=== PATIENT | female | born 1955 | race Caucasian/White ===

== ENCOUNTER 2022-05-02 16:34 | Inpatient (IN) | payer MEDICARE, MEDICAID, SELFPAY ==
--- NOTE | ~2022-05-02 | CT_ITS ---
EXAMINATION: CT ABDOMEN AND PELVIS WITH CONTRAST CLINICAL INFORMATION: Abdominal pain and diarrhea COMPARISON: CT abdomen pelvis 10/10/2018 TECHNIQUE: Multidetector volumetric images were obtained from the superior aspect of the liver through the pubic symphysis following administration 85 mL of Omnipaque 350 intravenous contrast. Sagittal and coronal reformatted images were obtained on the technologist's workstation. Oral contrast: No This CT examination was performed using dose optimization techniques as appropriate, variously including the following: *Automated exposure control *Adjustment of mA and/or kV according to patient size (this includes techniques or standardized protocols for targeted exams where dose is matched to indication/reason for exam; i.e. extremities or head) *Use of iterative reconstruction technique DLP: 634 mGy-cm FINDINGS: LUNG BASES: The visualized lung bases are unremarkable. LIVER, GALLBLADDER, AND BILIARY TREE: The liver is normal in size, shape, and attenuation with the exception of a geographic area of hypoattenuation adjacent to the falciform ligament similar to 2019 suggesting focal fatty infiltration.. No worrisome focal hepatic lesion or biliary ductal dilatation is present. The gallbladder has been removed. PANCREAS: Unremarkable. SPLEEN: Unremarkable. ADRENAL GLANDS: Unremarkable. KIDNEYS AND URETERS: The kidneys are normal in size, shape, and attenuation. Few small right Bosniak class I renal cysts are present which need no further imaging or follow-up. No hydronephrosis, hydroureter, or calculi seen. No perinephric stranding. BLADDER: Unremarkable. GASTROINTESTINAL TRACT: The entire colon appears abnormally thickened with some mild inflammatory changes seen in the pericolonic fat. Diverticula are present predominantly in the sigmoid. Findings are suggestive of colitis. No evidence of diverticulitis. The small bowel is unremarkable. The appendix is unremarkable. ABDOMINAL WALL: No significant hernia is appreciated. LYMPH NODES: No retroperitoneal lymphadenopathy. VASCULAR: Calcific aorta iliofemoral plaque is present without aneurysm. PELVIC VISCERA: An anteverted uterus is present. An abnormal adnexal mass or free intraperitoneal fluid is not seen. OSSEOUS STRUCTURES: Severe degenerative changes present throughout the spine. No bony destructive lesions CT/CT abdomen pelvis w con IMPRESSION: 1. Diffuse colitis. Cause would include infectious, inflammatory and drug-related etiologies. 2. Sigmoid diverticulosis 3. Other incidental findings described above. Fleischner guidelines were followed.
--- NOTE | 2022-05-02 16:45 | ECG_ITS ---
Test Reason : VOMITING Blood Pressure : / mmHG Vent. Rate : 113 BPM Atrial Rate : 117 BPM P-R Int : 148 ms QRS Dur : 080 ms QT Int : 334 ms P-R-T Axes : 064 068 050 degrees QTc Int : 458 ms Normal sinus rhythm Premature ventricular complexes Nonspecific ST abnormality Abnormal ECG When compared with ECG of 14-OCT-2019 13:58, Premature ventricular complexes noted Referred By: Generic ED Physician Electronically Signed By:CHRIS NUÑEZ
[2022-05-02 16:46] VITALS: BP 115/66; PULSE 99; RESP 18; TEMP 36.8; O2SAT 100; BMI 30.9
[2022-05-02 17:01] LABS: Basophils Percent Auto 0.2 % (0-2); Eosinophils Percent Auto 0.3 % (0-4); Hematocrit 38.5 % (37.0-47.0); Hemoglobin 12.2 g/dl (12.0-16.0); Imm Gran Abs Auto 0.07 X10*3/uL (0.00-0.03); Imm Gran Pct Auto 0.5 % (0.0-0.4); Lymphocytes Absolute Auto 1.6 X10*3/uL (1.2-4.9); Lymphocytes Percent Auto 12.1 % (20-40); MANUAL DIFF FLAG NO; Mean Corpuscular HGB Conc 31.7 g/dl (31.0-35.0); Mean Corpuscular Hemoglobin 26.2 pg (27.0-33.0); Mean Corpuscular Volume 82.8 fL (80.0-98.0); Mean Platelet Volume 8.8 fL (9.4-12.3); Monocytes Percent Auto 7.7 % (2-11); Neutrophils Absolute Auto 10.7 x10*3/uL (2.0-8.3); Neutrophils Percent Auto 79.2 % (45-73); Platelet Count 619 X10*3/uL (160-400); Red Blood Count 4.65 X10*6/uL (4.20-5.50); Red Cell Distribution Width 17.2 % (11.0-16.0); White Blood Count 13.4 X10*3/uL (4.8-10.8)
[2022-05-02 17:23] LABS: Alanine Aminotransferase 12 U/L (0-31); Albumin Level 2.9 g/dL (3.5-5.0); Alkaline Phosphatase 122 U/L (39-117); Aspartate Amino Transferase 10 U/L (5-31); B Type Natriuretic Peptide 126 pg/mL (<100); Bilirubin Total 0.3 mg/dL (0.0-1.0); Blood Urea Nitrogen 11 mg/dL (9-16); Calcium 8.2 mg/dL (8.4-10.2); Creatinine Clr Calc Pharmacy 66.6; Estimated Glomerular Filt Rate > 60; Glucose Random 172 mg/dL (60-115); Total Protein 6.1 g/dL (6.5-8.0); Troponin-I High Sensitivity 7.9 ng/L (<3.5-17.0)
[2022-05-02 17:25] LABS: COVID-19 Test Negative (Negative); IDNOW Serial# 16C4AD1C
[2022-05-02 17:33] LABS: Anion Gap 17 (12-20); Carbon Dioxide 28 mmol/L (22-29); Chloride 94 mmol/L (96-108); Potassium 2.6 mmol/L (3.3-5.1); Sodium 136 mmol/L (135-145)
--- NOTE | 2022-05-02 19:58 | ED.GENADULT ---
HPI - General Adult General Chief complaint: Weakness Stated complaint: Diarrhea Vomiting Weakness Time Seen by Provider: 05/02/22 19:54 Source: patient and family (Daughter) Mode of arrival: ambulatory History of Present Illness HPI narrative: This is a 67-year-old female who presents everyday smoking, ?borderline diabetes? and states that for 3 months she has been having 7-8 diarrheal episodes without blood and then increasing weakness/back pain for 24 hours an isolated episode of nausea and vomiting since yesterday. Otherwise, she denies any fever, chills, shortness of breath, chest pain/palpitations, urinary symptoms. Patient does endorse that she has the CDH1 gene for stomach cancer. Related Data Allergies Allergy/AdvReac Type Severity Reaction Status Date / Time No Known Allergies Allergy Unverified 06/12/20 15:16 [No Known Allergies*] Review of Systems Review of Systems: Pertinent positives and negatives as stated in HPI 10 point review of systems is otherwise negative. [facility] Past Medical History Source: nursing notes reviewed Social History Social History Alcohol intake: former Patient Tobacco Use Status: Current everyday Tobacco user Use of substances other than those prescribed or required for medical reasons: No Advance Directives: No Advance Directives Information Provided: No Physical Exam ED Vital Signs: Vital Signs - 24 hr 05/02/22 16:46 05/02/22 20:27 Temperature 98.3 F 97.6 F Pulse Rate 99 89 Respiratory Rate 18 16 Blood Pressure 115/66 157/75 H Pulse Oximetry 100 98 Oxygen Delivery Method Room Air Room Air BMI result Body Mass Index 30.9 VITAL SIGNS: Reviewed. GENERAL: Chronically ill, in moderate distress. HEAD: Normocephalic/atraumatic EYES: PERRLA, EOMI EARS: Ext canals without abnormality NOSE: Nares patent bilateral OROPHARYNX: no oral lesions noted, posterior pharynx clear, dry mucosa NECK: Supple, no adenopathy LUNGS: Normal breath sounds. No adventitious sounds or accessory muscle use. SpO2<100> CARDIOVASCULAR: Regular rate and rhythm without noted murmurs ABDOMEN: Soft, diffusely tender, non-distended with bowel sounds. MUSCULOSKELETAL: No tenderness, deformities, or effusions noted on gross inspection. EXTREMITIES: No cyanosis, clubbing or edema. SKIN: Inspection of the skin reveals no rashes NEUROLOGIC: Alert and oriented x 4. Strength and sensation to light touch were grossly intact x 4. Course Course Course Narrative: 1952: 67-year-old female with history and clinical presentation suggestive of possible COVID, gastroenteritis and will rule out colitis. 2054: I suspect infection and lactic acid/blood cultures as well as antibiotics were provided. In addition, patient has received IV fluids as well as potassium repletion but is still having significant discomfort and on review of CT scan findings are consistent with colitis and currently testing the diarrhea as well as urinalysis are pending. I discussed the case with the inpatient hospitalist who accepts admission. Medical Decision Making Lab Data Result diagrams: 05/02/22 16:55 05/02/22 16:54 Labs: Lab Results 05/02/22 05/02/22 05/02/22 Range/Units 16:51 16:54 16:54 WBC (4.8-10.8) X10*3/uL RBC (4.20-5.50) X10*6/uL Hgb (12.0-16.0) g/dl Hct (37.0-47.0) % MCV (80.0-98.0) fL MCH (27.0-33.0) pg MCHC (31.0-35.0) g/dl RDW (11.0-16.0) % Plt Count (160-400) X10*3/uL MPV (9.4-12.3) fL Immature Gran % (Auto) (0.0-0.4) % Neut % (Auto) (45-73) % Lymph % (Auto) (20-40) % [place] % (Auto) (2-11) % Eos % (Auto) (0-4) % Baso % (Auto) (0-2) % Lymph # (Auto) (1.2-4.9) X10*3/uL [place] # (Auto) (0.1-1.2) X10*3/uL Eos # (Auto) (0.0-0.4) X10*3/uL Baso # (Auto) (0.0-0.2) X10*3/uL Abs Immat Gran (auto) (0.00-0.03) X10*3/uL Absolute Neuts (auto) (2.0-8.3) x10*3/uL Absolute Nucleated RBC (0.0-0.012) X10*3/uL Nucleated RBC % (auto) (0.0-0.2) /100WBC Sodium 136 (135-145) mmol/L Potassium 2.6 L (3.3-5.1) mmol/L Chloride 94 L (96-108) mmol/L Carbon Dioxide 28 (22-29) mmol/L Anion Gap 17 (12-20) BUN 11 (9-16) mg/dL Creatinine 0.87 (0.5-1.4) mg/dL Estim Creat Clear Calc 66.6 Estimated GFR > 60 Random Glucose 172 H (60-115) mg/dL Lactic Acid (0.5-2.0) mmol/L Calcium 8.2 L (8.4-10.2) mg/dL Magnesium 2.0 (1.6-2.6) mg/dL Total Bilirubin 0.3 (0.0-1.0) mg/dL AST 10 (5-31) U/L ALT 12 (0-31) U/L Alkaline Phosphatase 122 H (39-117) U/L Troponin I High Sens 7.9 (<3.5-17.0) ng/L B-Natriuretic Peptide 126 H (<100) pg/mL Total Protein 6.1 L (6.5-8.0) g/dL Albumin 2.9 L (3.5-5.0) g/dL Lipase 10 (8-78) U/L COVID-19 (AC) Negative (Negative) COVID-19 Clin Com See Note 05/02/22 05/02/22 Range/Units 16:55 20:25 WBC 13.4 H (4.8-10.8) X10*3/uL RBC 4.65 (4.20-5.50) X10*6/uL Hgb 12.2 (12.0-16.0) g/dl Hct 38.5 (37.0-47.0) % MCV 82.8 (80.0-98.0) fL MCH 26.2 L (27.0-33.0) pg MCHC 31.7 (31.0-35.0) g/dl RDW 17.2 H (11.0-16.0) % Plt Count 619 H (160-400) X10*3/uL MPV 8.8 L (9.4-12.3) fL Immature Gran % (Auto) 0.5 H (0.0-0.4) % Neut % (Auto) 79.2 H (45-73) % Lymph % (Auto) 12.1 L (20-40) % [place] % (Auto) 7.7 (2-11) % Eos % (Auto) 0.3 (0-4) % Baso % (Auto) 0.2 (0-2) % Lymph # (Auto) 1.6 (1.2-4.9) X10*3/uL [place] # (Auto) 1.0 (0.1-1.2) X10*3/uL Eos # (Auto) 0.0 (0.0-0.4) X10*3/uL Baso # (Auto) 0.0 (0.0-0.2) X10*3/uL Abs Immat Gran (auto) 0.07 H (0.00-0.03) X10*3/uL Absolute Neuts (auto) 10.7 H (2.0-8.3) x10*3/uL Absolute Nucleated RBC 0.000 (0.0-0.012) X10*3/uL Nucleated RBC % (auto) 0.0 (0.0-0.2) /100WBC Sodium (135-145) mmol/L Potassium (3.3-5.1) mmol/L Chloride (96-108) mmol/L Carbon Dioxide (22-29) mmol/L Anion Gap (12-20) BUN (9-16) mg/dL Creatinine (0.5-1.4) mg/dL Estim Creat Clear Calc Estimated GFR Random Glucose (60-115) mg/dL Lactic Acid 1.9 (0.5-2.0) mmol/L Calcium (8.4-10.2) mg/dL Magnesium (1.6-2.6) mg/dL Total Bilirubin (0.0-1.0) mg/dL AST (5-31) U/L ALT (0-31) U/L Alkaline Phosphatase (39-117) U/L Troponin I High Sens (<3.5-17.0) ng/L B-Natriuretic Peptide (<100) pg/mL Total Protein (6.5-8.0) g/dL Albumin (3.5-5.0) g/dL Lipase (8-78) U/L COVID-19 (AC) (Negative) COVID-19 Clin Com Critical Care Time Critical Care Time Critical Care Time: Yes Total Critical Care Time: 30 Attestation: I personally attest to this time spent taking care of the patient. Discharge Plan Discharge Clinical Impression: Dehydration, Sepsis, Colitis, Hypokalemia Patient Disposition: Admitted As Inpatient
[2022-05-02 20:27] VITALS: BP 157/75; PULSE 89; RESP 16; TEMP 36.4; O2SAT 98
[2022-05-02 20:36] LABS: Lipase 10 U/L (8-78)
[2022-05-02] MEDS: 0.9 % Sodium Chloride 1,000 ML 999 ML IV (20:37)
[2022-05-02] MEDS: Ketorolac Tromethamine 30 MG/ML VIAL 15 MG IVPUSH (20:37)
[2022-05-02] MEDS: Lidocaine 4 % Patch ADH..PATCH 1 PATCH TRANSDERMA (20:37)
[2022-05-02] MEDS: Potassium Chloride/H20 10 MEQ/100 ML PIGGYBACK 100 MEQ IV (20:38)
[2022-05-02 20:51] LABS: Lactic Acid 1.9 mmol/L (0.5-2.0)
[2022-05-02] MEDS: HYDROmorphone HCl 0.5 MG/0.5 ML SYRINGE 0.25 MG IVPUSH (22:50)
[2022-05-02] MEDS: Piperacillin Sodium/Tazobactam 3.375 GM in 0.9 % Sodium Chloride 50 ML IV (22:50)
[2022-05-02] MEDS: iohexoL 350 MG/ML 100 ML INFUS..BTL IV (23:41)
[2022-05-02] MEDS: ondansetron HCL 4 MG/2 ML VIAL IVPUSH (23:52)
[2022-05-03] MEDS: Potassium Chloride/H20 10 MEQ/100 ML PIGGYBACK 100 MEQ IV (01:08)
--- NOTE | 2022-05-03 01:16 | P.HPHOSP_ITS ---
History of Present Illness Date of Service: 05/03/22 Chief Complaint: Diarrhea 67-year-old female with a past medical history of hypertension, hyperlipidemia, hypothyroidism, anxiety, depression, GERD, opiate dependence presented to the hospital today with a chief complaint of nausea, diarrhea and abdominal pain. Patient reports that over the past 6 days she has been having abdominal pain; diffuse in nature; had multiple episodes of diarrhea. Mentions that she has been having diarrhea for the past 2 months but worsened for the past 6 days. Also has nausea. Denies any vomiting. Denies any chest pain or palpitations. Denies any blood in the stool. Denies any fever chills cough or sputum production. Denies any urinary symptoms. Review of all other systems is negative except mentioned above ER course: Per ER team patient noted to have mild abdominal tenderness; CT scan showed findings concerning for colitis. Also noted to have hypokalemia. Admitted to the hospital for further management. PMFSH Pertinent family history: Father: Diabetes Social History Alcohol intake: former Patient Tobacco Use Status: Current everyday Tobacco user Use of substances other than those prescribed or required for medical reasons: No Advance Directives: No Advance Directives Information Provided: No Meds Allergies Allergy/AdvReac Type Severity Reaction Status Date / Time No Known Allergies Allergy Unverified 06/12/20 15:16 [No Known Allergies*] Active Medications: Current Medications Potassium Chloride (Potassium Chloride Packet 20 Meq Packet) 40 meq PO ONCE ONE Stop: 05/03/22 01:13 Potassium Chloride (Potassium Chloride Packet 20 Meq Packet) 40 meq PO ONCE ONE Stop: 05/03/22 03:14 Home Medications Medication Instructions Recorded Confirmed Last Taken Type atorvastatin 80 mg tablet 1 tab PO DAILY 05/03/22 05/03/22 Unknown History buprenorphine 8 mg-naloxone 2 mg 1 strip sublingual DAILY 05/03/22 05/03/22 Unknown History sublingual film (Suboxone) cyclobenzaprine 10 mg tablet 1 tab PO TID PRN muscle spasm 05/03/22 05/03/22 Un known History famotidine 20 mg tablet 0.5 tab PO BID 05/03/22 05/03/22 Unknown History levothyroxine 200 mcg tablet 1 tab PO DAILY 05/03/22 05/03/22 Unknown History metoprolol succinate 25 mg 1 tab PO DAILY 05/03/22 05/03/22 Unknown History tablet,extended release 24 hr quetiapine 25 mg tablet 1 tab PO QPM 05/03/22 05/03/22 Unknown History sertraline 50 mg tablet 1 tab PO DAILY 05/03/22 05/03/22 Unknown History Physical Exam Vital Signs and Narrative: Vital Signs: Last Vital Signs Temp 97.6 F 05/02/22 20:27 Pulse 89 05/02/22 20:27 Resp 16 05/02/22 20:27 BP 157/75 H 05/02/22 20:27 Pulse Ox 98 05/02/22 20:27 O2 Del Method 05/02/22 20:27 BMI result Body Mass Index 30.9 Gen: Appears be in no acute distress HEENT: NCAT, Moist mucosa. Pulmonary: Vesicular breath sounds, fair air entry CVS: Normal S1-S2 Abdomen: BS+, Soft, mildly tender diffusely Extremities: Warm well perfused Neuro: Alert and awake. Results Labs CBC and Chem 7: 05/02/22 16:55 05/02/22 16:54 Labs: Laboratory Results - last 24 hr 05/02/22 05/02/22 05/02/22 16:51 16:54 16:54 MCV MCH MCHC RDW Plt Count MPV Immature Gran % (Auto) Neut % (Auto) Lymph % (Auto) [place] % (Auto) Eos % (Auto) Baso % (Auto) Lymph # (Auto) [place] # (Auto) Eos # (Auto) Baso # (Auto) Abs Immat Gran (auto) Absolute Neuts (auto) Absolute Nucleated RBC Nucleated RBC % (auto) Anion Gap 17 Estim Creat Clear Calc 66.6 Estimated GFR > 60 Random Glucose 172 H Lactic Acid Calcium 8.2 L Magnesium 2.0 Total Bilirubin 0.3 AST 10 ALT 12 Alkaline Phosphatase 122 H B-Natriuretic Peptide 126 H Total Protein 6.1 L Albumin 2.9 L Lipase 10 COVID-19 (AC) Negative COVID-19 Clin Com See Note 05/02/22 05/02/22 16:55 20:25 MCV 82.8 MCH 26.2 L MCHC 31.7 RDW 17.2 H Plt Count 619 H MPV 8.8 L Immature Gran % (Auto) 0.5 H Neut % (Auto) 79.2 H Lymph % (Auto) 12.1 L [place] % (Auto) 7.7 Eos % (Auto) 0.3 Baso % (Auto) 0.2 Lymph # (Auto) 1.6 [place] # (Auto) 1.0 Eos # (Auto) 0.0 Baso # (Auto) 0.0 Abs Immat Gran (auto) 0.07 H Absolute Neuts (auto) 10.7 H Absolute Nucleated RBC 0.000 Nucleated RBC % (auto) 0.0 Anion Gap Estim Creat Clear Calc Estimated GFR Random Glucose Lactic Acid 1.9 Calcium Magnesium Total Bilirubin AST ALT Alkaline Phosphatase B-Natriuretic Peptide Total Protein Albumin Lipase COVID-19 (AC) COVID-19 Clin Com Imaging Radiologist's Impressions: Impressions Abdomen/Pelvis CT 05/02/22 23:45 IMPRESSION: 1. Diffuse colitis. Cause would include infectious, inflammatory and drug-related etiologies. 2. Sigmoid diverticulosis 3. Other incidental findings described above. Fleischner guidelines were followed. Assessment and Plan (1) Colitis: Status: Acute Plan 67-year-old female with a past medical history of hypertension, hyperlipidemia, hypothyroidism, anxiety, depression, GERD, opiate dependence presented to the hospital today with a chief complaint of nausea, diarrhea and abdominal pain. Noted to have colitis on the CT scan. Admitted for further management. Colitis: Continue ceftriaxone and Flagyl NPO IV fluids Zofran p.r.n. Pain control Hypokalemia: Repleted. Will repeat BMP. History of hypertension/hyperlipidemia: Continue home medications History of hypothyroidism: Continue levothyroxine History of opiate dependence: Patient on Suboxone. Addiction Medicine consult. DVT prophylaxis: [facility] Code status: Full code Quality Stroke Does the patient have a stroke diagnosis?: No VTE Prior VTE?: No VTE Risk Level:: Medical - moderate - high VTE Device Contraindication: Treatment Not Indicated VTE Drug Contraindication: N/A - Med Ordered
[2022-05-03] MEDS: Potassium Chloride Packet 20 MEQ PACKET 40 MEQ PO (01:52)
[2022-05-03] MEDS: metroNIDAZOLE/NS 500 MG/100 ML PIGGYBACK 100 MG IV ×3 (01:54→23:54)
[2022-05-03] MEDS: Potassium Chloride ER 20 MEQ TAB.ER.PRT 40 MEQ PO (02:26)
[2022-05-03] MEDS: ondansetron HCL 4 MG/2 ML VIAL IVPUSH ×3 (02:26→20:40)
--- NOTE | 2022-05-03 04:26 | PC.NURSE ---
Patient has chronic low back pain MD notified and is aware. Patient medicated x 2 for nausea. tele: afib controlled Will continue with plan of care.
[2022-05-03] MEDS: HYDROmorphone HCl 0.5 MG/0.5 ML SYRINGE IVPUSH (04:43)
[2022-05-03 04:51] LABS: MANUAL DIFF FLAG NO
[2022-05-03 04:54] LABS: Basophils Percent Auto 0.2 % (0-2); Eosinophils Absolute Auto 0.1 X10*3/uL (0.0-0.4); Eosinophils Percent Auto 0.3 % (0-4); Hematocrit 37.3 % (37.0-47.0); Hemoglobin 11.8 g/dl (12.0-16.0); Imm Gran Abs Auto 0.15 X10*3/uL (0.00-0.03); Imm Gran Pct Auto 0.8 % (0.0-0.4); Lymphocytes Absolute Auto 1.3 X10*3/uL (1.2-4.9); Lymphocytes Percent Auto 6.7 % (20-40); Mean Corpuscular HGB Conc 31.6 g/dl (31.0-35.0); Mean Corpuscular Hemoglobin 26.7 pg (27.0-33.0); Mean Corpuscular Volume 84.4 fL (80.0-98.0); Mean Platelet Volume 9.1 fL (9.4-12.3); Monocytes Absolute Auto 1.2 X10*3/uL (0.1-1.2); Monocytes Percent Auto 6.1 % (2-11); Neutrophils Absolute Auto 16.9 x10*3/uL (2.0-8.3); Neutrophils Percent Auto 85.9 % (45-73); Platelet Count 579 X10*3/uL (160-400); Red Blood Count 4.42 X10*6/uL (4.20-5.50); Red Cell Distribution Width 17.2 % (11.0-16.0); White Blood Count 19.6 X10*3/uL (4.8-10.8)
[2022-05-03 05:16] LABS: Anion Gap 19 (12-20); Blood Urea Nitrogen 13 mg/dL (9-16); Calcium 7.8 mg/dL (8.4-10.2); Carbon Dioxide 25 mmol/L (22-29); Chloride 97 mmol/L (96-108); Estimated Glomerular Filt Rate > 60; Glucose Random 165 mg/dL (60-115); Potassium 3.7 mmol/L (3.3-5.1); Sodium 137 mmol/L (135-145)
[2022-05-03 06:00] VITALS: BP 137/66; PULSE 110; O2SAT 96
--- NOTE | 2022-05-03 07:15 | PHA.MEDREC ---
Pharmacy Consult ? Medication Reconciliation Pharmacy has completed the medication reconciliation. Reviewed med rec done by nursing
[2022-05-03 07:23] VITALS: BP 142/86; PULSE 87; RESP 14; TEMP 36.5; O2SAT 96
[2022-05-03] MEDS: Heparin Sodium,Porcine 5,000 UNIT/ML VIAL 5000 UNIT SUBCUT ×3 (08:02→23:55)
[2022-05-03] MEDS: Metoprolol Succinate ER 25 MG TAB.ER.24H PO (08:03)
[2022-05-03] MEDS: Famotidine 20 MG TABLET 10 MG PO ×2 (08:03→21:51)
[2022-05-03] MEDS: Atorvastatin Calcium 80 MG TABLET PO (08:03)
[2022-05-03] MEDS: Sertraline HCL 50 MG TABLET PO (08:03)
[2022-05-03] MEDS: cefTRIAXone sodium 1 GM in 0.9 % Sodium Chloride 50 ML IV (08:04)
[2022-05-03] MEDS: Levothyroxine Sodium 200 MCG TABLET PO (08:14)
[2022-05-03] MEDS: 0.9 % Sodium Chloride Flush 3 ML SYRINGE IVFLUSH (08:17)
[2022-05-03 08:35] LABS: Appearance Urine CLEAR; Color Urine YELLOW; Glucose Urine UA NEG (NEG); Leukocyte Esterase Urine NEG (NEG); Nitrite Urine NEG (NEG); PH 6.5 (5.0-8.0); UACC Culture Trigger NO; Urine Blood NEG (NEG); Urine Ketones NEG (NEG); Urine Protein 1+ MG/DL (NEG-TRACE)
--- NOTE | 2022-05-03 08:41 | PC.NURSE ---
Pt alert and oriented x4. Respirations even, unlabored. Ambulated to bathroom with steady gait multiple times. Complains of pain in lower back, refused medications for pain. Aware of need for stool sample.
[2022-05-03 08:52] LABS: Squamous Epithelial Cell Urine 3+ /LPF
[2022-05-03 08:53] LABS: Estimated Average Glucose 151 mg/dL; Hemoglobin A1c % 6.9 %
[2022-05-03 08:53] LABS: RBC Urine 0-2 /HPF (0); WBC Urine 0-2 /HPF (0-4)
[2022-05-03 08:54] LABS: C Reactive Protein 11.34 mg/dL (< or = 0.50)
[2022-05-03] MEDS: Morphine Sulfate 2 MG/ML CARTRIDGE IVPUSH ×3 (10:24→23:54)
--- NOTE | 2022-05-03 11:07 | PM.EVENT ---
Event Note Date of Service: 05/03/22 Event Note: Day hospitalist update S: Pt notes diarrhea for past 3 months, worse in last 6-7 days with 7-8 episodes/day, sometimes with melena, question of steatorrhea Unquantified weight loss Poor oral intake, does not want to eat due to nausea O: Last Vital Signs Temp 97.7 F 05/03/22 07:23 Pulse 87 05/03/22 07:23 Resp 14 05/03/22 07:23 BP 142/86 H 05/03/22 07:23 Pulse Ox 96 05/03/22 07:23 O2 Del Method 05/03/22 07:23 BMI result Body Mass Index 30.9 Gen: in no acute distress HEENT: sclera anicteric, moist mucus membranes Neck: supple Lungs: clear to auscultation bilaterally Heart: regular rate and rhythm, no murmurs Abd: soft, non-tender, non-distended Ext: no edema Skin: warm/well-perfused Neuro: alert and oriented x3, no focal findings Psych: appropriate affect A/P: 67yo F with HTN, HLD, hypothyroidism, anxiety, depression, GERD, chronic back pain presenting with nausea, diarrhea, and abdominal pain for past 3 months, admitted for colitis # colitis # chronic diarrhea - ceftriaxone + metronidazole d#2 - GI consult - stool pathogen PCR panel + WBCs + Cdiff pending, along with FOBT, fecal fat, and celiac serologies - maintenance IV fluids # hypoK - respleted # HTN - continue metoprolol # HLD - continue statin # hypothyroidism - continue LT4 # mood disorder - quetiapine + sertraline # chronic back pain - no longer on Suboxone - cyclobenzaprine # VTE ppx: UFH
[2022-05-03] MEDS: Dextrose 5 % and 0.45 % NaCl 1,000 ML 100 ML IVCONT (11:08)
[2022-05-03 11:11] LABS: CDiff Gene PCR NEGATIVE (Negative)
[2022-05-03 11:14] LABS: OBS Int Ctl Valid YES; OBS1 POSITIVE (NEGATIVE)
[2022-05-03 12:04] LABS: Leukocytes Stool Qualitative MANY: >10/OIF (NEGATIVE)
[2022-05-03 13:50] LABS: Campylobacter Not Detected (Not Detect.); Plesiomonas shigelloides Not Detected (Not Detect.); Salmonella Not Detected (Not Detect.)
[2022-05-03 13:51] LABS: Adenovirus F 40/41 Not Detected (Not Detect.); Astrovirus Not Detected (Not Detect.); Cryptosporidium Not Detected (Not Detect.); Cyclospora cayetanensis Not Detected (Not Detect.); E. coli EAEC Not Detected (Not Detect.); E. coli EPEC Not Detected (Not Detect.); E. coli ETEC Not Detected (Not Detect.); E. coli STEC Not Detected (Not Detect.); Entamoeba histolytica Not Detected (Not Detect.); Giardia lamblia Not Detected (Not Detect.); Norovirus GI/GII Not Detected (Not Detect.); Rotavirus A Not Detected (Not Detect.); Sapovirus Not Detected (Not Detect.); Shigella sp./EIEC Not Detected (Not Detect.); Vibrio Not Detected (Not Detect.); Vibrio Cholerae Not Detected (Not Detect.); Yersinia enterocolitica Not Detected (Not Detect.)
--- NOTE | 2022-05-03 14:21 | MHC.SHP ---
Pre-Procedural Eval Section A Date of Service: 05/03/22 The patient is an INPATIENT: Yes Changes since office visit: No Cold of Flu in the past 2 weeks, No New Medical Problems, No Changes in Medication and No Patient answered all questions The History & Physical has been completed within 30 days and I have reviewed it.: Yes Section B Chief Complaint: Colitis Allergies: Allergies Allergy/AdvReac Type Severity Reaction Status Date / Time No Known Allergies Allergy Unverified 06/12/20 15:16 [No Known Allergies*] Plan I have reviewed the history and physical and performed a pertinent physical examination on my patient. No changes have occurred unless specified.
--- NOTE | 2022-05-03 14:21 | PM.EVENT ---
Event Note Date of Service: 05/03/22 Event Note: GI consult dictated EGD and colonoscopy 05/04 for further evaluation.
[2022-05-03] MEDS: Ketorolac Tromethamine 15 MG/ML VIAL IM (15:10)
[2022-05-03 16:19] VITALS: BP 120/67; PULSE 93; RESP 16; O2SAT 98
[2022-05-03] MEDS: PEG 3350/Na Sulf,Bicarb,Cl/KCL 4,000 ML SOLN.RECON 4000 ML PO (17:28)
--- NOTE | 2022-05-03 17:29 | PC.NURSE ---
Bowel prep start at this time. Commode in room, patient aware of plan tomorrow for EGD and colonoscopy.
--- NOTE | 2022-05-03 18:42 | PC.NURSE ---
Pt unable to tollerate Golytely bowel prep. informed. Order changed to mirilax prep. Verbal order taken and discussed with pharmacy.
[2022-05-03] MEDS: polyethylene glycoL 3350 17 GM POWD.PACK 238 GM PO (20:41)
--- NOTE | 2022-05-03 21:30 | MHC.CM.PN ---
IMM 05/03. CM met with admitted patient with bed assignment pending. A&Ox4. Lives alone. Independent. No DME/services. Vax/boosted x1 Pfizer. PCP Dr. Lei Zuleta. HCP on file. HCP/Sister in [place] ([phone]). D/C plan: Home without services. Pt to arrange transportation home. CM to follow for d/c needs.
[2022-05-03] MEDS: Cyclobenzaprine HCl 10 MG TABLET PO (21:51)
[2022-05-03] MEDS: QUEtiapine Fumarate 25 MG TABLET PO (21:51)
[2022-05-03 23:41] VITALS: BP 113/53; PULSE 97; RESP 16; TEMP 36.4; O2SAT 97
[2022-05-04] VITALS (7 sets, daily range): BP systolic 93–137; BP diastolic 55–84; PULSE 82–96; RESP 16–17; TEMP 36–36.6; O2SAT 95–100
--- NOTE | 2022-05-04 01:48 | PC.NURSE ---
I assumed nursing care of Cris at 1900. Since that time Cris has been alert and oriented x 3, alternating from resting in bed to sitting up on the edge of the bed. She is calm and cooperative, makes eye contact with staff and can adequately make her needs known. She abulates slowly but safely with steady gait independently. Cris has periodically complained of moderate, diffuse abdominal aching/pain for which she has been given Morphine per PRN orders. She admits to some pain relief after Morphine. She also complains of severe lower back pain that she describes as chronic in nature, secondary to previous spinal surgeries. Prior, she took Oxycodone for this pain. Currently she takes only OTC medications for this pain. Cirs is aware that she is to be taking PO prep for colonoscopy. Initially she was unable to take the GoLytely that was given to her. When i assumed care pharmacy was in the process of making a new prep for her - miralax mixed in Propel drink. The pt took 3-4 cups of this between the hours of 9pm and midnight and stated she didn't think she would be able to take much mroe of it but that she would continue to trying. She was administered IVP Zofran for this. She has been sent to inpatient bed assignment and the remainder of the Propel was sent with her. There is no resp. distress. No chest pain. mild nausea, no vomiting during my time with her. Skin is pale, warm and dry. She takes PO fluids without difficulty. Will contiinue to jose a Lynch
[2022-05-04] MEDS: Ketorolac Tromethamine 15 MG/ML VIAL IM (02:07)
[2022-05-04] MEDS: Dextrose 5 % and 0.45 % NaCl 1,000 ML 100 ML IVCONT ×3 (02:14→20:01)
--- NOTE | 2022-05-04 02:33 | PC.NURSE ---
Patient to floor with colitis from ED approx 0145. Sinus tach on monitor with three beat VTACH at 0225. Hospitalist notified via [employer].
--- NOTE | 2022-05-04 02:52 | CONS_ITS ---
DATE OF SERVICE: 05/03/2022 REFERRING PHYSICIAN: Nelson Roegrs MD REASON FOR CONSULTATION: Colitis. HISTORY OF PRESENT ILLNESS: The patient is a pleasant 67-year-old woman, who was admitted to the hospital after presenting to the emergency room with complaints of bloody diarrhea. She reports for the last 3 months she has had loose stools, which have occasionally been black and more recently been associated with bright red blood per rectum. There has been generalized abdominal pain and weakness as well as back pain. She has also had significant anorexia. She was evaluated in the emergency department with laboratory work and radiologic studies, which are reviewed. She did have an elevation of her white count on admission at 13.4 with a hematocrit of 38.5. Chemistries showed an elevated blood glucose level. Imaging of the abdomen and pelvis with CT scanning is reviewed. This is interpreted as showing diffuse colitis. The patient denies prior history of colitis. She did have a colonoscopy and endoscopy in October 2008, the endoscopy was unremarkable with changes of reflux on biopsy. She did have a tubular adenoma removed from her colon and she was also noted to have a patchy marked active chronic colitis on removal of several polyps. She was not treated for this. 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 PAST MEDICAL HISTORY: 1. Hypertension. 2. Hyperlipidemia. 3. Anxiety/depression. 4. Hypothyroidism. 5. Gastroesophageal reflux disease. 6. Opiate dependence. 7. Colon polyps. 8. Elevated blood sugar. CURRENT MEDICATIONS: Her current medication list is reviewed in the chart. ALLERGIES: THERE ARE NONE REPORTED. FAMILY HISTORY: Positive for stomach cancer. SOCIAL HISTORY: There is tobacco use. She denies significant alcohol intake. REVIEW OF SYSTEMS: SKIN: No pruritus. HEENT: Negative. CARDIOPULMONARY: She denies shortness of breath or chest pain. GASTROINTESTINAL: As above. GENITOURINARY: Negative. NEUROPSYCHIATRIC: Negative. PHYSICAL EXAMINATION: GENERAL: Shows a pleasant female, in no acute distress. VITAL SIGNS: Reviewed in electronic medical record and are stable. SKIN: Anicteric. HEENT: Shows no scleral icterus. NECK: Without lymphadenopathy or thyromegaly. LUNGS: Clear. HEART: Shows a regular rate and rhythm. S1, S2. No murmur. ABDOMEN: Soft without focal masses or tenderness. Bowel sounds are present. No organomegaly is noted. EXTREMITIES: Without edema. LABORATORY DATA: Reviewed. IMPRESSION: Colitis with history of gastrointestinal bleeding. At this time, she appears stable with no signs of active gastrointestinal bleeding. Stool specimens are being obtained because of her colitis. I agree with following up on these results. She should undergo colonoscopy for further evaluation and to help plan treatment. She should have upper endoscopy as well because of her history of black stools and a positive CDH1 gene. I have discussed risks and benefits of endoscopy and colonoscopy with her. She understands these and agrees to proceed. MD KIKA Pompa/YARELI / [phone]
[2022-05-04 03:22] LABS: Anion Gap 15 (12-20); Blood Urea Nitrogen 12 mg/dL (9-16); Calcium 7.8 mg/dL (8.4-10.2); Carbon Dioxide 26 mmol/L (22-29); Chloride 98 mmol/L (96-108); Creatinine Clr Calc Pharmacy 67.4; Estimated Glomerular Filt Rate > 60; Glucose Random 119 mg/dL (60-115); Magnesium 1.8 mg/dL (1.6-2.6); Potassium 2.8 mmol/L (3.3-5.1); Sodium 136 mmol/L (135-145)
[2022-05-04] MEDS: ondansetron HCL 4 MG/2 ML VIAL IVPUSH ×2 (04:06→14:34)
[2022-05-04] MEDS: Magnesium Sulfate/H2O 2 GM/50 ML PIGGYBACK IV (04:34)
--- NOTE | 2022-05-04 05:43 | PC.NURSE ---
Patient was transferred from ED approx 0145. Bowel prep in propel water with patient label accompanied patient from ED upon transfer and was approx 3/4 full. Patient refusing to drink any. Undocumented by ED nurse in NOV.
[2022-05-04] MEDS: Heparin Sodium,Porcine 5,000 UNIT/ML VIAL 5000 UNIT SUBCUT ×3 (06:29→22:39)
[2022-05-04] MEDS: metroNIDAZOLE/NS 500 MG/100 ML PIGGYBACK 100 MG IV ×3 (06:32→22:40)
[2022-05-04] MEDS: 0.9 % Sodium Chloride Flush 3 ML SYRINGE IVFLUSH ×3 (06:34→23:52)
[2022-05-04 06:56] LABS: Hematocrit 29.7 % (37.0-47.0); Mean Corpuscular HGB Conc 31.3 g/dl (31.0-35.0); Mean Corpuscular Hemoglobin 26.9 pg (27.0-33.0); Mean Corpuscular Volume 85.8 fL (80.0-98.0); Mean Platelet Volume 9.2 fL (9.4-12.3); Platelet Count 406 X10*3/uL (160-400); Red Blood Count 3.46 X10*6/uL (4.20-5.50); Red Cell Distribution Width 17.1 % (11.0-16.0); White Blood Count 8.1 X10*3/uL (4.8-10.8)
[2022-05-04 07:05] LABS: Hemoglobin 9.3 g/dl (12.0-16.0)
[2022-05-04 07:29] LABS: Anion Gap 14 (12-20); Blood Urea Nitrogen 11 mg/dL (9-16); Calcium 7.4 mg/dL (8.4-10.2); Carbon Dioxide 25 mmol/L (22-29); Chloride 99 mmol/L (96-108); Creatinine Clr Calc Pharmacy 70.6; Estimated Glomerular Filt Rate > 60; Glucose Random 132 mg/dL (60-115); Magnesium 2.6 mg/dL (1.6-2.6); Potassium 2.8 mmol/L (3.3-5.1); Sodium 135 mmol/L (135-145)
[2022-05-04] MEDS: Metoprolol Succinate ER 25 MG TAB.ER.24H PO (08:32)
[2022-05-04] MEDS: Potassium Chloride ER 20 MEQ TAB.ER.PRT 40 MEQ PO ×3 (08:32→20:18)
[2022-05-04] MEDS: Sertraline HCL 50 MG TABLET PO (08:32)
[2022-05-04] MEDS: Atorvastatin Calcium 80 MG TABLET PO (08:33)
[2022-05-04] MEDS: Famotidine 20 MG TABLET 10 MG PO ×2 (08:33→20:20)
[2022-05-04] MEDS: Morphine Sulfate 2 MG/ML CARTRIDGE IVPUSH ×3 (08:33→20:21)
[2022-05-04] MEDS: cefTRIAXone sodium 1 GM in 0.9 % Sodium Chloride 50 ML IV (09:06)
--- NOTE | 2022-05-04 13:06 | P.PNIM_ITS ---
Subjective Subjective Date of Service: 05/04/22 Interval History: Some abd discomfort, 1 episode vomiting, no further melena NPO for EGD/C-scope today Review of Systems Review of Systems: Yes all other systems are reviewed and are negative Physical Exam Vital Signs: Vital Signs: Last Vital Signs Temp 97.1 F 05/04/22 11:38 Pulse 82 05/04/22 11:38 Resp 17 05/04/22 11:38 BP 103/63 05/04/22 11:38 Pulse Ox 98 05/04/22 11:38 O2 Del Method 05/04/22 11:38 BMI result Body Mass Index 30.9 Gen: in no acute distress HEENT: sclera anicteric, moist mucus membranes Neck: supple Lungs: clear to auscultation bilaterally Heart: regular rate and rhythm, no murmurs Abd: soft, non-tender, non-distended Ext: no edema Skin: warm/well-perfused Neuro: alert and oriented x3, no focal findings Psych: appropriate affect Objective Data Active Medications Acetaminophen (Acetaminophen 325 Mg Tablet) 650 mg PO Q6H PRN PRN Reason: Pain, Mild (Pain Scale 1-3) Atorvastatin Calcium (Atorvastatin Calcium 80 Mg Tablet) 80 mg PO DAILY [facility] Last Admin: 05/04/22 08:33 Dose: 80 mg Documented By: DELON Cyclobenzaprine HCl (Cyclobenzaprine Hcl 10 Mg Tablet) 10 mg PO TID PRN PRN Reason: muscle spasm Last Admin: 05/03/22 21:51 Dose: 10 mg Documented By: SHANE Famotidine (Famotidine 20 Mg Tablet) 10 mg PO BID [facility] Last Admin: 05/04/22 08:33 Dose: 10 mg Documented By: DELON Heparin Sodium (Porcine) (Heparin Sodium,Porcine 5,000 Unit/Ml Vial) 5,000 unit SUBCUT Q8H [facility] Last Admin: 05/04/22 06:29 Dose: 5,000 unit Documented By: PRICILA Ceftriaxone Sodium 1 gm/ (Sodium Chloride) 50 mls @ 100 mls/hr IV DAILY [facility] Last Infusion: 05/04/22 09:40 Dose: 0 mls/hr Documented By: DELON Metronidazole (Flagyl) 500 mg in 100 mls @ 100 mls/hr IV Q8H [facility] Last Infusion: 05/04/22 08:25 Dose: 0 mls/hr Documented By: DELON Dextrose/Sodium Chloride (D51/2ns) 1,000 mls @ 100 mls/hr IVCONT .Q10H [facility] Last Admin: 05/04/22 06:43 Dose: Not Given Documented By: PRICILA Non-Admin Reason: IV Running Ketorolac Tromethamine (Ketorolac Tromethamine 15 Mg/Ml Vial) 15 mg IM Q6H PRN PRN Reason: back pain Last Admin: 05/04/22 02:07 Dose: 15 mg Documented By: KATERINE Levothyroxine Sodium (Levothyroxine Sodium 200 Mcg Tablet) 200 mcg PO DAILY@0630 [facility] Last Admin: 05/04/22 06:40 Dose: Not Given Documented By: PRICILA Non-Admin Reason: Med Not Available Melatonin (Melatonin 3 Mg Tablet) 6 mg PO BEDTIME PRN PRN Reason: Insomnia Metoprolol Succinate (Metoprolol Succinate Er 25 Mg Tab.Er.24h) 25 mg PO DAILY [facility]; Protocol Last Admin: 05/04/22 08:32 Dose: 25 mg Documented By: DELON Morphine Sulfate (Morphine Sulfate 2 Mg/Ml Cartridge) 2 mg IVPUSH Q4H PRN; Protocol PRN Reason: severe pain Last Admin: 05/04/22 08:33 Dose: 2 mg Documented By: DLEON Ondansetron HCl (Ondansetron Hcl 4 Mg/2 Ml Vial) 4 mg IVPUSH Q8H PRN PRN Reason: Nausea and Vomiting Last Admin: 05/04/22 04:06 Dose: 4 mg Documented By: PRICILA Quetiapine Fumarate (Quetiapine Fumarate 25 Mg Tablet) 25 mg PO BEDTIME [facility] Last Admin: 05/03/22 21:51 Dose: 25 mg Documented By: SHANE Senna (Sennosides 8.6 Mg Tablet) 17.2 mg PO BEDTIME PRN PRN Reason: Constipation Sertraline HCl (Sertraline Hcl 50 Mg Tablet) 50 mg PO DAILY [facility] Last Admin: 05/04/22 08:32 Dose: 50 mg Documented By: DELON Sodium Chloride (0.9 % Sodium Chloride Flush 3 Ml Syringe) 3 ml IVFLUSH QSHIFT [facility] Last Admin: 05/04/22 06:34 Dose: 3 ml Documented By: PRICILA Labs CBC & Chem 7: 05/04/22 06:18 05/04/22 06:18 Labs: Laboratory Results - last 24 hr 05/03/22 05/04/22 05/04/22 10:03 02:50 06:18 MCV 85.8 MCH 26.9 L MCHC 31.3 RDW 17.1 H Plt Count 406 H D MPV 9.2 L Absolute Nucleated RBC 0.000 Nucleated RBC % (auto) 0.0 Anion Gap 15 Estim Creat Clear Calc 67.4 Estimated GFR > 60 Random Glucose 119 H Calcium 7.8 L Magnesium 1.8 Stl C. cayetanensis PCR Not Detected Stool Rotavirus A PCR Not Detected Stl Adenov F 40/41 PCR Not Detected Stool Astrovirus (PCR) Not Detected Stool Campylobacter PCR Not Detected Stool Cryptosporidium PCR Not Detected Stl Sh Tox Pr E STEC PCR Not Detected Stool E coli O157 PCR Not applicable Stl Enterotoxigenic E PCR Not Detected Stool EPEC (PCR) Not Detected Stool EAEC (PCR) Not Detected Stl E. histolytica PCR Not Detected Stool Giardia Lamblia PCR Not Detected Stl P. shigelloides PCR Not Detected Stool Salmonella PCR Not Detected Stool Sapovirus (PCR) Not Detected Stl Shigella/EIEC PCR Not Detected St Y.enterocolitica PCR Not Detected Stool Vibrio (PCR) Not Detected Stl Vibrio cholerae PCR Not Detected Stl Norovirus GI/GII PCR Not Detected 05/04/22 06:18 MCV MCH MCHC RDW Plt Count MPV Absolute Nucleated RBC Nucleated RBC % (auto) Anion Gap 14 Estim Creat Clear Calc 70.6 Estimated GFR > 60 Random Glucose 132 H Calcium 7.4 L Magnesium 2.6 Stl C. cayetanensis PCR Stool Rotavirus A PCR Stl Adenov F 40/41 PCR Stool Astrovirus (PCR) Stool Campylobacter PCR Stool Cryptosporidium PCR Stl Sh Tox Pr E STEC PCR Stool E coli O157 PCR Stl Enterotoxigenic E PCR Stool EPEC (PCR) Stool EAEC (PCR) Stl E. histolytica PCR Stool Giardia Lamblia PCR Stl P. shigelloides PCR Stool Salmonella PCR Stool Sapovirus (PCR) Stl Shigella/EIEC PCR St Y.enterocolitica PCR Stool Vibrio (PCR) Stl Vibrio cholerae PCR Stl Norovirus GI/GII PCR Microbiology Microbiology Results: Microbiology 05/02/22 20:55 Blood Culture - Preliminary Blood - Venous No growth after 24 hours. 05/02/22 20:25 Blood Culture - Preliminary Blood - Venous No growth after 24 hours. Assessment and Plan (1) Colitis: Status: Acute [facility] hospital d#2 67yo F with HTN, HLD, hypothyroidism, anxiety, depression, GERD, chronic back pain presenting with nausea, diarrhea, and abdominal pain for past 3 months PMHx significant for CDH1 gene positivity and multiple family members who have had stomach CA admitted for colitis + melena # colitis # chronic diarrhea # FOBT+ stool # anemia due to GI blood loss - ceftriaxone + metronidazole d#2 - GI consulted, EGD + C-scope pending - leukocytosis resolved - stool pathogen PCR panel + Cdiff negative, WBCs positive, fecal fat + celiac serologies pending - maintenance IV fluids # hypoK - replete IV+PO; pt refuses IV, will give extra PO dose; recheck in AM # HTN - continue metoprolol # HLD - continue statin # hypothyroidism - continue LT4 # mood disorder - quetiapine + sertraline # chronic back pain - no longer on Suboxone - cyclobenzaprine # VTE ppx: UFH In my clinical judgment, the patient requires continued hospitalization for the following reasons: IV ABX Quality Stroke Does the patient have a stroke diagnosis?: No VTE Prior VTE?: No VTE Risk Level:: Medical - moderate - high VTE Device Contraindication: Treatment Not Indicated VTE Drug Contraindication: N/A - Med Ordered
[2022-05-04 13:19] LABS: Base Excess Bedside Calculated 4 mmol/L (-3-3); Glucose, i-STAT 139 mg/dL (60-115); HCO3 Bedside Calculated 29 mmol/L (22-26); Hematocrit Bedside 29 %PCV (37-47); Hemoglobin Bedside 9.9 g/dL (12.0-16.0); Potassium Bedside 2.8 mmol/L (3.3-5.1); Sodium Bedside 134 mmol/L (135-145); TCO2 Bedside 30 mmol/L (24-29); pCO2 Bedside 48 mmhg (35-48); pH Bedside 7.39 (7.35-7.45)
--- NOTE | 2022-05-04 13:24 | PC.NURSE ---
PATIENT AWARE OF PLAN OF CARE. CANCELLED DUE TO HER POTASSIUM AT 2.8 WITH ISTAT WITH MD SPARKS. MD LOPEZ BY BEDSIDE SPEAKING TO PATIENT REGARDING HER PLAN OF CARE. SPOKE TO HER NURSE REGARDING HER NV HISTORY AND PLAN OF CARE.
--- NOTE | 2022-05-04 13:33 | P.CDIC_ITS ---
CDI Concurrent Query Documentation Clarification: PHYSICIAN'S DOCUMENTATION REQUEST Date of Query: 05/04/22 1339 Patient Name: Cris Coppola Admit Date: 05/03/22 Dear Doctor, A review of the medical record indicates additional documentation may be needed. Please review below and update the documentation accordingly. Clinical Indicators: Risk Factors/Clinical Indicators/Treatments H/H on 05/03: 11.8/37.3 H/H on 05/04:? ?9.3/29.7 Per MD progress note 05/04/22: anemia due to GI blood loss for EGD and colonoscopy on 05/04/22 Based on the above, could you clarify in the Progress Notes which of the following is the most likely type of anemia you are evaluating, treating, and/or monitoring? * Acute blood loss anemia * Other ? please specify * Unable to determine Use of terms such as suspected, likely, concern for, or probable (associated with a specific diagnosis that is being evaluated, monitored, or treated as if it exists) are acceptable and can be coded in the inpatient setting, when documented at the time of discharge. Thank you, Jillian Niño RN Extension: [phone] Please use your independent medical judgment in providing your response. THIS QUERY IS PART OF THE PERMANENT MEDICAL RECORD Provider Response: Other Other Diagnosis: acute blood loss anemia
--- NOTE | 2022-05-04 13:42 | PM.EVENT ---
Event Note Date of Service: 05/04/22 Event Note: GI Procedure rescheduled for 05/05 due to hypokalemia and incomplete prep.
[2022-05-04] MEDS: polyethylene glycoL 3350 17 GM POWD.PACK PO (14:32)
[2022-05-04] MEDS: polyethylene glycoL 3350 17 GM POWD.PACK 238 GM PO (14:47)
[2022-05-04] MEDS: QUEtiapine Fumarate 25 MG TABLET PO (20:19)
[2022-05-05] VITALS (8 sets, daily range): BP systolic 97–156; BP diastolic 55–91; PULSE 70–93; RESP 14–20; TEMP 35.6–36.6; O2SAT 94–100
--- NOTE | 2022-05-05 01:00 | PC.NURSE ---
Upon shift assessment (see charting), pt refused to drink her prep (in the Propel bottles). Pt had approximately 100mls in one bottle left and didn't even open the second bottle. Pt told the previous nurse that she would only drink the one bottle but didn't even finish that one. I educated patient on importance of drinking complete prep in order for them to proceed with the colonoscopy and for best visual during procedure. Pt declined. Later, pt had a green liquid BM that was mixed in with urine in BSC. I again stressed the importance stating if she wasn't pooping clear (like water) liquid then she probably wasn't cleaned out. Pt again refused stating she was aware of the results. Pt is NPO for procedure. Will continue to monitor.
[2022-05-05] MEDS: metroNIDAZOLE/NS 500 MG/100 ML PIGGYBACK 100 MG IV (05:45)
[2022-05-05] MEDS: Heparin Sodium,Porcine 5,000 UNIT/ML VIAL 5000 UNIT SUBCUT (05:45)
[2022-05-05] MEDS: Levothyroxine Sodium 200 MCG TABLET PO (05:45)
[2022-05-05] MEDS: Dextrose 5 % and 0.45 % NaCl 1,000 ML 100 ML IVCONT (05:52)
[2022-05-05 06:14] LABS: Hematocrit 31.7 % (37.0-47.0); Hemoglobin 9.8 g/dl (12.0-16.0); Mean Corpuscular HGB Conc 30.9 g/dl (31.0-35.0); Mean Corpuscular Hemoglobin 26.7 pg (27.0-33.0); Mean Corpuscular Volume 86.4 fL (80.0-98.0); Mean Platelet Volume 8.9 fL (9.4-12.3); Platelet Count 422 X10*3/uL (160-400); Red Blood Count 3.67 X10*6/uL (4.20-5.50); Red Cell Distribution Width 16.9 % (11.0-16.0); White Blood Count 5.7 X10*3/uL (4.8-10.8)
[2022-05-05 06:24] LABS: pO2 Bedside < 50 mmhg (83-108)
[2022-05-05 06:57] LABS: Anion Gap 12 (12-20); Blood Urea Nitrogen 8 mg/dL (9-16); Calcium 7.5 mg/dL (8.4-10.2); Carbon Dioxide 25 mmol/L (22-29); Chloride 102 mmol/L (96-108); Creatinine Clr Calc Pharmacy 68.2; Estimated Glomerular Filt Rate > 60; Glucose Random 140 mg/dL (60-115); Potassium 3.8 mmol/L (3.3-5.1); Sodium 135 mmol/L (135-145)
[2022-05-05] MEDS: Morphine Sulfate 2 MG/ML CARTRIDGE IVPUSH ×3 (08:33→20:26)
[2022-05-05] MEDS: Famotidine 20 MG TABLET 10 MG PO (08:34)
[2022-05-05] MEDS: Sertraline HCL 50 MG TABLET PO (08:34)
[2022-05-05] MEDS: Atorvastatin Calcium 80 MG TABLET PO (08:34)
[2022-05-05] MEDS: Metoprolol Succinate ER 25 MG TAB.ER.24H PO (08:34)
[2022-05-05] MEDS: 0.9 % Sodium Chloride Flush 3 ML SYRINGE IVFLUSH ×3 (08:36→20:14)
[2022-05-05] MEDS: cefTRIAXone sodium 1 GM in 0.9 % Sodium Chloride 50 ML IV (08:36)
--- NOTE | 2022-05-05 10:48 | P.PNIM_ITS ---
Subjective Subjective Date of Service: 05/05/22 Interval History: Has some abdominal discomfort No melena NPO for EGD/C-scope today Review of Systems Review of Systems: Yes all other systems are reviewed and are negative Physical Exam Vital Signs: Vital Signs: Last Vital Signs Temp 97.8 F 05/05/22 07:45 Pulse 83 05/05/22 07:45 Resp 20 05/05/22 07:45 BP 136/63 05/05/22 07:45 Pulse Ox 97 05/05/22 07:45 O2 Del Method 05/05/22 07:45 BMI result Body Mass Index 30.9 Gen: in no acute distress HEENT: sclera anicteric, moist mucus membranes Neck: supple Lungs: clear to auscultation bilaterally Heart: regular rate and rhythm, no murmurs Abd: soft, non-tender, non-distended Ext: no edema Skin: warm/well-perfused Neuro: alert and oriented x3, no focal findings Psych: appropriate affect Objective Data Active Medications Acetaminophen (Acetaminophen 325 Mg Tablet) 650 mg PO Q6H PRN PRN Reason: Pain, Mild (Pain Scale 1-3) Atorvastatin Calcium (Atorvastatin Calcium 80 Mg Tablet) 80 mg PO DAILY [facility] Last Admin: 05/05/22 08:34 Dose: 80 mg Documented By: DELON Cyclobenzaprine HCl (Cyclobenzaprine Hcl 10 Mg Tablet) 10 mg PO TID PRN PRN Reason: muscle spasm Last Admin: 05/03/22 21:51 Dose: 10 mg Documented By: SHANE Famotidine (Famotidine 20 Mg Tablet) 10 mg PO BID [facility] Last Admin: 05/05/22 08:34 Dose: 10 mg Documented By: DELON Heparin Sodium (Porcine) (Heparin Sodium,Porcine 5,000 Unit/Ml Vial) 5,000 unit SUBCUT Q8H [facility] Last Admin: 05/05/22 05:45 Dose: 5,000 unit Documented By: JAN Ceftriaxone Sodium 1 gm/ (Sodium Chloride) 50 mls @ 100 mls/hr IV DAILY [facility] Last Infusion: 05/05/22 09:57 Dose: 0 mls/hr Documented By: DELON Metronidazole (Flagyl) 500 mg in 100 mls @ 100 mls/hr IV Q8H [facility] Last Infusion: 05/05/22 06:49 Dose: 0 mls/hr Documented By: JAN Dextrose/Sodium Chloride (D51/2ns) 1,000 mls @ 100 mls/hr IVCONT .Q10H [facility] Last Admin: 05/05/22 05:52 Dose: 100 mls/hr Documented By: JAN Ketorolac Tromethamine (Ketorolac Tromethamine 15 Mg/Ml Vial) 15 mg IM Q6H PRN PRN Reason: back pain Last Admin: 05/04/22 02:07 Dose: 15 mg Documented By: KATERINE Levothyroxine Sodium (Levothyroxine Sodium 200 Mcg Tablet) 200 mcg PO DAILY@0630 [facility] Last Admin: 05/05/22 05:45 Dose: 200 mcg Documented By: JAN Melatonin (Melatonin 3 Mg Tablet) 6 mg PO BEDTIME PRN PRN Reason: Insomnia Metoprolol Succinate (Metoprolol Succinate Er 25 Mg Tab.Er.24h) 25 mg PO DAILY [facility]; Protocol Last Admin: 05/05/22 08:34 Dose: 25 mg Documented By: DELON Morphine Sulfate (Morphine Sulfate 2 Mg/Ml Cartridge) 2 mg IVPUSH Q4H PRN; Protocol PRN Reason: severe pain Last Admin: 05/05/22 08:33 Dose: 2 mg Documented By: DELON Ondansetron HCl (Ondansetron Hcl 4 Mg/2 Ml Vial) 4 mg IVPUSH Q8H PRN PRN Reason: Nausea and Vomiting Last Admin: 05/04/22 04:06 Dose: 4 mg Documented By: PRICILA Quetiapine Fumarate (Quetiapine Fumarate 25 Mg Tablet) 25 mg PO BEDTIME [facility] Last Admin: 05/04/22 20:19 Dose: 25 mg Documented By: JAN Senna (Sennosides 8.6 Mg Tablet) 17.2 mg PO BEDTIME PRN PRN Reason: Constipation Sertraline HCl (Sertraline Hcl 50 Mg Tablet) 50 mg PO DAILY [facility] Last Admin: 05/05/22 08:34 Dose: 50 mg Documented By: DELON Sodium Chloride (0.9 % Sodium Chloride Flush 3 Ml Syringe) 3 ml IVFLUSH QSHIFT [facility] Last Admin: 05/05/22 08:36 Dose: 3 ml Documented By: DELON Labs CBC & Chem 7: 05/05/22 05:58 05/05/22 05:58 Labs: Laboratory Results - last 24 hr 05/04/22 05/05/22 05/05/22 13:14 05:58 05:58 POC Hgb (Calc) 9.9 L POC Hct 29 L MCV 86.4 MCH 26.7 L MCHC 30.9 L RDW 16.9 H Plt Count 422 H MPV 8.9 L Absolute Nucleated RBC 0.000 Nucleated RBC % (auto) 0.0 POC Std Base Excess 4 H POC O2 Sat (Calc) TNP POC ABG pO2 < 50 L* POC ABG Total CO2 30 H POC Capillary pH 7.39 POC Capillary pCO2 48 POC Cap HCO3 (Calc) 29 H POC Sodium 134 L POC Potassium 2.8 L Anion Gap 12 Estim Creat Clear Calc 68.2 Estimated GFR > 60 POC Glucose 139 H Random Glucose 140 H Calcium 7.5 L Microbiology Microbiology Results: Microbiology 05/02/22 20:55 Blood Culture - Preliminary Blood - Venous No growth after 48 hours. 05/02/22 20:25 Blood Culture - Preliminary Blood - Venous No growth after 48 hours. 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 admitted for colitis + melena # colitis # chronic diarrhea # FOBT+ stool # acute anemia due to GI blood loss - ceftriaxone + metronidazole d#3 - GI consulted, EGD + C-scope today - leukocytosis resolved - stool pathogen PCR panel + Cdiff negative, WBCs positive, fecal fat + celiac serologies pending - maintenance IV fluids # hypoK - repleted # HTN - continue metoprolol # HLD - continue statin # hypothyroidism - continue LT4 # mood disorder - quetiapine + sertraline # chronic back pain - no longer on Suboxone - cyclobenzaprine # VTE ppx: UFH In my clinical judgment, the patient requires continued hospitalization for the following reasons: IV ABX, endoscopic evaluation Quality Stroke Does the patient have a stroke diagnosis?: No VTE Prior VTE?: No VTE Risk Level:: Medical - moderate - high VTE Device Contraindication: Treatment Not Indicated VTE Drug Contraindication: N/A - Med Ordered
--- NOTE | 2022-05-05 12:27 | HO.ANESPROP2 ---
HPI - Anesthesia Eval Consult details Narrative: 67yo female patient for EGD, Colonoscopy. Postponed from yesterday secondary to low potassium of 2.8 and probably inadequate prep (only managed to take a portion of the prep) PMF Active Problems Active Problems: All Active Problems (Updated 05/04/22 @ 13:03 by Taina Headley RN) Dehydration (Acute) Sepsis (Acute) Colitis (Acute) Hypokalemia (Acute) Denies recent chest pain Past Medical History Medical History Borderline diabetic Depression Heart attack Insomnia Family History Family history of problems with anesthesia: No Surgical History Surgical History H/O eye surgery H/O thyroidectomy History of tonsillectomy Hx of cholecystectomy History of Problems with Anesthesia: No Social History Social History Household Members: None Housing: House Do you presently have visiting nurse or other home services: No Alcohol intake: former Patient Tobacco Use Status: Current everyday Tobacco user Tobacco use type: Cigarette Cigarette Packs Per Day: 1 Cigarettes Per Day: 20.0 Years Smoked: 54 service: No Current occupational status: employed Meds Allergies Allergy/AdvReac Type Severity Reaction Status Date / Time No Known Allergies Allergy Verified 05/04/22 13:02 [No Known Allergies*] Active Medications: Current Medications Acetaminophen (Acetaminophen 325 Mg Tablet) 650 mg PO Q6H PRN PRN Reason: Pain, Mild (Pain Scale 1-3) Atorvastatin Calcium (Atorvastatin Calcium 80 Mg Tablet) 80 mg PO DAILY [facility] Last Admin: 05/05/22 08:34 Dose: 80 mg Cyclobenzaprine HCl (Cyclobenzaprine Hcl 10 Mg Tablet) 10 mg PO TID PRN PRN Reason: muscle spasm Last Admin: 05/03/22 21:51 Dose: 10 mg Famotidine (Famotidine 20 Mg Tablet) 10 mg PO BID [facility] Last Admin: 05/05/22 08:34 Dose: 10 mg Heparin Sodium (Porcine) (Heparin Sodium,Porcine 5,000 Unit/Ml Vial) 5,000 unit SUBCUT Q8H [facility] Last Admin: 05/05/22 05:45 Dose: 5,000 unit Ceftriaxone Sodium 1 gm/ (Sodium Chloride) 50 mls @ 100 mls/hr IV DAILY [facility] Last Infusion: 05/05/22 09:57 Dose: Infused Metronidazole (Flagyl) 500 mg in 100 mls @ 100 mls/hr IV Q8H [facility] Last Infusion: 05/05/22 06:49 Dose: Infused Dextrose/Sodium Chloride (D51/2ns) 1,000 mls @ 100 mls/hr IVCONT .Q10H [facility] Last Admin: 05/05/22 05:52 Dose: 100 mls/hr Lactated Ringer's (Lr) 1,000 mls @ 100 mls/hr IVCONT .Q10H [facility] Ketorolac Tromethamine (Ketorolac Tromethamine 15 Mg/Ml Vial) 15 mg IM Q6H PRN PRN Reason: back pain Last Admin: 05/04/22 02:07 Dose: 15 mg Levothyroxine Sodium (Levothyroxine Sodium 200 Mcg Tablet) 200 mcg PO DAILY@0630 [facility] Last Admin: 05/05/22 05:45 Dose: 200 mcg Melatonin (Melatonin 3 Mg Tablet) 6 mg PO BEDTIME PRN PRN Reason: Insomnia Metoprolol Succinate (Metoprolol Succinate Er 25 Mg Tab.Er.24h) 25 mg PO DAILY [facility]; Protocol Last Admin: 05/05/22 08:34 Dose: 25 mg Morphine Sulfate (Morphine Sulfate 2 Mg/Ml Cartridge) 2 mg IVPUSH Q4H PRN; Protocol PRN Reason: severe pain Last Admin: 05/05/22 08:33 Dose: 2 mg Ondansetron HCl (Ondansetron Hcl 4 Mg/2 Ml Vial) 4 mg IVPUSH Q8H PRN PRN Reason: Nausea and Vomiting Last Admin: 05/04/22 04:06 Dose: 4 mg Quetiapine Fumarate (Quetiapine Fumarate 25 Mg Tablet) 25 mg PO BEDTIME [facility] Last Admin: 05/04/22 20:19 Dose: 25 mg Senna (Sennosides 8.6 Mg Tablet) 17.2 mg PO BEDTIME PRN PRN Reason: Constipation Sertraline HCl (Sertraline Hcl 50 Mg Tablet) 50 mg PO DAILY [facility] Last Admin: 05/05/22 08:34 Dose: 50 mg Sodium Chloride (0.9 % Sodium Chloride Flush 3 Ml Syringe) 3 ml IVFLUSH QSHIFT [facility] Last Admin: 05/05/22 08:36 Dose: 3 ml Home Medications Medication Instructions Recorded Confirmed Last Taken Type atorvastatin 80 mg tablet 1 tab PO DAILY 05/03/22 05/04/22 1 Week Ago History ~04/27/22 buprenorphine 8 mg-naloxone 2 mg 1 strip sublingual DAILY 05/03/22 05/04/22 1 Month Ago History sublingual film (Suboxone) ~04/03/22 cyclobenzaprine 10 mg tablet 1 tab PO TID PRN muscle spasm 05/03/22 05/04/22 1 Week Ago History ~04/27/22 famotidine 20 mg tablet 0.5 tab PO BID 05/03/22 05/04/22 1 Week Ago History ~04/27/22 levothyroxine 200 mcg tablet 1 tab PO DAILY 05/03/22 05/04/22 1 Week Ago History ~04/27/22 metoprolol succinate 25 mg 1 tab PO DAILY 05/03/22 05/04/22 1 Week Ago History tablet,extended release 24 hr ~04/27/22 quetiapine 25 mg tablet 1 tab PO BEDTIME 05/03/22 05/04/22 1 Week Ago History ~04/27/22 sertraline 50 mg tablet 1 tab PO DAILY 05/03/22 05/04/22 1 Week Ago History ~04/27/22 Exam Exam Date and Time: May 05, 2022 1227 Height,Weight and Vital Signs: Height 5 ft 4 in Weight 81.647 kg Last Vital Signs Temp 97.6 F 05/05/22 11:44 Pulse 70 05/05/22 11:44 Resp 18 05/05/22 11:44 BP 97/56 L 05/05/22 11:44 Pulse Ox 96 05/05/22 11:44 O2 Del Method 05/05/22 11:44 Pertinent Lab Results Pertinent Lab Results: Laboratory Tests 05/02/22 05/02/22 05/02/22 16:51 16:54 16:54 WBC RBC Hgb POC Hgb (Calc) Hct POC Hct MCV MCH MCHC RDW Plt Count MPV Immature Gran % (Auto) Neut % (Auto) Lymph % (Auto) [place] % (Auto) Eos % (Auto) Baso % (Auto) Lymph # (Auto) [place] # (Auto) Eos # (Auto) Baso # (Auto) Abs Immat Gran (auto) Absolute Neuts (auto) Absolute Nucleated RBC Nucleated RBC % (auto) POC Std Base Excess POC O2 Sat (Calc) POC ABG pO2 POC ABG Total CO2 POC Capillary pH POC Capillary pCO2 POC Cap HCO3 (Calc) POC Sodium Sodium 136 POC Potassium Potassium 2.6 L Chloride 94 L Carbon Dioxide 28 Anion Gap 17 BUN 11 Creatinine 0.87 Estim Creat Clear Calc 66.6 Estimated GFR > 60 POC Glucose Random Glucose 172 H Estimat Average Glucose Hemoglobin A1c % Lactic Acid Calcium 8.2 L Magnesium 2.0 Total Bilirubin 0.3 AST 10 ALT 12 Alkaline Phosphatase 122 H Troponin I High Sens 7.9 C-Reactive Protein B-Natriuretic Peptide 126 H Total Protein 6.1 L Albumin 2.9 L Lipase 10 Urine Color Urine Appearance Urine pH Ur Specific [place] Urine Protein Urine Glucose (UA) Urine Ketones Urine Blood Urine Nitrite Ur Leukocyte Esterase Urine RBC Urine WBC Ur Squamous Epith Cells Urine Bacteria Stool Occult Blood Stool Leukocytes, Qual Stl C. cayetanensis PCR Stool Rotavirus A PCR Stl Adenov F 40/41 PCR Stool Astrovirus (PCR) Stool Campylobacter PCR Stool Cryptosporidium PCR Stl Sh Tox Pr E STEC PCR Stool E coli O157 PCR Stl Enterotoxigenic E PCR Stool EPEC (PCR) Stool EAEC (PCR) Stl E. histolytica PCR Stool Giardia Lamblia PCR Stl P. shigelloides PCR Stool Salmonella PCR Stool Sapovirus (PCR) Stl Shigella/EIEC PCR St Y.enterocolitica PCR Stool Vibrio (PCR) Stl Vibrio cholerae PCR Stl Norovirus GI/GII PCR C. difficile Tox B Gene COVID-19 (AC) Negative COVID-19 Clin Com See Note 05/02/22 05/02/22 05/03/22 16:55 20:25 04:12 WBC 13.4 H 19.6 H RBC 4.65 4.42 Hgb 12.2 11.8 L POC Hgb (Calc) Hct 38.5 37.3 POC Hct MCV 82.8 84.4 MCH 26.2 L 26.7 L MCHC 31.7 31.6 RDW 17.2 H 17.2 H Plt Count 619 H 579 H MPV 8.8 L 9.1 L Immature Gran % (Auto) 0.5 H 0.8 H Neut % (Auto) 79.2 H 85.9 H Lymph % (Auto) 12.1 L 6.7 L [place] % (Auto) 7.7 6.1 Eos % (Auto) 0.3 0.3 Baso % (Auto) 0.2 0.2 Lymph # (Auto) 1.6 1.3 [place] # (Auto) 1.0 1.2 Eos # (Auto) 0.0 0.1 Baso # (Auto) 0.0 0.0 Abs Immat Gran (auto) 0.07 H 0.15 H Absolute Neuts (auto) 10.7 H 16.9 H Absolute Nucleated RBC 0.000 0.000 Nucleated RBC % (auto) 0.0 0.0 POC Std Base Excess POC O2 Sat (Calc) POC ABG pO2 POC ABG Total CO2 POC Capillary pH POC Capillary pCO2 POC Cap HCO3 (Calc) POC Sodium Sodium POC Potassium Potassium Chloride Carbon Dioxide Anion Gap BUN Creatinine Estim Creat Clear Calc Estimated GFR POC Glucose Random Glucose Estimat Average Glucose Hemoglobin A1c % Lactic Acid 1.9 Calcium Magnesium Total Bilirubin AST ALT Alkaline Phosphatase Troponin I High Sens C-Reactive Protein B-Natriuretic Peptide Total Protein Albumin Lipase Urine Color Urine Appearance Urine pH Ur Specific [place] Urine Protein Urine Glucose (UA) Urine Ketones Urine Blood Urine Nitrite Ur Leukocyte Esterase Urine RBC Urine WBC Ur Squamous Epith Cells Urine Bacteria Stool Occult Blood Stool Leukocytes, Qual Stl C. cayetanensis PCR Stool Rotavirus A PCR Stl Adenov F 40/41 PCR Stool Astrovirus (PCR) Stool Campylobacter PCR Stool Cryptosporidium PCR Stl Sh Tox Pr E STEC PCR Stool E coli O157 PCR Stl Enterotoxigenic E PCR Stool EPEC (PCR) Stool EAEC (PCR) Stl E. histolytica PCR Stool Giardia Lamblia PCR Stl P. shigelloides PCR Stool Salmonella PCR Stool Sapovirus (PCR) Stl Shigella/EIEC PCR St Y.enterocolitica PCR Stool Vibrio (PCR) Stl Vibrio cholerae PCR Stl Norovirus GI/GII PCR C. difficile Tox B Gene COVID-19 (AC) COVID-19 Clin Com 05/03/22 05/03/22 05/03/22 04:12 04:12 08:28 WBC RBC Hgb POC Hgb (Calc) Hct POC Hct MCV MCH MCHC RDW Plt Count MPV Immature Gran % (Auto) Neut % (Auto) Lymph % (Auto) [place] % (Auto) Eos % (Auto) Baso % (Auto) Lymph # (Auto) [place] # (Auto) Eos # (Auto) Baso # (Auto) Abs Immat Gran (auto) Absolute Neuts (auto) Absolute Nucleated RBC Nucleated RBC % (auto) POC Std Base Excess POC O2 Sat (Calc) POC ABG pO2 POC ABG Total CO2 POC Capillary pH POC Capillary pCO2 POC Cap HCO3 (Calc) POC Sodium Sodium 137 POC Potassium Potassium 3.7 D Chloride 97 Carbon Dioxide 25 Anion Gap 19 BUN 13 Creatinine 0.92 Estim Creat Clear Calc 63.0 Estimated GFR > 60 POC Glucose Random Glucose 165 H Estimat Average Glucose 151 Hemoglobin A1c % 6.9 Lactic Acid Calcium 7.8 L Magnesium Total Bilirubin AST ALT Alkaline Phosphatase Troponin I High Sens C-Reactive Protein 11.34 H B-Natriuretic Peptide Total Protein Albumin Lipase Urine Color YELLOW Urine Appearance CLEAR Urine pH 6.5 Ur Specific [place] 1.010 Urine Protein 1+ H Urine Glucose (UA) NEG Urine Ketones NEG Urine Blood NEG Urine Nitrite NEG Ur Leukocyte Esterase NEG Urine RBC 0-2 Urine WBC 0-2 Ur Squamous Epith Cells 3+ Urine Bacteria NONE Stool Occult Blood Stool Leukocytes, Qual Stl C. cayetanensis PCR Stool Rotavirus A PCR Stl Adenov F 40/41 PCR Stool Astrovirus (PCR) Stool Campylobacter PCR Stool Cryptosporidium PCR Stl Sh Tox Pr E STEC PCR Stool E coli O157 PCR Stl Enterotoxigenic E PCR Stool EPEC (PCR) Stool EAEC (PCR) Stl E. histolytica PCR Stool Giardia Lamblia PCR Stl P. shigelloides PCR Stool Salmonella PCR Stool Sapovirus (PCR) Stl Shigella/EIEC PCR St Y.enterocolitica PCR Stool Vibrio (PCR) Stl Vibrio cholerae PCR Stl Norovirus GI/GII PCR C. difficile Tox B Gene COVID-19 (AC) COVID-19 Clin Com 05/03/22 05/03/22 05/03/22 10:03 10:03 10:08 WBC RBC Hgb POC Hgb (Calc) Hct POC Hct MCV MCH MCHC RDW Plt Count MPV Immature Gran % (Auto) Neut % (Auto) Lymph % (Auto) [place] % (Auto) Eos % (Auto) Baso % (Auto) Lymph # (Auto) [place] # (Auto) Eos # (Auto) Baso # (Auto) Abs Immat Gran (auto) Absolute Neuts (auto) Absolute Nucleated RBC Nucleated RBC % (auto) POC Std Base Excess POC O2 Sat (Calc) POC ABG pO2 POC ABG Total CO2 POC Capillary pH POC Capillary pCO2 POC Cap HCO3 (Calc) POC Sodium Sodium POC Potassium Potassium Chloride Carbon Dioxide Anion Gap BUN Creatinine Estim Creat Clear Calc Estimated GFR POC Glucose Random Glucose Estimat Average Glucose Hemoglobin A1c % Lactic Acid Calcium Magnesium Total Bilirubin AST ALT Alkaline Phosphatase Troponin I High Sens C-Reactive Protein B-Natriuretic Peptide Total Protein Albumin Lipase Urine Color Urine Appearance Urine pH Ur Specific [place] Urine Protein Urine Glucose (UA) Urine Ketones Urine Blood Urine Nitrite Ur Leukocyte Esterase Urine RBC Urine WBC Ur Squamous Epith Cells Urine Bacteria Stool Occult Blood Stool Leukocytes, Qual MANY: >10/OIF Stl C. cayetanensis PCR Not Detected Stool Rotavirus A PCR Not Detected Stl Adenov F 40/41 PCR Not Detected Stool Astrovirus (PCR) Not Detected Stool Campylobacter PCR Not Detected Stool Cryptosporidium PCR Not Detected Stl Sh Tox Pr E STEC PCR Not Detected Stool E coli O157 PCR Not applicable Stl Enterotoxigenic E PCR Not Detected Stool EPEC (PCR) Not Detected Stool EAEC (PCR) Not Detected Stl E. histolytica PCR Not Detected Stool Giardia Lamblia PCR Not Detected Stl P. shigelloides PCR Not Detected Stool Salmonella PCR Not Detected Stool Sapovirus (PCR) Not Detected Stl Shigella/EIEC PCR Not Detected St Y.enterocolitica PCR Not Detected Stool Vibrio (PCR) Not Detected Stl Vibrio cholerae PCR Not Detected Stl Norovirus GI/GII PCR Not Detected C. difficile Tox B Gene NEGATIVE COVID-19 (AC) COVID-19 Clin Com 05/03/22 05/04/22 05/04/22 10:22 02:50 06:18 WBC 8.1 RBC 3.46 L D Hgb 9.3 L D POC Hgb (Calc) Hct 29.7 L D POC Hct MCV 85.8 MCH 26.9 L MCHC 31.3 RDW 17.1 H Plt Count 406 H D MPV 9.2 L Immature Gran % (Auto) Neut % (Auto) Lymph % (Auto) [place] % (Auto) Eos % (Auto) Baso % (Auto) Lymph # (Auto) [place] # (Auto) Eos # (Auto) Baso # (Auto) Abs Immat Gran (auto) Absolute Neuts (auto) Absolute Nucleated RBC 0.000 Nucleated RBC % (auto) 0.0 POC Std Base Excess POC O2 Sat (Calc) POC ABG pO2 POC ABG Total CO2 POC Capillary pH POC Capillary pCO2 POC Cap HCO3 (Calc) POC Sodium Sodium 136 POC Potassium Potassium 2.8 L D Chloride 98 Carbon Dioxide 26 Anion Gap 15 BUN 12 Creatinine 0.86 Estim Creat Clear Calc 67.4 Estimated GFR > 60 POC Glucose Random Glucose 119 H Estimat Average Glucose Hemoglobin A1c % Lactic Acid Calcium 7.8 L Magnesium 1.8 Total Bilirubin AST ALT Alkaline Phosphatase Troponin I High Sens C-Reactive Protein B-Natriuretic Peptide Total Protein Albumin Lipase Urine Color Urine Appearance Urine pH Ur Specific [place] Urine Protein Urine Glucose (UA) Urine Ketones Urine Blood Urine Nitrite Ur Leukocyte Esterase Urine RBC Urine WBC Ur Squamous Epith Cells Urine Bacteria Stool Occult Blood POSITIVE Stool Leukocytes, Qual Stl C. cayetanensis PCR Stool Rotavirus A PCR Stl Adenov F 40/41 PCR Stool Astrovirus (PCR) Stool Campylobacter PCR Stool Cryptosporidium PCR Stl Sh Tox Pr E STEC PCR Stool E coli O157 PCR Stl Enterotoxigenic E PCR Stool EPEC (PCR) Stool EAEC (PCR) Stl E. histolytica PCR Stool Giardia Lamblia PCR Stl P. shigelloides PCR Stool Salmonella PCR Stool Sapovirus (PCR) Stl Shigella/EIEC PCR St Y.enterocolitica PCR Stool Vibrio (PCR) Stl Vibrio cholerae PCR Stl Norovirus GI/GII PCR C. difficile Tox B Gene COVID-19 (AC) COVID-19 Clin Com 05/04/22 05/04/22 05/05/22 06:18 13:14 05:58 WBC 5.7 RBC 3.67 L Hgb 9.8 L POC Hgb (Calc) 9.9 L Hct 31.7 L POC Hct 29 L MCV 86.4 MCH 26.7 L MCHC 30.9 L RDW 16.9 H Plt Count 422 H MPV 8.9 L Immature Gran % (Auto) Neut % (Auto) Lymph % (Auto) [place] % (Auto) Eos % (Auto) Baso % (Auto) Lymph # (Auto) [place] # (Auto) Eos # (Auto) Baso # (Auto) Abs Immat Gran (auto) Absolute Neuts (auto) Absolute Nucleated RBC 0.000 Nucleated RBC % (auto) 0.0 POC Std Base Excess 4 H POC O2 Sat (Calc) TNP POC ABG pO2 < 50 L* POC ABG Total CO2 30 H POC Capillary pH 7.39 POC Capillary pCO2 48 POC Cap HCO3 (Calc) 29 H POC Sodium 134 L Sodium 135 POC Potassium 2.8 L Potassium 2.8 L Chloride 99 Carbon Dioxide 25 Anion Gap 14 BUN 11 Creatinine 0.82 Estim Creat Clear Calc 70.6 Estimated GFR > 60 POC Glucose 139 H Random Glucose 132 H Estimat Average Glucose Hemoglobin A1c % Lactic Acid Calcium 7.4 L Magnesium 2.6 Total Bilirubin AST ALT Alkaline Phosphatase Troponin I High Sens C-Reactive Protein B-Natriuretic Peptide Total Protein Albumin Lipase Urine Color Urine Appearance Urine pH Ur Specific [place] Urine Protein Urine Glucose (UA) Urine Ketones Urine Blood Urine Nitrite Ur Leukocyte Esterase Urine RBC Urine WBC Ur Squamous Epith Cells Urine Bacteria Stool Occult Blood Stool Leukocytes, Qual Stl C. cayetanensis PCR Stool Rotavirus A PCR Stl Adenov F 40/41 PCR Stool Astrovirus (PCR) Stool Campylobacter PCR Stool Cryptosporidium PCR Stl Sh Tox Pr E STEC PCR Stool E coli O157 PCR Stl Enterotoxigenic E PCR Stool EPEC (PCR) Stool EAEC (PCR) Stl E. histolytica PCR Stool Giardia Lamblia PCR Stl P. shigelloides PCR Stool Salmonella PCR Stool Sapovirus (PCR) Stl Shigella/EIEC PCR St Y.enterocolitica PCR Stool Vibrio (PCR) Stl Vibrio cholerae PCR Stl Norovirus GI/GII PCR C. difficile Tox B Gene COVID-19 (AC) COVID-19 Clin Com 05/05/22 05:58 WBC RBC Hgb POC Hgb (Calc) Hct POC Hct MCV MCH MCHC RDW Plt Count MPV Immature Gran % (Auto) Neut % (Auto) Lymph % (Auto) [place] % (Auto) Eos % (Auto) Baso % (Auto) Lymph # (Auto) [place] # (Auto) Eos # (Auto) Baso # (Auto) Abs Immat Gran (auto) Absolute Neuts (auto) Absolute Nucleated RBC Nucleated RBC % (auto) POC Std Base Excess POC O2 Sat (Calc) POC ABG pO2 POC ABG Total CO2 POC Capillary pH POC Capillary pCO2 POC Cap HCO3 (Calc) POC Sodium Sodium 135 POC Potassium Potassium 3.8 D Chloride 102 Carbon Dioxide 25 Anion Gap 12 BUN 8 L Creatinine 0.85 Estim Creat Clear Calc 68.2 Estimated GFR > 60 POC Glucose Random Glucose 140 H Estimat Average Glucose Hemoglobin A1c % Lactic Acid Calcium 7.5 L Magnesium Total Bilirubin AST ALT Alkaline Phosphatase Troponin I High Sens C-Reactive Protein B-Natriuretic Peptide Total Protein Albumin Lipase Urine Color Urine Appearance Urine pH Ur Specific [place] Urine Protein Urine Glucose (UA) Urine Ketones Urine Blood Urine Nitrite Ur Leukocyte Esterase Urine RBC Urine WBC Ur Squamous Epith Cells Urine Bacteria Stool Occult Blood Stool Leukocytes, Qual Stl C. cayetanensis PCR Stool Rotavirus A PCR Stl Adenov F 40/41 PCR Stool Astrovirus (PCR) Stool Campylobacter PCR Stool Cryptosporidium PCR Stl Sh Tox Pr E STEC PCR Stool E coli O157 PCR Stl Enterotoxigenic E PCR Stool EPEC (PCR) Stool EAEC (PCR) Stl E. histolytica PCR Stool Giardia Lamblia PCR Stl P. shigelloides PCR Stool Salmonella PCR Stool Sapovirus (PCR) Stl Shigella/EIEC PCR St Y.enterocolitica PCR Stool Vibrio (PCR) Stl Vibrio cholerae PCR Stl Norovirus GI/GII PCR C. difficile Tox B Gene COVID-19 (AC) COVID-19 Clin Com Airway Mallampati Class: II TM Dist: >3cm Neck ROM: Full Denture: Upper Loose/Missing/Broken Teeth: Yes (Few teeth in the bottom. No broken or loose) Heart: RRR Lungs: CTAB Assessment and Plan Assessment Anesthesia Assessment: Anesthesia Plan Discussed and Chart Reviewed Final Anesthetic Review Family History of Problems with Anesthesia: No History of Problems with Anesthesia: No NPO: Yes ASA Class: III Final Preanesthetic Review: No Changes in Pt Med Stat, Meds/Allgs Chart Reviewed, Consent Obtained/Reviewed and Anes Risks/Benef Reviewed Patient Risk: Intermediate Procedure Risk: Low Assessment/Block/Sedation in SS: Assess/Block/Sedation-SS Anesthetic Plan Anesthetic Plan: MAC: Disposition: Standard PACU and Inp. Admit - Standard Bed
[2022-05-05 12:39] LABS: Glucose, Whole Blood 130 mg/dL (60-115)
--- NOTE | 2022-05-05 13:37 | HE.PHANOTE ---
ACETYLCYSTEINE Could not find evidence as to whether 6000mg is an appropriate dose for an endoscopy. I found evidence that supports the use of it in an endoscopy however but at much lower doses. Confirmed with doctor that he in fact wants 6000mg, he states he has done this before. I verified the order after speaking to doctor.
[2022-05-05 14:42] LABS: Immunoglobulin A 434 mg/dL (70-320)
--- NOTE | 2022-05-05 14:48 | PM.EVENT ---
Event Note Date of Service: 05/05/22 Event Note: GI EGD/colon dicatated EGD shows gastritis and erosive duodenitis, biopsied. Colonoscopy shows severe colitis, c/w UC, bx'd Rec Oral ppi start solumedrol and mesalamine f/u bx results
--- NOTE | 2022-05-05 14:51 | PM.OP ---
Brief Operative Note Date of Service: 05/05/22 Pre-op diagnosis: HDGC syndrome Colitis Post-op diagnosis: same Procedure: egd, colonoscopy Surgeon: Robert Ballesteros Anesthesia: MAC Was an Retention Specialist used for this Procedure?: No Estimated blood loss (mL): 5 Pathology: other Condition: stable Disposition: PACU
--- NOTE | 2022-05-05 15:35 | MHC.CM.PN ---
DP Home no services. Family will provide transportation home. Per MD rounds No DC today. The patient will be scoped by GI today.
[2022-05-05] MEDS: methylPREDNISolone Sod Succ 40 MG/ML VIAL 20 MG IVPUSH (15:50)
[2022-05-05] MEDS: Omeprazole 20 MG CAPSULE.DR PO (15:52)
[2022-05-05] MEDS: Mesalamine 400 MG CAP.DRTAB. 800 MG PO (15:55)
[2022-05-05] MEDS: Ketorolac Tromethamine 15 MG/ML VIAL IM (16:55)
[2022-05-05] MEDS: QUEtiapine Fumarate 25 MG TABLET PO (20:36)
[2022-05-06 00:07] VITALS: BP 99/66; PULSE 91; RESP 18; TEMP 36.1; O2SAT 94
[2022-05-06] MEDS: 0.9 % Sodium Chloride Flush 3 ML SYRINGE IVFLUSH ×2 (00:23→14:37)
[2022-05-06] MEDS: methylPREDNISolone Sod Succ 40 MG/ML VIAL 20 MG IVPUSH ×3 (00:23→14:36)
[2022-05-06] MEDS: Melatonin 3 MG TABLET 6 MG PO (00:24)
[2022-05-06] MEDS: Morphine Sulfate 2 MG/ML CARTRIDGE IVPUSH ×3 (00:34→14:30)
--- NOTE | 2022-05-06 01:37 | OP_ITS ---
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 PREOPERATIVE DIAGNOSIS: POSTOPERATIVE DIAGNOSIS: PROCEDURE PERFORMED: ESTIMATED BLOOD LOSS: COMPLICATIONS: ANESTHESIA: ASSISTANTS: SPECIMENS: PROCEDURES PERFORMED: Upper endoscopy with biopsy, colonoscopy to the terminal ileum with biopsy. MEDICATIONS: Monitored anesthesia care. DESCRIPTION OF PROCEDURE: History and physical performed. The risks and benefits of the procedure were explained to the patient. Informed consent was obtained. The patient was placed in the left lateral decubitus position. A digital rectal exam was performed prior to the colonoscopy. The Olympus video gastroscope was first introduced into the esophagus, stomach, and duodenum. Examination was performed. The scope was removed. She was repositioned for colonoscopy. The Olympus pediatric video colonoscope was introduced into the rectum and advanced to the cecum. The cecum was identified by transillumination, palpation, and identification of ileocecal valve. Examination was performed. The scope was removed. She tolerated both procedures well and was transferred to recovery area in stable condition. FINDINGS: UPPER ENDOSCOPY: 1. Esophagus: The esophagus was normal. There was a 6 cm hiatal hernia. 2. Stomach: The stomach showed linear streaks of erythema, consistent with gastritis. No mass or lesions were identified. The stomach was irrigated with Mucomyst and simethicone. Gastric distensibility was identified as normal. There were no suspected areas. Biopsies were obtained according to the Kath protocol. There was an 8 mm polypoid lesion on the gastric aspect just below the EG junction. This was biopsied. No other polyps were identified. 3. Duodenum: The bulb and second portion showed changes of erosive duodenitis. Biopsies were obtained from the second portion. COLONOSCOPY: The terminal ileum was normal. This was biopsied. PROCEDURE: The colon showed a severe colitis extending from the rectum to the cecum with linear deep ulcerations and smaller ulcerations with heaped-up mucosa and loss of vascular pattern. The overall picture was consistent with chronic inflammatory bowel disease, likely ulcerative colitis. There were no skip areas. Biopsies were obtained from the right colon and rectosigmoid. IMPRESSION: 1. Hiatal hernia. 2. Gastritis. 3. Erosive duodenitis. 4. Gastric polyp. 5. Severe colitis. RECOMMENDATIONS: 1. Follow up the biopsy results. 2. Begin Solu-Medrol 20 mg intravenously every 8 hours and mesalamine orally. MD KIKA Pompa/YARELI / [id number]
[2022-05-06] MEDS: Omeprazole 20 MG CAPSULE.DR PO (06:06)
[2022-05-06] MEDS: Levothyroxine Sodium 200 MCG TABLET PO (06:06)
[2022-05-06 06:32] LABS: Hemoglobin 9.6 g/dl (12.0-16.0); Mean Corpuscular Volume 84.3 fL (80.0-98.0); Mean Platelet Volume 9.3 fL (9.4-12.3); Platelet Count 430 X10*3/uL (160-400); Red Blood Count 3.56 X10*6/uL (4.20-5.50); White Blood Count 6.9 X10*3/uL (4.8-10.8)
[2022-05-06 07:09] LABS: Anion Gap 12 (12-20); Blood Urea Nitrogen 8 mg/dL (9-16); Calcium 7.6 mg/dL (8.4-10.2); Carbon Dioxide 26 mmol/L (22-29); Chloride 101 mmol/L (96-108); Creatinine Clr Calc Pharmacy 74.3; Estimated Glomerular Filt Rate > 60; Glucose Random 254 mg/dL (60-115); Potassium 4.1 mmol/L (3.3-5.1); Sodium 135 mmol/L (135-145)
[2022-05-06 07:34] VITALS: BP 111/69; PULSE 76; RESP 18; TEMP 36.4; O2SAT 99
[2022-05-06] MEDS: Metoprolol Succinate ER 25 MG TAB.ER.24H PO (08:09)
[2022-05-06] MEDS: Mesalamine 400 MG CAP.DRTAB. 800 MG PO ×2 (08:09→14:35)
[2022-05-06] MEDS: Sertraline HCL 50 MG TABLET PO (08:09)
[2022-05-06] MEDS: Atorvastatin Calcium 80 MG TABLET PO (08:09)
[2022-05-06 08:51] LABS: Transglutaminase Ab IgG <1.0 U/mL; Transglutaminase IgA <1.0 U/mL
--- NOTE | 2022-05-06 09:49 | HO.POSTANES ---
Post Anesthesia Evaluation Post Anesthesia Evaluation Vital Signs: Vital Signs Temp Pulse Resp BP Pulse Ox O2 Del Method 05/06/22 07:34 97.6 F 76 18 111/69 99 Room Air 05/06/22 00:07 96.9 F 91 18 99/66 94 Room Air Anesthesia: Monitored Mental Status: Awake Pain Control: Satisfactory Nausea/Vomiting: None Hydration: Adequate Anesthesia-Related Issues: No Anes. Related Issues
[2022-05-06 11:40] VITALS: BP 112/69; PULSE 75; RESP 18; TEMP 36.4; O2SAT 97
--- NOTE | 2022-05-06 14:01 | P.DS_ITS ---
DS: Providers Provider Date of Service: 05/06/22 Date of admission: 05/03/22 01:14 Primary care physician: Lei Zuleta III, MD Consults: 05/03/22 09:42 Consult to Gastroenterology Routine Consulting Provider: Robert Ballesteros Reason for consultation: subacute diarrhea, wt loss DS: Diagnosis Discharge Diagnosis (1) Ulcerative colitis: Status: Acute (2) Hypokalemia: Status: Acute (3) Gastritis: Status: Acute (4) Duodenitis: Status: Acute DS: Summary Hospital Course Hospital Course: from admission H+P by Jeffrey Rogers, 05/03/22: 67-year-old female with a past medical history of hypertension, hyperlipidemia, hypothyroidism, anxiety, depression, GERD, opiate dependence presented to the hospital today with a chief complaint of nausea, diarrhea and abdominal pain.? Patient reports that over the past 6 days she has been having abdominal pain; diffuse in nature; had multiple episodes of diarrhea.? Mentions that she has been having diarrhea for the past 2 months but worsened for the past 6 days.? Also has nausea.? Denies any vomiting.? Denies any chest pain or palpitations.? Denies any blood in the stool.? Denies any fever chills cough or sputum production.? Denies any urinary symptoms.? Review of all other systems is negative except mentioned above ER course: Per ER team patient noted to have mild abdominal tenderness; CT scan showed findings concerning for colitis.? Also noted to have hypokalemia.? Admitted to the hospital for further management. Ms Coppola is a 67yo F with HTN, HLD, hypothyroidism, anxiety, depression, GERD, and chronic back pain who presented with nausea, diarrhea, and abdominal pain for past 3 months that worsened for the past 1 week. 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 She was admitted for colitis and melena and acute anemia due to GI blood loss. She was initially treated for infectious colitis with ceftriaxone and metronidazole. Stool pathogen PCR panel and C. difficile testing were negative. She had positive stool leukocytes. She underwent EGD + C-scope, which demonstrated gastritis and erosive duodenitis and severe colitis consistent with ulcerative colitis. Biopsies were taken. She was started on steroids and mesalamine and her symptoms improved. She was discharged home on PPI, mesalamine, and steroid taper with instructions to follow up with Dr Robert Ballesteros from [facility]. Time Spent with Patient Time attestation: Total time spent providing and/or coordinating discharge services: Discharge coordination time: Greater than 30 minutes Quality: Safe Use of Opioids Does Pt have an Active Cancer Diagnosis on the Problem List?: No Quality: Stroke Does the patient have a stroke diagnosis?: No Physical Exam Vital Signs: Vital Signs: Last Vital Signs Temp 97.5 F 05/06/22 11:40 Pulse 75 05/06/22 11:40 Resp 18 05/06/22 11:40 BP 112/69 05/06/22 11:40 Pulse Ox 97 05/06/22 11:40 O2 Del Method 05/06/22 11:40 O2 Flow Rate 2 05/05/22 14:50 BMI result Body Mass Index 30.9 Gen: in no acute distress HEENT: sclera anicteric, moist mucus membranes Neck: supple Lungs: clear to auscultation bilaterally Heart: regular rate and rhythm, no murmurs Abd: soft, non-tender, non-distended Ext: no edema Skin: warm/well-perfused Neuro: alert and oriented x3, no focal findings Psych: appropriate affect DS: Data Data Completed and Pending Completed studies during hospitalization [Text1]: Laboratory Results WBC 6.9 X10*3/uL (4.8-10.8) 05/06/22 06:01 RBC 3.56 X10*6/uL (4.20-5.50) L 05/06/22 06:01 Hgb 9.6 g/dl (12.0-16.0) L 05/06/22 06:01 POC Hgb (Calc) 9.9 g/dL (12.0-16.0) L 05/04/22 13:14 Hct 30.0 % (37.0-47.0) L 05/06/22 06:01 POC Hct 29 %PCV (37-47) L 05/04/22 13:14 MCV 84.3 fL (80.0-98.0) 05/06/22 06:01 MCH 27.0 pg (27.0-33.0) 05/06/22 06:01 MCHC 32.0 g/dl (31.0-35.0) 05/06/22 06:01 RDW 17.0 % (11.0-16.0) H 05/06/22 06:01 Plt Count 430 X10*3/uL (160-400) H 05/06/22 06:01 MPV 9.3 fL (9.4-12.3) L 05/06/22 06:01 Immature Gran % (Auto) 0.8 % (0.0-0.4) H 05/03/22 04:12 Neut % (Auto) 85.9 % (45-73) H 05/03/22 04:12 Lymph % (Auto) 6.7 % (20-40) L 05/03/22 04:12 [place] % (Auto) 6.1 % (2-11) 05/03/22 04:12 Eos % (Auto) 0.3 % (0-4) 05/03/22 04:12 Baso % (Auto) 0.2 % (0-2) 05/03/22 04:12 Lymph # (Auto) 1.3 X10*3/uL (1.2-4.9) 05/03/22 04:12 [place] # (Auto) 1.2 X10*3/uL (0.1-1.2) 05/03/22 04:12 Eos # (Auto) 0.1 X10*3/uL (0.0-0.4) 05/03/22 04:12 Baso # (Auto) 0.0 X10*3/uL (0.0-0.2) 05/03/22 04:12 Abs Immat Gran (auto) 0.15 X10*3/uL (0.00-0.03) H 05/03/22 04:12 Absolute Neuts (auto) 16.9 x10*3/uL (2.0-8.3) H 05/03/22 04:12 Absolute Nucleated RBC 0.000 X10*3/uL (0.0-0.012) 05/06/22 06:01 Nucleated RBC % (auto) 0.0 /100WBC (0.0-0.2) 05/06/22 06:01 POC Std Base Excess 4 mmol/L (-3-3) H 05/04/22 13:14 POC O2 Sat (Calc) TNP 05/04/22 13:14 POC ABG pO2 < 50 mmhg (83-108) L* 05/04/22 13:14 POC ABG Total CO2 30 mmol/L (24-29) H 05/04/22 13:14 POC Capillary pH 7.39 (7.35-7.45) 05/04/22 13:14 POC Capillary pCO2 48 mmhg (35-48) 05/04/22 13:14 POC Cap HCO3 (Calc) 29 mmol/L (22-26) H 05/04/22 13:14 POC Sodium 134 mmol/L (135-145) L 05/04/22 13:14 Sodium 135 mmol/L (135-145) 05/06/22 06:01 POC Potassium 2.8 mmol/L (3.3-5.1) L 05/04/22 13:14 Potassium 4.1 mmol/L (3.3-5.1) 05/06/22 06:01 Chloride 101 mmol/L (96-108) 05/06/22 06:01 Carbon Dioxide 26 mmol/L (22-29) 05/06/22 06:01 Anion Gap 12 (12-20) 05/06/22 06:01 BUN 8 mg/dL (9-16) L 05/06/22 06:01 Creatinine 0.78 mg/dL (0.5-1.4) 05/06/22 06:01 Estim Creat Clear Calc 74.3 05/06/22 06:01 Estimated GFR > 60 05/06/22 06:01 POC Glucose 130 mg/dL (60-115) H 05/05/22 12:35 Random Glucose 254 mg/dL (60-115) H 05/06/22 06:01 Estimat Average Glucose 151 mg/dL 05/03/22 04:12 Hemoglobin A1c % 6.9 % 05/03/22 04:12 Lactic Acid 1.9 mmol/L (0.5-2.0) 05/02/22 20:25 Calcium 7.6 mg/dL (8.4-10.2) L 05/06/22 06:01 Magnesium 2.6 mg/dL (1.6-2.6) 05/04/22 06:18 Total Bilirubin 0.3 mg/dL (0.0-1.0) 05/02/22 16:54 AST 10 U/L (5-31) 05/02/22 16:54 ALT 12 U/L (0-31) 05/02/22 16:54 Alkaline Phosphatase 122 U/L (39-117) H 05/02/22 16:54 Troponin I High Sens 7.9 ng/L (<3.5-17.0) 05/02/22 16:54 C-Reactive Protein 11.34 mg/dL (< or = 0.50) H 05/03/22 04:12 B-Natriuretic Peptide 126 pg/mL (<100) H 05/02/22 16:54 Total Protein 6.1 g/dL (6.5-8.0) L 05/02/22 16:54 Albumin 2.9 g/dL (3.5-5.0) L 05/02/22 16:54 Lipase 10 U/L (8-78) 05/02/22 16:54 Urine Color YELLOW 05/03/22 08:28 Urine Appearance CLEAR 05/03/22 08:28 Urine pH 6.5 (5.0-8.0) 05/03/22 08:28 Ur Specific [place] 1.010 (1.005-1.025) 05/03/22 08:28 Urine Protein 1+ MG/DL (NEG-TRACE) H 05/03/22 08:28 Urine Glucose (UA) NEG MG/DL (NEG) 05/03/22 08:28 Urine Ketones NEG MG/DL (NEG) 05/03/22 08:28 Urine Blood NEG (NEG) 05/03/22 08:28 Urine Nitrite NEG (NEG) 05/03/22 08:28 Ur Leukocyte Esterase NEG (NEG) 05/03/22 08:28 Urine RBC 0-2 /HPF (0) 05/03/22 08:28 Urine WBC 0-2 /HPF (0-4) 05/03/22 08:28 Ur Squamous Epith Cells 3+ /LPF 05/03/22 08:28 Urine Bacteria NONE /LPF 05/03/22 08:28 Stool Occult Blood POSITIVE (NEGATIVE) 05/03/22 10:22 Stool Leukocytes, Qual MANY: >10/OIF (NEGATIVE) 05/03/22 10:03 Stl C. cayetanensis PCR Not Detected (Not Detect.) 05/03/22 10:03 Stool Rotavirus A PCR Not Detected (Not Detect.) 05/03/22 10:03 Stl Adenov F 40/41 PCR Not Detected (Not Detect.) 05/03/22 10:03 Stool Astrovirus (PCR) Not Detected (Not Detect.) 05/03/22 10:03 Stool Campylobacter PCR Not Detected (Not Detect.) 05/03/22 10:03 Stool Cryptosporidium PCR Not Detected (Not Detect.) 05/03/22 10:03 Stl Sh Tox Pr E STEC PCR Not Detected (Not Detect.) 05/03/22 10:03 Stool E coli O157 PCR Not applicable (Not Detect.) 05/03/22 10:03 Stl Enterotoxigenic E PCR Not Detected (Not Detect.) 05/03/22 10:03 Stool EPEC (PCR) Not Detected (Not Detect.) 05/03/22 10:03 Stool EAEC (PCR) Not Detected (Not Detect.) 05/03/22 10:03 Stl E. histolytica PCR Not Detected (Not Detect.) 05/03/22 10:03 Stool Giardia Lamblia PCR Not Detected (Not Detect.) 05/03/22 10:03 Stl P. shigelloides PCR Not Detected (Not Detect.) 05/03/22 10:03 Stool Salmonella PCR Not Detected (Not Detect.) 05/03/22 10:03 Stool Sapovirus (PCR) Not Detected (Not Detect.) 05/03/22 10:03 Stl Shigella/EIEC PCR Not Detected (Not Detect.) 05/03/22 10:03 St Y.enterocolitica PCR Not Detected (Not Detect.) 05/03/22 10:03 Stool Vibrio (PCR) Not Detected (Not Detect.) 05/03/22 10:03 Stl Vibrio cholerae PCR Not Detected (Not Detect.) 05/03/22 10:03 Stl Norovirus GI/GII PCR Not Detected (Not Detect.) 05/03/22 10:03 IgA 434 mg/dL (70-320) H 05/03/22 10:09 Tiss Transglutamin IgG <1.0 U/mL 05/03/22 10:09 Tiss Transglutamin IgA <1.0 U/mL 05/03/22 10:09 C. difficile Tox B Gene NEGATIVE (Negative) 05/03/22 10:08 COVID-19 (AC) Negative (Negative) 05/02/22 16:51 COVID-19 Clin Com See Note 05/02/22 16:51 Impressions Abdomen/Pelvis CT 05/02/22 23:45 IMPRESSION: 1. Diffuse colitis. Cause would include infectious, inflammatory and drug-related etiologies. 2. Sigmoid diverticulosis 3. Other incidental findings described above. Fleischner guidelines were followed. Pending studies at discharge: Pending at discharge 05/05/22 13:58 Surgical [PTH] Routine Discharge Plan Discharge Patient Disposition: Home, Self-Care Discharge Diagnosis: ulcerative colitis, gastritis/duodenitis Referrals: Robert Ballesteros [Physician] - 1 Week Lei Zultea III, MD [Primary Care Provider] - 1 Week Discharge Medications: New mesalamine [Delzicol] 400 mg Capsule (With Del Rel Tablets) 800 mg PO TID Qty: 180 0RF omeprazole 20 mg Capsule,Delayed Release(Dr/Ec) 20 mg PO DAILY@0630 Qty: 30 0RF nicotine (polacrilex) 2 mg gum 2 mg buccal Q2H PRN (Reason: nicotine cravings) Qty: 100 0RF prednisone 10 mg tablet See Rx Instructions .ROUTE .COMPLEX Qty: 70 0RF Rx Instructions: 40 mg daily x 1 week, then 30 mg daily x 1 week, then 20 mg daily x 1 week, then 10 mg daily x 1 week Continued quetiapine 25 mg tablet 1 tab PO BEDTIME cyclobenzaprine 10 mg tablet 1 tab PO TID PRN (Reason: muscle spasm) atorvastatin 80 mg tablet 1 tab PO DAILY levothyroxine 200 mcg tablet 1 tab PO DAILY metoprolol succinate 25 mg tablet extended release 24 hr 1 tab PO DAILY sertraline 50 mg tablet 1 tab PO DAILY buprenorphine-naloxone [Suboxone] 8-2 mg film 1 strip sublingual DAILY Discontinued famotidine 20 mg tablet 0.5 tab PO BID Discharge Orders: Discharge Order (Routine); Ordered 05/06/22 Ordered By: Isael Stanley Diet: Advance to usual diet Activity on Discharge: As tolerated Stand Alone Forms: Patient Portal Discharge page Care Plan Goals: control of colitis Health Concerns: ulcerative colitis, gastritis/duodenitis Plan of Treatment: prednisone taper as follows: 40 mg daily x 1 week then 30 mg daily x 1 week then 20 mg daily x 1 week then 10 mg daily x 1 week mesalamine 800 mg 3x a day change famotidine to omeprazole 40 mg daily follow up with Dr Ballesteros [[facility]] in 1-2 weeks see your primary care doctor in 1-2 weeks Please return to the hospital if you experience recurrent or worsening symptoms, Assessment: See Discharge Summary Patient Instructions: Ulcerative Colitis (DC)
--- NOTE | 2022-05-06 14:41 | MHC.CM.PN ---
IMM 05/06/22 Rsoelia is discharged today home no services needed. She has arranged for transportation home.
[2022-05-06 16:00] VITALS: BP 133/70; PULSE 71; RESP 16; TEMP 36.8; O2SAT 98
[2022-05-06 21:52] LABS: Fecal Fat Qualitative Normal (Normal)
--- NOTE | 2022-05-13 13:58 | P.CDIR_ITS ---
Documented by User: Jillian Niño RN 05/13/22 14:05 Retrospective Query PHYSICIAN'S DOCUMENTATION REQUEST Date of Query: 05/13/22 0406 Patient Name: Cris Coppola Admit Date: 05/03/22 Dear Doctor, A review of the medical record indicates additional documentation may be needed. Please review below and update the documentation accordingly. Clinical Indicators: The diagnosis of [Diagnosis] was documented on 05/03/22 but is not consistently noted in subsequent documentation. Risk Factors/Clinical Indicators/Treatments Per ED note 05/02/22 : Sepsis WBC 13.4 HR 99 Per Discharge Summary 05/06/22: Ulcerative colitis Hypokalemia Gastritis Duodenitis Please clarify the following: * Sepsis was present on admission and is now resolved * Sepsis was present on admission and is still being monitored, evaluated, or treated * Sepsis was ruled out * Sepsis is still a likely, suspected, probable diagnosis * Other (please specify) * Unable to determine Use of terms such as suspected, likely, concern for, or probable (associated with a specific diagnosis that is being evaluated, monitored, or treated as if it exists) are acceptable and can be coded in the inpatient setting, when documented at the time of discharge. Thank you, Jillian Niño RN Extension: [phone] Please use your independent medical judgment in providing your response. THIS QUERY IS PART OF THE PERMANENT MEDICAL RECORD Documented by User: Isael Stanley MD 05/19/22 16:45 Retrospective Query Provider Response: Other (Sepsis was ruled out)
== END 2022-05-06 18:06 | disposition home or self-care (01) | DRG 378 ==
LOC: HO.ED 05-03 00:38 → HO.EDOVER 05-03 02:09 → HO.IMC 05-04 00:39
PROVIDERS: Internal Medicine; Internal Medicine Gastroenterology; Admitting Provider Hospitalist; Emergency Provider Student in an Organized Health Care Education/Training Program; PCP Internal Medicine; Visit Provider Family Medicine
PROC: 0DB98ZX Excision of Duodenum, Via Natural or Artificial Opening Endoscopic, Diagnostic (ICD-10-PCS; principal; 2022-05-05 13:40)
DX: K29.71 Gastritis, unspecified, with bleeding (principal); D62 Acute posthemorrhagic anemia; F11.20 Opioid dependence, uncomplicated; K51.90 Ulcerative colitis, unspecified, without complications; K29.81 Duodenitis with bleeding; E86.0 Dehydration; E03.9 Hypothyroidism, unspecified; K21.9 Gastro-esophageal reflux disease without esophagitis; K52.9 Noninfective gastroenteritis and colitis, unspecified; G89.29 Other chronic pain; M54.9 Dorsalgia, unspecified; F41.9 Anxiety disorder, unspecified; F32.A Depression, unspecified; E78.5 Hyperlipidemia, unspecified; E87.6 Hypokalemia; F17.210 Nicotine dependence, cigarettes, uncomplicated; Z20.822 Contact with and (suspected) exposure to COVID-19; Z71.6 Tobacco abuse counseling; Z79.890 Hormone replacement therapy; Z79.899 Other long term (current) drug therapy; K44.9 Diaphragmatic hernia without obstruction or gangrene; K31.7 Polyp of stomach and duodenum
CPT/HCPCS: 36415; 74177; 80048; 80053; 81001; 82272; 82705; 82784; 82947; 83036; 83605; 83690; 83735; 83880; 84484; 85025; 85027; 86140; 86364; 87040; 87493; 87507; 87635; 88305; 88342; 89055; 93005; 96361; 96374; 96375; 99285; J0696; J1170; J1885; J2250; J2270; J2405; J2543; J2920; J3475; Q9967

== ENCOUNTER 2023-06-01 12:07 | Day surgery (SDC) | payer MEDICARE, MEDICAID, SELFPAY ==
--- NOTE | 2023-05-31 10:35 | HO.ANESPROP2 ---
Documented by User: Dunia King NP 05/31/23 10:36 HPI - Anesthesia Eval Consult details Narrative: 68yo F for Upper Endoscopy CAD with Hx NH 2012 [facility] Active Problems Active Problems: All Active Problems (Updated 05/31/23 @ 10:08 by Taina Headley RN) Ulcerative colitis (Acute) SIRS (systemic inflammatory response syndrome) (Acute) Gastritis (Acute) Duodenitis (Acute) Past Medical History Medical History Borderline diabetic CAD (coronary artery disease) Colitis Depression GERD (gastroesophageal reflux disease) Heart attack Insomnia Prediabetes Smoker Spinal stenosis Family History Family history of problems with anesthesia: No Surgical History Surgical History H/O eye surgery H/O thyroidectomy History of tonsillectomy Hx of cholecystectomy History of Problems with Anesthesia: No Social History Social History Household Members: None Housing: House Do you presently have visiting nurse or other home services: No Alcohol intake: former Patient Tobacco Use Status: Current everyday Tobacco user Tobacco use type: Cigarette Cigarette Packs Per Day: 1 Cigarettes Per Day: 20.0 Years Smoked: 54 Date Education Initiated: 06/01/23 Use of substances other than those prescribed or required for medical reasons: No Are you DNR?: No Advance Directives: No Advance Directives Information Provided: Yes service: No Current occupational status: employed Meds Allergies Allergy/AdvReac Type Severity Reaction Status Date / Time No Known Allergies Allergy Verified 05/04/22 13:02 [No Known Allergies*] Home Medications Medication Instructions Recorded Confirmed Last Taken Type atorvastatin 80 mg tablet 1 tab PO DAILY 05/03/22 06/01/23 06/01/23 History cyclobenzaprine 10 mg tablet 1 tab PO TID PRN muscle spasm 05/03/22 06/01/23 1 Week Ago History ~04/27/22 levothyroxine 200 mcg tablet 1 tab PO DAILY 05/03/22 06/01/23 06/01/23 History metoprolol succinate 25 mg 1 tab PO DAILY 05/03/22 06/01/23 06/01/23 History tablet,extended release 24 hr quetiapine 25 mg tablet 1 tab PO BEDTIME 05/03/22 06/01/23 1 Week Ago History ~04/27/22 sertraline 50 mg tablet 1 tab PO DAILY 05/03/22 06/01/23 06/01/23 History famotidine 20 mg tablet 20 mg PO DAILY 06/01/23 06/01/23 06/01/23 History Exam Exam Date and Time: May 31, 2023 1035 Assessment and Plan Assessment Anesthesia Assessment: Chart Reviewed Final Anesthetic Review Family History of Problems with Anesthesia: No History of Problems with Anesthesia: No Documented by User: Julia Denis MD 06/01/23 12:30 PMFSH Past Medical History Medical History Borderline diabetic CAD (coronary artery disease) Colitis Depression GERD (gastroesophageal reflux disease) Heart attack Insomnia Prediabetes Smoker Spinal stenosis Surgical History Surgical History H/O eye surgery H/O thyroidectomy History of tonsillectomy Hx of cholecystectomy Social History Social History Household Members: None Housing: House Do you presently have visiting nurse or other home services: No Alcohol intake: former Patient Tobacco Use Status: Current everyday Tobacco user Tobacco use type: Cigarette Cigarette Packs Per Day: 1 Cigarettes Per Day: 20.0 Years Smoked: 54 Date Education Initiated: 06/01/23 Use of substances other than those prescribed or required for medical reasons: No Are you DNR?: No Advance Directives: No Advance Directives Information Provided: Yes service: No Current occupational status: employed Meds Allergies Allergy/AdvReac Type Severity Reaction Status Date / Time No Known Allergies Allergy Verified 05/04/22 13:02 [No Known Allergies*] Home Medications Medication Instructions Recorded Confirmed Last Taken Type atorvastatin 80 mg tablet 1 tab PO DAILY 05/03/22 06/01/23 06/01/23 History cyclobenzaprine 10 mg tablet 1 tab PO TID PRN muscle spasm 05/03/22 06/01/23 1 Week Ago History ~04/27/22 levothyroxine 200 mcg tablet 1 tab PO DAILY 05/03/22 06/01/23 06/01/23 History metoprolol succinate 25 mg 1 tab PO DAILY 05/03/22 06/01/23 06/01/23 History tablet,extended release 24 hr quetiapine 25 mg tablet 1 tab PO BEDTIME 05/03/22 06/01/23 1 Week Ago History ~04/27/22 sertraline 50 mg tablet 1 tab PO DAILY 05/03/22 06/01/23 06/01/23 History famotidine 20 mg tablet 20 mg PO DAILY 06/01/23 06/01/23 06/01/23 History Exam Airway Mallampati Class: II TM Dist: >3cm Neck ROM: Full Denture: Upper Loose/Missing/Broken Teeth: Yes, Upper and Lower Heart: RRR Lungs: CTA Assessment and Plan Assessment Anesthesia Assessment: Anesthesia Plan Discussed Final Anesthetic Review NPO: Yes ASA Class: III Final Preanesthetic Review: Meds/Allgs Chart Reviewed, Consent Obtained/Reviewed and Anes Risks/Benef Reviewed Patient Risk: Intermediate Procedure Risk: Intermediate Anesthetic Plan Anesthetic Plan: MAC: Disposition: Standard PACU
[2023-06-01 12:11] VITALS: BMI 34.3
[2023-06-01 12:24] VITALS: BP 117/63; PULSE 68; RESP 18; TEMP 36; O2SAT 96
[2023-06-01 12:37] VITALS: PULSE 70; RESP 16; O2SAT 96
[2023-06-01] MEDS: Albuterol Sulfate (0.083%) 2.5 MG/3 ML VIAL.NEB INHALE (12:39)
[2023-06-01] MEDS: Lactated Ringers 1,000 ML 100 ML IVCONT (12:55)
--- NOTE | 2023-06-01 13:07 | MHC.SHP ---
Pre-Procedural Eval Section A Date of Service: 06/01/23 Section B Chief Complaint: Genetic susceptibility to other malignant neoplasm Details of Present Illness: see H&P no changes Relevant Family History (Specify if Yes): No Relevant Social History: Tobacco Use Present Medications: see Short Stay Collaborative assessment Medical History: No relevant PMH History of Previous Operations: No relevant previous surgery Allergies: Allergies Allergy/AdvReac Type Severity Reaction Status Date / Time No Known Allergies Allergy Verified 05/04/22 13:02 [No Known Allergies*] Review of Systems Sugical H&P ROS: Negative: Constitution, Cardiovascular, Respiratory, Neurological, Psychiatric, Hem-Onc, Allergic/Immunologic, Gastrointestinal, Genitourinary, Musculoskeletal, Integumentary, Endocrine and Eyes/Ears/Nose/Throat Exam Surgical H&P Exam: Normal: HEENT, Normal: Heart, Normal: Lungs, Normal: Extremities, Normal: Abdomen, Normal: Skin and Normal: Neurological Plan Diagnosis/Plan: Unchanged I have reviewed the history and physical and performed a pertinent physical examination on my patient. No changes have occurred unless specified. Time Spent With Patient Time: Total time managing care of this patient today ____ minutes.
--- NOTE | 2023-06-01 13:43 | PM.OP ---
Brief Operative Note Date of Service: 06/01/23 Pre-op diagnosis: hereditary diffuse gastric cancer syndrome Post-op diagnosis: same Procedure: EGD Surgeon: Robert Ballesteros Anesthesia: MAC Was an Manufacturing Maintenance Manager used for this Procedure?: No Estimated blood loss (mL): 5 Pathology: other Condition: stable Disposition: PACU
[2023-06-01 13:47] VITALS: BP 113/53; PULSE 83; RESP 20; TEMP 36.7; O2SAT 98
[2023-06-01 14:02] VITALS: BP 108/56; PULSE 78; RESP 20; O2SAT 93
[2023-06-01 14:17] VITALS: BP 112/59; PULSE 68; RESP 20; TEMP 36.4; O2SAT 95
--- NOTE | 2023-06-01 17:48 | OP_ITS ---
DATE OF SERVICE: 06/01/2023 SURGEON: Robert Ballesteros MD INDICATIONS: Hereditary diffuse gastric cancer syndrome. PREOPERATIVE DIAGNOSIS: POSTOPERATIVE DIAGNOSIS: PROCEDURE PERFORMED: Upper endoscopy with biopsy. ESTIMATED BLOOD LOSS: COMPLICATIONS: ANESTHESIA: Monitored anesthesia care. ASSISTANTS: SPECIMENS: DESCRIPTION OF PROCEDURE: A history and physical was performed. The risks and benefits of the procedure were explained to the patient. Informed consent was obtained. The patient was placed in the left lateral decubitus position. The Olympus video gastroscope was introduced into the esophagus, stomach, and duodenum. Examination was performed. The scope was removed. She tolerated the procedure well and was taken to recovery area in stable condition. FINDINGS: Esophagus: The esophagus was normal. There was a small hiatal hernia. Stomach: The stomach showed a single pale area in the antrum just beyond the transition zone on the greater curvature measuring approximately 4 mm. Biopsies were obtained from this area. Mucomyst and simethicone were used for mucolytic and surfactant purposes. Gastric distensibility was tested and found to be essentially normal. No raised lesions or ulcerated areas were identified. Biopsies were obtained in accordance with the Broussard protocol from throughout stomach. Duodenum: The bulb and 2nd portion were normal. IMPRESSION: Hereditary diffuse gastric cancer syndrome. RECOMMENDATIONS: 1. Follow up the biopsy results. 2. Repeat endoscopy in 1 year. MD KIKA Pompa/MODL / [id number]
== END 2023-06-01 15:00 | disposition home or self-care (01) ==
PROVIDERS: PCP Internal Medicine; Visit Provider Internal Medicine Gastroenterology
PROC: 0DJ08ZZ Inspection of Upper Intestinal Tract, Via Natural or Artificial Opening Endoscopic (ICD-10-PCS; CPT 43235; principal; 2023-06-01 13:00)
DX: Z15.09 Genetic susceptibility to other malignant neoplasm (principal); Z80.0 Family history of malignant neoplasm of digestive organs; K52.9 Noninfective gastroenteritis and colitis, unspecified; K44.9 Diaphragmatic hernia without obstruction or gangrene; K21.9 Gastro-esophageal reflux disease without esophagitis; I25.10 Atherosclerotic heart disease of native coronary artery without angina pectoris; I25.2 Old myocardial infarction; R73.03 Prediabetes; E78.00 Pure hypercholesterolemia, unspecified; F17.210 Nicotine dependence, cigarettes, uncomplicated; Z79.899 Other long term (current) drug therapy; Z90.49 Acquired absence of other specified parts of digestive tract
CPT/HCPCS: 43239; 88305; 88342; 94640; J0132; J2371

== ENCOUNTER 2025-02-08 16:55 | Inpatient (IN) | payer MEDICARE, MEDICAID, SELFPAY ==
[2025-02-08] VITALS (8 sets, daily range): BP systolic 104–128; BP diastolic 54–78; PULSE 76–97; RESP 12–20; TEMP 36–36.8; O2SAT 87–98; BMI 32.2
--- NOTE | ~2025-02-08 | XR_ITS ---
CLINICAL HISTORY: SOB, cough, hypoxia 1 view chest x-ray Comparison: None Findings: No consolidation or effusion. Heart size is normal. No acute fracture. IMPRESSION: 1. No acute findings. This document has been electronically signed by: Bib Marvin MD on 02/08/2025 17:56:11
--- NOTE | ~2025-02-08 | XR_ITS ---
CLINICAL HISTORY: back pain 3 views lumbar spine Comparison: None Findings: Normal vertebral body alignment. No acute fractures or dislocation. Moderate multilevel degenerative disc disease and facet osteoarthritis. There is contrast within the urinary bladder. There are surgical clips within the right upper quadrant. There are arterial calcifications. IMPRESSION: No acute findings. This document has been electronically signed by: Lexie Eng MD on 02/09/2025 15:42:56
--- NOTE | ~2025-02-08 | CT_ITS ---
CLINICAL HISTORY: lower ABD pain, diarrhea CT Abdomen and Pelvis W Contrast COMPARISON: CT - CT ABDOMEN PELVIS W CON - 05/02/22 23:40 EDT FINDINGS: Hypodensity in the liver adjacent to the falciform ligament, characteristic of focal fatty infiltration. Normal spleen. Nonobstructing left renal calculi or vascular calcifications. No visible ureteral calculi. Right renal cyst. no hydronephrosis. Normal adrenal glands. Normal pancreas. Status post cholecystectomy. No abnormal biliary dilation. No evidence of bowel obstruction. Colonic diverticulosis without evidence of diverticulitis. Thickening of the [place] of the rectum and nearly the entire colon with areas of adjacent fat stranding. No pneumatosis. Normal appendix. Unremarkable bladder. Unremarkable uterus. Small ascites. No pneumoperitoneum. No lymphadenopathy. No acute fracture. Lumbar levoscoliosis. Degenerative changes in the spine and the right hip. No abdominal aortic aneurysm. Atherosclerosis. IMPRESSION: Findings consistent with proctocolitis. Small ascites. Nonemergent/incidental findings above. See separate CTA Chest report. This document has been electronically signed by: Jordan Juan MD on 02/08/2025 21:06:10
--- NOTE | ~2025-02-08 | XR_ITS ---
EXAMINATION: XR CHEST CLINICAL INFORMATION: hypoxia/copd COMPARISON: February 08, 2025. TECHNIQUE: Frontal view of the chest was obtained. FINDINGS: Patchy opacity in the periphery of the right lower hemithorax. Prominence of the interstitial markings. No gross pneumothorax. Basilar size is normal. Multilevel thoracic and upper lumbar spondylosis. XR/XR chest 1V IMPRESSION: Mild interstitial lung edema superimposed acute airspace disease, right lower hemithorax and small right-sided pleural effusion should be considered. Electronically signed by: Jorge Vangeas MD 02/11/2025 03:27 PM EDT
--- NOTE | ~2025-02-08 | CT_ITS ---
CLINICAL HISTORY: SOB, cough, hypoxia CT Angiography Chest W Contrast 3D Postprocessing COMPARISON: CR - XR CHEST 1V - 02/08/25 17:26 EDT FINDINGS: No pulmonary embolism. No thoracic aortic aneurysm or dissection. Small bilateral pleural effusions with adjacent atelectasis and/or infiltrates. Centrilobular and paraseptal emphysematous changes. Mild bilateral bronchial wall thickening. Nodule in the right upper lobe measuring 7 mm (series 9, image 40). No pneumothorax. No cardiomegaly. No pericardial effusion. No pathologically enlarged lymph nodes. No acute fracture. Degenerative changes in the spine. IMPRESSION: No pulmonary embolism. Small bilateral pleural effusions with adjacent atelectasis and/or infiltrates. Right upper lobe pulmonary nodule. Recommend follow-up chest CT in 6-12 months, and at 18-24 months per Fleischner Society guidelines. Nonemergent/incidental findings above. See separate CT Abdomen/Pelvis report. This document has been electronically signed by: Jordan Juan MD on 02/08/2025 21:15:07
--- NOTE | 2025-02-08 17:01 | ED.WEAKNESS ---
HPI - Weakness General Chief complaint: General Medical Stated complaint: weakness x5-6 days Time Seen by Provider: 02/08/25 17:00 Source: patient and EMS Mode of arrival: EMS Limitations: no limitations History of Present Illness ED Provider: Nelly Hopson NP HPI Narrative: Patient is a 70-year-old female with past medical history of hypertension, hyperlipidemia, hypothyroidism, anxiety, depression, GERD who presents emergency department for evaluation of generalized weakness and diffuse body pain over the past 5-6 days. Admits to having shortness of breath and a nonproductive cough, she is a chronic cigarette smoker. Per EMS she had hypoxia down to 85% on room air. She also admits that she has been experiencing diarrhea recently, described as soft/watery stools, with diffuse lower abdominal pain. She denies any recent fall or injury, fevers, chills, headache, dizziness, lightheadedness, vision changes, neck pain, chest pain, nausea, vomiting, numbness or tingling of the extremities, urinary frequency/ urgency /hesitancy, dysuria, hematuria, recent lower extremity redness pain or swelling. Related Data Home Medications ?Medication ?Instructions ?Recorded ?Confirmed atorvastatin 80 mg tablet 1 tab PO DAILY 05/03/22 06/01/23 cyclobenzaprine 10 mg tablet 1 tab PO TID PRN muscle spasm 05/03/22 06/01/23 levothyroxine 200 mcg tablet 1 tab PO DAILY 05/03/22 06/01/23 metoprolol succinate 25 mg 1 tab PO DAILY 05/03/22 06/01/23 tablet,extended release 24 hr quetiapine 25 mg tablet 1 tab PO BEDTIME 05/03/22 06/01/23 sertraline 50 mg tablet 1 tab PO DAILY 05/03/22 06/01/23 famotidine 20 mg tablet 20 mg PO DAILY 06/01/23 06/01/23 Allergies Allergy/AdvReac Type Severity Reaction Status Date / Time No Known Allergies Allergy Verified 02/08/25 17:06 [No Known Allergies*] Review of Systems Review of Systems: Yes all other systems are reviewed and are negative [facility] Past Medical History Attestation statement: The following information was validated with the patient. Source: old records reviewed Medical History Prediabetes CAD (coronary artery disease) GERD (gastroesophageal reflux disease) Smoker Spinal stenosis Depression Insomnia Borderline diabetic Heart attack Colitis Surgical History History of tonsillectomy H/O eye surgery H/O thyroidectomy Hx of cholecystectomy Social History Social History Household Members: None Housing: House Do you presently have visiting nurse or other home services: No Alcohol intake: former Patient Tobacco Use Status: Current everyday Tobacco user Tobacco use type: Cigarette Cigarette Packs Per Day: 1 Cigarettes Per Day: 20.0 Years Smoked: 54 Smoked in Last 30 Days: Yes Use of substances other than those prescribed or required for medical reasons: No Advance Directives: No Advance Directives Information Provided: No service: No Current occupational status: employed Physical Exam Vital Signs: Vital Signs: Last Vital Signs Temp 96.8 F 02/08/25 21:59 Pulse 81 02/08/25 21:59 Resp 15 02/08/25 21:59 BP 104/66 02/08/25 21:59 Pulse Ox 97 02/08/25 21:59 O2 Del Method Nasal Cannula 02/08/25 21:59 O2 Flow Rate 4 02/08/25 21:59 Oxygen Flow Rate 4 02/08/25 17:02 BMI result Body Mass Index 32.2 Appearance: Alert.?Oriented to person, place and time. No acute distress.?Normal affect. Eyes: Pupils equal, round and reactive to light.? ENT: Pharynx normal.?? Neck: Normal inspection.? Neck supple.?? CVS: Heart sounds normal. Normal heart rate and rhythm.? Pulses normal.?? Respiratory: No respiratory distress.? Lung sounds With rhonchi on auscultation bilaterally?at the base Abdomen: Soft diffuse lower abdominal tenderness upon palpation. No rebound tenderness at McBurney's point. No rigidity or guarding. No CVA tenderness. Normoactive bowel sounds. ?? Skin: Skin warm and dry.? Normal skin color.? Extremities: No lower extremity edema.? No calf ttp? Neuro: Moves all extremities spontaneously. Sensation intact bilaterally. CN II-XII intact. No focal neuro deficits. Ambulates with normal steady gait. NIH Stroke Scale Internal: Initial- Upon Arrival Level of Consciousness: Alert Level of Consciousness Questions: Answers both questions correctly Level of Consciousness Commands: Performs both tasks correctly Best Gaze: Normal Visual: No visual loss Facial Palsy: Normal Motor Arm (Left): No drift Motor Leg (Right): No drift Motor Leg (Left): No drift Limb Ataxia: Absent Sensory: Normal Best Language: No aphasia Dysarthia: Normal Extinction and Inattention: No abnormality Course Reevaluation(s) Reevaluation #1: CBC is without leukocytosis anemia or thrombocytopenia. No electrolyte derangement. No AMARA. LFTs overall unremarkable. High sensitive troponin within normal range. D- dimer is elevated at 478. Chest x-ray without consolidation or infiltrate. Will obtain CT angio of the chest with PE protocol in addition to CT of the abdomen and pelvis for further evaluation. Time: 18:17 Reevaluation #2: Patient signed out to [facility] GALEAS pending CT results and re-evaluation/disposition, given her hypoxia I anticipate hospital admission Time: 18:42 Reevaluation #3: Patient received in sign-out at change of shift pending CT of the chest and abdomen. The CT angiography of the chest shows no evidence of PE, does show small bilateral pleural effusions. The CT abdomen shows essentially hoyos colitis and proctitis. The patient has a known diagnosis of ulcerative colitis. When I was informing the patient of her results and re-evaluating her, I turned off her supplemental oxygen and when she sat up her oxygen saturation dropped to 84% on room air. Her CTA did not appear to show any significant findings to explain the hypoxia as there was only very small effusions and no PE, no pneumonia. When I listen to her lungs, she had mild high pitched wheezing. She is a smoker and I suspect her symptoms are more related to COPD that is undiagnosed. I ordered a dose of Solu-Medrol and a breathing treatment. The Solu-Medrol will likely also help her ulcerative colitis flare. Given the hypoxia we will discuss with the hospitalist for admission. I did order an ABG which appears to show chronic respiratory failure and compensation Time: 22:13 Medications Administered Discontinued Medications Generic Name Dose Route Start Last Admin Trade Name Freq PRN Reason Stop Dose Admin Methylprednisolone Sodium Succinate 125 mg 02/08/25 21:43 02/08/25 21:51 Methylprednisolone Sod Succ 125 Mg Vial IVPUSH 02/08/25 21:44 125 mg ONCE ONE Administration Morphine Sulfate 2 mg 02/08/25 20:30 02/08/25 20:37 Morphine Sulfate 2 Mg/Ml Cartridge IVPUSH 02/08/25 20:31 2 mg ONCE ONE Administration Protocol Ondansetron HCl 4 mg 02/08/25 20:30 02/08/25 20:37 Ondansetron Hcl 4 Mg/2 Ml Vial IVPUSH 02/08/25 20:31 4 mg ONCE ONE Administration Medical Decision Making Medical Decision Making [facility] Narrative: Patient is a 70-year-old female with past medical history of hypertension, hyperlipidemia, hypothyroidism, anxiety, depression, GERD Who presents for evaluation of generalized weakness, generalized body pain, lower abdominal pain described as cramping, diarrhea as well as shortness of breath and acute hypoxic respiratory failure as per HPI. She arrived to the emergency department on 4 L via nasal cannula with O2 saturation 95%. She felt the urge to have a bowel movement, attempted trial off of oxygen, an assisted to bedside commode with again desaturation down to 87% on room air. who further evaluate for possible cardiovascular etiology such as ACS. weaknesses mostly prominent distally rather than proximal, suspect less likely to be myopathy or PMR. Weakness is not unilateral or sudden in onset making CVA/TIA less likely. Atraumatic, unlikely to be epidural or subdural hematoma. No associated neck or chest pain to suggest dissection. No associated headache to suggest complicated migraine or SAH. No evidence of ascending paralysis to suggest Guillain-Hazelton syndrome. No bladder/ bowel dysfunction to suggest cauda equina/spinal cord lesion. Will obtain CBC to evaluate for leukocytosis/ anemia, CMP and lipase to evaluate for abnormal electrolytes /abnormal renal function/ abnormal hepatic/biliary function, EKG and troponin to evaluate for ischemia/ACS. Chest x-ray to evaluate for consolidation/ infiltrate/ mass/ pulmonary congestion, viral serologies and Urinalysis. Differential Diagnosis Differential Diagnoses: The differential diagnosis associated with the presentation includes (See narrative above) Admission/Observation Consideration of admission/observation: Escalation of care including admission/observation considered (See narrative above and course narrative for further detail) Lab Data [facility] Lab Attestation statement: I reviewed the patient's lab results. 02/08/25 17:27 02/08/25 17:27 Labs: Lab Results 02/08/25 02/08/25 02/08/25 Range/Units 17:27 17:38 17:41 WBC 6.6 (4.8-10.8) X10*3/uL RBC 4.18 L (4.20-5.50) X10*6/uL Hgb 13.0 D (12.0-16.0) g/dl Hct 40.3 D (37.0-47.0) % MCV 96.4 (80.0-98.0) fL MCH 31.1 (27.0-33.0) pg MCHC 32.3 (31.0-35.0) g/dl RDW 16.1 H (11.0-16.0) % Plt Count 295 D (160-400) X10*3/uL MPV 9.2 L (9.4-12.3) fL Immature Gran % (Auto) Cancelled Neut % (Auto) Cancelled Lymph % (Auto) Cancelled [place] % (Auto) Cancelled Eos % (Auto) Cancelled Baso % (Auto) Cancelled Lymph # (Auto) Cancelled [place] # (Auto) Cancelled Eos # (Auto) Cancelled Baso # (Auto) Cancelled Abs Immat Gran (auto) Cancelled Absolute Neuts (auto) Cancelled Absolute Nucleated RBC 0.000 (0.0-0.012) X10*3/uL Nucleated RBC % (auto) 0.0 (0.0-0.2) /100WBC Neutrophils % (Manual) 65 (45-73) % Band Neutrophils % 4 (3-5) % Lymphocytes % (Manual) 17 L (20-40) % Atypical Lymphs % (Man) 1 (0-6) % Monocytes % (Manual) 8 (2-11) % Eosinophils % (Manual) 2 (0-4) % Basophils % (Manual) 1 (0-2) % Metamyelocytes % 1 % Myelocytes % 1 % Abs Neuts (Manual) 4.6 (2.0-8.3) X10*3/uL Lymphocytes # (Manual) 1.1 L (1.2-4.9) X10*3/uL Atyp Lymphs # (Manual) 0.1 x10*3/uL Monocytes # (Manual) 0.5 (0.1-1.2) X10*3/uL Eosinophils # (Manual) 0.1 (0.0-0.4) X10*3/uL Basophils # (Manual) 0.1 (0.0-0.2) X10*3/uL Metamyelocytes # 0.1 X10*3/uL Myelocytes # 0.1 X10*/uL Platelet Estimate NORMAL (NORMAL) Large Platelets PRESENT Plt Morphology Comment NOTED RBC Morphology NORMAL PT 11.5 (10.9-12.4) SEC INR 1.0 (0.9-1.1) D-Dimer High Sensitivty 478 NG/ML O2 Saturation % ABG pH at Pt Temp (7.35-7.45) ABG pCO2 at Pt Temp (32-45) mmHg ABG pO2 at Pt Temp (83-108) mmHg ABG HCO3 (22-26) mmol/L ABG Base Excess (Actual) mmol/L Sodium 139 (135-145) mmol/L Potassium 3.3 (3.3-5.1) mmol/L Chloride 96 (96-108) mmol/L Carbon Dioxide 33 H (22-29) mmol/L Anion Gap 13 (12-20) BUN 7 L (9-16) mg/dL Creatinine 0.94 (0.5-1.4) mg/dL Estim Creat Clear Calc 60.4 Estimated GFR 59 Random Glucose 110 (60-115) mg/dL Calcium 8.0 L (8.4-10.2) mg/dL Magnesium 2.1 (1.6-2.6) mg/dL Total Bilirubin 0.5 (0.0-1.0) mg/dL AST 44 H (5-31) U/L ALT 21 (0-31) U/L Alkaline Phosphatase 72 (39-117) U/L Troponin I High Sens 4.0 (<3.5-17.0) ng/L Total Protein 5.8 L (6.5-8.0) g/dL Albumin 2.8 L (3.5-5.0) g/dL Lipase 4 L (8-78) U/L C. difficile Tox B Gene (Negative) Influenza Type A (PCR) NEGATIVE (Negative) Influenza Type B (PCR) NEGATIVE (Negative) RSV RNA Qual (PCR) NEGATIVE (Negative) SARS-CoV-2 RNA (RT-PCR) NEGATIVE (Negative) 02/08/25 02/08/25 Range/Units 17:52 22:00 WBC (4.8-10.8) X10*3/uL RBC (4.20-5.50) X10*6/uL Hgb (12.0-16.0) g/dl Hct (37.0-47.0) % MCV (80.0-98.0) fL MCH (27.0-33.0) pg MCHC (31.0-35.0) g/dl RDW (11.0-16.0) % Plt Count (160-400) X10*3/uL MPV (9.4-12.3) fL Immature Gran % (Auto) Neut % (Auto) Lymph % (Auto) [place] % (Auto) Eos % (Auto) Baso % (Auto) Lymph # (Auto) [place] # (Auto) Eos # (Auto) Baso # (Auto) Abs Immat Gran (auto) Absolute Neuts (auto) Absolute Nucleated RBC (0.0-0.012) X10*3/uL Nucleated RBC % (auto) (0.0-0.2) /100WBC Neutrophils % (Manual) (45-73) % Band Neutrophils % (3-5) % Lymphocytes % (Manual) (20-40) % Atypical Lymphs % (Man) (0-6) % Monocytes % (Manual) (2-11) % Eosinophils % (Manual) (0-4) % Basophils % (Manual) (0-2) % Metamyelocytes % % Myelocytes % % Abs Neuts (Manual) (2.0-8.3) X10*3/uL Lymphocytes # (Manual) (1.2-4.9) X10*3/uL Atyp Lymphs # (Manual) x10*3/uL Monocytes # (Manual) (0.1-1.2) X10*3/uL Eosinophils # (Manual) (0.0-0.4) X10*3/uL Basophils # (Manual) (0.0-0.2) X10*3/uL Metamyelocytes # X10*3/uL Myelocytes # X10*/uL Platelet Estimate (NORMAL) Large Platelets Plt Morphology Comment RBC Morphology PT (10.9-12.4) SEC INR (0.9-1.1) D-Dimer High Sensitivty NG/ML O2 Saturation 93.0 % ABG pH at Pt Temp 7.42 (7.35-7.45) ABG pCO2 at Pt Temp 60 H* (32-45) mmHg ABG pO2 at Pt Temp 79 L (83-108) mmHg ABG HCO3 39 H (22-26) mmol/L ABG Base Excess (Actual) 12.4 mmol/L Sodium (135-145) mmol/L Potassium (3.3-5.1) mmol/L Chloride (96-108) mmol/L Carbon Dioxide (22-29) mmol/L Anion Gap (12-20) BUN (9-16) mg/dL Creatinine (0.5-1.4) mg/dL Estim Creat Clear Calc Estimated GFR Random Glucose (60-115) mg/dL Calcium (8.4-10.2) mg/dL Magnesium (1.6-2.6) mg/dL Total Bilirubin (0.0-1.0) mg/dL AST (5-31) U/L ALT (0-31) U/L Alkaline Phosphatase (39-117) U/L Troponin I High Sens (<3.5-17.0) ng/L Total Protein (6.5-8.0) g/dL Albumin (3.5-5.0) g/dL Lipase (8-78) U/L C. difficile Tox B Gene NEGATIVE (Negative) Influenza Type A (PCR) (Negative) Influenza Type B (PCR) (Negative) RSV RNA Qual (PCR) (Negative) SARS-CoV-2 RNA (RT-PCR) (Negative) Independent Interpretation I performed an independent interpretation of an: EKG and Plain X-Ray Radiology Impression Discussion of test interpretation with radiology: I have reviewed the radiologist's reading. Radiologist Impression: 1 view chest x-ray Comparison: None Findings: No consolidation or effusion. Heart size is normal. No acute fracture. IMPRESSION: 1. No acute findings. Independent Historian Clinical information obtained from an independent historian. History obtained from or confirmed by: EMS External Record Review External record reviewed: Outpatient record Chronic Conditions Patient?s care impacted by: Other ( See narrative above) Discharge Plan Discharge Clinical Impression: COPD (chronic obstructive pulmonary disease) Patient Disposition: Admitted As Inpatient Prescriptions: No Action quetiapine 25 mg tablet 1 tab PO BEDTIME cyclobenzaprine 10 mg tablet 1 tab PO TID PRN (Reason: muscle spasm) atorvastatin 80 mg tablet 1 tab PO DAILY levothyroxine 200 mcg tablet 1 tab PO DAILY metoprolol succinate 25 mg tablet extended release 24 hr 1 tab PO DAILY sertraline 50 mg tablet 1 tab PO DAILY famotidine 20 mg tablet 20 mg PO DAILY Print Language: Bhutanese
--- NOTE | 2025-02-08 17:13 | ECG_ITS ---
Test Reason : weakness Blood Pressure : */* mmHG Vent. Rate : 74 BPM Atrial Rate : 74 BPM P-R Int : 180 ms QRS Dur : 76 ms QT Int : 374 ms P-R-T Axes : 55 23 83 degrees QTcB Int : 415 ms Poor data quality Possible Normal sinus rhythm Low voltage QRS Borderline ECG When compared with ECG of 02-May-2022 17:04, Premature ventricular complexes are no longer Present Nonspecific T wave abnormality now evident in Lateral leads Referred By: Nelly Hopson Electronically Signed By: RANDA LOMAX MD
[2025-02-08 17:32] LABS: Hematocrit 40.3 % (37.0-47.0); Mean Corpuscular HGB Conc 32.3 g/dl (31.0-35.0); Mean Corpuscular Hemoglobin 31.1 pg (27.0-33.0); Mean Corpuscular Volume 96.4 fL (80.0-98.0); Mean Platelet Volume 9.2 fL (9.4-12.3); Platelet Count 295 X10*3/uL (160-400); Red Blood Count 4.18 X10*6/uL (4.20-5.50); Red Cell Distribution Width 16.1 % (11.0-16.0); White Blood Count 6.6 X10*3/uL (4.8-10.8)
[2025-02-08 17:37] LABS: Prothrombin Time 11.5 SEC (10.9-12.4)
[2025-02-08 17:40] LABS: D Dimer High Sensitivity 478 NG/ML
[2025-02-08 17:45] LABS: Alanine Aminotransferase 21 U/L (0-31); Albumin Level 2.8 g/dL (3.5-5.0); Alkaline Phosphatase 72 U/L (39-117); Anion Gap 13 (12-20); Aspartate Amino Transferase 44 U/L (5-31); Bilirubin Total 0.5 mg/dL (0.0-1.0); Blood Urea Nitrogen 7 mg/dL (9-16); Carbon Dioxide 33 mmol/L (22-29); Chloride 96 mmol/L (96-108); Creatinine Clr Calc Pharmacy 60.4; Estimated Glomerular Filt Rate 59; Glucose Random 110 mg/dL (60-115); Lipase 4 U/L (8-78); Magnesium 2.1 mg/dL (1.6-2.6); Potassium 3.3 mmol/L (3.3-5.1); Sodium 139 mmol/L (135-145); Total Protein 5.8 g/dL (6.5-8.0)
[2025-02-08 18:07] LABS: Atypical Lymph Absolute Manual 0.1 x10*3/uL; Atypical Lymphs Percent Manual 1 % (0-6); Band Neutrophils Percent 4 % (3-5); Basophils Abs Manual 0.1 X10*3/uL (0.0-0.2); Basophils Percent Manual 1 % (0-2); Eosinophils Absolute Manual 0.1 X10*3/uL (0.0-0.4); Eosinophils Percent Manual 2 % (0-4); Lymphocytes Absolute Manual 1.1 X10*3/uL (1.2-4.9); Lymphocytes Percent Manual 17 % (20-40); Metamyelocytes Absolute 0.1 X10*3/uL; Metamyelocytes Percent 1 %; Monocytes Absolute Manual 0.5 X10*3/uL (0.1-1.2); Monocytes Percent Manual 8 % (2-11); Myelocytes Absolute 0.1 X10*/uL; Myelocytes Percent 1 %; Neutrophils Absolute Manual 4.6 X10*3/uL (2.0-8.3); Neutrophils Percent Manual 65 % (45-73)
[2025-02-08 18:08] LABS: RBC Morphology NORMAL
[2025-02-08 18:09] LABS: Large Platelet PRESENT; Platelet Estimate NORMAL (NORMAL); Platelet Morphology Comment NOTED
--- OUTSIDE RECORDS SUMMARY | 2025-02-08 18:22 | XMS_ITS | Patient Health Record ---
Author Organization [facility] Address [address] [place] [address] Care Team Providers Care Borough Coordinator Name Role Phone Lei Zuleta MD Primary Care Provider Robert Flores Jr [phone] Allergies No Known Allergies Reason For Referral No Information Medications Medication SIG (Take, Route, Frequency, Duration) Notes Start Date End Date Status Levothyroxine Sodium 200mcg Active Cyclobenzaprine HCl 10mg Active Atorvastatin Calcium 80mg Active Metoprolol Succinate ER 25 MG TAKE 1 TAB LET BY MOUTH DAILY Oral for 90 Active Omeprazole 20 MG Oral for 30 A ctive Sertraline HCl 50 MG TAKE 1 TABLET BY MO UTH DAILY Oral for 90 Active Immunizations Vaccine Route Administration Date Status Comme nts Influenza Unknown 06/17/2022 Refused Problems Problem Type SNOMED Code ICD Code Onset Dates Problem Status W/U Status Risk Notes Problem 12166380 Colitis (K52.9) Active confirmed Problem Duodenitis (66973715) Inflammation present on biopsy of duodenum (K29.80) Active confirmed Problem 500050857 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 Encounters Encounter Location Date Provider Diagnosis [facility] [address] [place] [address] 04/12/2024 Robert Ballesteros Jr Plan Of Treatment Pending Test Test Name Order Date XR GI SERIES 06/06/2013 US ABD 12/06/2013 Future Test Test Name Order Date UPPER GI ENDOSCOPY 04/21/2023 Insurance Providers Payer Name Payer Address Payer Phone Subscriber Number Group Number Insured Name Patient Relationship to Insured Coverage Start Date Coverage End Date MEDICARE OF [facility] [address] [place] [id number] [phone] [id number] SAMEERA FRIEDMAN Self - patient is the insured MEDICAID OF [facility] [address] [place] [address] [id number] SAMEERA FRIEDMAN Self - patient is the insured Medical (General) History Medical History History ICD Code Colitis, colonoscopy 05/05/22 , biopsies showing inactive ileitis, moderate to severely active colitis, with granuloma formation. Treated with prednisone and mesalamine. Gastroesophageal reflux disease Hereditary diffuse gastric c ancer syndrome, EGD 05/05, negative for malignancy spinal stenosis disc disease elevated cholesterol coronary artery disease with IA 3 prediabetic Surgical History Surgery Date(Month/Year) thyroidectomy for benign disease back surgery gall bladder removed tonsillectomy
[2025-02-08 18:23] LABS: Influenza A PCR NEGATIVE (Negative); Influenza B PCR NEGATIVE (Negative); Resp Syncy Virus RNA Qual PCR NEGATIVE (Negative); SARS COV2 PCR INHOUSE NEGATIVE (Negative)
--- OUTSIDE RECORDS SUMMARY | 2025-02-08 18:23 | XMS_ITS ---
Author Organization [facility] Address [address] [place] [id number] Care Team Providers Care Supervisor Microfilm Duplicating Unit Name Role Phone Lei Zuleta MD Primary Care Provider Satish Ballesteros Jr, Robert Haas REASON FOR VISIT Pt no show Encounters Encounter Location Date Provider Diagnosis [facility] [address] [place] [id number] 04/12/2024 Robert Ballesteros Jr Plan Of Treatment No Information Progress Notes * SAMEERA FRIEDMAN ADOB: [birth year] (69 yo F)Acc No.[id number]:04/12/2024 Patient:?SAMEERA FRIEDMAN :1955???Age:69 Y???Sex:Female Address:[address] [place] [address], [place] [address] * true * Date:? Generated for Sanchez wood/Hernan/eTransmitting on:?02/08/2025 06:22 PM EDT
[2025-02-08] MEDS: Morphine Sulfate 2 MG/ML CARTRIDGE IVPUSH (20:37)
[2025-02-08] MEDS: ondansetron HCL 4 MG/2 ML VIAL IVPUSH (20:37)
[2025-02-08 20:52] LABS: CDiff Gene PCR NEGATIVE (Negative)
[2025-02-08 22:05] LABS: ABG Base Excess 12.4 mmol/L; ABG HCO3 39 mmol/L (22-26); ABG pCO2 60 mmHg (32-45); ABG pH 7.42 (7.35-7.45); ABG pO2 79 mmHg (83-108)
--- NOTE | 2025-02-08 22:06 | PC.NURSE ---
this rn assumed care of pt @ 2100 pt medicated according to mariann miramontes at bedside
[2025-02-08] MEDS: Albuterol Sulfate 2.5 MG, Albuterol/Iprat 2.5/0.5MG 3 ML 3 ML INHALE (22:14)
[2025-02-08 22:29] LABS: B Type Natriuretic Peptide 18 pg/mL (<100)
--- NOTE | 2025-02-08 22:45 | PM.IMHP ---
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 Patient states she has been feeling weak for the last 5-6 days. Also has been having dyspnea which is worse with exertion. Denies cough but does have associated wheezing. Patient states that she was having 1-2 loose stools per day that was going on for the last 5-6 days but it has stopped now. She endorses generalized malaise and easy fatigability. Denies fever, chills, chest pain, palpitations, abdominal pain, changes in urinary habits. In the emergency department, patient found to be satting 84% on room air and placed on supplemental oxygen. Patient was given multiple DuoNeb treatments and IV steroids. Imaging with pancolitis. Review of Systems Constitutional: Constitutional: Reports fatigue, Reports malaise and Reports weakness Cardiovascular: Cardiovascular: Reports dyspnea on exertion Respiratory: Respiratory: Reports cough, Reports dyspnea on exertion and Reports wheezing Gastrointestinal: Gastrointestinal: Reports diarrhea and Reports loose stools Neurologic: Reports weakness Endocrine: Endocrine: Reports fatigue Allergic/Immunologic: Allergic/Immunologic: Reports wheezing [facility] Medical History Prediabetes CAD (coronary artery disease) GERD (gastroesophageal reflux disease) Smoker Spinal stenosis Depression Insomnia Borderline diabetic Heart attack Colitis Surgical History History of tonsillectomy H/O eye surgery H/O thyroidectomy Hx of cholecystectomy Social History Household Members: None Housing: House Do you presently have visiting nurse or other home services: No Alcohol intake: former Patient Tobacco Use Status: Current everyday Tobacco user Tobacco use type: Cigarette Cigarette Packs Per Day: 1 Cigarettes Per Day: 20.0 Years Smoked: 54 Smoked in Last 30 Days: Yes Use of substances other than those prescribed or required for medical reasons: No Advance Directives: No Advance Directives Information Provided: No service: No Current occupational status: employed Meds Allergies Allergy/AdvReac Type Severity Reaction Status Date / Time No Known Allergies Allergy Verified 02/08/25 17:06 [No Known Allergies*] Home Medications ?Medication ?Instructions ?Recorded ?Confirmed ?Last Taken ?Type atorvastatin 80 mg tablet 1 tab PO DAILY 05/03/22 06/01/23 06/01/23 History cyclobenzaprine 10 mg tablet 1 tab PO TID PRN muscle spasm 05/03/22 06/01/23 1 Week Ago History ~04/27/22 levothyroxine 200 mcg tablet 1 tab PO DAILY 05/03/22 06/01/23 06/01/23 History metoprolol succinate 25 mg 1 tab PO DAILY 05/03/22 06/01/23 06/01/23 History tablet,extended release 24 hr quetiapine 25 mg tablet 1 tab PO BEDTIME 05/03/22 06/01/23 1 Week Ago History ~04/27/22 sertraline 50 mg tablet 1 tab PO DAILY 05/03/22 06/01/23 06/01/23 History famotidine 20 mg tablet 20 mg PO DAILY 06/01/23 06/01/23 06/01/23 History Physical Exam Vital Signs and Narrative: Vital Signs: Last Vital Signs Temp 96.8 F 02/08/25 21:59 Pulse 89 02/08/25 22:18 Resp 20 02/08/25 22:18 BP 104/66 02/08/25 21:59 Pulse Ox 97 02/08/25 21:59 O2 Del Method Nasal Cannula 02/08/25 21:59 O2 Flow Rate 4 02/08/25 21:59 Oxygen Flow Rate 4 02/08/25 17:02 BMI result Body Mass Index 32.2 Middle-aged male lying in bed in mild distress on supplemental oxygen Neck supple, no JVD Regular rate and rhythm, S1-S2 heard Bilateral expiratory wheezing present Abdomen soft nontender, no guarding, no rigidity Patient is awake, alert and oriented to self, place, time and person ; no focal motor deficit Psych: Normal mood Results Labs 02/08/25 17:27 02/08/25 17:27 Labs: Laboratory Results - last 24 hr 02/08/25 02/08/25 02/08/25 17:27 17:38 17:52 MCV 96.4 MCH 31.1 MCHC 32.3 RDW 16.1 H Plt Count 295 D MPV 9.2 L Immature Gran % (Auto) Cancelled Neut % (Auto) Cancelled Lymph % (Auto) Cancelled [place] % (Auto) Cancelled Eos % (Auto) Cancelled Baso % (Auto) Cancelled Lymph # (Auto) Cancelled [place] # (Auto) Cancelled Eos # (Auto) Cancelled Baso # (Auto) Cancelled Abs Immat Gran (auto) Cancelled Absolute Neuts (auto) Cancelled Absolute Nucleated RBC 0.000 Nucleated RBC % (auto) 0.0 Neutrophils % (Manual) 65 Band Neutrophils % 4 Lymphocytes % (Manual) 17 L Atypical Lymphs % (Man) 1 Monocytes % (Manual) 8 Eosinophils % (Manual) 2 Basophils % (Manual) 1 Metamyelocytes % 1 Myelocytes % 1 Abs Neuts (Manual) 4.6 Lymphocytes # (Manual) 1.1 L Atyp Lymphs # (Manual) 0.1 Monocytes # (Manual) 0.5 Eosinophils # (Manual) 0.1 Basophils # (Manual) 0.1 Metamyelocytes # 0.1 Myelocytes # 0.1 Platelet Estimate NORMAL Large Platelets PRESENT Plt Morphology Comment NOTED RBC Morphology NORMAL PT 11.5 INR 1.0 D-Dimer High Sensitivty 478 O2 Saturation ABG pH at Pt Temp ABG pCO2 at Pt Temp ABG pO2 at Pt Temp ABG HCO3 ABG Base Excess (Actual) Anion Gap 13 Estim Creat Clear Calc 60.4 Estimated GFR 59 Random Glucose 110 Calcium 8.0 L Magnesium 2.1 Total Bilirubin 0.5 AST 44 H ALT 21 Alkaline Phosphatase 72 B-Natriuretic Peptide Total Protein 5.8 L Albumin 2.8 L Lipase 4 L C. difficile Tox B Gene NEGATIVE Influenza Type A (PCR) NEGATIVE Influenza Type B (PCR) NEGATIVE RSV RNA Qual (PCR) NEGATIVE SARS-CoV-2 RNA (RT-PCR) NEGATIVE 02/08/25 02/08/25 22:00 22:06 MCV MCH MCHC RDW Plt Count MPV Immature Gran % (Auto) Neut % (Auto) Lymph % (Auto) [place] % (Auto) Eos % (Auto) Baso % (Auto) Lymph # (Auto) [place] # (Auto) Eos # (Auto) Baso # (Auto) Abs Immat Gran (auto) Absolute Neuts (auto) Absolute Nucleated RBC Nucleated RBC % (auto) Neutrophils % (Manual) Band Neutrophils % Lymphocytes % (Manual) Atypical Lymphs % (Man) Monocytes % (Manual) Eosinophils % (Manual) Basophils % (Manual) Metamyelocytes % Myelocytes % Abs Neuts (Manual) Lymphocytes # (Manual) Atyp Lymphs # (Manual) Monocytes # (Manual) Eosinophils # (Manual) Basophils # (Manual) Metamyelocytes # Myelocytes # Platelet Estimate Large Platelets Plt Morphology Comment RBC Morphology PT INR D-Dimer High Sensitivty O2 Saturation 93.0 ABG pH at Pt Temp 7.42 ABG pCO2 at Pt Temp 60 H* ABG pO2 at Pt Temp 79 L ABG HCO3 39 H ABG Base Excess (Actual) 12.4 Anion Gap Estim Creat Clear Calc Estimated GFR Random Glucose Calcium Magnesium Total Bilirubin AST ALT Alkaline Phosphatase B-Natriuretic Peptide 18 Total Protein Albumin Lipase C. 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 #. Acute hypoxemic respiratory failure due to acute exacerbation of COPD: Will admit patient with scheduled and p.r.n. DuMarvabs. Initiating systemic steroids. #. Mood disorder: Continue home mood stabilizers #. Hypothyroidism: On Synthroid #. Gastroesophageal reflux disease: On famotidine #. Right upper lobe pulmonary nodule: Outpatient follow-up with CT chest in 6-12 months #. Ulcerative colitis: Outpatient GI follow-up Med rec pending DVT prophylaxis: Lovenox Full code. Discussed with patient at bedside Admit as inpatient and will require two night minimum hospital stay for supplemental oxygen, monitoring of respiratory status (as above), which is not possible in a lesser acute setting. Quality Stroke Does the patient have a stroke diagnosis?: No VTE Prior VTE?: No VTE Risk Level:: Medical - moderate - high VTE Device Contraindication: Treatment Not Indicated VTE Drug Contraindication: N/A - Med Ordered
[2025-02-08 23:43] LABS: ABG Refer to POC result
[2025-02-08] MEDS: Enoxaparin Sodium 40 MG/0.4 ML SYRINGE SUBCUT (23:51)
[2025-02-08] MEDS: 0.9 % Sodium Chloride 1,000 ML 999 ML IV (23:52)
[2025-02-08] MEDS: Acetaminophen 325 MG TABLET 650 MG PO (23:52)
[2025-02-09] VITALS (7 sets, daily range): BP systolic 96–125; BP diastolic 51–59; PULSE 65–76; RESP 16–20; TEMP 36–36.3; O2SAT 92–95
[2025-02-09] MEDS: Melatonin 3 MG TABLET 6 MG PO ×2 (00:54→20:17)
[2025-02-09 05:46] LABS: MANUAL DIFF FLAG NO
[2025-02-09 05:53] LABS: Basophils Percent Auto 0.3 % (0-2); Eosinophils Percent Auto 0.1 % (0-4); Hematocrit 35.2 % (37.0-47.0); Hemoglobin 11.4 g/dl (12.0-16.0); Imm Gran Abs Auto 0.33 X10*3/uL (0.00-0.03); Imm Gran Pct Auto 4.8 % (0.0-0.4); Lymphocytes Absolute Auto 0.6 X10*3/uL (1.2-4.9); Lymphocytes Percent Auto 8.8 % (20-40); Mean Corpuscular HGB Conc 32.4 g/dl (31.0-35.0); Mean Corpuscular Hemoglobin 31.6 pg (27.0-33.0); Mean Corpuscular Volume 97.5 fL (80.0-98.0); Mean Platelet Volume 9.4 fL (9.4-12.3); Monocytes Absolute Auto 0.1 X10*3/uL (0.1-1.2); Monocytes Percent Auto 1.6 % (2-11); Neutrophils Absolute Auto 5.8 x10*3/uL (2.0-8.3); Neutrophils Percent Auto 84.4 % (45-73); Platelet Count 258 X10*3/uL (160-400); Red Blood Count 3.61 X10*6/uL (4.20-5.50); Red Cell Distribution Width 15.9 % (11.0-16.0); White Blood Count 6.9 X10*3/uL (4.8-10.8)
[2025-02-09 06:05] LABS: Anion Gap 12 (12-20); Blood Urea Nitrogen 9 mg/dL (9-16); Calcium 7.7 mg/dL (8.4-10.2); Carbon Dioxide 31 mmol/L (22-29); Chloride 97 mmol/L (96-108); Estimated Glomerular Filt Rate > 60; Glucose Random 180 mg/dL (60-115); Potassium 3.3 mmol/L (3.3-5.1); Sodium 137 mmol/L (135-145)
[2025-02-09] MEDS: predniSONE 20 MG TABLET 40 MG PO (08:15)
[2025-02-09] MEDS: 0.9 % Sodium Chloride Flush 3 ML SYRINGE IVFLUSH ×3 (08:16→20:19)
--- NOTE | 2025-02-09 09:27 | PHA.MEDREC ---
Addendum entered by Rizwan Costello [facility] 02/09/25 16:21: Reviewed by [facility] Original Note: Pharmacy Consult ? Medication Reconciliation Pharmacy has completed the medication reconciliation. Spoke to pt to confirm meds. Per pt, they have been taking their meds on/off every couple of weeks and have not been picking up their medications consistently. Pt reports that they should be on these medications, but tell me that they could do a better job at taking them everyday .
[2025-02-09 09:49] LABS: Adenovirus F 40/41 Not Detected (Not Detect.); Astrovirus Not Detected (Not Detect.); Campylobacter Not Detected (Not Detect.); Cryptosporidium Not Detected (Not Detect.); Cyclospora cayetanensis Not Detected (Not Detect.); E. coli EAEC Not Detected (Not Detect.); E. coli EPEC Detected (Not Detect.); E. coli ETEC Not Detected (Not Detect.); E. coli STEC Not Detected (Not Detect.); Entamoeba histolytica Not Detected (Not Detect.); Giardia lamblia Not Detected (Not Detect.); Norovirus GI/GII Not Detected (Not Detect.); Plesiomonas shigelloides Not Detected (Not Detect.); Rotavirus A Not Detected (Not Detect.); Salmonella Not Detected (Not Detect.); Sapovirus Not Detected (Not Detect.); Shigella sp./EIEC Not Detected (Not Detect.); Vibrio Not Detected (Not Detect.); Vibrio Cholerae Not Detected (Not Detect.); Yersinia enterocolitica Not Detected (Not Detect.)
[2025-02-09 11:29] LABS: Appearance Urine Clear; Color Urine Dark Yellow; Glucose Urine UA Negative (Negative); Leukocyte Esterase Urine Negative (Negative); Nitrite Urine Negative (Negative); PH 6.5 (5.0-9.0); Specific Gravity - Urine >= 1.030 (1.005-1.025); UMIC TRIGGER UACC YES; Urine Blood Negative (Negative); Urine Ketones Trace mg/dL (Negative); Urine Protein 100 (2+) mg/dL (Neg-Trace)
[2025-02-09 11:54] LABS: Bacteria Urine None Seen (None Seen); Hyaline Casts Urine 0-2 /LPF (0-2); RBC Urine 0-2 /HPF (0-2); WBC Urine 0-5 /HPF (0-5)
--- NOTE | 2025-02-09 13:20 | MHC.CM.PN ---
PT REPORTS SHE LIVES ALONE AND IS INDEPENDENT WITH CARE SHE HAS NO DME AND NO SERVICES HCP ON FILE PCP: NOAM TREVINO IMM DELIVERED DCP: HOME NO SERVICES VIA PRIVATE TRANSPORT
[2025-02-09] MEDS: Acetaminophen 325 MG TABLET 650 MG PO (14:00)
--- NOTE | 2025-02-09 14:55 | HO.PM.IMPN ---
Subjective Subjective Date of Service: 02/09/25 Interval History: copd exacerbation, diarrhea Review of Systems Patient says that she has some diarrhea but improving Shortness of breaths feels similar, gets short of breath with minimal exertion. Physical Exam Vital Signs: Vital Signs: Last Vital Signs Temp 97.0 F 02/09/25 07:32 Pulse 67 02/09/25 07:32 Resp 16 02/09/25 07:32 BP 125/51 L 02/09/25 07:32 Pulse Ox 94 02/09/25 08:23 O2 Del Method Nasal Cannula 02/09/25 08:23 O2 Flow Rate 2 02/09/25 08:23 Oxygen Flow Rate 4 02/08/25 17:02 BMI result Body Mass Index 32.2 Appearance: Alert.? Oriented X3. cvs: rrr, [id number] . res: air entry diminshed , has b/l wheezing abd: no rebound or guarding ,nt, bs present. MS: paraspinal muscle soreness, mobility seems fine but feels generalized weak. No deformity of spine ext pulses present , no cyanosis . neuro: axo3 , nonfocal. Objective Data Active Medications Acetaminophen (Acetaminophen 325 Mg Tablet) 975 mg PO Q6H KT Albuterol/Ipratropium (Albuterol/Iprat 2.5/0.5mg 3 Ml Ampul.Neb) 3 ml INHALE Q4H PRN PRN Reason: Shortness of Breath/Wheezing Albuterol/Ipratropium (Albuterol/Iprat 2.5/0.5mg 3 Ml Ampul.Neb) 3 ml INHALE RQ4H WHILE AWAKE [facility] Last Admin: 02/09/25 11:35 Dose: Not Given Documented By: LAMONT Non-Admin Reason: Patient Refused Atorvastatin Calcium (Atorvastatin Calcium 80 Mg Tablet) 80 mg PO DAILY [facility] Benzonatate (Benzonatate 100 Mg Capsule) 100 mg PO TID PRN PRN Reason: Cough Calcium Carbonate (Calcium Carbonate 750 Mg Tab.Chew) 750 mg PO Q4H PRN PRN Reason: Heartburn Capsaicin (Capsaicin 0.025% Cream 60 Gm Tube) 1 appl TOPICAL QID PRN; Protocol PRN Reason: Pain, Moderate(Pain Scale 4-6) Cyclobenzaprine HCl (Cyclobenzaprine Hcl 10 Mg Tablet) 10 mg PO BEDTIME PRN PRN Reason: muscle spasm Enoxaparin Sodium (Enoxaparin Sodium 40 Mg/0.4 Ml Syringe) 40 mg SUBCUT Q24H [facility] Last Admin: 02/08/25 23:51 Dose: 40 mg Documented By: JACKELYN Famotidine (Famotidine 20 Mg Tablet) 10 mg PO BID [facility] Levothyroxine Sodium (Levothyroxine Sodium 200 Mcg Tablet) 200 mcg PO DAILY@0600 [facility] Lidocaine (Lidocaine 4 % Patch Adh..Patch) 1 patch TRANSDERMA DAILY [facility]; Protocol Magnesium Hydroxide (Milk Of Magnesia 30 Ml Oral.Susp) 30 ml PO DAILY PRN PRN Reason: Constipation Melatonin (Melatonin 3 Mg Tablet) 6 mg PO BEDTIME PRN PRN Reason: Insomnia Last Admin: 02/09/25 00:54 Dose: 6 mg Documented By: PRICILA Metoprolol Succinate (Metoprolol Succinate Er 25 Mg Tab.Er.24h) 25 mg PO DAILY [facility]; Protocol Ondansetron HCl (Ondansetron Hcl 4 Mg/2 Ml Vial) 4 mg IVPUSH Q8H PRN PRN Reason: Nausea and Vomiting Prednisone (Prednisone 20 Mg Tablet) 40 mg PO DAILY [facility] Last Admin: 02/09/25 08:15 Dose: 40 mg Documented By: FITO Sertraline HCl (Sertraline Hcl 50 Mg Tablet) 50 mg PO DAILY [facility] Sodium Chloride (0.9 % Sodium Chloride Flush 3 Ml Syringe) 3 ml IVFLUSH QSHIFT [facility] Last Admin: 02/09/25 08:16 Dose: 3 ml Documented By: FITO Tramadol HCl (Tramadol Hcl 50 Mg Tablet) 25 mg PO Q6H PRN PRN Reason: Pain, Severe (Pain Scale 7-10) Labs 02/09/25 05:12 02/09/25 05:12 Labs: Laboratory Results - last 24 hr 02/08/25 02/08/25 02/08/25 17:27 17:38 17:52 MCV 96.4 MCH 31.1 MCHC 32.3 RDW 16.1 H Plt Count 295 D MPV 9.2 L Immature Gran % (Auto) Cancelled Neut % (Auto) Cancelled Lymph % (Auto) Cancelled [place] % (Auto) Cancelled Eos % (Auto) Cancelled Baso % (Auto) Cancelled Lymph # (Auto) Cancelled [place] # (Auto) Cancelled Eos # (Auto) Cancelled Baso # (Auto) Cancelled Abs Immat Gran (auto) Cancelled Absolute Neuts (auto) Cancelled Absolute Nucleated RBC 0.000 Nucleated RBC % (auto) 0.0 Neutrophils % (Manual) 65 Band Neutrophils % 4 Lymphocytes % (Manual) 17 L Atypical Lymphs % (Man) 1 Monocytes % (Manual) 8 Eosinophils % (Manual) 2 Basophils % (Manual) 1 Metamyelocytes % 1 Myelocytes % 1 Abs Neuts (Manual) 4.6 Lymphocytes # (Manual) 1.1 L Atyp Lymphs # (Manual) 0.1 Monocytes # (Manual) 0.5 Eosinophils # (Manual) 0.1 Basophils # (Manual) 0.1 Metamyelocytes # 0.1 Myelocytes # 0.1 Platelet Estimate NORMAL Large Platelets PRESENT Plt Morphology Comment NOTED RBC Morphology NORMAL PT 11.5 INR 1.0 D-Dimer High Sensitivty 478 O2 Saturation ABG pH at Pt Temp ABG pCO2 at Pt Temp ABG pO2 at Pt Temp ABG HCO3 ABG Base Excess (Actual) Anion Gap 13 Estim Creat Clear Calc 60.4 Estimated GFR 59 Random Glucose 110 Calcium 8.0 L Magnesium 2.1 Total Bilirubin 0.5 AST 44 H ALT 21 Alkaline Phosphatase 72 B-Natriuretic Peptide Total Protein 5.8 L Albumin 2.8 L Lipase 4 L Urine Color Urine Appearance Urine pH Ur Specific [place] Urine Protein Urine Glucose (UA) Urine Ketones Urine Blood Urine Nitrite Ur Leukocyte Esterase Urine RBC Urine WBC Ur Squamous Epith Cells Urine Bacteria Hyaline Casts Stl C. cayetanensis PCR Not Detected Stool Rotavirus A PCR Not Detected Stl Adenov F 40/41 PCR Not Detected Stool Astrovirus (PCR) Not Detected Stool Campylobacter PCR Not Detected Stool Cryptosporidium PCR Not Detected Stl Sh Tox Pr E STEC PCR Not Detected Stool E coli O157 PCR Not applicable Stl Enterotoxigenic E PCR Not Detected Stool EPEC (PCR) Detected A Stool EAEC (PCR) Not Detected Stl E. histolytica PCR Not Detected Stool Giardia Lamblia PCR Not Detected Stl P. shigelloides PCR Not Detected Stool Salmonella PCR Not Detected Stool Sapovirus (PCR) Not Detected Stl Shigella/EIEC PCR Not Detected St Y.enterocolitica PCR Not Detected Stool Vibrio (PCR) Not Detected Stl Vibrio cholerae PCR Not Detected Stl Norovirus GI/GII PCR Not Detected C. difficile Tox B Gene NEGATIVE Influenza Type A (PCR) NEGATIVE Influenza Type B (PCR) NEGATIVE RSV RNA Qual (PCR) NEGATIVE SARS-CoV-2 RNA (RT-PCR) NEGATIVE 02/08/25 02/08/25 02/09/25 22:00 22:06 05:12 MCV 97.5 MCH 31.6 MCHC 32.4 RDW 15.9 Plt Count 258 MPV 9.4 Immature Gran % (Auto) 4.8 H Neut % (Auto) 84.4 H Lymph % (Auto) 8.8 L [place] % (Auto) 1.6 L Eos % (Auto) 0.1 Baso % (Auto) 0.3 Lymph # (Auto) 0.6 L [place] # (Auto) 0.1 Eos # (Auto) 0.0 Baso # (Auto) 0.0 Abs Immat Gran (auto) 0.33 H Absolute Neuts (auto) 5.8 Absolute Nucleated RBC 0.000 Nucleated RBC % (auto) 0.0 Neutrophils % (Manual) Band Neutrophils % Lymphocytes % (Manual) Atypical Lymphs % (Man) Monocytes % (Manual) Eosinophils % (Manual) Basophils % (Manual) Metamyelocytes % Myelocytes % Abs Neuts (Manual) Lymphocytes # (Manual) Atyp Lymphs # (Manual) Monocytes # (Manual) Eosinophils # (Manual) Basophils # (Manual) Metamyelocytes # Myelocytes # Platelet Estimate Large Platelets Plt Morphology Comment RBC Morphology PT INR D-Dimer High Sensitivty O2 Saturation 93.0 ABG pH at Pt Temp 7.42 ABG pCO2 at Pt Temp 60 H* ABG pO2 at Pt Temp 79 L ABG HCO3 39 H ABG Base Excess (Actual) 12.4 Anion Gap 12 Estim Creat Clear Calc 66.0 Estimated GFR > 60 Random Glucose 180 H Calcium 7.7 L Magnesium Total Bilirubin AST ALT Alkaline Phosphatase B-Natriuretic Peptide 18 Total Protein Albumin Lipase Urine Color Urine Appearance Urine pH Ur Specific [place] Urine Protein Urine Glucose (UA) Urine Ketones Urine Blood Urine Nitrite Ur Leukocyte Esterase Urine RBC Urine WBC Ur Squamous Epith Cells Urine Bacteria Hyaline Casts Stl C. cayetanensis PCR Stool Rotavirus A PCR Stl Adenov F 40/41 PCR Stool Astrovirus (PCR) Stool Campylobacter PCR Stool Cryptosporidium PCR Stl Sh Tox Pr E STEC PCR Stool E coli O157 PCR Stl Enterotoxigenic E PCR Stool EPEC (PCR) Stool EAEC (PCR) Stl E. histolytica PCR Stool Giardia Lamblia PCR Stl P. shigelloides PCR Stool Salmonella PCR Stool Sapovirus (PCR) Stl Shigella/EIEC PCR St Y.enterocolitica PCR Stool Vibrio (PCR) Stl Vibrio cholerae PCR Stl Norovirus GI/GII PCR C. difficile Tox B Gene Influenza Type A (PCR) Influenza Type B (PCR) RSV RNA Qual (PCR) SARS-CoV-2 RNA (RT-PCR) 02/09/25 11:11 MCV MCH MCHC RDW Plt Count MPV Immature Gran % (Auto) Neut % (Auto) Lymph % (Auto) [place] % (Auto) Eos % (Auto) Baso % (Auto) Lymph # (Auto) [place] # (Auto) Eos # (Auto) Baso # (Auto) Abs Immat Gran (auto) Absolute Neuts (auto) Absolute Nucleated RBC Nucleated RBC % (auto) Neutrophils % (Manual) Band Neutrophils % Lymphocytes % (Manual) Atypical Lymphs % (Man) Monocytes % (Manual) Eosinophils % (Manual) Basophils % (Manual) Metamyelocytes % Myelocytes % Abs Neuts (Manual) Lymphocytes # (Manual) Atyp Lymphs # (Manual) Monocytes # (Manual) Eosinophils # (Manual) Basophils # (Manual) Metamyelocytes # Myelocytes # Platelet Estimate Large Platelets Plt Morphology Comment RBC Morphology PT INR D-Dimer High Sensitivty O2 Saturation ABG pH at Pt Temp ABG pCO2 at Pt Temp ABG pO2 at Pt Temp ABG HCO3 ABG Base Excess (Actual) Anion Gap Estim Creat Clear Calc Estimated GFR Random Glucose Calcium Magnesium Total Bilirubin AST ALT Alkaline Phosphatase B-Natriuretic Peptide Total Protein Albumin Lipase Urine Color Dark Yellow Urine Appearance Clear Urine pH 6.5 Ur Specific [place] >= 1.030 H Urine Protein 100 (2+) H Urine Glucose (UA) Negative Urine Ketones Trace Urine Blood Negative Urine Nitrite Negative Ur Leukocyte Esterase Negative Urine RBC 0-2 Urine WBC 0-5 Ur Squamous Epith Cells 6-10 Urine Bacteria None Seen Hyaline Casts 0-2 Stl C. cayetanensis PCR Stool Rotavirus A PCR Stl Adenov F 40/41 PCR Stool Astrovirus (PCR) Stool Campylobacter PCR Stool Cryptosporidium PCR Stl Sh Tox Pr E STEC PCR Stool E coli O157 PCR Stl Enterotoxigenic E PCR Stool EPEC (PCR) Stool EAEC (PCR) Stl E. histolytica PCR Stool Giardia Lamblia PCR Stl P. shigelloides PCR Stool Salmonella PCR Stool Sapovirus (PCR) Stl Shigella/EIEC PCR St Y.enterocolitica PCR Stool Vibrio (PCR) Stl Vibrio cholerae PCR Stl Norovirus GI/GII PCR C. 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 Acute hypoxemic respiratory failure due to acute exacerbation of COPD: Shortness of breath with minimal exertion, generalized weak Continue nebs, steroids, taper oxygen. Mood disorder: Continue home mood stabilizers Hypothyroidism: On Synthroid Gastroesophageal reflux disease: On famotidine Right upper lobe pulmonary nodule: Outpatient follow-up with CT chest in 6-12 months Diarrhae : improving no abd pain gip panel possitive for EPEC. cdiff negative continue symptomatic management. Encouraged for hydration p.o. intake. Back pain: Added lidocaine patch , capsaicin cream, Tylenol, trazodone L-spine x-ray. Ulcerative colitis: Outpatient GI follow-up DVT prophylaxis: Lovenox Full code. Discussed with patient at bedside Ongoing need: COPD exacerbation/acute hypoxemic respiratory failure: supplemental oxygen, monitoring of respiratory status (as above), which is not possible in a lesser acute setting. Quality Stroke Does the patient have a stroke diagnosis?: No VTE Prior VTE?: No VTE Risk Level:: Medical - moderate - high VTE Device Contraindication: Treatment Not Indicated VTE Drug Contraindication: N/A - Med Ordered
[2025-02-09] MEDS: oxyCODONE HCl Immed Release 5 MG TABLET PO (16:28)
--- NOTE | 2025-02-09 16:44 | PC.NURSE ---
1100- Patient ambulated with staff to bathroom w/o O2. Patient reported feeling weak while ambulating but denied dizziness or SOB. Once back in bed O2 checked 70s on RA. Patient placed back on 2L O2 and recovered to 92-94%. Patient ro remain on 2L via NC at this time. Dr. Henry made aware, no new orders. All needs met.
[2025-02-09] MEDS: Lidocaine 4 % Patch ADH..PATCH 1 PATCH TRANSDERMA (17:33)
[2025-02-09] MEDS: Albuterol/Iprat 2.5/0.5MG 3 ML AMPUL.NEB INHALE (19:59)
[2025-02-09] MEDS: traMADoL HCL 50 MG TABLET 25 MG PO (20:17)
[2025-02-09] MEDS: Enoxaparin Sodium 40 MG/0.4 ML SYRINGE SUBCUT (22:41)
[2025-02-10] VITALS (8 sets, daily range): BP systolic 88–125; BP diastolic 50–63; PULSE 60–67; RESP 16–18; TEMP 36–36.9; O2SAT 92–95
[2025-02-10] MEDS: oxyCODONE HCl Immed Release 5 MG TABLET PO (02:20)
[2025-02-10] MEDS: Levothyroxine Sodium 200 MCG TABLET PO (05:10)
--- NOTE | 2025-02-10 07:40 | HO.PM.IMPN ---
Subjective Subjective Date of Service: 02/10/25 Interval History: copd backpain Review of Systems sob with minimal excersion back pain/generlaised weak Review of Systems: Yes all other systems are reviewed and are negative Physical Exam Vital Signs: Vital Signs: Last Vital Signs Temp 96.8 F 02/10/25 07:10 Pulse 66 02/10/25 07:10 Resp 18 02/10/25 07:10 BP 125/50 L 02/10/25 07:10 Pulse Ox 92 02/10/25 07:10 O2 Del Method Nasal Cannula 02/10/25 07:10 O2 Flow Rate 2 02/10/25 07:10 Oxygen Flow Rate 4 02/08/25 17:02 BMI result Body Mass Index 32.2 Appearance: Alert.? Oriented X3. cvs: [id number], [id number] . res: air entry diminshed , has b/l wheezing abd: no rebound or guarding ,nt, bs present. MS: paraspinal muscle soreness improving No deformity of spine ext pulses present , no cyanosis . neuro: axo3 , nonfocal. Objective Data Active Medications Acetaminophen (Acetaminophen 325 Mg Tablet) 975 mg PO Q6H [facility] Last Admin: 02/10/25 01:36 Dose: Not Given Documented By: LESLEY Non-Admin Reason: Patient Refused Albuterol/Ipratropium (Albuterol/Iprat 2.5/0.5mg 3 Ml Ampul.Neb) 3 ml INHALE Q4H PRN PRN Reason: Shortness of Breath/Wheezing Albuterol/Ipratropium (Albuterol/Iprat 2.5/0.5mg 3 Ml Ampul.Neb) 3 ml INHALE RQ4H WHILE AWAKE [facility] Last Admin: 02/09/25 19:59 Dose: 3 ml Documented By: SILVINO Atorvastatin Calcium (Atorvastatin Calcium 80 Mg Tablet) 80 mg PO DAILY [facility] Benzonatate (Benzonatate 100 Mg Capsule) 100 mg PO TID PRN PRN Reason: Cough Calcium Carbonate (Calcium Carbonate 750 Mg Tab.Chew) 750 mg PO Q4H PRN PRN Reason: Heartburn Capsaicin (Capsaicin 0.025% Cream 60 Gm Tube) 1 appl TOPICAL QID PRN; Protocol PRN Reason: Pain, Moderate(Pain Scale 4-6) Cyclobenzaprine HCl (Cyclobenzaprine Hcl 10 Mg Tablet) 10 mg PO BEDTIME PRN PRN Reason: muscle spasm Enoxaparin Sodium (Enoxaparin Sodium 40 Mg/0.4 Ml Syringe) 40 mg SUBCUT Q24H [facility] Last Admin: 02/09/25 22:41 Dose: 40 mg Documented By: LESLEY Famotidine (Famotidine 20 Mg Tablet) 10 mg PO BID [facility] Last Admin: 02/09/25 20:20 Dose: Not Given Documented By: LESLEY Non-Admin Reason: Patient Refused Levothyroxine Sodium (Levothyroxine Sodium 200 Mcg Tablet) 200 mcg PO DAILY@0600 [facility] Last Admin: 02/10/25 05:10 Dose: 200 mcg Documented By: LESLEY Lidocaine (Lidocaine 4 % Patch Adh..Patch) 1 patch TRANSDERMA DAILY [facility]; Protocol Last Admin: 02/09/25 17:33 Dose: 1 patch Documented By: FITO Comments: Patient agreeable to patch now Magnesium Hydroxide (Milk Of Magnesia 30 Ml Oral.Susp) 30 ml PO DAILY PRN PRN Reason: Constipation Melatonin (Melatonin 3 Mg Tablet) 6 mg PO BEDTIME PRN PRN Reason: Insomnia Last Admin: 02/09/25 20:17 Dose: 6 mg Documented By: LESLEY Metoprolol Succinate (Metoprolol Succinate Er 25 Mg Tab.Er.24h) 25 mg PO DAILY [facility]; Protocol Ondansetron HCl (Ondansetron Hcl 4 Mg/2 Ml Vial) 4 mg IVPUSH Q8H PRN PRN Reason: Nausea and Vomiting Oxycodone HCl (Oxycodone Hcl Immed Release 5 Mg Tablet) 5 mg PO Q6H PRN PRN Reason: Pain, Severe (Pain Scale 7-10) Last Admin: 02/10/25 02:20 Dose: 5 mg Documented By: LESLEY Prednisone (Prednisone 20 Mg Tablet) 40 mg PO DAILY [facility] Last Admin: 02/09/25 08:15 Dose: 40 mg Documented By: FITO Sertraline HCl (Sertraline Hcl 50 Mg Tablet) 50 mg PO DAILY [facility] Sodium Chloride (0.9 % Sodium Chloride Flush 3 Ml Syringe) 3 ml IVFLUSH QSHIFT [facility] Last Admin: 02/09/25 20:19 Dose: 3 ml Documented By: LESLEY Tramadol HCl (Tramadol Hcl 50 Mg Tablet) 25 mg PO Q6H PRN PRN Reason: Pain, Severe (Pain Scale 7-10) Last Admin: 02/09/25 20:17 Dose: 25 mg Documented By: LESLEY Labs 02/09/25 05:12 02/09/25 05:12 Labs: Laboratory Results - last 24 hr 02/08/25 02/09/25 17:52 11:11 Urine Color Dark Yellow Urine Appearance Clear Urine pH 6.5 Ur Specific [place] >= 1.030 H Urine Protein 100 (2+) H Urine Glucose (UA) Negative Urine Ketones Trace Urine Blood Negative Urine Nitrite Negative Ur Leukocyte Esterase Negative Urine RBC 0-2 Urine WBC 0-5 Ur Squamous Epith Cells 6-10 Urine Bacteria None Seen Hyaline Casts 0-2 Stl C. cayetanensis PCR Not Detected Stool Rotavirus A PCR Not Detected Stl Adenov F 40/41 PCR Not Detected Stool Astrovirus (PCR) Not Detected Stool Campylobacter PCR Not Detected Stool Cryptosporidium PCR Not Detected Stl Sh Tox Pr E STEC PCR Not Detected Stool E coli O157 PCR Not applicable Stl Enterotoxigenic E PCR Not Detected Stool EPEC (PCR) Detected A Stool EAEC (PCR) Not Detected Stl E. histolytica PCR Not Detected Stool Giardia Lamblia PCR Not Detected Stl P. 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 Acute hypoxemic respiratory failure due to acute exacerbation of COPD: Shortness of breath with minimal exertion, generalized weak Continue nebs, steroids, taper oxygen. Mood disorder: Continue home mood stabilizers Hypothyroidism: On Synthroid Gastroesophageal reflux disease: On famotidine Right upper lobe pulmonary nodule: Outpatient follow-up with CT chest in 6-12 months Diarrhae : improving no abd pain gip panel possitive for EPEC. cdiff negative continue symptomatic management. Encouraged for hydration p.o. intake. Back pain: continue lidocaine patch , capsaicin cream, Tylenol, trazodone L-spine x-ray-seem Djd Changes. Ulcerative colitis: Outpatient GI follow-up generalised weak: need pt eval. DVT prophylaxis: Lovenox Full code. Discussed with patient at bedside Ongoing need: COPD exacerbation/acute hypoxemic respiratory failure: supplemental oxygen, monitoring of respiratory status (as above), which is not possible in a lesser acute setting. Quality Stroke Does the patient have a stroke diagnosis?: No VTE Prior VTE?: No VTE Risk Level:: Medical - moderate - high VTE Device Contraindication: Treatment Not Indicated VTE Drug Contraindication: N/A - Med Ordered
[2025-02-10] MEDS: 0.9 % Sodium Chloride Flush 3 ML SYRINGE IVFLUSH ×2 (08:57→16:01)
[2025-02-10] MEDS: Metoprolol Succinate ER 25 MG TAB.ER.24H PO (08:58)
[2025-02-10] MEDS: Acetaminophen 325 MG TABLET 975 MG PO ×3 (08:59→22:30)
[2025-02-10] MEDS: Atorvastatin Calcium 80 MG TABLET PO (08:59)
[2025-02-10] MEDS: Famotidine 20 MG TABLET 10 MG PO (09:00)
[2025-02-10] MEDS: Sertraline HCL 50 MG TABLET PO (09:02)
[2025-02-10] MEDS: predniSONE 20 MG TABLET 40 MG PO (09:02)
[2025-02-10] MEDS: Lidocaine 4 % Patch ADH..PATCH 1 PATCH TRANSDERMA (09:04)
[2025-02-10 10:58] LABS: Adenovirus PCR Not Detected (Not Detect.); Bordetella parapertussis PCR Not Detected (Not Detect.); Bordetella pertussis PCR Not Detected (Not Detect.); Chlamydia pneumoniae PCR Not Detected (Not Detect.); Coronavirus 229E PCR Not Detected (Not Detect.); Coronavirus HKU1 PCR Not Detected (Not Detect.); Coronavirus NL63 PCR Not Detected (Not Detect.); Coronavirus OC43 PCR Not Detected (Not Detect.); Human metapneumovirus PCR Not Detected (Not Detect.); Influenza A PCR Not Detected (Not Detect.); Influenza B PCR Not Detected (Not Detect.); Mycoplasma pneumoniae PCR Not Detected (Not Detect.); Parainfluenza 1 PCR Not Detected (Not Detect.); Parainfluenza 2 PCR Not Detected (Not Detect.); Parainfluenza 3 PCR Not Detected (Not Detect.); Parainfluenza 4 PCR Not Detected (Not Detect.); RSV PCR Not Detected (Not Detect.); Rhino/Enterovirus PCR Not Detected (Not Detect.)
[2025-02-10 11:55] LABS: Influenza A H1 PCR Not Detected (Not Detect.); Influenza A H1-2009 PCR Not Detected (Not Detect.); Influenza A H3 PCR Not Detected (Not Detect.); SARS-CoV-2 PCR Not Detected (Not Detect.)
[2025-02-10] MEDS: traMADoL HCL 50 MG TABLET 25 MG PO (12:08)
[2025-02-10] MEDS: Albumin Human 25 % 100 ML IV ×2 (16:55→21:48)
[2025-02-10] MEDS: 0.9 % Sodium Chloride 1,000 ML 80 ML IVCONT (17:56)
[2025-02-10] MEDS: Albuterol/Iprat 2.5/0.5MG 3 ML AMPUL.NEB INHALE (20:20)
[2025-02-10] MEDS: oxyCODONE HCl Immed Release 5 MG TABLET 2.5 MG PO (20:23)
[2025-02-10] MEDS: Cyclobenzaprine HCl 10 MG TABLET PO (20:23)
[2025-02-10] MEDS: Melatonin 3 MG TABLET 6 MG PO (21:45)
[2025-02-11] MEDS: Levothyroxine Sodium 200 MCG TABLET PO (05:47)
[2025-02-11] MEDS: 0.9 % Sodium Chloride 1,000 ML 80 ML IVCONT (05:48)
[2025-02-11] MEDS: Albuterol/Iprat 2.5/0.5MG 3 ML AMPUL.NEB INHALE ×2 (07:34→15:30)
[2025-02-11 07:36] VITALS: PULSE 69; RESP 16; O2SAT 92
[2025-02-11 07:48] VITALS: BP 148/63; PULSE 63; RESP 16; TEMP 36; O2SAT 92
[2025-02-11] MEDS: Acetaminophen 325 MG TABLET 975 MG PO ×3 (08:58→20:01)
[2025-02-11] MEDS: Famotidine 20 MG TABLET 10 MG PO ×2 (08:58→20:02)
[2025-02-11] MEDS: Atorvastatin Calcium 80 MG TABLET PO (08:58)
[2025-02-11] MEDS: Sertraline HCL 50 MG TABLET PO (08:58)
[2025-02-11] MEDS: predniSONE 20 MG TABLET 40 MG PO (08:58)
[2025-02-11 09:40] LABS: Appearance Urine Clear; Color Urine Yellow; Glucose Urine UA Negative (Negative); Leukocyte Esterase Urine Negative (Negative); Nitrite Urine Negative (Negative); PH 7.5 (5.0-9.0); Specific Gravity - Urine <= 1.005 (1.005-1.025); Urine Blood Negative (Negative); Urine Ketones Negative (Negative); Urine Protein Negative (Neg-Trace)
[2025-02-11] MEDS: oxyCODONE HCl Immed Release 5 MG TABLET 2.5 MG PO ×2 (12:02→20:02)
--- NOTE | 2025-02-11 14:57 | HO.PM.IMPN ---
Subjective Subjective Date of Service: 02/11/25 Interval History: copd Review of Systems has sob,hypoxia Physical Exam Vital Signs: Vital Signs: Last Vital Signs Temp 96.8 F 02/11/25 07:48 Pulse 63 02/11/25 07:48 Resp 16 02/11/25 07:48 BP 148/63 H 02/11/25 07:48 Pulse Ox 92 02/11/25 07:48 O2 Del Method Nasal Cannula 02/11/25 07:48 O2 Flow Rate 2 02/11/25 07:48 Oxygen Flow Rate 4 02/08/25 17:02 BMI result Body Mass Index 32.2 Appearance: Alert.? Oriented X3. cvs: rrr, [id number] . res: air entry diminshed , has b/l wheezing abd: no rebound or guarding ,nt, bs present. MS: paraspinal muscle soreness improving No deformity of spine ext pulses present , no cyanosis . neuro: axo3 , nonfocal. Objective Data Active Medications Acetaminophen (Acetaminophen 325 Mg Tablet) 975 mg PO Q6H [facility] Last Admin: 02/11/25 08:58 Dose: 975 mg Documented By: MARIMAR Albuterol/Ipratropium (Albuterol/Iprat 2.5/0.5mg 3 Ml Ampul.Neb) 3 ml INHALE Q4H PRN PRN Reason: Shortness of Breath/Wheezing Albuterol/Ipratropium (Albuterol/Iprat 2.5/0.5mg 3 Ml Ampul.Neb) 3 ml INHALE RQ4H WHILE AWAKE [facility] Last Admin: 02/11/25 11:30 Dose: Not Given Documented By: SHREE Non-Admin Reason: Patient Refused Atorvastatin Calcium (Atorvastatin Calcium 80 Mg Tablet) 80 mg PO DAILY [facility] Last Admin: 02/11/25 08:58 Dose: 80 mg Documented By: MARIMAR Benzonatate (Benzonatate 100 Mg Capsule) 100 mg PO TID PRN PRN Reason: Cough Calcium Carbonate (Calcium Carbonate 750 Mg Tab.Chew) 750 mg PO Q4H PRN PRN Reason: Heartburn Capsaicin (Capsaicin 0.025% Cream 60 Gm Tube) 1 appl TOPICAL QID PRN; Protocol PRN Reason: Pain, Moderate(Pain Scale 4-6) Cyclobenzaprine HCl (Cyclobenzaprine Hcl 10 Mg Tablet) 10 mg PO BEDTIME PRN PRN Reason: muscle spasm Last Admin: 02/10/25 20:23 Dose: 10 mg Documented By: DARRIN Enoxaparin Sodium (Enoxaparin Sodium 40 Mg/0.4 Ml Syringe) 40 mg SUBCUT Q24H [facility] Last Admin: 02/10/25 22:51 Dose: Not Given Documented By: DARRIN Non-Admin Reason: Patient Refused Famotidine (Famotidine 20 Mg Tablet) 10 mg PO BID [facility] Last Admin: 02/11/25 08:58 Dose: 10 mg Documented By: MARIMAR Levothyroxine Sodium (Levothyroxine Sodium 200 Mcg Tablet) 200 mcg PO DAILY@0600 [facility] Last Admin: 02/11/25 05:47 Dose: 200 mcg Documented By: DARRIN Lidocaine (Lidocaine 4 % Patch Adh..Patch) 1 patch TRANSDERMA DAILY [facility]; Protocol Last Admin: 02/11/25 09:07 Dose: Not Given Documented By: MARIMAR Non-Admin Reason: Patient Refused Magnesium Hydroxide (Milk Of Magnesia 30 Ml Oral.Susp) 30 ml PO DAILY PRN PRN Reason: Constipation Melatonin (Melatonin 3 Mg Tablet) 6 mg PO BEDTIME PRN PRN Reason: Insomnia Last Admin: 02/10/25 21:45 Dose: 6 mg Documented By: DARRIN Metoprolol Succinate (Metoprolol Succinate Er 25 Mg Tab.Er.24h) 25 mg PO DAILY [facility]; Protocol Last Admin: 02/10/25 08:58 Dose: 25 mg Documented By: TONIO Ondansetron HCl (Ondansetron Hcl 4 Mg/2 Ml Vial) 4 mg IVPUSH Q8H PRN PRN Reason: Nausea and Vomiting Oxycodone HCl (Oxycodone Hcl Immed Release 5 Mg Tablet) 2.5 mg PO Q6H PRN PRN Reason: Pain, Severe (Pain Scale 7-10) Last Admin: 02/11/25 12:02 Dose: 2.5 mg Documented By: MARIMAR Prednisone (Prednisone 20 Mg Tablet) 40 mg PO DAILY [facility] Last Admin: 02/11/25 08:58 Dose: 40 mg Documented By: MARIMAR Sertraline HCl (Sertraline Hcl 50 Mg Tablet) 50 mg PO DAILY [facility] Last Admin: 02/11/25 08:58 Dose: 50 mg Documented By: MARIMAR Sodium Chloride (0.9 % Sodium Chloride Flush 3 Ml Syringe) 3 ml IVFLUSH QSHIFT [facility] Last Admin: 02/11/25 07:21 Dose: Not Given Documented By: MARIMAR Non-Admin Reason: IV Running Tramadol HCl (Tramadol Hcl 50 Mg Tablet) 25 mg PO Q6H PRN PRN Reason: Pain, Severe (Pain Scale 7-10) Last Admin: 02/10/25 12:08 Dose: 25 mg Labs 02/09/25 05:12 02/09/25 05:12 Labs: Laboratory Results - last 24 hr 02/11/25 09:28 Urine Color Yellow Urine Appearance Clear Urine pH 7.5 Ur Specific [place] <= 1.005 Urine Protein Negative Urine Glucose (UA) Negative Urine Ketones Negative Urine Blood Negative Urine Nitrite Negative Ur Leukocyte Esterase Negative Assessment and Plan (1) COPD exacerbation: Status: Acute Plan 70-year-old female with pertinent history of hypertension, mixed hyperlipidemia, hypothyroidism, mood disorder, gastroesophageal reflux disease, chronic back pain, 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 Acute hypoxemic respiratory failure due to acute exacerbation of COPD: Shortness of breath with minimal exertion, generalized weak. will check cxr . Continue nebs, steroids, taper oxygen. Mood disorder: Continue home mood stabilizers Hypothyroidism: On Synthroid Gastroesophageal reflux disease: On famotidine Right upper lobe pulmonary nodule: Outpatient follow-up with CT chest in 6-12 months Diarrhae : improving no abd pain gip panel possitive for EPEC. cdiff negative continue symptomatic management. Encouraged for hydration p.o. intake. Back pain: L-spine x-ray-seem Djd Changes. continue lidocaine patch , capsaicin cream, Tylenol, trazodone Ulcerative colitis: Outpatient GI follow-up generalised weak: need pt eval. DVT prophylaxis: Lovenox Full code. Discussed with patient at bedside Ongoing need: COPD exacerbation/acute hypoxemic respiratory failure: supplemental oxygen, monitoring of respiratory status (as above), which is not possible in a lesser acute setting. Quality Stroke Does the patient have a stroke diagnosis?: No VTE Prior VTE?: No VTE Risk Level:: Medical - moderate - high VTE Device Contraindication: Treatment Not Indicated VTE Drug Contraindication: N/A - Med Ordered
[2025-02-11] MEDS: 0.9 % Sodium Chloride Flush 3 ML SYRINGE IVFLUSH ×2 (15:12→20:02)
[2025-02-11 15:32] VITALS: PULSE 74; RESP 20; O2SAT 91
[2025-02-11 15:55] LABS: Estimated Average Glucose 131 mg/dL; Hemoglobin A1C 135.6344 umol/L; Hemoglobin A1c % 6.2 % (<6.0); Total Hemoglobin (HGBA1C) 3035.4997 umol/L
[2025-02-11 16:05] VITALS: BP 113/62; PULSE 97; RESP 18; TEMP 36.1; O2SAT 94
--- NOTE | 2025-02-11 16:15 | MHC.CM.PN ---
per rounds pt will need a pt evalprior to dc await pt eval order
[2025-02-11 16:34] VITALS: BP 113/62; PULSE 97; O2SAT 94
[2025-02-11 18:00] LABS: B Type Natriuretic Peptide 247 pg/mL (<100)
[2025-02-11] MEDS: Azithromycin 500 MG in 0.9 % Sodium Chloride 250 ML 125 MG IV (18:01)
[2025-02-11] MEDS: cefTRIAXone sodium 1 GM VIAL IVPUSH (18:01)
[2025-02-11 19:48] LABS: Glucose, Whole Blood 211 mg/dL (60-115)
[2025-02-11] MEDS: ondansetron HCL 4 MG/2 ML VIAL IVPUSH (19:49)
[2025-02-11] MEDS: Insulin Lispro 100 UNIT/ML 3 ML VIAL SUBCUT (20:04)
[2025-02-11 23:42] VITALS: BP 110/58; PULSE 65; RESP 18; TEMP 36.9; O2SAT 96
[2025-02-12] VITALS (8 sets, daily range): BP systolic 90–138; BP diastolic 50–68; PULSE 60–74; RESP 16–20; TEMP 36.6–36.9; O2SAT 92–98
[2025-02-12] MEDS: oxyCODONE HCl Immed Release 5 MG TABLET 2.5 MG PO ×3 (01:58→20:26)
[2025-02-12] MEDS: Acetaminophen 325 MG TABLET 975 MG PO ×3 (01:59→20:25)
[2025-02-12] MEDS: Levothyroxine Sodium 200 MCG TABLET PO (05:16)
[2025-02-12] MEDS: Albuterol/Iprat 2.5/0.5MG 3 ML AMPUL.NEB INHALE ×2 (07:23→11:36)
[2025-02-12 07:33] LABS: Glucose, Whole Blood 102 mg/dL (60-115)
[2025-02-12] MEDS: Sertraline HCL 50 MG TABLET PO (08:54)
[2025-02-12] MEDS: Atorvastatin Calcium 80 MG TABLET PO (08:54)
[2025-02-12] MEDS: Famotidine 20 MG TABLET 10 MG PO ×2 (08:55→20:28)
[2025-02-12] MEDS: Metoprolol Succinate ER 25 MG TAB.ER.24H PO (08:55)
[2025-02-12] MEDS: predniSONE 20 MG TABLET 40 MG PO (08:55)
[2025-02-12] MEDS: 0.9 % Sodium Chloride Flush 3 ML SYRINGE IVFLUSH ×2 (08:56→15:36)
[2025-02-12] MEDS: Lidocaine 4 % Patch ADH..PATCH 1 PATCH TRANSDERMA (08:57)
[2025-02-12 11:37] LABS: Glucose, Whole Blood 148 mg/dL (60-115)
[2025-02-12 11:37] LABS: Glucose, Whole Blood 536 mg/dL (60-115)
[2025-02-12 11:37] LABS: Glucose, Whole Blood 143 mg/dL (60-115)
--- NOTE | 2025-02-12 11:48 | P.PNIM_ITS ---
Subjective Subjective Date of Service: 02/12/25 Interval History: Follow up copd better today wean off oxygen Review of Systems has sob,hypoxia Physical Exam 2 Vital Signs: Vital Signs: Last Vital Signs Temp 98.1 F 02/12/25 07:22 Pulse 70 02/12/25 11:37 Resp 16 02/12/25 11:37 BP 138/68 02/12/25 08:55 Pulse Ox 97 02/12/25 07:22 O2 Del Method Nasal Cannula 02/12/25 07:22 O2 Flow Rate 2.0 02/12/25 07:22 Oxygen Flow Rate 4 02/08/25 17:02 BMI result Body Mass Index 32.2 Appearing in no acute distress lung sounds are clear to auscultation heart regular rate rhythm, clear S1, S2 positive bowel sounds, abdomen is soft, nontender neuro patient is alert x3, no focal deficits Objective Data Active Medications Acetaminophen (Acetaminophen 325 Mg Tablet) 975 mg PO Q6H [facility] Last Admin: 02/12/25 08:54 Dose: 975 mg Documented By: MARIMAR Albuterol/Ipratropium (Albuterol/Iprat 2.5/0.5mg 3 Ml Ampul.Neb) 3 ml INHALE Q4H PRN PRN Reason: Shortness of Breath/Wheezing Albuterol/Ipratropium (Albuterol/Iprat 2.5/0.5mg 3 Ml Ampul.Neb) 3 ml INHALE RQ4H WHILE AWAKE [facility] Last Admin: 02/12/25 11:36 Dose: 3 ml Documented By: DOMINIC Atorvastatin Calcium (Atorvastatin Calcium 80 Mg Tablet) 80 mg PO DAILY [facility] Last Admin: 02/12/25 08:54 Dose: 80 mg Documented By: MARIMAR Benzonatate (Benzonatate 100 Mg Capsule) 100 mg PO TID PRN PRN Reason: Cough Calcium Carbonate (Calcium Carbonate 750 Mg Tab.Chew) 750 mg PO Q4H PRN PRN Reason: Heartburn Capsaicin (Capsaicin 0.025% Cream 60 Gm Tube) 1 appl TOPICAL QID PRN; Protocol PRN Reason: Pain, Moderate(Pain Scale 4-6) Ceftriaxone Sodium (Ceftriaxone Sodium 1 Gm Vial) 1 gm IVPUSH Q24H [facility] Last Admin: 02/11/25 18:01 Dose: 1 gm Documented By: MARIMAR Cyclobenzaprine HCl (Cyclobenzaprine Hcl 10 Mg Tablet) 10 mg PO BEDTIME PRN PRN Reason: muscle spasm Last Admin: 02/10/25 20:23 Dose: 10 mg Documented By: DARRIN Dextrose (Dextrose 50 % 25 Gm/50 Ml Syringe) 25 gm IVPUSH Q15M PRN; Protocol PRN Reason: per Hypoglycemia Standing Ord. Enoxaparin Sodium (Enoxaparin Sodium 40 Mg/0.4 Ml Syringe) 40 mg SUBCUT Q24H [facility] Last Admin: 02/11/25 22:10 Dose: Not Given Documented By: DARRIN Non-Admin Reason: Patient Refused Famotidine (Famotidine 20 Mg Tablet) 10 mg PO BID [facility] Last Admin: 02/12/25 08:55 Dose: 10 mg Documented By: MARIMAR Glucose (Glucose Gel 15 Gm Gel..Gram.) 15 gm PO Q15M PRN; Protocol PRN Reason: per Hypoglycemia Standing Ord. Azithromycin 500 mg/ Sodium (Chloride) 250 mls @ 125 mls/hr IV Q24H [facility] Last Infusion: 02/11/25 20:35 Dose: Infused Documented By: DARRIN Insulin Human Lispro (Insulin Lispro 100 Unit/Ml 3 Ml Vial) 0 unit SUBCUT QIDACHS [facility]; Protocol Last Admin: 02/12/25 11:46 Dose: Not Given Documented By: MARIMAR Non-Admin Reason: No Insulin Coverage Levothyroxine Sodium (Levothyroxine Sodium 200 Mcg Tablet) 200 mcg PO DAILY@0600 [facility] Last Admin: 02/12/25 05:16 Dose: 200 mcg Documented By: DARRIN Lidocaine (Lidocaine 4 % Patch Adh..Patch) 1 patch TRANSDERMA DAILY [facility]; Protocol Last Admin: 02/12/25 08:57 Dose: 1 patch Documented By: MARIMAR Magnesium Hydroxide (Milk Of Magnesia 30 Ml Oral.Susp) 30 ml PO DAILY PRN PRN Reason: Constipation Melatonin (Melatonin 3 Mg Tablet) 6 mg PO BEDTIME PRN PRN Reason: Insomnia Last Admin: 02/10/25 21:45 Dose: 6 mg Documented By: DARRIN Metoprolol Succinate (Metoprolol Succinate Er 25 Mg Tab.Er.24h) 25 mg PO DAILY [facility]; Protocol Last Admin: 02/12/25 08:55 Dose: 25 mg Documented By: MARIMAR Ondansetron HCl (Ondansetron Hcl 4 Mg/2 Ml Vial) 4 mg IVPUSH Q8H PRN PRN Reason: Nausea and Vomiting Last Admin: 02/11/25 19:49 Dose: 4 mg Documented By: DARRIN Oxycodone HCl (Oxycodone Hcl Immed Release 5 Mg Tablet) 2.5 mg PO Q6H PRN PRN Reason: Pain, Severe (Pain Scale 7-10) Last Admin: 02/12/25 08:54 Dose: 2.5 mg Documented By: MARIMAR Prednisone (Prednisone 20 Mg Tablet) 40 mg PO DAILY [facility] Last Admin: 02/12/25 08:55 Dose: 40 mg Documented By: MARIMAR Sertraline HCl (Sertraline Hcl 50 Mg Tablet) 50 mg PO DAILY [facility] Last Admin: 02/12/25 08:54 Dose: 50 mg Documented By: MARIMAR Sodium Chloride (0.9 % Sodium Chloride Flush 3 Ml Syringe) [facility] Last Admin: 02/12/25 08:56 Dose: 3 ml Documented By: MARIMAR Tramadol HCl (Tramadol Hcl 50 Mg Tablet) 25 mg PO Q6H PRN PRN Reason: Pain, Severe (Pain Scale 7-10) Last Admin: 02/10/25 12:08 Dose: 25 mg Labs 02/09/25 05:12 02/09/25 05:12 Labs: Laboratory Results - last 24 hr 02/11/25 02/11/25 02/11/25 15:36 17:34 19:45 POC Glucose 211 H Estimat Average Glucose 131 Hemoglobin A1c % 6.2 H B-Natriuretic Peptide 247 H 02/12/25 02/12/25 02/12/25 07:27 11:08 11:10 POC Glucose 102 536 H* 148 H Estimat Average Glucose Hemoglobin A1c % B-Natriuretic Peptide 02/12/25 11:20 POC Glucose 143 H Estimat Average Glucose Hemoglobin A1c % B-Natriuretic Peptide Assessment and Plan (1) COPD exacerbation: Status: Acute Plan 70-year-old female with pertinent history of hypertension, mixed hyperlipidemia, hypothyroidism, mood disorder, gastroesophageal reflux disease, chronic back pain, 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 Acute hypoxemic respiratory failure due to acute exacerbation of COPD, presumed PNA and mild CHF, unspecified Shortness of breath with minimal exertion better, generalized weak. Continue nebs, steroids, taper oxygen. IV lasix x1 Continue Rocephin and azithromycin Check echocardiogram Mood disorder Continue home mood stabilizers Hypothyroidism On Synthroid Gastroesophageal reflux disease On famotidine Right upper lobe pulmonary nodule Outpatient follow-up with CT chest in 6-12 months Diarrhea improving no abd pain positive for EPEC. cdiff negative continue symptomatic management. Encouraged for hydration p.o. intake. Back pain L-spine x-ray-seem Djd Changes. continue lidocaine patch, capsaicin cream, Tylenol, trazodone Ulcerative colitis Outpatient GI follow-up DVT prophylaxis: Lovenox Full code. Discussed with patient at bedside Quality Stroke Does the patient have a stroke diagnosis?: No VTE Prior VTE?: No VTE Risk Level:: Medical - moderate - high VTE Device Contraindication: Treatment Not Indicated VTE Drug Contraindication: N/A - Med Ordered
--- NOTE | 2025-02-12 13:00 | CA_ITS ---
Transthoracic Echocardiogram Patient (Last, First, Middle): Cris Coppola A Gender: Female Date of : 1955 Age: 70 Procedure Date: 02/12/2025 Procedure Type: Transthoracic Echocardiogram Location: S3E Height: 162.56 cm Weight: 84.82 kg BSA: 1.90 m2 Heart Rate: 70 bpm BP: 90 / 50 mmHg Corporate Trainer: VH Referring MD: Beatriz Marino NP Symptoms: sob , elevated BNP Study Quality: Adequate ECG Rhythm: Sinus Conclusions: - Normal left ventricular size and systolic function. There is mildly increased left ventricular wall thickness. The visually estimated ejection fraction is between 55-60%. There is no evidence of regional wall motion abnormalities. Diastolic function is normal for age. - Normal right ventricular cavity size and systolic function. Findings Left Ventricle Normal left ventricular size and systolic function. There is mildly increased left ventricular wall thickness. The visually estimated ejection fraction is between 55-60%. There is no evidence of regional wall motion abnormalities. Diastolic function is normal for age. Right Ventricle Normal right ventricular cavity size and systolic function. Atria The left atrium is normal in size. The right atrium is normal in size. Aortic Valve The aortic valve structure and function is likely normal. There is no aortic valve stenosis. There is no aortic valve regurgitation. Mitral Valve There is no mitral valve regurgitation. There is no mitral valve stenosis. Pulmonic Valve The pulmonic valve was not well visualized. Tricuspid Valve Normal tricuspid valve structure. There is no tricuspid valve regurgitation. Tricuspid regurgitation envelope is inadequate for calculation of right ventricular systolic pressure. Normal right atrial pressure. Great Vessels All visible segments of the aorta are normal in size. Venous The inferior vena cava is normal in size and collapses greater than 50% with inspiration. Pericardium/Pleural There is no evidence of pericardial effusion. Prior Study Comparison Changes noted compared to prior study dated: 10/15/2019. No definite regional wall motion abnormality. Measurements 2D Linear Measurements IVSd: 1.04 0.6-0.9/0.6-1.0 cm LVIDd: 4.63 3.9-5.3/4.2-5.9 cm LVIDd Index: 2.44 2.4-3.2/2.2-3.1 cm/m2 LVIDs: 3.15 2.0-3.6 cm LVPWd: 1.07 0.7-1.1 cm LA Diam: 4.10 2.7-3.8/3.0-4.0 cm LAIDs Index: 2.16 1.5-2.3 cm/m2 LV Mass: 215.21 67-162/88-224 g LV Mass Index: 113.27 43-95/49-115 g/m2 LVOT Diam: 2.10 3.0+(-)1.3 cm 2D Systolic Function EF 4C: 42.70 >55% EF 2C: 37.00 >55% EF BiP: 41.90 >55% Mitral Valve MV Pk E: 0.62 MV PK A: 0.84 MV Decel Time: 273.00 E/A: 0.70 E'Lateral: 7.94 E'Medial: 6.09 E/E' Med: 10.20 E/E' Lat: 7.80 PHT: 80.00 MVA PHT: 2.75 Decel [place]: 2.28 Aortic Valve AoV Pk Carlos Enrique: 1.23 AoV Mn Carlos Enrique: 0.79 AoV VTI: 0.27 AoV Pk Grad: 6.00 Aov Mn Grad: 3.00 CARROLL Cont.VTI: 2.01 LVOT LVOT Pk Carlos Enrique: 0.77 LVOT Mn Carlos Enrique: 0.49 LVOT VTI: 0.16 LVOT Pk Grad: 2.00 LVOT Mn Grad: 1.00 LVOT Diam: 2.10 LVOT Area: 3.46 Diastolic Function MV Pk E: 0.62 MV Pk A: 0.84 E/A: 0.70 E'Medial: 6.09 E/E' Med: 10.20 E' Laterial: 7.94 E/E' Lat: 7.80 Right Ventricle TAPSE (mm): 18.70 TVS' Carlos Enrique: 12.20 Tricuspid Valve TR Pk Carlos Enrique: 1.87 TR Pk Grad: 14.00 Great Vessels Aorta Sinus of Valsalva: 2.70 2.0-3.5 cm Ao Asc: 3.10 2.1-3.4 cm Pulmonary Valve PV Pk Carlos Enrique: 0.81 Peak PV Grad: 3.00 Updated in Other Vendor System with Status of Final Matt Sanchez MD electronically signed on 02/13/2025 2:11:24 PM with status of Final
--- NOTE | 2025-02-12 14:37 | P.CDIM_ITS ---
PROVIDER RESPONSE TEXT: To clarify, the appropriate diagnosis supported by the clinical indicators: Hyperglycemia: diagnosed QUERY TEXT: PHYSICIAN'S DOCUMENTATION REQUEST Date of Query: 02/12/2025 12:53 PM EDT Patient Name: Cris Coppola Admit Date: 02/09/2025 Dear Beatriz Marino FAMILY AND MARRIAGE COUNSELLOR, A review of the medical record indicates additional documentation may be needed. Please review below and update the documentation accordingly. Clinical Indicators: LABS: POC glucose 536 H 143 H Insulin PMH in ED: Borderline Diabetes. H&P 02/08/25 - PMH: Prediabetes Based on the above, could you clarify if there is a diagnosis that correlates with these findings: Hyperglycemia possible, resolved, suspected, etc Labs indicate a diagnosis of (please specify) Other (explain) Clinically unable to determine (explain) Thank you, Florencia Nino, CCS, CDIS Use of terms such as suspected, likely, concern for, or probable (associated with a specific diagnosi s that is being evaluated, monitored, or treated as if it exists) are acceptable and can be coded in the inpatient se tting, when documented at the time of discharge. Please use your independent medical judgment in providing your response. THIS QUERY IS PART OF THE PERMANENT MEDICAL RECORD
[2025-02-12 16:26] LABS: Glucose, Whole Blood 205 mg/dL (60-115)
[2025-02-12] MEDS: Insulin Lispro 100 UNIT/ML 3 ML VIAL SUBCUT ×2 (16:44→20:26)
[2025-02-12] MEDS: cefTRIAXone sodium 1 GM VIAL IVPUSH (17:37)
[2025-02-12] MEDS: Azithromycin 500 MG in 0.9 % Sodium Chloride 250 ML 125 MG IV (17:50)
[2025-02-12 20:21] LABS: Glucose, Whole Blood 178 mg/dL (60-115)
[2025-02-12] MEDS: Enoxaparin Sodium 40 MG/0.4 ML SYRINGE SUBCUT (22:16)
[2025-02-13] MEDS: 0.9 % Sodium Chloride Flush 3 ML SYRINGE IVFLUSH ×3 (00:30→23:52)
[2025-02-13] MEDS: Acetaminophen 325 MG TABLET 975 MG PO ×4 (01:12→20:16)
[2025-02-13] MEDS: Levothyroxine Sodium 200 MCG TABLET PO (05:45)
[2025-02-13 07:23] VITALS: BP 144/75; PULSE 62; RESP 16; TEMP 36.7; O2SAT 92
[2025-02-13 07:30] LABS: Glucose, Whole Blood 106 mg/dL (60-115)
[2025-02-13] MEDS: predniSONE 20 MG TABLET 40 MG PO (09:00)
[2025-02-13 09:08] LABS: B Type Natriuretic Peptide 191 pg/mL (<100)
[2025-02-13 09:14] LABS: Anion Gap 14 (12-20); Blood Urea Nitrogen 12 mg/dL (9-16); Calcium 8.5 mg/dL (8.4-10.2); Carbon Dioxide 40 mmol/L (22-29); Chloride 89 mmol/L (96-108); Creatinine Clr Calc Pharmacy 64.5; Estimated Glomerular Filt Rate > 60; Glucose Random 95 mg/dL (60-115); Potassium 3.6 mmol/L (3.3-5.1); Sodium 139 mmol/L (135-145)
[2025-02-13] MEDS: Famotidine 20 MG TABLET 10 MG PO ×2 (09:34→20:16)
[2025-02-13] MEDS: Lidocaine 4 % Patch ADH..PATCH 1 PATCH TRANSDERMA (09:37)
[2025-02-13] MEDS: Sertraline HCL 50 MG TABLET PO (09:37)
[2025-02-13] MEDS: Atorvastatin Calcium 80 MG TABLET PO (09:37)
[2025-02-13] MEDS: Metoprolol Succinate ER 25 MG TAB.ER.24H PO (09:37)
[2025-02-13 11:07] LABS: Glucose, Whole Blood 109 mg/dL (60-115)
--- NOTE | 2025-02-13 11:46 | P.CONPL_ITS ---
History of Present Illness History of Present Illness Consult date: 02/13/25 Chief complaint: dyspnea Narrative: 70-year-old lady, recent 40+ pack-year smoker with underlying hypertension, hypothyroidism, chronic back pain admitted on 02/08/2025 weakness, malaise,, and wheezing. On ER evaluation patient noted to be hypoxic requiring supplemental oxygen. She was empirically treated for COPD exacerbation with resolution of her respiratory difficulties, now appears to be at baseline respiratory status. Review of Systems 2 Constitutional: Constitutional: Denies daytime sleepiness, Denies excessive sweating, Denies fatigue, Denies fever(s), Denies lethargy, Denies malaise, Denies night sweats, Denies snoring and Denies weight loss Eyes: Eyes: Denies blurry vision and Denies itchy eyes ENT: Denies nasal congestion, Denies post nasal drip, Denies sinus pain, Denies sinus pressure and Denies other ( Thrush) Cardiovascular: Cardiovascular: Denies chest pain, Denies pedal edema, Denies dyspnea, Denies orthopnea and Denies paroxysmal nocturnal dyspnea Respiratory: Respiratory: Denies cough, Denies hemoptysis, Denies excessive phlegm production, Denies dyspnea, Denies snoring and Denies wheezing Gastrointestinal: Gastrointestinal: Denies abdominal pain and Denies heartburn Musculoskeletal: Musculoskeletal: Denies myalgias, Denies arthralgias and Denies joint swelling Integumentary/Breasts: Skin/Breast: Denies rash Neurologic: Denies memory loss and Denies seizure-like activity Psychiatric: Psychiatric: Denies abnormal sleep pattern, Denies anxiety and Denies memory loss Endocrine: Endocrine: Denies excessive sweating, Denies fatigue and Denies heat intolerance Hematologic/Lymphatic: Hematologic/Lymphatic: Denies easy bruising Allergic/Immunologic: Allergic/Immunologic: Denies itchy eyes, Denies seasonal rhinorrhea and Denies wheezing PMFSH Past Medical History Medical History Prediabetes CAD (coronary artery disease) GERD (gastroesophageal reflux disease) Smoker Spinal stenosis Depression Insomnia Borderline diabetic Heart attack Colitis Surgical History Surgical History History of tonsillectomy H/O eye surgery H/O thyroidectomy Hx of cholecystectomy Social History Social History Household Members: None Housing: House Do you presently have visiting nurse or other home services: No Alcohol intake: former Patient Tobacco Use Status: Current everyday Tobacco user Tobacco use type: Cigarette Cigarette Packs Per Day: 1 Cigarettes Per Day: 20.0 Years Smoked: 56 service: No Current occupational status: employed Meds Allergies Allergy/AdvReac Type Severity Reaction Status Date / Time No Known Allergies Allergy Verified 02/08/25 17:06 [No Known Allergies*] Active Medications: Current Medications Acetaminophen (Acetaminophen 325 Mg Tablet) 975 mg PO Q6H [facility] Last Admin: 02/13/25 09:35 Dose: 975 mg Albuterol/Ipratropium (Albuterol/Iprat 2.5/0.5mg 3 Ml Ampul.Neb) 3 ml INHALE Q4H PRN PRN Reason: Shortness of Breath/Wheezing Albuterol/Ipratropium (Albuterol/Iprat 2.5/0.5mg 3 Ml Ampul.Neb) 3 ml INHALE RQ4H WHILE AWAKE [facility] Last Admin: 02/13/25 08:39 Dose: Not Given Atorvastatin Calcium (Atorvastatin Calcium 80 Mg Tablet) 80 mg PO DAILY [facility] Last Admin: 02/13/25 09:37 Dose: 80 mg Benzonatate (Benzonatate 100 Mg Capsule) 100 mg PO TID PRN PRN Reason: Cough Calcium Carbonate (Calcium Carbonate 750 Mg Tab.Chew) 750 mg PO Q4H PRN PRN Reason: Heartburn Capsaicin (Capsaicin 0.025% Cream 60 Gm Tube) 1 appl TOPICAL QID PRN; Protocol PRN Reason: Pain, Moderate(Pain Scale 4-6) Ceftriaxone Sodium (Ceftriaxone Sodium 1 Gm Vial) 1 gm IVPUSH Q24H [facility] Last Admin: 02/12/25 17:37 Dose: 1 gm Cyclobenzaprine HCl (Cyclobenzaprine Hcl 10 Mg Tablet) 10 mg PO BEDTIME PRN PRN Reason: muscle spasm Last Admin: 02/10/25 20:23 Dose: 10 mg Dextrose (Dextrose 50 % 25 Gm/50 Ml Syringe) 25 gm IVPUSH Q15M PRN; Protocol PRN Reason: per Hypoglycemia Standing Ord. Enoxaparin Sodium (Enoxaparin Sodium 40 Mg/0.4 Ml Syringe) 40 mg SUBCUT Q24H [facility] Last Admin: 02/12/25 22:16 Dose: 40 mg Famotidine (Famotidine 20 Mg Tablet) 10 mg PO BID [facility] Last Admin: 02/13/25 09:34 Dose: 10 mg Glucose (Glucose Gel 15 Gm Gel..Gram.) 15 gm PO Q15M PRN; Protocol PRN Reason: per Hypoglycemia Standing Ord. Azithromycin 500 mg/ Sodium (Chloride) 250 mls @ 125 mls/hr IV Q24H [facility] Last Infusion: 02/12/25 20:34 Dose: Infused Insulin Human Lispro (Insulin Lispro 100 Unit/Ml 3 Ml Vial) 0 unit SUBCUT QIDACHS [facility]; Protocol Last Admin: 02/13/25 08:35 Dose: Not Given Levothyroxine Sodium (Levothyroxine Sodium 200 Mcg Tablet) 200 mcg PO DAILY@0600 [facility] Last Admin: 02/13/25 05:45 Dose: 200 mcg Lidocaine (Lidocaine 4 % Patch Adh..Patch) 1 patch TRANSDERMA DAILY [facility]; Protocol Last Admin: 02/13/25 09:37 Dose: 1 patch Magnesium Hydroxide (Milk Of Magnesia 30 Ml Oral.Susp) 30 ml PO DAILY PRN PRN Reason: Constipation Melatonin (Melatonin 3 Mg Tablet) 6 mg PO BEDTIME PRN PRN Reason: Insomnia Last Admin: 02/10/25 21:45 Dose: 6 mg Metoprolol Succinate (Metoprolol Succinate Er 25 Mg Tab.Er.24h) 25 mg PO DAILY [facility]; Protocol Last Admin: 02/13/25 09:37 Dose: 25 mg Ondansetron HCl (Ondansetron Hcl 4 Mg/2 Ml Vial) 4 mg IVPUSH Q8H PRN PRN Reason: Nausea and Vomiting Last Admin: 02/11/25 19:49 Dose: 4 mg Oxycodone HCl (Oxycodone Hcl Immed Release 5 Mg Tablet) 2.5 mg PO Q6H PRN PRN Reason: Pain, Severe (Pain Scale 7-10) Last Admin: 02/12/25 20:26 Dose: 2.5 mg Prednisone (Prednisone 20 Mg Tablet) 40 mg PO DAILY [facility] Last Admin: 02/13/25 09:00 Dose: 40 mg Sertraline HCl (Sertraline Hcl 50 Mg Tablet) 50 mg PO DAILY [facility] Last Admin: 02/13/25 09:37 Dose: 50 mg Sodium Chloride (0.9 % Sodium Chloride Flush 3 Ml Syringe) 3 ml IVFLUSH QSHIFT [facility] Last Admin: 02/13/25 08:36 Dose: Not Given Tramadol HCl (Tramadol Hcl 50 Mg Tablet) 25 mg PO Q6H PRN PRN Reason: Pain, Severe (Pain Scale 7-10) Last Admin: 02/10/25 12:08 Dose: 25 mg Home Medications ?Medication ?Instructions ?Recorded ?Confirmed ?Last Taken ?Type atorvastatin 80 mg tablet 1 tab PO DAILY 05/03/22 02/09/25 06/01/23 History cyclobenzaprine 10 mg tablet 1 tab PO BEDTIME PRN muscle spasm 05/03/22 02/09/25 1 Week Ago History ~04/27/22 levothyroxine 200 mcg tablet 1 tab PO DAILY@0600 05/03/22 02/09/25 06/01/23 History metoprolol succinate 25 mg 1 tab PO DAILY 05/03/22 02/09/25 06/01/23 History tablet,extended release 24 hr sertraline 50 mg tablet 1 tab PO DAILY 05/03/22 02/09/25 06/01/23 History famotidine 20 mg tablet 10 mg PO BID 06/01/23 02/09/25 06/01/23 History Physical Exam 2 Vital Signs: Vital Signs: Last Vital Signs Temp 98.0 F 02/13/25 07:23 Pulse 62 02/13/25 07:23 Resp 16 02/13/25 07:23 BP 144/75 H 02/13/25 07:23 Pulse Ox 92 02/13/25 07:23 O2 Del Method Nasal Cannula 02/13/25 07:23 O2 Flow Rate 1.0 02/13/25 07:23 Oxygen Flow Rate 4 02/08/25 17:02 BMI result Body Mass Index 32.2 Const: General: no acute distress and alert Nutritional Appearance: not obese Orientation/consciousness: Other orientation findings ( oriented) HEENT: Head: Yes atraumatic Eyes: General: appearance normal, both eyes and all related structures S clerae: sclerae normal EOM: EOMs intact bilaterally Neck: Neck: Yes supple Lymphatic: no lymphadenopathy noted Resp: Effort & Inspection: normal respiratory effort and no use of accessory muscles Auscultation: clear to auscultation bilaterally Cardio: Rate: regular rate Rhythm: regular rhythm Heart sounds: no gallops, no murmurs and no rubs Skin: General skin exam: other ( warm) Extrem: General: No clubbing, No cyanosis and No edema Results Laboratory Findings 02/09/25 05:12 02/13/25 08:21 ABG, PT/INR, D-dimer: PT/INR, D-dimer PT 11.5 SEC (10.9-12.4) 02/08/25 17: INR 1.0 (0.9-1.1) 02/08/25 17:27 Abnormal lab findings: Abnormal Labs 02/08/25 02/08/25 02/08/25 17: 17:52 22:00 RBC 4.18 L Hgb Hct RDW 16.1 H MPV 9.2 L Immature Gran % (Auto) Neut % (Auto) Lymph % (Auto) Bland % (Auto) Lymph # (Auto) Abs Immat Gran (auto) Lymphocytes % (Manual) 17 L Lymphocytes # (Manual) 1.1 L ABG pCO2 at Pt Temp 60 H* ABG pO2 at Pt Temp 79 L ABG HCO3 39 H Chloride Carbon Dioxide 33 H BUN 7 L POC Glucose Random Glucose Hemoglobin A1c % Calcium 8.0 L AST 44 H B-Natriuretic Peptide Total Protein 5.8 L Albumin 2.8 L Lipase 4 L Ur Specific [place] Urine Protein Stool EPEC (PCR) Detected A 02/09/25 02/09/25 02/11/25 05:12 11:11 15:36 RBC 3.61 L Hgb 11.4 L Hct 35.2 L RDW MPV Immature Gran % (Auto) 4.8 H Neut % (Auto) 84.4 H Lymph % (Auto) 8.8 L Bland % (Auto) 1.6 L Lymph # (Auto) 0.6 L Abs Immat Gran (auto) 0.33 H Lymphocytes % (Manual) Lymphocytes # (Manual) ABG pCO2 at Pt Temp ABG pO2 at Pt Temp ABG HCO3 Chloride Carbon Dioxide 31 H BUN POC Glucose Random Glucose 180 H Hemoglobin A1c % 6.2 H Calcium 7.7 L AST B-Natriuretic Peptide Total Protein Albumin Lipase Ur Specific [place] >= 1.030 H Urine Protein 100 (2+) H Stool EPEC (PCR) 02/11/25 02/11/25 02/12/25 17:34 19:45 11:08 RBC Hgb Hct RDW MPV Immature Gran % (Auto) Neut % (Auto) Lymph % (Auto) Bland % (Auto) Lymph # (Auto) Abs Immat Gran (auto) Lymphocytes % (Manual) Lymphocytes # (Manual) ABG pCO2 at Pt Temp ABG pO2 at Pt Temp ABG HCO3 Chloride Carbon Dioxide BUN POC Glucose 211 H 536 H* Random Glucose Hemoglobin A1c % Calcium AST B-Natriuretic Peptide 247 H Total Protein Albumin Lipase Ur Specific [place] Urine Protein Stool EPEC (PCR) 02/12/25 02/12/25 02/12/25 11:10 11:20 16:17 RBC Hgb Hct RDW MPV Immature Gran % (Auto) Neut % (Auto) Lymph % (Auto) Bland % (Auto) Lymph # (Auto) Abs Immat Gran (auto) Lymphocytes % (Manual) Lymphocytes # (Manual) ABG pCO2 at Pt Temp ABG pO2 at Pt Temp ABG HCO3 Chloride Carbon Dioxide BUN POC Glucose 148 H 143 H 205 H Random Glucose Hemoglobin A1c % Calcium AST B-Natriuretic Peptide Total Protein Albumin Lipase Ur Specific [place] Urine Protein Stool EPEC (PCR) 02/12/25 02/13/25 20:17 08:21 RBC Hgb Hct RDW MPV Immature Gran % (Auto) Neut % (Auto) Lymph % (Auto) Bland % (Auto) Lymph # (Auto) Abs Immat Gran (auto) Lymphocytes % (Manual) Lymphocytes # (Manual) ABG pCO2 at Pt Temp ABG pO2 at Pt Temp ABG HCO3 Chloride 89 L Carbon Dioxide 40 H* D BUN POC Glucose 178 H Random Glucose Hemoglobin A1c % Calcium AST B-Natriuretic Peptide 191 H Total Protein Albumin Lipase Ur Specific [place] Urine Protein Stool EPEC (PCR) Assessment and Plan (1) COPD exacerbation: Status: Acute Plan Impression: 70-year-old lady admitted with wheezing and hypoxia likely secondary to COPD exacerbation and treated for such, now recovered to baseline in terms of her respiratory status. Recommendations: Continue to taper off systemic glucocorticoids as tolerated. CT chest reviewed, patient does have underlying approximately 7 mm pulmonary nodule that would require outpatient follow-up. Procedures Date of Service Date of Service: 02/13/25
--- NOTE | 2025-02-13 13:22 | HO.PM.IMPN ---
Subjective Subjective Date of Service: 02/13/25 Interval History: Follow up copd better today wean off oxygen Review of Systems has sob,hypoxia Physical Exam Vital Signs: Vital Signs: Last Vital Signs Temp 98.0 F 02/13/25 07:23 Pulse 62 02/13/25 07:23 Resp 16 02/13/25 07:23 BP 144/75 H 02/13/25 07:23 Pulse Ox 92 02/13/25 07:23 O2 Del Method Nasal Cannula 02/13/25 07:23 O2 Flow Rate 1.0 02/13/25 07:23 Oxygen Flow Rate 4 02/08/25 17:02 BMI result Body Mass Index 32.2 Appearing in no acute distress lung sounds are clear to auscultation heart regular rate rhythm, clear S1, S2 positive bowel sounds, abdomen is soft, nontender neuro patient is alert x3, no focal deficits Objective Data Active Medications Acetaminophen (Acetaminophen 325 Mg Tablet) 975 mg PO Q6H [facility] Last Admin: 02/13/25 09:35 Dose: 975 mg Documented By: SANDHYA Acetazolamide (Acetazolamide 250 Mg Tablet) 250 mg PO BID [facility] Albuterol/Ipratropium (Albuterol/Iprat 2.5/0.5mg 3 Ml Ampul.Neb) 3 ml INHALE Q4H PRN PRN Reason: Shortness of Breath/Wheezing Albuterol/Ipratropium (Albuterol/Iprat 2.5/0.5mg 3 Ml Ampul.Neb) 3 ml INHALE RQ4H WHILE AWAKE [facility] Last Admin: 02/13/25 11:54 Dose: Not Given Documented By: SHREE Non-Admin Reason: Patient Refused Atorvastatin Calcium (Atorvastatin Calcium 80 Mg Tablet) 80 mg PO DAILY [facility] Last Admin: 02/13/25 09:37 Dose: 80 mg Documented By: SANDHYA Benzonatate (Benzonatate 100 Mg Capsule) 100 mg PO TID PRN PRN Reason: Cough Calcium Carbonate (Calcium Carbonate 750 Mg Tab.Chew) 750 mg PO Q4H PRN PRN Reason: Heartburn Capsaicin (Capsaicin 0.025% Cream 60 Gm Tube) 1 appl TOPICAL QID PRN; Protocol PRN Reason: Pain, Moderate(Pain Scale 4-6) Ceftriaxone Sodium (Ceftriaxone Sodium 1 Gm Vial) 1 gm IVPUSH Q24H [facility] Last Admin: 02/12/25 17:37 Dose: 1 gm Documented By: MARIMAR Cyclobenzaprine HCl (Cyclobenzaprine Hcl 10 Mg Tablet) 10 mg PO BEDTIME PRN PRN Reason: muscle spasm Last Admin: 02/10/25 20:23 Dose: 10 mg Documented By: DARRIN Dextrose (Dextrose 50 % 25 Gm/50 Ml Syringe) 25 gm IVPUSH Q15M PRN; Protocol PRN Reason: per Hypoglycemia Standing Ord. Enoxaparin Sodium (Enoxaparin Sodium 40 Mg/0.4 Ml Syringe) 40 mg SUBCUT Q24H [facility] Last Admin: 02/12/25 22:16 Dose: 40 mg Documented By: RADHA Famotidine (Famotidine 20 Mg Tablet) 10 mg PO BID [facility] Last Admin: 02/13/25 09:34 Dose: 10 mg Documented By: SANDHYA Glucose (Glucose Gel 15 Gm Gel..Gram.) 15 gm PO Q15M PRN; Protocol PRN Reason: per Hypoglycemia Standing Ord. Azithromycin 500 mg/ Sodium (Chloride) 250 mls @ 125 mls/hr IV Q24H [facility] Last Infusion: 02/12/25 20:34 Dose: Infused Documented By: RADHA Insulin Human Lispro (Insulin Lispro 100 Unit/Ml 3 Ml Vial) 0 unit SUBCUT QIDACHS [facility]; Protocol Last Admin: 02/13/25 11:52 Dose: Not Given Documented By: SANDHYA Non-Admin Reason: No Insulin Coverage Levothyroxine Sodium (Levothyroxine Sodium 200 Mcg Tablet) 200 mcg PO DAILY@0600 [facility] Last Admin: 02/13/25 05:45 Dose: 200 mcg Documented By: LARS Lidocaine (Lidocaine 4 % Patch Adh..Patch) 1 patch TRANSDERMA DAILY [facility]; Protocol Last Admin: 02/13/25 09:37 Dose: 1 patch Documented By: SANDHYA Magnesium Hydroxide (Milk Of Magnesia 30 Ml Oral.Susp) 30 ml PO DAILY PRN PRN Reason: Constipation Melatonin (Melatonin 3 Mg Tablet) 6 mg PO BEDTIME PRN PRN Reason: Insomnia Last Admin: 02/10/25 21:45 Dose: 6 mg Documented By: DARRIN Metoprolol Succinate (Metoprolol Succinate Er 25 Mg Tab.Er.24h) 25 mg PO DAILY [facility]; Protocol Last Admin: 02/13/25 09:37 Dose: 25 mg Documented By: SANDHYA Ondansetron HCl (Ondansetron Hcl 4 Mg/2 Ml Vial) 4 mg IVPUSH Q8H PRN PRN Reason: Nausea and Vomiting Last Admin: 02/11/25 19:49 Dose: 4 mg Documented By: DARRIN Oxycodone HCl (Oxycodone Hcl Immed Release 5 Mg Tablet) 2.5 mg PO Q6H PRN PRN Reason: Pain, Severe (Pain Scale 7-10) Last Admin: 02/12/25 20:26 Dose: 2.5 mg Documented By: RADHA Prednisone (Prednisone 20 Mg Tablet) 40 mg PO DAILY [facility] Last Admin: 02/13/25 09:00 Dose: 40 mg Documented By: SANDHYA Sertraline HCl (Sertraline Hcl 50 Mg Tablet) 50 mg PO DAILY [facility] Last Admin: 02/13/25 09:37 Dose: 50 mg Documented By: SANDHYA Sodium Chloride (0.9 % Sodium Chloride Flush 3 Ml Syringe) 3 ml IVFLUSH QSHIFT [facility] Last Admin: 02/13/25 08:36 Dose: Not Given Documented By: SANDHYA Non-Admin Reason: IV Running Tramadol HCl (Tramadol Hcl 50 Mg Tablet) 25 mg PO Q6H PRN PRN Reason: Pain, Severe (Pain Scale 7-10) Last Admin: 02/10/25 12:08 Dose: 25 mg Labs 02/09/25 05:12 02/13/25 08:21 Labs: Laboratory Results - last 24 hr 02/12/25 02/12/25 02/13/25 16:17 20:17 07:27 Anion Gap Estim Creat Clear Calc Estimated GFR POC Glucose 205 H 178 H 106 Random Glucose Calcium B-Natriuretic Peptide 02/13/25 02/13/25 08:21 11:03 Anion Gap 14 Estim Creat Clear Calc 64.5 Estimated GFR > 60 POC Glucose 109 Random Glucose 95 Calcium 8.5 D B-Natriuretic Peptide 191 H Assessment and Plan (1) COPD exacerbation: Status: Acute Plan 70-year-old female with pertinent history of hypertension, mixed hyperlipidemia, hypothyroidism, mood disorder, gastroesophageal reflux disease, chronic back pain, 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 Acute hypoxemic respiratory failure due to acute exacerbation of COPD, presumed PNA and mild CHF, unspecified Shortness of breath with minimal exertion better, generalized weak. Continue nebs, steroids, taper oxygen. IV lasix x1 Continue Rocephin and azithromycin echocardiogram results pending home o2 eval Mood disorder Continue home mood stabilizers Hypothyroidism On Synthroid Gastroesophageal reflux disease On famotidine Right upper lobe pulmonary nodule Outpatient follow-up with CT chest in 6-12 months Diarrhea improving no abd pain positive for EPEC. cdiff negative continue symptomatic management. Encouraged for hydration p.o. intake. Back pain L-spine x-ray-seem Djd Changes. continue lidocaine patch, capsaicin cream, Tylenol, trazodone Ulcerative colitis Outpatient GI follow-up DVT prophylaxis: Lovenox Full code. Discussed with patient at bedside Quality Stroke Does the patient have a stroke diagnosis?: No VTE Prior VTE?: No VTE Risk Level:: Medical - moderate - high VTE Device Contraindication: Treatment Not Indicated VTE Drug Contraindication: N/A - Med Ordered
[2025-02-13] MEDS: acetaZOLAMIDE 250 MG TABLET PO ×2 (13:54→20:17)
[2025-02-13] MEDS: oxyCODONE HCl Immed Release 5 MG TABLET 2.5 MG PO ×2 (14:00→20:15)
[2025-02-13 15:51] VITALS: BP 111/68; PULSE 69; RESP 16; TEMP 37.1; O2SAT 93
[2025-02-13 16:18] LABS: Glucose, Whole Blood 192 mg/dL (60-115)
[2025-02-13] MEDS: Insulin Lispro 100 UNIT/ML 3 ML VIAL SUBCUT ×2 (17:17→21:17)
[2025-02-13] MEDS: traMADoL HCL 50 MG TABLET 25 MG PO (17:31)
[2025-02-13] MEDS: cefTRIAXone sodium 1 GM VIAL IVPUSH (17:32)
[2025-02-13] MEDS: Azithromycin 500 MG in 0.9 % Sodium Chloride 250 ML 125 MG IV (17:35)
--- NOTE | 2025-02-13 18:05 | P.CDIM_ITS ---
PROVIDER RESPONSE TEXT: To clarify, the appropriate diagnosis supported by the clinical indicators: Diastolic: mild acute QUERY TEXT: PHYSICIAN'S DOCUMENTATION REQUEST Date of Query: 02/13/2025 12:54 PM EDT Patient Name: Cris Coppola Admit Date: 02/09/2025 Dear Beatriz Marino CORPORATE DRIVER, A review of the medical record indicates additional documentation may be needed. Please review below and update the documentation accordingly. Clinical Indicators: Progress notes: Acute hypoxemic respiratory failure due to acute exacerbation of COPD, presumed PNA a nd mild CHF. Shortness of breath, dyspnea which is worse on exertion. IV Lasix BNP [address] shows small bilateral pleural effusions. History of Echo performed. Please provide further specificity regarding the most likely type and acuity of CHF you are evaluatin g, treating, or monitoring. Systolic Please specify if Acute, Chronic, or Acute on chronic, or Unable to determine Diastolic Please specify if Acute, Chronic, or Acute on chronic, or Unable to determine Combined Systolic/Diastolic Please specify if Acute, Chronic, or Acute on chronic, or Unable to determine Other (explain) Clinically unable to determine (explain) Thank you, Florencia Nino, CCS, CDIS Use of terms such as suspected, likely, concern for, or probable (associated with a specific diagnosi s that is being evaluated, monitored, or treated as if it exists) are acceptable and can be coded in the inpatient se tting, when documented at the time of discharge. Please use your independent medical judgment in providing your response. THIS QUERY IS PART OF THE PERMANENT MEDICAL RECORD
[2025-02-13 19:29] VITALS: BP 105/64; PULSE 70; RESP 16; TEMP 36.8; O2SAT 94
[2025-02-13 20:10] LABS: Glucose, Whole Blood 185 mg/dL (60-115)
[2025-02-13] MEDS: Enoxaparin Sodium 40 MG/0.4 ML SYRINGE SUBCUT (23:50)
[2025-02-14] MEDS: Acetaminophen 325 MG TABLET 975 MG PO ×2 (02:40→07:46)
[2025-02-14] MEDS: oxyCODONE HCl Immed Release 5 MG TABLET 2.5 MG PO ×2 (02:47→07:50)
[2025-02-14 03:19] VITALS: BP 134/63; PULSE 61; RESP 20; TEMP 36.2; O2SAT 93
[2025-02-14] MEDS: Levothyroxine Sodium 200 MCG TABLET PO (05:43)
[2025-02-14 07:14] VITALS: BP 131/69; PULSE 76; RESP 16; TEMP 36.3; O2SAT 92
[2025-02-14 07:21] LABS: Glucose, Whole Blood 108 mg/dL (60-115)
[2025-02-14] MEDS: 0.9 % Sodium Chloride Flush 3 ML SYRINGE IVFLUSH (07:45)
[2025-02-14] MEDS: Atorvastatin Calcium 80 MG TABLET PO (07:47)
[2025-02-14] MEDS: acetaZOLAMIDE 250 MG TABLET PO (07:48)
[2025-02-14] MEDS: predniSONE 20 MG TABLET 40 MG PO (07:48)
[2025-02-14] MEDS: Famotidine 20 MG TABLET 10 MG PO (07:49)
[2025-02-14] MEDS: Metoprolol Succinate ER 25 MG TAB.ER.24H PO (07:49)
[2025-02-14] MEDS: Sertraline HCL 50 MG TABLET PO (07:52)
[2025-02-14] MEDS: Lidocaine 4 % Patch ADH..PATCH 1 PATCH TRANSDERMA (07:53)
[2025-02-14 08:40] LABS: Anion Gap 12 (12-20); Blood Urea Nitrogen 13 mg/dL (9-16); Calcium 8.5 mg/dL (8.4-10.2); Carbon Dioxide 35 mmol/L (22-29); Chloride 95 mmol/L (96-108); Creatinine Clr Calc Pharmacy 53.6; Estimated Glomerular Filt Rate 52; Glucose Random 100 mg/dL (60-115); Potassium 4.7 mmol/L (3.3-5.1); Sodium 137 mmol/L (135-145)
[2025-02-14 11:07] LABS: Glucose, Whole Blood 131 mg/dL (60-115)
--- NOTE | 2025-02-14 11:19 | PM.DS ---
DS: Providers Provider Date of Service: 02/14/25 Date of admission: 02/08/25 22:27 Date of discharge: 02/14/25 Primary care physician: Lei Zuleta III, MD Consults: 02/11/25 17:03 Consult to Pulmonology Routine Consulting Provider: [facility] [place] Pulmonology Services Reason for consultation: acute hypoxemic respiratory failure penumonia ,copd Has provider been notified: No Attending physician on discharge: Donovan Mueller Discharging clinician: Dasha Paredes DS: Diagnosis Discharge Diagnosis (1) COPD exacerbation: Status: Acute DS: Summary Hospital Course Hospital Course: From H&P on the day of admission This is a 70-year-old female with pertinent history of hypertension, mixed hyperlipidemia, hypothyroidism, mood disorder, gastroesophageal reflux disease, chronic back pain, 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 Patient states she has been feeling weak for the last 5-6 days. Also has been having dyspnea which is worse with exertion. Denies cough but does have associated wheezing. Patient states that she was having 1-2 loose stools per day that was going on for the last 5-6 days but it has stopped now. She endorses generalized malaise and easy fatigability. Denies fever, chills, chest pain, palpitations, abdominal pain, changes in urinary habits. In the emergency department, patient found to be satting 84% on room air and placed on supplemental oxygen. Patient was given multiple DuoNeb treatments and IV steroids. Imaging with pancolitis Acute hypoxemic respiratory failure due to acute exacerbation of COPD, possible PNA and ?mild CHF, unspecified Treated with breathing treatments as systemic steroids. She received 1 dose of IV Lasix. She was also treated with ceftriaxone and azithromycin for possible pneumonia. Imaging showed small bilateral pleural effusions with adjacent atelectasis and/or infiltrates. She had no leukocytosis or fever. BNP was mildly elevated, echocardiogram was obtained and showed preserved ejection fraction with no diastolic dysfunction. She was seen by Pulmonary who recommended outpatient follow-up for pulmonary nodules. Completed course of steroids, will dischage to complete course of antibiotics. Patient's respiratory symptoms improved and she was able to be weaned off of supplemental oxygen. Patient's bicarb noted to be trending up, started on low-dose Diamox and now trending back down. Also noted to have pulmonary nodule which will need to be followed as outpatient. Seen by Physical therapy who recommended home with services. Patient had initially declined home physical therapy and home VNA services, but did ultimately agree upon discharge Mood disorder Continue home mood stabilizers Hypothyroidism On Synthroid Gastroesophageal reflux disease On famotidine Right upper lobe pulmonary nodule Outpatient follow-up with CT chest in 6-[address] scan showing colitis. Similar to previous imaging in 2021. Stool studies positive for EPEC. Abdominal pain and diarrhea resolved. C diff negative Time Attestation Discharge Coordination Time (in mins): 35 Quality: Safe Use of Opioids Does Pt have an Active Cancer Diagnosis on the Problem List?: No Quality: Stroke Does the patient have a stroke diagnosis?: No Physical Exam Vital Signs: Vital Signs: Last Vital Signs Temp 97.3 F 02/14/25 07:14 Pulse 76 02/14/25 07:14 Resp 16 02/14/25 07:14 BP 131/69 02/14/25 07:14 Pulse Ox 92 02/14/25 07:14 O2 Del Method Room Air 02/14/25 07:14 O2 Flow Rate 1.0 02/13/25 15:51 Oxygen Flow Rate 4 02/08/25 17:02 BMI result Body Mass Index 32.2 Const: General: cooperative, comfortable, no acute distress, alert and awake Nutritional Appearance: average body habitus Orientation/consciousness: patient oriented x3 Resp: Effort & Inspection: normal respiratory effort, able to speak in complete sentences, no respiratory distress and no use of accessory muscles Auscultation: clear to auscultation bilaterally Cardio: Rate: regular rate GI: Inspection: No distended Palpation (GI): Soft to palpation and nontender Neuro: General: patient oriented x3, moves all extremities and CN's II-XI intact bilaterally DS: Data Data Completed and Pending Completed studies during hospitalization [Text1]: Procedures Excision of Duodenum, Via Natural or Artificial Opening Endoscopic, Diagnostic (05/03/22) Excision of Rectum, Via Natural or Artificial Opening Endoscopic, Diagnostic (05/03/22) Excision of Right Large Intestine, Via Natural or Artificial Opening Endoscopic, Diagnostic (05/03/22) Excision of Sigmoid Colon, Via Natural or Artificial Opening Endoscopic, Diagnostic (05/03/22) Excision of Stomach, Pylorus, Via Natural or Artificial Opening Endoscopic, Diagnostic (05/03/22) Labs on day of discharge: Laboratory Results - last 24 hr 02/13/25 02/13/25 02/14/25 16:14 19:31 07:17 Hold Purple Top Sodium Potassium Chloride Carbon Dioxide Anion Gap BUN Creatinine Estim Creat Clear Calc Estimated GFR POC Glucose 192 H 185 H 108 Random Glucose Calcium 02/14/25 02/14/25 08:07 11:04 Hold Purple Top SEE NOTE Sodium 137 Potassium 4.7 D Chloride 95 L Carbon Dioxide 35 H Anion Gap 12 BUN 13 Creatinine 1.06 Estim Creat Clear Calc 53.6 Estimated GFR 52 POC Glucose 131 H Random Glucose 100 Calcium 8.5 Discharge Plan Discharge Anticipated Discharge Date/Time: 02/14/25 11:50 Patient Disposition: Home Health Service Discharge Diagnosis: COPD exacerbation Diarrhea Possible pneumonia Referrals: Lei Zuleta III, MD [Primary Care Provider] - 1 Week Discharge Medications: New azithromycin 250 mg tablet 250 mg PO DAILY 3 Days Qty: 3 0RF cefuroxime axetil 250 mg tablet 250 mg PO Q12H 3 Days Qty: 6 0RF Continued cyclobenzaprine 10 mg tablet 1 tab PO BEDTIME PRN (Reason: muscle spasm) atorvastatin 80 mg tablet 1 tab PO DAILY levothyroxine 200 mcg tablet 1 tab PO DAILY@0600 metoprolol succinate 25 mg tablet extended release 24 hr 1 tab PO DAILY sertraline 50 mg tablet 1 tab PO DAILY famotidine 20 mg tablet 10 mg PO BID Discharge Orders: Discharge Order (Routine); Ordered 02/14/25 Ordered By: Dasha Paredes Activity on Discharge: As tolerated Stand Alone Forms: Patient Portal Discharge page Print Language: Maldivian Care Plan Goals: See below Health Concerns: Diarrhea due to EPEC. Resolved Shortness of breath/hypoxia due to COPD exacerbation and possible pneumonia pulmonary nodule Plan of Treatment: Completed course of oral steroids Complete course of antibiotics Outpatient follow-up with GI due to underlying history of colitis outpatient repeat imaging to ensure resolution of plural effusion and follow up for pulmonary nodule Call to schedule follow-up appointment with primary care provider Assessment: See discharge summary
--- NOTE | 2025-02-14 12:10 | MHC.CM.PN ---
PT CLEARED TO DC HOME TODAY, SHE IS REFUSING VNA SERVICES PT WILL ARRANGE TRANSPORT
[2025-02-14 12:47] VITALS: BP 118/76; PULSE 72; RESP 16; TEMP 36.6; O2SAT 94
--- NOTE | 2025-02-14 13:16 | P.F2F_ITS ---
Service Date Service Date: 02/14/25 Encounter Date of encounter: 02/14/25 Reasons for Services Signs and symptoms assessed: Needs nursing home due to COPD exacerbation, pneumonia for monitoring O2 saturations Reason for nursing home: CV/CP assess and/or care Reason for physical therapy: home safety and mobility Overseeing Care: Lei Zuleta III Homebound: Leaving the home is medically contraindicated at this time without the asist of a device and/or another person due th the listed conditions above and below. Reason homebound: weakness related to hospital stay Certification: Based on the above findings, I certify that this patient is confined to the home and needs intermittent nursing home care, physical therapy and/or speech therapy, or continues to need occupational therapy. The patient is under my care, and I have initiated the establishment of the plan of care. The patient will be followed by a physician who will periodically review the plan of care. Time Spent With Patient Time: Total time managing care of this patient today ____ minutes.
--- NOTE | 2025-02-14 13:19 | MHC.CM.PN ---
Patient now agreeable to VNA services. [facility] has accepted. Son will transport.
== END 2025-02-14 13:17 | disposition home health service (06) | DRG 190 ==
LOC: HO.ED 22:17 → HO.EDOVER 22:30 → HO.S3 23:19
PROVIDERS: Internal Medicine; Nurse Practitioner Acute Care; Nurse Practitioner Family; Physician Assistant; Admitting Provider Student in an Organized Health Care Education/Training Program; Emergency Provider Emergency Medicine; PCP Internal Medicine; Visit Provider Physician Assistant Medical
DX: J44.0 Chronic obstructive pulmonary disease with (acute) lower respiratory infection (principal); I50.31 Acute diastolic (congestive) heart failure; J18.9 Pneumonia, unspecified organism; J96.01 Acute respiratory failure with hypoxia; A04.0 Enteropathogenic Escherichia coli infection; F30.9 Manic episode, unspecified; K51.90 Ulcerative colitis, unspecified, without complications; J44.1 Chronic obstructive pulmonary disease with (acute) exacerbation; Z15.09 Genetic susceptibility to other malignant neoplasm; I25.10 Atherosclerotic heart disease of native coronary artery without angina pectoris; F17.210 Nicotine dependence, cigarettes, uncomplicated; M47.816 Spondylosis without myelopathy or radiculopathy, lumbar region; E11.65 Type 2 diabetes mellitus with hyperglycemia; R91.1 Solitary pulmonary nodule; Z71.6 Tobacco abuse counseling; Z20.822 Contact with and (suspected) exposure to COVID-19; E78.2 Mixed hyperlipidemia; E03.9 Hypothyroidism, unspecified; Z79.890 Hormone replacement therapy; Z79.899 Other long term (current) drug therapy
CPT/HCPCS: 0241U; 36415; 71045; 71275; 72100; 74177; 80048; 80053; 81001; 81003; 82803; 82947; 83036; 83690; 83735; 83880; 84484; 85007; 85025; 85027; 85379; 85610; 87493; 87507; 87633; 93005; 93306; 94640; 97162; 99285; J0456; J0696; J1650; J2270; J2405; J2919; P9047; Q9957

== ENCOUNTER → 2025-02-08 17:13 | Outpatient (BNV) | payer MEDICARE, MEDICAID, SELFPAY | PROVIDERS: Admitting Provider Student in an Organized Health Care Education/Training Program; Emergency Provider Emergency Medicine; PCP Internal Medicine; Visit Provider Internal Medicine Cardiovascular Disease | DX: R53.1 Weakness (principal) | CPT/HCPCS: 93010 ==

== ENCOUNTER → 2025-02-08 17:23 | Outpatient (BNV) | payer MEDICARE, MEDICAID, SELFPAY | PROVIDERS: Emergency Provider Emergency Medicine; Visit Provider Radiology Diagnostic Radiology | DX: R18.8 Other ascites (principal); J90 Pleural effusion, not elsewhere classified; R91.1 Solitary pulmonary nodule; R06.02 Shortness of breath; R05.9 Cough, unspecified; R09.02 Hypoxemia | CPT/HCPCS: 71045 ==

== ENCOUNTER 2025-02-08 22:27 | Outpatient (BNV) | payer MEDICARE, MEDICAID, SELFPAY | END 2025-02-11 15:15 | PROVIDERS: Admitting Provider Student in an Organized Health Care Education/Training Program; Emergency Provider Emergency Medicine; PCP Internal Medicine; Visit Provider Radiology Diagnostic Radiology | DX: J44.9 Chronic obstructive pulmonary disease, unspecified (principal); R09.02 Hypoxemia | CPT/HCPCS: 71045 ==

== ENCOUNTER 2025-02-08 22:27 | Outpatient (BNV) | payer MEDICARE, MEDICAID, SELFPAY | END 2025-02-12 13:00 | PROVIDERS: Admitting Provider Student in an Organized Health Care Education/Training Program; Emergency Provider Emergency Medicine; PCP Internal Medicine; Visit Provider Internal Medicine Cardiovascular Disease | DX: R06.02 Shortness of breath (principal); R79.89 Other specified abnormal findings of blood chemistry | CPT/HCPCS: 93306 ==

== ENCOUNTER 2025-02-08 22:27 | Outpatient (BNV) | payer MEDICARE, MEDICAID, SELFPAY | END 2025-02-09 14:10 | PROVIDERS: Admitting Provider Student in an Organized Health Care Education/Training Program; Emergency Provider Emergency Medicine; PCP Internal Medicine; Visit Provider Radiology Diagnostic Radiology | DX: M54.50 Low back pain, unspecified (principal) | CPT/HCPCS: 72100 ==

== ENCOUNTER → 2025-02-08 22:27 | Outpatient (BNV) | payer MEDICARE, MEDICAID, SELFPAY | PROVIDERS: Admitting Provider Student in an Organized Health Care Education/Training Program; Emergency Provider Emergency Medicine; PCP Internal Medicine; Visit Provider Internal Medicine Pulmonary Disease | DX: J44.1 Chronic obstructive pulmonary disease with (acute) exacerbation (principal) | CPT/HCPCS: 99222 ==

== ENCOUNTER → 2025-02-08 22:27 | Outpatient (BNV) | payer MEDICARE, MEDICAID, SELFPAY | PROVIDERS: Admitting Provider Student in an Organized Health Care Education/Training Program; Emergency Provider Emergency Medicine; PCP Internal Medicine; Visit Provider Student in an Organized Health Care Education/Training Program | DX: J44.1 Chronic obstructive pulmonary disease with (acute) exacerbation (principal) | CPT/HCPCS: 99222; 99231; 99232; 99239; G0180 ==

== ENCOUNTER 2025-02-15 21:22 | Inpatient (IN) | payer MEDICARE, MEDICAID, SELFPAY ==
--- NOTE | ~2025-02-15 | CT_ITS ---
CLINICAL HISTORY: Chest pain, fall, rule out fracture CT chest without contrast Comparison: None Findings: The heart size is normal. The visualized thyroid and mediastinum are unremarkable. The lungs are clear. The upper abdomen is unremarkable. The bones are intact. IMPRESSION: No acute traumatic finding. This document has been electronically signed by: Wilber Marie MD on 02/16/2025 01:12:17
--- NOTE | ~2025-02-15 | XR_ITS ---
CLINICAL HISTORY: Back pain, hypotension, rule out pneumonia EXAM: One view chest x-ray COMPARISON: CR/NE/SR - XR CHEST 1V - 02/11/25 15:18 EDT FINDINGS: Normal cardiac, mediastinal, and hilar contours. Normal heart size. No pleural effusion or pneumothorax. Lungs are clear. No acute bone finding. IMPRESSION: 1. No acute cardiopulmonary process demonstrated. This document has been electronically signed by: Wilber Marie MD on 02/15/2025 22:50:50
--- NOTE | ~2025-02-15 | CT_ITS ---
CLINICAL HISTORY: Fall, severe back pain, rule out fracture CT thoracic spine without contrast Comparison: None Findings: Severe diffuse degenerative changes. Vertebral body height and alignment are normal. No acute fracture identified. Partially visualized posterior ribs intact. Lungs and pleural spaces clear. Regional soft tissues normal. IMPRESSION: No acute findings. This document has been electronically signed by: Wilber Marie MD on 02/16/2025 01:16:40
--- NOTE | ~2025-02-15 | CT_ITS ---
CLINICAL HISTORY: Severe back pain, fall, rule out fracture CT lumbar spine without contrast Comparison: None Findings: Severe lumbar spine degenerative changes. Alignment is normal. Vertebral body heights maintained. No acute fracture identified. Regional soft tissues normal. IMPRESSION: No acute findings. This document has been electronically signed by: Wilber Marie MD on 02/16/2025 01:18:02
--- NOTE | ~2025-02-15 | MR_ITS ---
CLINICAL HISTORY: radicular pain pt was in pain unable to repeat MR lumbar spine without gadolinium Comparison: CT/SR - CT LUMBAR SPINE WO IV CON - 02/16/25 00:14 EDT Findings: Levoscoliosis. Diffuse heterogeneous marrow signal with Modic endplate degenerative changes without marrow edema. No acute fracture or pathologic bone lesion. Conus medullaris within normal limits. Paraspinous musculature intact. Right-sided renal cysts. Nonspecific bilateral perinephric stranding. Multilevel facet arthropathy, ligamentum flavum buckling and disc bulges/protrusions. Severe right and moderate left bilateral foraminal stenoses at L1-L2. No high-grade spinal canal narrowing. Mild spinal canal narrowing at L2-L3. [id number] bilateral foraminal stenoses. Moderate to severe spinal canal narrowing at L3-L4, with severe bilateral foraminal stenoses. Moderate to severe spinal canal narrowing at L4-L5 with severe bilateral foraminal stenoses, left worse than right. [id number] bilateral foraminal stenoses at L5-S1. No high-grade spinal canal narrowing. IMPRESSION: Multilevel lumbar spondylosis, pronounced at L3-L5, please see above. This document has been electronically signed by: Jt Wadr MD on 02/21/2025 18:34:08
--- NOTE | ~2025-02-15 | CT_ITS ---
EXAMINATION: CT ABDOMEN PELVIS ANGIOGRAPHY WITH IV CONTRAST HISTORY: Low BP, anemia, back pain, retroperitoneal bleed? COMPARISON: Comparison is made with the prior examination dated 02/18/2025. TECHNIQUE: CT scan of the abdomen and pelvis was performed before and after the intravenous administration of 80 mL Omnipaque 350. Post contrast images were obtained in the arterial and delayed phases. Coronal and sagittal reformatted images were generated and reviewed. Oral contrast material was not administered per department protocol. This CT exam was performed with one or more of the following dose reduction techniques: automated exposure control, adjustment of the mA and/or kV according to patient size, use of iterative reconstruction technique. DLP: 1162 mGy-cm ABDOMEN: LOWER CHEST: There is patchy airspace opacity at the left lung base which may represent atelectasis or pneumonia. There is a tiny left pleural effusion. Minimal subsegmental atelectasis is seen at the right lung base. CARDIOVASCULATURE: The heart is normal in size. There is no pericardial effusion. LIVER: The liver is normal in size and contour. There is geographic decreased attenuation in the liver adjacent to the falciform ligament which likely represent steatosis. The hepatic and portal veins are patent. GALLBLADDER / BILE DUCTS: The gallbladder is surgically absent. There is no intra or extrahepatic biliary ductal dilatation. SPLEEN: The spleen is normal in size. No focal splenic lesion is identified. PANCREAS: The pancreas is unremarkable in appearance. ADRENAL GLANDS: Within normal limits. KIDNEYS/RETROPERITONEUM: No renal calculi are identified. There is no hydronephrosis. There is a 1.2 cm right renal cyst in the interpolar region. There is no retroperitoneal hematoma. LYMPH NODES: No abdominal or pelvic lymphadenopathy. VASCULATURE: The abdominal aorta demonstrates atherosclerotic calcification, but is normal in caliber. Arterial phase images of limited by delay in the contrast bolus. There is calcification at the origins of the SMA, celiac axis, and bilateral renal arteries. MESENTERY/PERITONEUM: No free fluid. No masses. There is no free intraperitoneal gas. STOMACH: The stomach is collapsed, limiting evaluation. SMALL BOWEL: The small bowel is normal in caliber. COLON: Again seen is moderate wall thickening of the descending and sigmoid colon with stranding of the adjacent fat, consistent with colitis. There is no adjacent extraluminal gas or loculated fluid collection. APPENDIX: Normal. URINARY BLADDER/PELVIC ORGANS: The urinary bladder is unremarkable. The uterus is unremarkable. BONES / SOFT TISSUES: There is degenerative disc disease of the spine. CT/CT angio abdomen pelvis IMPRESSION: 1. Persistent colitis of the descending and sigmoid colon. 2. No evidence of retroperitoneal hematoma. 3. Possible left lower lobe pneumonia with a small pleural effusion. 4. Degenerative disc disease of the spine. Electronically signed by: Juanjo Christensen MD 02/21/2025 09:51 AM EDT
--- NOTE | ~2025-02-15 | CT_ITS ---
CLINICAL HISTORY: pain CT abdomen and pelvis without contrast Comparison: 02/08/2025 Findings: Mildly evolving small left pleural effusion. Mild bibasilar atelectasis. For full description of focal hepatic hypodensity please refer to recent contrast enhanced liver CT. Moderate pancreatic atrophy. Cholecystectomy. No urinary tract stone or hydronephrosis. Unremarkable spleen and adrenals. Mildly progressive mild presacral edema. Subtle perirectal fat haziness decreased from prior. Small perisigmoid fluid/mild fat haziness adjacent to sigmoid colon may be mildly less conspicuous than prior exam. Nonprogressive up to 14 mm thickening of the wall of the descending and sigmoid colon. Mild fat haziness adjacent to portions of the descending colon is nonprogressive from prior study. No evidence of appendicitis. The bones are intact. Atherosclerotic calcifications. Severe right hip osteoarthritis. Spinal degenerative changes. IMPRESSION: Nonprogressive (with mild interval improvement) descending and sigmoid colitis may be inflammatory/or infectious or secondary to diverticulitis. Previously noted proctitis improved from prior study with only subtle perirectal fat stranding on current study. This document has been electronically signed by: Ct Morin MD on 02/18/2025 13:18:57
[2025-02-15 21:36] VITALS: BP 76/60; BP 85/61; PULSE 91; PULSE 95; RESP 14; TEMP 36.5; O2SAT 94; O2SAT 96; BMI 34.3
--- NOTE | 2025-02-15 21:36 | ECG_ITS ---
Test Reason : HYPOTENSIVE Blood Pressure : */* mmHG Vent. Rate : 93 BPM Atrial Rate : 93 BPM P-R Int : 158 ms QRS Dur : 82 ms QT Int : 370 ms P-R-T Axes : 70 72 91 degrees QTcB Int : 460 ms Sinus rhythm with occasional Premature ventricular complexes Nonspecific ST and T wave abnormality Abnormal ECG When compared with ECG of 08-Feb-2025 17:52, Previous ECG has undetermined rhythm, needs review Referred By: Generic ED Physician Electronically Signed By: Matt Sanchez
--- NOTE | 2025-02-15 21:55 | ED.BACK ---
HPI - Back Pain/Injury General Chief Complaint: Back Pain/Injury Stated Complaint: lower back pain, 07/05 pain Time Seen by Provider: 02/15/25 21:53 Source: patient Mode of arrival: EMS Limitations: no limitations History of Present Illness ED Provider: Dr. 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 The patient's granddaughter is here in the emergency department with the patient and states that patient was very weak at home and could barely tolerate a sponge bath. Granddaughter also noted bruising along the left posterior thigh which she believes was new since the patient was discharged from the hospital. Patient was complained of increased back pain therefore an ambulance was called. The patient was found to be hypotensive by the paramedics with a blood pressure here in the emergency department of 85/61. Rest of her vital signs were unremarkable with an O2 saturation of 94% on room air. The patient was admitted here from until 02/14/2025. In reviewing the discharge summary the patient presented at that time with weakness and dyspnea for 5-6 days and increased dyspnea on exertion. She was hypoxic with O2 saturations of 84%. She was felt to have a COPD exacerbation with acute hypoxia and mild CHF. She was treated with breathing treatments and steroids. She also received a dose of Lasix. She was treated for possible pneumonia with ceftriaxone and azithromycin. Echocardiogram revealed preserved EF with no diastolic dysfunction. She was given prescriptions for azithromycin 250 mg x 3 days and cefuroxime 250 mg q.12 hours for 3 days. The hospitalist Service wanted to transfer the patient to his fdc facility but the patient refused and visiting nursing service was set up upon discharge. The patient denied fever, chills, rhinorrhea, cough, chest pain, shortness of breath, dyspnea on exertion, nausea, vomiting, diarrhea, dark stools, bloody stools, frequency, urgency or dysuria. Related Data Home Medications ?Medication ?Instructions ?Recorded ?Confirmed atorvastatin 80 mg tablet 1 tab PO DAILY 05/03/22 02/09/25 cyclobenzaprine 10 mg tablet 1 tab PO BEDTIME PRN muscle spasm 05/03/22 02/09/25 levothyroxine 200 mcg tablet 1 tab PO DAILY@0600 05/03/22 02/09/25 metoprolol succinate 25 mg 1 tab PO DAILY 05/03/22 02/09/25 tablet,extended release 24 hr sertraline 50 mg tablet 1 tab PO DAILY 05/03/22 02/09/25 famotidine 20 mg tablet 10 mg PO BID 06/01/23 02/09/25 Previous Rx's ?Medication ?Instructions ?Recorded azithromycin 250 mg tablet 250 mg PO DAILY 3 days #3 tabs 02/14/25 cefuroxime axetil 250 mg tablet 250 mg PO Q12H 3 days #6 tabs 02/14/25 Allergies Allergy/AdvReac Type Severity Reaction Status Date / Time No Known Allergies Allergy Verified 02/15/25 21:40 [No Known Allergies*] [facility] Past Medical History [facility] Narrative: Social history: The patient continues to smoke 1 pack of cigarettes per day times 53 years. She denies alcohol use. She denies drug use. Medical History Prediabetes CAD (coronary artery disease) GERD (gastroesophageal reflux disease) Smoker Spinal stenosis Depression Insomnia Borderline diabetic Heart attack Colitis Surgical History History of tonsillectomy H/O eye surgery H/O thyroidectomy Hx of cholecystectomy Social History Social History Household Members: None Housing: House Do you presently have visiting nurse or other home services: No Alcohol intake: former Patient Tobacco Use Status: Current everyday Tobacco user Tobacco use type: Cigarette Cigarette Packs Per Day: 1 Cigarettes Per Day: 20.0 Years Smoked: 54 Advance Directives: No Advance Directives Information Provided: No Do you have a plan to hurt others: No Plan service: No Current occupational status: employed Physical Exam Vital Signs: Vital Signs: Last Vital Signs Temp 98.3 F 02/15/25 23:17 Pulse 77 02/16/25 00:49 Resp 14 02/16/25 00:49 BP 122/67 02/16/25 00:49 Pulse Ox 94 02/16/25 00:49 O2 Del Method Room Air 02/16/25 00:49 BMI result Body Mass Index 34.3 Vital signs revealed hypotension. Exam: General: Awake, alert , in distress secondary to her back pain Head: Normocephalic, atraumatic EENT: PERRL, Lids normal, sclera normal, conjunctiva normal, nose normal , ears normal, throat without erythema or exudates Neck: Supple, no adenopathy Lung: breath sounds symmetric, no wheezing, rales or rhonchi Chest: symmetric movement, nontender Heart: regular rate and rhythm, normal S1, S2 no murmurs or rubs Abdomen: soft, non-tender, nondistended, normal bowel sounds Back: Patient has tenderness palpation of her thoracic lumbar and sacral vertebrae as well as the muscles over her entire back, there is no spasm, there is no ecchymosis noted or hematomas noted. Extremities: no deformities, moves all extremities symmetrically patient's left posterior thigh is ecchymotic with no localizing tenderness or palpable hematoma. Neuro: Awake, alert, oriented, normal speech, cranial nerves intact, moves all extremities symmetrically Psych: Pleasant, cooperative Medications Administered Discontinued Medications Generic Name Dose Route Start Last Admin Trade Name Freq PRN Reason Stop Dose Admin Fentanyl 25 mcg 02/15/25 23:02 02/16/25 00:46 Fentanyl Citrate/Pf 100 Mcg/2 Ml Vial IVPUSH 02/15/25 23:03 25 mcg ONCE ONE Administration Protocol Lactated Ringer's 1,641 mls @ 1,641 mls/hr 02/15/25 21:56 02/16/25 00:45 Lr IV 02/15/25 22:55 Infused .Q1H ONE Infusion Piperacillin Sod/Tazobactam 100 mls @ 200 mls/hr 02/15/25 23:01 02/15/25 23:54 Sod 4.5 gm/ Sodium Chloride IV 02/15/25 23:30 Infused ONCE ONE Infusion Lactated Ringer's 500 mls @ 999 mls/hr 02/16/25 01:30 02/16/25 01:22 Lr IV 02/16/25 02:00 999 mls/hr .Q31M KT Administration Ketorolac Tromethamine 15 mg 02/15/25 21:57 02/15/25 22:02 Ketorolac Tromethamine 15 Mg/Ml Vial IVPUSH 02/15/25 21:58 15 mg ONCE STA Administration Methylprednisolone Sodium Succinate 60 mg 02/15/25 23:20 02/15/25 23:37 Methylprednisolone Sod Succ 125 Mg Vial IVPUSH 02/15/25 23:21 60 mg ONCE ONE Administration Oxycodone HCl 5 mg 02/15/25 23:11 02/15/25 23:26 Oxycodone Hcl Immed Release 5 Mg Tablet PO 02/15/25 23:12 5 mg ONCE STA Administration Medical Decision Making Medical Decision Making MDM Narrative: 70-year-old female with pertinent history of hypertension, mixed hyperlipidemia, hypothyroidism, mood disorder, gastroesophageal reflux disease, chronic back pain, 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 The patient's granddaughter is here in the emergency department with the patient and states that patient was very weak at home and could barely tolerate a sponge bath. She complained of increased back pain therefore an ambulance was called. The patient was found to be hypotensive by the paramedics with a blood pressure here in the emergency department of 85/61, otherwise vital signs were unremarkable with an O2 saturation of 94% on room air. Patient recently admitted 02/08/2025 until 02/14/2025 for mild CHF, COPD exacerbation with hypoxia and treated for possible pneumonia, discharged 2 days prior with prescriptions for azithromycin and cefuroxime for 3 days. According to patient's granddaughter she was very weak at home and was complaining of severe back pain. Granddaughter did notice bruising to the back of her left leg which she believes his new since being discharged from the ED. patient's blood pressure was low vital signs otherwise unremarkable. Exam revealed diffuse tenderness palpation of the back with no localizing tenderness no ecchymosis or hematoma. Patient does have ecchymosis to the left posterior thigh suggesting that she may have had a recent fall. 23:08 Differential diagnosis: Acute blood loss, spinal injury secondary to fall, infectious process, electrolyte abnormalities, urinary tract infection, pneumonia Course: 23:08 The patient was made a sepsis protocol at this time. The patient is obese with an elevated BMI of 34.3 kg per m2 and I ordered a 30 cc/kilogram fluid bolus based on her ideal body weight. I also ordered Zosyn 4.5 g IV for broad-spectrum coverage for unknown infectious source. Patient was taking steroids and hypotension may be secondary to adrenal suppression therefore I ordered Solu-Medrol 60 mg IV. My interpretation patient's laboratory evaluation is as follows: WBC elevated 16,400. Normocytic anemia with an H&H of 11.6 and 30 4.5. BUN elevated 17 with a normal creatinine of 1.31. Bicarb was normal 28. Glucose elevated 161. Magnesium was normal 2.3. LFTs were normal. Lactic acid elevated 2.9. BNP normal 36 Given the fact that she has a ecchymosis to her left leg from a possible fall, I did order a CT scan of the patient's chest, thoracic, lumbar and sacral spine to evaluate for acute injury from unwitnessed fall. 01:48 CT scan of the chest did not reveal any acute findings, no evidence for pneumonia or trauma findings. CT scan of the thoracic spine revealed severe diffuse GI or changes with no acute fractures. CT scan of the lumbar spine revealed severe lumbar spine degenerative changes with no acute fractures. Patient did receive fentanyl 25 mg IV and oxycodone 5 mg orally with no relief for pain. Given the severity of her back pain, her hypotension and weakness I do not think that the patient can be sent directly to a fdc facility from the emergency department and will need to be admitted to the hospital for pain management and for monitoring of her blood pressure before she is medically cleared. There is no clear infectious source to explain the patient's hypotension and the patient's hypotension may be related to severe volume depletion since it was corrected with IV fluids. 02:15 I did discuss the patient's presentation with the covering hospitalist, Dr. Reyes and the patient was accepted to the hospitalist service. Admission/Observation Consideration of admission/observation: Escalation of care including admission/observation considered (Yes) Lab Data MDM Lab Attestation statement: I reviewed the patient's lab results. 02/15/25 21:54 02/15/25 21:54 Labs: Lab Results 02/15/25 02/15/25 02/15/25 Range/Units 21:54 21:55 23:11 WBC 16.4 H (4.8-10.8) X10*3/uL RBC 3.68 L (4.20-5.50) X10*6/uL Hgb 11.6 L (12.0-16.0) g/dl Hct 34.5 L (37.0-47.0) % MCV 93.8 (80.0-98.0) fL MCH 31.5 (27.0-33.0) pg MCHC 33.6 (31.0-35.0) g/dl RDW 16.1 H (11.0-16.0) % Plt Count 354 D (160-400) X10*3/uL MPV 9.3 L (9.4-12.3) fL Immature Gran % (Auto) 0.7 H (0.0-0.4) % Neut % (Auto) 80.2 H (45-73) % Lymph % (Auto) 14.3 L (20-40) % Dillon % (Auto) 4.6 (2-11) % Eos % (Auto) 0.1 (0-4) % Baso % (Auto) 0.1 (0-2) % Lymph # (Auto) 2.3 (1.2-4.9) X10*3/uL Dillon # (Auto) 0.8 (0.1-1.2) X10*3/uL Eos # (Auto) 0.0 (0.0-0.4) X10*3/uL Baso # (Auto) 0.0 (0.0-0.2) X10*3/uL Abs Immat Gran (auto) 0.11 H (0.00-0.03) X10*3/uL Absolute Neuts (auto) 13.2 H (2.0-8.3) x10*3/uL Absolute Nucleated RBC 0.000 (0.0-0.012) X10*3/uL Nucleated RBC % (auto) 0.0 (0.0-0.2) /100WBC PT 10.4 L (10.9-12.4) SEC INR 0.9 (0.9-1.1) Sodium 139 (135-145) mmol/L Potassium 3.3 D (3.3-5.1) mmol/L Chloride 99 (96-108) mmol/L Carbon Dioxide 28 (22-29) mmol/L Anion Gap 15 (12-20) BUN 17 H (9-16) mg/dL Creatinine 1.31 (0.5-1.4) mg/dL Estim Creat Clear Calc 44.8 Estimated GFR 40 Random Glucose 161 H (60-115) mg/dL Lactic Acid 2.9 H* (0.5-2.0) mmol/L Calcium 8.8 (8.4-10.2) mg/dL Magnesium 2.3 (1.6-2.6) mg/dL Total Bilirubin 0.5 (0.0-1.0) mg/dL AST 20 (5-31) U/L ALT 22 (0-31) U/L Alkaline Phosphatase 92 (39-117) U/L Troponin I High Sens 6.2 D (<3.5-17.0) ng/L B-Natriuretic Peptide 36 (<100) pg/mL Total Protein 6.6 (6.5-8.0) g/dL Albumin 3.7 (3.5-5.0) g/dL Urine Color Urine Appearance Urine pH (5.0-9.0) Ur Specific [place] (1.005-1.025) Urine Protein (Neg-Trace) mg/dL Urine Glucose (UA) (Negative) mg/dL Urine Ketones (Negative) mg/dL Urine Blood (Negative) Urine Nitrite (Negative) Ur Leukocyte Esterase (Negative) Urine RBC (0-2) /HPF Urine WBC (0-5) /HPF Ur Squamous Epith Cells (0-2) /HPF Urine Bacteria (None Seen) Hyaline Casts (0-2) /LPF // Range/Units 01:22 WBC (4.8-10.8) X10*3/uL RBC (4.20-5.50) X10*6/uL Hgb (12.0-16.0) g/dl Hct (37.0-47.0) % MCV (80.0-98.0) fL MCH (27.0-33.0) pg MCHC (31.0-35.0) g/dl RDW (11.0-16.0) % Plt Count (160-400) X10*3/uL MPV (9.4-12.3) fL Immature Gran % (Auto) (0.0-0.4) % Neut % (Auto) (45-73) % Lymph % (Auto) (20-40) % Dillon % (Auto) (2-11) % Eos % (Auto) (0-4) % Baso % (Auto) (0-2) % Lymph # (Auto) (1.2-4.9) X10*3/uL Dillon # (Auto) (0.1-1.2) X10*3/uL Eos # (Auto) (0.0-0.4) X10*3/uL Baso # (Auto) (0.0-0.2) X10*3/uL Abs Immat Gran (auto) (0.00-0.03) X10*3/uL Absolute Neuts (auto) (2.0-8.3) x10*3/uL Absolute Nucleated RBC (0.0-0.012) X10*3/uL Nucleated RBC % (auto) (0.0-0.2) /100WBC PT (10.9-12.4) SEC INR (0.9-1.1) Sodium (135-145) mmol/L Potassium (3.3-5.1) mmol/L Chloride (96-108) mmol/L Carbon Dioxide (22-29) mmol/L Anion Gap (12-20) BUN (9-16) mg/dL Creatinine (0.5-1.4) mg/dL Estim Creat Clear Calc Estimated GFR Random Glucose (60-115) mg/dL Lactic Acid (0.5-2.0) mmol/L Calcium (8.4-10.2) mg/dL Magnesium (1.6-2.6) mg/dL Total Bilirubin (0.0-1.0) mg/dL AST (5-31) U/L ALT (0-31) U/L Alkaline Phosphatase (39-117) U/L Troponin I High Sens (<3.5-17.0) ng/L B-Natriuretic Peptide (<100) pg/mL Total Protein (6.5-8.0) g/dL Albumin (3.5-5.0) g/dL Urine Color Dark Yellow Urine Appearance Clear Urine pH 8.0 (5.0-9.0) Ur Specific [place] 1.025 (1.005-1.025) Urine Protein 30 (1+) H (Neg-Trace) mg/dL Urine Glucose (UA) Negative (Negative) mg/dL Urine Ketones Trace (Negative) mg/dL Urine Blood Negative (Negative) Urine Nitrite Negative (Negative) Ur Leukocyte Esterase Trace H (Negative) Urine RBC 0-2 (0-2) /HPF Urine WBC 0-5 (0-5) /HPF Ur Squamous Epith Cells 3-5 (0-2) /HPF Urine Bacteria None Seen (None Seen) Hyaline Casts 6-10 (0-2) /LPF Independent Interpretation I performed an independent interpretation of an: EKG and Plain X-Ray Interpretation: My interpretation patient's one-view chest x-ray is as follows: No acute disease, My independent interpretation of the patient's 12 EKG done at 21:43 hours is as follows: Normal sinus rhythm rate of 93, normal NJ interval, QRS duration QTC interval, no ST segment elevation, no ST segment depression, occasional PVC. Radiology Impression Discussion of test interpretation with radiology: I have reviewed the radiologist's reading. Radiologist Impression: XR CHEST 1V - 02/11/25 15:18 EDT FINDINGS: Normal cardiac, mediastinal, and hilar contours. Normal heart size. No pleural effusion or pneumothorax. Lungs are clear. No acute bone finding. IMPRESSION: 1. No acute cardiopulmonary process demonstrated. This document has been electronically signed by: Wilber Marie MD on 02/15/2025 22:50:50 CT chest without contrast Comparison: None Findings: The heart size is normal. The visualized thyroid and mediastinum are unremarkable. The lungs are clear. The upper abdomen is unremarkable. The bones are intact. IMPRESSION: No acute traumatic finding. This document has been electronically signed by: Wilber Marie MD on 02/16/2025 01:12:17 CT thoracic spine without contrast Comparison: None Findings: Severe diffuse degenerative changes. Vertebral body height and alignment are normal. No acute fracture identified. Partially visualized posterior ribs intact. Lungs and pleural spaces clear. Regional soft tissues normal. IMPRESSION: No acute findings. This document has been electronically signed by: Wilber Marie MD on 02/16/2025 01:16:40 CT lumbar spine without contrast Comparison: None Findings: Severe lumbar spine degenerative changes. Alignment is normal. Vertebral body heights maintained. No acute fracture identified. Regional soft tissues normal. IMPRESSION: No acute findings. This document has been electronically signed by: Wilber Marie MD on 02/16/2025 01:18:02 Independent Historian Clinical information obtained from an independent historian. History obtained from or confirmed by: Other (Granddaughter) Chronic Conditions Patient?s care impacted by: Other (COPD) Critical Care Time Critical Care Time Critical Care Time: Yes Total Critical Care Time: 80 Attestation: Critical Care: The patient was critically ill with a high probability of imminent or life threatening deterioration. I spent greater than 30 minutes of discontinuous time evaluating the patient,delivering critical care at the bedside, discussing and evaluating pertinent data with consultants. Critical care time does not include time spent performing separately billable procedures or teaching. Total time spent performing critical care was 80 minutes. Discharge Plan Discharge Patient Disposition: Admitted As Inpatient Prescriptions: No Action cyclobenzaprine 10 mg tablet 1 tab PO BEDTIME PRN (Reason: muscle spasm) atorvastatin 80 mg tablet 1 tab PO DAILY levothyroxine 200 mcg tablet 1 tab PO DAILY@0600 metoprolol succinate 25 mg tablet extended release 24 hr 1 tab PO DAILY sertraline 50 mg tablet 1 tab PO DAILY famotidine 20 mg tablet 10 mg PO BID azithromycin 250 mg tablet 250 mg PO DAILY 3 Days Qty: 3 0RF cefuroxime axetil 250 mg tablet 250 mg PO Q12H 3 Days Qty: 6 0RF Print Language: Welsh
[2025-02-15 22:00] LABS: MANUAL DIFF FLAG NO
[2025-02-15 22:02] LABS: Basophils Percent Auto 0.1 % (0-2); Eosinophils Percent Auto 0.1 % (0-4); Hematocrit 34.5 % (37.0-47.0); Hemoglobin 11.6 g/dl (12.0-16.0); Imm Gran Abs Auto 0.11 X10*3/uL (0.00-0.03); Imm Gran Pct Auto 0.7 % (0.0-0.4); Lymphocytes Absolute Auto 2.3 X10*3/uL (1.2-4.9); Lymphocytes Percent Auto 14.3 % (20-40); Mean Corpuscular HGB Conc 33.6 g/dl (31.0-35.0); Mean Corpuscular Hemoglobin 31.5 pg (27.0-33.0); Mean Corpuscular Volume 93.8 fL (80.0-98.0); Mean Platelet Volume 9.3 fL (9.4-12.3); Monocytes Absolute Auto 0.8 X10*3/uL (0.1-1.2); Monocytes Percent Auto 4.6 % (2-11); Neutrophils Absolute Auto 13.2 x10*3/uL (2.0-8.3); Neutrophils Percent Auto 80.2 % (45-73); Platelet Count 354 X10*3/uL (160-400); Red Blood Count 3.68 X10*6/uL (4.20-5.50); Red Cell Distribution Width 16.1 % (11.0-16.0); White Blood Count 16.4 X10*3/uL (4.8-10.8)
[2025-02-15] MEDS: LACTATED RINGERS 1641 ML IV (22:02)
[2025-02-15] MEDS: Ketorolac Tromethamine 15 MG/ML VIAL IVPUSH (22:02)
[2025-02-15 22:15] LABS: Magnesium 2.3 mg/dL (1.6-2.6)
[2025-02-15 22:16] LABS: INTERNATIONAL NORM RATIO 0.9 (0.9-1.1); Prothrombin Time 10.4 SEC (10.9-12.4)
[2025-02-15 22:22] LABS: Troponin-I High Sensitivity 6.2 ng/L (<3.5-17.0)
--- OUTSIDE RECORDS SUMMARY | 2025-02-15 22:43 | XMS_ITS | Encounter Summary ---
Author Organization [facility] Address [address] [place] [address] Care Team Providers Care Director Of Product Design Name Role Phone Lei Zuleta MD Primary Care Provider [phone] Encounter Details Date Type Department Care Team ([facility] st Contact Info) Description 02/15/2025 Telephone Adult Medicine [address] [phone] Laura Rivera RN Social History Tobacco Use Types Packs/Day Years Used Date Smoking Tobacco: Every Day Cigarettes Smokeless Tobacco: Never Alcohol Use Standard Drinks/Week Comments No 0 (1 standard drink = 0.6 oz pur e alcohol) Comments Unknown Sex and Gender Information Value Date Recorded Sex Assigned at Not on file Legal Sex Female 7:42 AM EST Gender Identity Not on file Sexual Orientation Not on file documented as of this encounter Progress Notes * Laura Rivera RN - 02/15/2025 2:24 PM EDT Patient discharged from [facility] on 02/14/2025 dx COPD exac, possible PNA, diarrhea. Iwas unable to reach patient x2. Can you please call patient to schedule a TCM appt? Left vm for pt to return my call. documented in this encounter Plan of Treatment Not on file documented as of this encounter Visit Diagnoses Not on filedocumented in this encounter Care Teams Director Of Product Design Relationship Specialty Start Date End Date Lei Zuleta MD PCP - General 01/20/11 documented as of this encounter
[2025-02-15 23:16] LABS: Alanine Aminotransferase 22 U/L (0-31); Albumin Level 3.7 g/dL (3.5-5.0); Alkaline Phosphatase 92 U/L (39-117); Anion Gap 15 (12-20); Aspartate Amino Transferase 20 U/L (5-31); Bilirubin Total 0.5 mg/dL (0.0-1.0); Blood Urea Nitrogen 17 mg/dL (9-16); Calcium 8.8 mg/dL (8.4-10.2); Carbon Dioxide 28 mmol/L (22-29); Chloride 99 mmol/L (96-108); Creatinine Clr Calc Pharmacy 44.8; Estimated Glomerular Filt Rate 40; Glucose Random 161 mg/dL (60-115); Potassium 3.3 mmol/L (3.3-5.1); Sodium 139 mmol/L (135-145); Total Protein 6.6 g/dL (6.5-8.0)
[2025-02-15 23:17] VITALS: BP 101/61; PULSE 69; RESP 16; TEMP 36.8; O2SAT 95
[2025-02-15 23:23] LABS: B Type Natriuretic Peptide 36 pg/mL (<100)
[2025-02-15] MEDS: Piperacillin Sodium/Tazobactam 4.5 GM in 0.9 % Sodium Chloride 100 ML IV (23:24)
[2025-02-15] MEDS: oxyCODONE HCl Immed Release 5 MG TABLET PO (23:26)
[2025-02-15 23:56] LABS: Lactic Acid 2.9 mmol/L (0.5-2.0)
[2025-02-16] VITALS (13 sets, daily range): BP systolic 103–124; BP diastolic 58–71; PULSE 68–89; RESP 13–19; TEMP 36.6–37.5; O2SAT 83–98
[2025-02-16] MEDS: fentaNYL citrate/PF 100 MCG/2 ML VIAL 25 MCG IVPUSH (00:46)
[2025-02-16] MEDS: Lactated Ringers 500 ML 999 ML IV (01:22)
[2025-02-16 01:27] LABS: Reflex Lactate? Lactic Acid Added
[2025-02-16 01:36] LABS: Appearance Urine Clear; Color Urine Dark Yellow; Glucose Urine UA Negative (Negative); Leukocyte Esterase Urine Trace (Negative); Nitrite Urine Negative (Negative); Specific Gravity - Urine 1.025 (1.005-1.025); UMIC TRIGGER UACC YES; Urine Blood Negative (Negative); Urine Ketones Trace mg/dL (Negative); Urine Protein 30 (1+) mg/dL (Neg-Trace)
[2025-02-16 01:51] LABS: Bacteria Urine None Seen (None Seen); RBC Urine 0-2 /HPF (0-2); WBC Urine 0-5 /HPF (0-5)
[2025-02-16 02:15] LABS: ~Lactic Acid-LAB USE ONLY 1.2 mmol/L (0.5-2.0)
[2025-02-16] MEDS: Morphine Sulfate 4 MG/ML CARTRIDGE IVPUSH ×4 (03:34→17:21)
[2025-02-16 03:37] LABS: Venous Blood Gas Refer to POC result
[2025-02-16 03:38] LABS: VBG Base Excess 6.5 mmol/L; VBG HCO3 29 mmol/L (22-26); VBG pCO2 34 mmHg; VBG pH 7.53 (7.32-7.43); VBG pO2 86 mmHg
--- NOTE | 2025-02-16 06:41 | P.HPHOSP_ITS ---
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 The patient reports that she has been unable to get out of bed since being discharged from the hospital and has had poor p.o. intake. Her back pain is so severe that it causes weakness and she has been unable to stand. Her blood pressure upon arrival was 85/61. She denies any fever, chills, nausea, vomiting, abdominal pain, urinary symptoms including frequency, urgency or dysuria. She also denies any wheezing, cough or shortness of breath. She noted new bruising on the posterior aspect left thigh. she denies any falls. Review of Systems 2 Constitutional: Constitutional: Denies chills, Denies fatigue, Denies fever(s) and Denies headache(s) Eyes: Eyes: Denies change in vision and Denies photophobia ENT: Denies headache(s), Denies nasal congestion, Denies nasal discharge and Denies sore throat Cardiovascular: Cardiovascular: Denies chest pain, Denies rapid heart rate, Denies leg edema, Denies lightheadedness and Denies dyspnea Respiratory: Respiratory: Denies chest congestion, Denies cough, Denies dyspnea and Denies wheezing Gastrointestinal: Gastrointestinal: Denies abdominal pain, Denies diarrhea, Denies nausea and Denies vomiting Genitourinary: Genitourinary: Denies difficulty voiding, Denies dysuria and Denies urinary urgency Musculoskeletal: Musculoskeletal: Reports back pain Integumentary/Breasts: Skin/Breast: Denies rash Neurologic: Denies confusion and Denies headache(s) Psychiatric: Psychiatric: Denies confusion Endocrine: Endocrine: Denies fatigue Hematologic/Lymphatic: Hematologic/Lymphatic: Denies easy bleeding and Denies easy bruising Allergic/Immunologic: Allergic/Immunologic: Denies wheezing [facility] Medical History CHF (congestive heart failure) Prediabetes CAD (coronary artery disease) GERD (gastroesophageal reflux disease) Smoker Spinal stenosis Depression Insomnia Borderline diabetic Heart attack Colitis Surgical History History of tonsillectomy H/O eye surgery H/O thyroidectomy Hx of cholecystectomy Social History Household Members: None Housing: House Do you presently have visiting nurse or other home services: No Alcohol intake: former Patient Tobacco Use Status: Current everyday Tobacco user Tobacco use type: Cigarette Cigarette Packs Per Day: 1 Cigarettes Per Day: 20.0 Years Smoked: 54 Smoked in Last 30 Days: Yes Use of substances other than those prescribed or required for medical reasons: No Advance Directives: No Advance Directives Information Provided: No Do you have a plan to hurt others: No Plan Nutrition Risks: No Nutritional Risk service: No Current occupational status: employed Meds Allergies Allergy/AdvReac Type Severity Reaction Status Date / Time No Known Allergies Allergy Verified 02/15/25 21:40 [No Known Allergies*] Active Medications: Current Medications Acetaminophen (Acetaminophen 325 Mg Tablet) 975 mg PO Q6H PRN PRN Reason: Pain, Mild 1-3,fever,headache Calcium Carbonate (Calcium Carbonate 750 Mg Tab.Chew) 750 mg PO Q4H PRN PRN Reason: Heartburn Cyclobenzaprine HCl (Cyclobenzaprine Hcl 5 Mg Tablet) 5 mg PO TID PRN PRN Reason: Muscle Spasm Enoxaparin Sodium (Enoxaparin Sodium 40 Mg/0.4 Ml Syringe) 40 mg SUBCUT Q24H KT Magnesium Hydroxide (Milk Of Magnesia 30 Ml Oral.Susp) 30 ml PO DAILY PRN PRN Reason: Constipation Melatonin (Melatonin 3 Mg Tablet) 6 mg PO BEDTIME PRN PRN Reason: Insomnia Morphine Sulfate (Morphine Sulfate 4 Mg/Ml Cartridge) 4 mg IVPUSH Q4H PRN; Protocol PRN Reason: Pain, Severe (Pain Scale 7-10) Last Admin: 02/16/25 03:34 Dose: 4 mg Morphine Sulfate (Morphine Sulfate 4 Mg/Ml Cartridge) 2 mg IVPUSH Q4H PRN; Protocol PRN Reason: Pain, Severe (Pain Scale 7-10) Ondansetron HCl (Ondansetron Hcl 4 Mg/2 Ml Vial) 4 mg IVPUSH Q8H PRN PRN Reason: Nausea and Vomiting Oxycodone HCl (Oxycodone Hcl Immed Release 5 Mg Tablet) 5 mg PO Q6H PRN PRN Reason: Pain, Moderate(Pain Scale 4-6) Sodium Chloride (0.9 % Sodium Chloride Flush 3 Ml Syringe) [facility] Medications ?Medication ?Instructions ?Recorded ?Confirmed ?Last Taken ?Type atorvastatin 80 mg tablet 1 tab PO DAILY 05/03/22 02/16/25 06/01/23 History famotidine 20 mg tablet 20 mg PO DAILY 02/16/25 02/16/25 Unknown History levothyroxine 200 mcg tablet 200 mcg PO DAILY 02/16/25 02/16/25 Unknown History metoprolol succinate 25 mg 25 mg PO DAILY 02/16/25 02/16/25 Unknown History tablet,extended release 24 hr sertraline 50 mg tablet 50 mg PO DAILY 02/16/25 02/16/25 Unknown History Physical Exam 2 Vital Signs and Narrative: Vital Signs: Last Vital Signs Temp 98.1 F 02/16/25 06:27 Pulse 76 02/16/25 06:27 Resp 16 02/16/25 06:27 BP 111/59 L 02/16/25 06:27 Pulse Ox 97 02/16/25 06:27 O2 Del Method Room Air 02/16/25 06:27 BMI result Body Mass Index 34.3 General: AOx3, no acute distress Resp: CTA bilaterally, no wheezing or crackles CVS: S1, S2, RRR GI: +BS, NT, no distention Skin: Warm, dry Neuro: Cranial nerves II-XII grossly intact bilaterally. Motor grossly intact bilaterally MSK: No LE edema. pain with palpation left lower back musculature. no pain with palpation of lumbar spine. Psych: Appropriate affect Const: General: No confusion Orientation/consciousness: No confusion Eyes: Direct Ophthalmoscopy: No photophobia Neuro: General: No confusion Results Labs 02/15/25 21:54 02/15/25 21:54 Labs: Laboratory Results - last 24 hr 02/15/25 02/15/25 02/15/25 21:54 21:55 23:11 MCV 93.8 MCH 31.5 MCHC 33.6 RDW 16.1 H Plt Count 354 D MPV 9.3 L Immature Gran % (Auto) 0.7 H Neut % (Auto) 80.2 H Lymph % (Auto) 14.3 L [place] % (Auto) 4.6 Eos % (Auto) 0.1 Baso % (Auto) 0.1 Lymph # (Auto) 2.3 [place] # (Auto) 0.8 Eos # (Auto) 0.0 Baso # (Auto) 0.0 Abs Immat Gran (auto) 0.11 H Absolute Neuts (auto) 13.2 H Absolute Nucleated RBC 0.000 Nucleated RBC % (auto) 0.0 PT 10.4 L INR 0.9 VBG pH VBG pCO2 VBG pO2 VBG HCO3 VBG O2 Saturation VBG Base Excess Anion Gap 15 Estim Creat Clear Calc 44.8 Estimated GFR 40 Random Glucose 161 H Lactic Acid 2.9 H* Lactic Acid F/U @ 2Hr Calcium 8.8 Magnesium 2.3 Total Bilirubin 0.5 AST 20 ALT 22 Alkaline Phosphatase 92 B-Natriuretic Peptide 36 Total Protein 6.6 Albumin 3.7 Urine Color Urine Appearance Urine pH Ur Specific [place] Urine Protein Urine Glucose (UA) Urine Ketones Urine Blood Urine Nitrite Ur Leukocyte Esterase Urine RBC Urine WBC Ur Squamous Epith Cells Urine Bacteria Hyaline Casts 02/15/25 02/16/25 02/16/25 23:29 01:22 01:35 MCV MCH MCHC RDW Plt Count MPV Immature Gran % (Auto) Neut % (Auto) Lymph % (Auto) [place] % (Auto) Eos % (Auto) Baso % (Auto) Lymph # (Auto) [place] # (Auto) Eos # (Auto) Baso # (Auto) Abs Immat Gran (auto) Absolute Neuts (auto) Absolute Nucleated RBC Nucleated RBC % (auto) PT INR VBG pH 7.53 H VBG pCO2 34 VBG pO2 86 VBG HCO3 29 H VBG O2 Saturation 97.0 VBG Base Excess 6.5 Anion Gap Estim Creat Clear Calc Estimated GFR Random Glucose Lactic Acid Lactic Acid F/U @ 2Hr 1.2 Calcium Magnesium Total Bilirubin AST ALT Alkaline Phosphatase B-Natriuretic Peptide Total Protein Albumin Urine Color Dark Yellow Urine Appearance Clear Urine pH 8.0 Ur Specific [place] 1.025 Urine Protein 30 (1+) H Urine Glucose (UA) Negative Urine Ketones Trace Urine Blood Negative Urine Nitrite Negative Ur Leukocyte Esterase Trace H Urine RBC 0-2 Urine WBC 0-5 Ur Squamous Epith Cells 3-5 Urine Bacteria None Seen Hyaline Casts 6-10 Assessment and Plan (1) Acute hypotension: Status: Acute (2) Intractable back pain: Status: Acute Plan Patient is a 70-year-old female with a past medical history significant for hypertension, mixed hyperlipidemia, hypothyroidism, mood disorder, gastroesophageal reflux disease, chronic back pain, 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 Acute hypotension secondary to poor p.o. intake - BP 85/61 upon arrival - WBC 16.4, likely elevated from recent pneumonia and steroid use, no tachycardia or tachypnea, lactic acid 2.1 secondary to hypoperfusion - chest x-ray negative - UA negative - chest CT, thoracic spine CT and lumbar spine CT all negative for acute findings. Severe DJD. - improvement of hypotension with IV fluids - given 60 mg IV Solu-Medrol in ED due to concern for adrenal insufficiency, hold on further steroids at this time, if hypotension persistent consider checking cortisol and TSH - monitor blood pressure - admit for observation Intractable back pain - imaging negative as above - Flexeril, oxycodone and morphine as needed for pain - PT evaluation Hypertension - hold home medications for now Hypothyroid - continue levothyroxine Mood disorder - continue home meds Stage I COPD, no acute exacerbation GERD - continue famotidine Med rec pending Full code VTE prophylaxis: Lovenox Patient with acute hypotension secondary to poor p.o. intake as well as intractable back pain, requiring admission for observation and PT evaluation. Quality Stroke Does the patient have a stroke diagnosis?: No VTE Prior VTE?: No VTE Risk Level:: Medical - moderate - high VTE Device Contraindication: Treatment Not Indicated VTE Drug Contraindication: N/A - Med Ordered
--- NOTE | 2025-02-16 07:30 | P.EN_ITS ---
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 Acute hypotension secondary to poor p.o. intake, one episode of BP 85/61 upon arrival and BP has been normal since, no evidence of sepsis despite elevated WBC of 16, BP improved with IVF alone but was given 60 mg of solumedrol, UA, CXR, CT chest show no evidence of infection. Hold BP meds and continue IVF Intractable back pain, CT of L and T spine negative for acute finding, no focal neuro deficit. May need MRI if pain persists and with radiculopathy Flexeril, oxycodone and morphine as needed for pain PT evaluation Acute lactic acidosis, not due sepsis , likely from tissue hypoperfusion from hypotension Hypertension hold home medications for now Hypothyroid continue levothyroxine Diarrhea, + EPEC, Cdif negative Azithromycin 500 mg daily x 3 Mood disorder continue home meds Stage I COPD no acute exacerbation GERD continue famotidine Full code VTE prophylaxis: Lovenox Patient with acute hypotension secondary to poor p.o. intake as well as intractable back pain, requiring admission for observation and PT evaluation. Time Spent With Patient Time: Total time managing care of this patient today ____ minutes.
--- NOTE | 2025-02-16 07:50 | PHA.MEDREC ---
Pharmacy Consult ? Medication Reconciliation Pharmacy has completed the medication reconciliation.Med rec complete, spoke with patient but she does not seem to be a good historian. Patient was recently admitted and kept medication list the same as previous discharge. Patient was prescribed azithromycin and cefuroxime for 3 days upon discharge on 02/14, its unclear if patient has completed this.
--- NOTE | 2025-02-16 07:58 | PC.NURSE ---
Pt incontinent of loose/medium amount of stool. Pt cleaned up and repositioned by shank skinnerEric Montalvo and this RN, new linens placed. Call nieves within reach, all needs met at this time.
[2025-02-16 08:00] LABS: C Reactive Protein 1.63 mg/dL (< or = 0.50)
[2025-02-16] MEDS: Enoxaparin Sodium 40 MG/0.4 ML SYRINGE SUBCUT (08:06)
[2025-02-16] MEDS: Cyclobenzaprine HCl 5 MG TABLET PO ×2 (08:06→17:21)
[2025-02-16] MEDS: 0.9 % Sodium Chloride Flush 3 ML SYRINGE IVFLUSH ×2 (08:07→17:23)
--- NOTE | 2025-02-16 08:20 | PC.NURSE ---
Pt multiple episodes of diarrhea this morning. MD Cruz made aware- stool panel/Cdiff panel ordered. Vitals updated in worklist, 99.5 rectal temp, aware. Pt medicated per NOV for 10 lower back pain. BPs cycling q15 to monitor bp d/t hypotension upon arrival. Call nieves within reach, all needs met at this time.
[2025-02-16 09:57] LABS: CDiff Gene PCR NEGATIVE (Negative)
[2025-02-16] MEDS: Sertraline HCL 50 MG TABLET PO (10:23)
[2025-02-16] MEDS: Levothyroxine Sodium 200 MCG TABLET PO (10:23)
[2025-02-16] MEDS: Famotidine 20 MG TABLET PO (10:23)
[2025-02-16] MEDS: Atorvastatin Calcium 80 MG TABLET PO (10:23)
[2025-02-16 10:25] LABS: Adenovirus F 40/41 Not Detected (Not Detect.); Astrovirus Not Detected (Not Detect.); Campylobacter Not Detected (Not Detect.); Cryptosporidium Not Detected (Not Detect.); Cyclospora cayetanensis Not Detected (Not Detect.); E. coli EAEC Not Detected (Not Detect.); E. coli EPEC Detected (Not Detect.); E. coli ETEC Not Detected (Not Detect.); E. coli STEC Not Detected (Not Detect.); Entamoeba histolytica Not Detected (Not Detect.); Giardia lamblia Not Detected (Not Detect.); Norovirus GI/GII Not Detected (Not Detect.); Plesiomonas shigelloides Not Detected (Not Detect.); Rotavirus A Not Detected (Not Detect.); Salmonella Not Detected (Not Detect.); Sapovirus Not Detected (Not Detect.); Shigella sp./EIEC Not Detected (Not Detect.); Vibrio Not Detected (Not Detect.); Vibrio Cholerae Not Detected (Not Detect.); Yersinia enterocolitica Not Detected (Not Detect.)
--- NOTE | 2025-02-16 10:36 | PC.NURSE ---
Assumed care of pt at 0700. Pt a/ox3, speaking in full sentences, neuros intact, respirations even and unlabored, no increased wob/sob noted, lung sounds cta bilaterally- no wheezing/crackles/rhonci heard, nsr on cardiac nurse practitioner, HR- 60s, denies cp/chest pressure/dizziness. Pt endorsing lower back pain that radiates down R leg- able to void/have bm normally. Multiple episodes of loose/diarrhea like stools- MD Cruz aware. Pt repositioned in bed, updated on plan of care, call nieves within reach, all needs met.
[2025-02-16] MEDS: Azithromycin 500 MG TABLET PO (13:09)
--- NOTE | 2025-02-16 15:10 | PC.NURSE ---
Pt desat to 83% on RA while resting in bed. Placed on 2L NC with good effect- maintaining O2 >92%. No increased wob/sob, pt appears in no distress. MD Aware, call nievse within reach, all needs met at this time.
--- NOTE | 2025-02-16 18:45 | PC.NURSE ---
Pt desat to 83% on RA while resting in bed. Placed on 2L NC with good effect- maintaining O2 >92%. No increased wob/sob, pt appears in no distress. MD Aware, call nieves within reach, all needs met at this time.
[2025-02-17 00:01] VITALS: BP 110/57; PULSE 72; RESP 20; O2SAT 95
[2025-02-17] MEDS: oxyCODONE HCl Immed Release 5 MG TABLET PO ×4 (00:02→23:39)
[2025-02-17 03:32] VITALS: BP 117/48; PULSE 77; RESP 20; TEMP 36.6; O2SAT 93
[2025-02-17] MEDS: Cyclobenzaprine HCl 5 MG TABLET PO ×3 (03:38→23:38)
[2025-02-17] MEDS: Acetaminophen 325 MG TABLET 975 MG PO (03:38)
[2025-02-17 05:51] VITALS: BP 112/58; PULSE 68; RESP 16; O2SAT 95
[2025-02-17 06:32] LABS: Hemoglobin 9.2 g/dl (12.0-16.0); Mean Corpuscular HGB Conc 32.9 g/dl (31.0-35.0); Mean Corpuscular Hemoglobin 32.1 pg (27.0-33.0); Mean Corpuscular Volume 97.6 fL (80.0-98.0); Mean Platelet Volume 9.7 fL (9.4-12.3); Platelet Count 249 X10*3/uL (160-400); Red Blood Count 2.87 X10*6/uL (4.20-5.50); Red Cell Distribution Width 16.4 % (11.0-16.0); White Blood Count 12.8 X10*3/uL (4.8-10.8)
[2025-02-17 07:18] LABS: Anion Gap 12 (12-20); Blood Urea Nitrogen 17 mg/dL (9-16); Calcium 8.1 mg/dL (8.4-10.2); Carbon Dioxide 28 mmol/L (22-29); Chloride 102 mmol/L (96-108); Creatinine Clr Calc Pharmacy 71.6; Estimated Glomerular Filt Rate > 60; Glucose Random 115 mg/dL (60-115); Sodium 139 mmol/L (135-145)
--- NOTE | 2025-02-17 07:18 | PC.NURSE ---
pt resting comfortably throughout the night, assist to bed hoyos x2, pt requesting PRN pain medication afterward x2. pt medicated per NOV. pt remains on 2L NC, O2 dips into high 80s% at times while asleep. rectal tube not placed, no episodes of diarrhea on this shift.
[2025-02-17] MEDS: Levothyroxine Sodium 200 MCG TABLET PO (07:58)
[2025-02-17] MEDS: Enoxaparin Sodium 40 MG/0.4 ML SYRINGE SUBCUT (07:59)
[2025-02-17 08:00] VITALS: BP 111/56; PULSE 60; RESP 20; TEMP 36.4; O2SAT 97
[2025-02-17] MEDS: 0.9 % Sodium Chloride Flush 3 ML SYRINGE IVFLUSH ×3 (08:00→20:30)
[2025-02-17] MEDS: Famotidine 20 MG TABLET PO (08:09)
[2025-02-17] MEDS: Sertraline HCL 50 MG TABLET PO (08:09)
[2025-02-17] MEDS: Atorvastatin Calcium 80 MG TABLET PO (08:09)
--- NOTE | 2025-02-17 08:47 | MHC.CM.PN ---
Addendum entered by Mishel Lucas RN 02/17/25 08:51: Patient agreeable to [facility] referral for additional help in the home. Original Note: [facility] delivered. Patient lives in a home alone. Reports she is functionally independent. Denies use of DME. Recent C admission. STR was recommended and patient declined. Now active w/ [facility] for home PT. Reports she has an HCP naming her son as [facility]. Copy requested. PCP Lei Zuleta MD DP: PT again recommended STR. Patient continues to decline. Prefers home w/ [facility]. Son to transport. CM will continue to follow.
--- NOTE | 2025-02-17 10:17 | HO.PM.IMPN ---
Subjective Subjective Date of Service: 02/18/25 Interval History: follow up copd better today wean off oxygen Review of Systems has sob,hypoxia Physical Exam Vital Signs: Vital Signs: Last Vital Signs Temp 97.5 F 02/17/25 08:00 Pulse 60 02/17/25 08:00 Resp 20 02/17/25 08:00 BP 111/56 L 02/17/25 08:00 Pulse Ox 97 02/17/25 08:00 O2 Del Method Nasal Cannula 02/17/25 08:00 O2 Flow Rate 2 02/17/25 08:00 BMI result Body Mass Index 30.0 Objective Data Active Medications Acetaminophen (Acetaminophen 325 Mg Tablet) 975 mg PO Q6H PRN PRN Reason: Pain, Mild 1-3,fever,headache Last Admin: 02/17/25 03:38 Dose: 975 mg Documented By: AKUA Atorvastatin Calcium (Atorvastatin Calcium 80 Mg Tablet) 80 mg PO DAILY [facility] Last Admin: 02/17/25 08:09 Dose: 80 mg Documented By: DAVID Azithromycin (Azithromycin 500 Mg Tablet) 500 mg PO Q24H [facility] Stop: 02/18/25 12:01 Last Admin: 02/16/25 13:09 Dose: 500 mg Documented By: TONI Calcium Carbonate (Calcium Carbonate 750 Mg Tab.Chew) 750 mg PO Q4H PRN PRN Reason: Heartburn Cyclobenzaprine HCl (Cyclobenzaprine Hcl 5 Mg Tablet) 5 mg PO TID PRN PRN Reason: Muscle Spasm Last Admin: 02/17/25 03:38 Dose: 5 mg Documented By: AKUA Enoxaparin Sodium (Enoxaparin Sodium 40 Mg/0.4 Ml Syringe) 40 mg SUBCUT Q24H [facility] Last Admin: 02/17/25 07:59 Dose: 40 mg Documented By: DAVID Famotidine (Famotidine 20 Mg Tablet) 20 mg PO DAILY [facility] Last Admin: 02/17/25 08:09 Dose: 20 mg Documented By: DAVID Levothyroxine Sodium (Levothyroxine Sodium 200 Mcg Tablet) 200 mcg PO DAILY@0630 [facility] Last Admin: 02/17/25 07:58 Dose: 200 mcg Documented By: DAVID Magnesium Hydroxide (Milk Of Magnesia 30 Ml Oral.Susp) 30 ml PO DAILY PRN PRN Reason: Constipation Melatonin (Melatonin 3 Mg Tablet) 6 mg PO BEDTIME PRN PRN Reason: Insomnia Morphine Sulfate (Morphine Sulfate 4 Mg/Ml Cartridge) 4 mg IVPUSH Q4H PRN; Protocol PRN Reason: Pain, Severe (Pain Scale 7-10) Last Admin: 02/16/25 17:21 Dose: 4 mg Documented By: TONI Ondansetron HCl (Ondansetron Hcl 4 Mg/2 Ml Vial) 4 mg IVPUSH Q8H PRN PRN Reason: Nausea and Vomiting Oxycodone HCl (Oxycodone Hcl Immed Release 5 Mg Tablet) 5 mg PO Q6H PRN PRN Reason: Pain, Moderate(Pain Scale 4-6) Last Admin: 02/17/25 08:09 Dose: 5 mg Documented By: DAVID Sertraline HCl (Sertraline Hcl 50 Mg Tablet) 50 mg PO DAILY [facility] Last Admin: 02/17/25 08:09 Dose: 50 mg Documented By: DAVID Sodium Chloride (0.9 % Sodium Chloride Flush 3 Ml Syringe) [facility] Last Admin: 02/17/25 08:00 Dose: 3 ml Documented By: DAVID Labs 02/18/25 07:26 02/18/25 07:26 Labs: Laboratory Results - last 24 hr 02/16/25 02/17/25 08:41 06:07 MCV 97.6 MCH 32.1 MCHC 32.9 RDW 16.4 H Plt Count 249 D MPV 9.7 Absolute Nucleated RBC 0.000 Nucleated RBC % (auto) 0.0 Anion Gap 12 Estim Creat Clear Calc 71.6 Estimated GFR > 60 Random Glucose 115 Calcium 8.1 L D Stl C. cayetanensis PCR Not Detected Stool Rotavirus A PCR Not Detected Stl Adenov F 40/41 PCR Not Detected Stool Astrovirus (PCR) Not Detected Stool Campylobacter PCR Not Detected Stool Cryptosporidium PCR Not Detected Stl Sh Tox Pr E STEC PCR Not Detected Stool E coli O157 PCR Not applicable Stl Enterotoxigenic E PCR Not Detected Stool EPEC (PCR) Detected A Stool EAEC (PCR) Not Detected Stl E. histolytica PCR Not Detected Stool Giardia Lamblia PCR Not Detected Stl P. shigelloides PCR Not Detected Stool Salmonella PCR Not Detected Stool Sapovirus (PCR) Not Detected Stl Shigella/EIEC PCR Not Detected St Y.enterocolitica PCR Not Detected Stool Vibrio (PCR) Not Detected Stl Vibrio cholerae PCR Not Detected Stl Norovirus GI/GII PCR Not Detected Microbiology Microbiology Results: Microbiology 02/15/25 22:47 Blood Culture - Preliminary Blood - Venous No growth after 24 hours. 02/15/25 21:54 Blood Culture - Preliminary Blood - Venous No growth after 24 hours. 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 Acute hypotension d/t poor po intake, resolved with ivf Intractable back pain CT of L and T spine negaive Flexeril, oxycodone and morphine as needed for pain PT evaluationif pain persists MRI, has no focal neuro Hypertension hold home medications for now Hypothyroid continue levothyroxine Mood disorder continue home meds Stage I COPD, no acute exacerbation Diarrhea, +EPEC Azithromycin 500 daily x 3 days, WBC has normalized GERD - continue famotidine Med rec pending Full code VTE prophylaxis: Lovenox Patient with acute hypotension secondary to poor p.o. intake as well as intractable back pain, requiring admission for observation and PT evaluation. Quality Stroke Does the patient have a stroke diagnosis?: No VTE Prior VTE?: No VTE Risk Level:: Medical - moderate - high VTE Device Contraindication: Treatment Not Indicated VTE Drug Contraindication: N/A - Med Ordered
[2025-02-17 11:33] LABS: Magnesium 2.1 mg/dL (1.6-2.6)
[2025-02-17] MEDS: Potassium Chloride ER 20 MEQ TAB.ER.PRT 40 MEQ PO (11:53)
[2025-02-17] MEDS: Azithromycin 500 MG TABLET PO (11:53)
[2025-02-17] MEDS: Morphine Sulfate 4 MG/ML CARTRIDGE IVPUSH ×2 (13:15→20:29)
[2025-02-17 16:00] VITALS: BP 116/59; PULSE 82; RESP 18; TEMP 36.2; O2SAT 97
[2025-02-17 20:00] VITALS: BP 112/56; PULSE 79; RESP 20; TEMP 36.7; O2SAT 96
[2025-02-18 00:40] VITALS: RESP 18
[2025-02-18 03:19] VITALS: BP 93/53; PULSE 83; RESP 18; TEMP 36.6; O2SAT 97
[2025-02-18 04:03] VITALS: BP 109/55; PULSE 82; RESP 18
[2025-02-18] MEDS: Morphine Sulfate 4 MG/ML CARTRIDGE IVPUSH ×4 (04:09→21:39)
[2025-02-18] MEDS: Enoxaparin Sodium 40 MG/0.4 ML SYRINGE SUBCUT (05:48)
[2025-02-18] MEDS: Levothyroxine Sodium 200 MCG TABLET PO (05:48)
[2025-02-18 06:54] VITALS: BP 105/59; PULSE 84; RESP 18; TEMP 36.6; O2SAT 96
[2025-02-18 07:50] LABS: Hematocrit 26.3 % (37.0-47.0); Hemoglobin 8.3 g/dl (12.0-16.0); Mean Corpuscular HGB Conc 31.6 g/dl (31.0-35.0); Mean Corpuscular Hemoglobin 31.8 pg (27.0-33.0); Mean Corpuscular Volume 100.8 fL (80.0-98.0); Mean Platelet Volume 9.6 fL (9.4-12.3); Platelet Count 240 X10*3/uL (160-400); Red Blood Count 2.61 X10*6/uL (4.20-5.50); Red Cell Distribution Width 16.5 % (11.0-16.0); White Blood Count 10.7 X10*3/uL (4.8-10.8)
[2025-02-18] MEDS: 0.9 % Sodium Chloride Flush 3 ML SYRINGE IVFLUSH ×2 (07:55→14:04)
[2025-02-18] MEDS: oxyCODONE HCl Immed Release 5 MG TABLET PO ×3 (07:55→20:25)
[2025-02-18] MEDS: Sertraline HCL 50 MG TABLET PO (07:55)
[2025-02-18] MEDS: Atorvastatin Calcium 80 MG TABLET PO (07:55)
[2025-02-18] MEDS: Famotidine 20 MG TABLET PO (07:55)
[2025-02-18 08:06] LABS: Anion Gap 12 (12-20); Blood Urea Nitrogen 13 mg/dL (9-16); Calcium 8.2 mg/dL (8.4-10.2); Carbon Dioxide 30 mmol/L (22-29); Chloride 102 mmol/L (96-108); Creatinine Clr Calc Pharmacy 70.2; Estimated Glomerular Filt Rate > 60; Glucose Random 136 mg/dL (60-115); Potassium 4.1 mmol/L (3.3-5.1); Sodium 140 mmol/L (135-145)
--- OUTSIDE RECORDS SUMMARY | 2025-02-18 09:26 | XMS_ITS | Encounter Summary ---
Author Organization [facility] Address [address] [place] [address] Care Team Providers Care Test Preparer Name Role Phone Lei Zuleta MD Primary Care Provider [phone] Encounter Details Date Type Department Care Team ([facility] st Contact Info) Description 02/15/2025 Telephone Adult Medicine [address] [phone] Laura Rivera RN Social History Tobacco Use [...] 02/15/2025 2:24 PM EDT Patient discharged from [facility] on 02/14/2025 dx COPD exac, possible PNA, diarrhea. Iwas unable to reach patient x2. Can you please call patient to schedule a TCM appt? Left vm for pt to return my call. documented in this encounter Plan of Treatment Not on file documented as of this encounter Visit Diagnoses Not on filedocumented in this encounter Care Teams Test Preparer Relationship Specialty Start Date End Date Lei Zuleta MD PCP - General 01/20/11 documented as of this encounter
--- NOTE | 2025-02-18 10:01 | MHC.CM.PN ---
The Patient is meeting INPT criteria per UR nurse. She has been changed from OBS to INPT. IMM delivered 02/17/25 by CHIQUITA.
[2025-02-18] MEDS: Azithromycin 500 MG TABLET PO (10:40)
[2025-02-18] MEDS: Calcium Carbonate 750 MG TAB.CHEW PO (14:02)
[2025-02-18 14:53] VITALS: BP 96/60; PULSE 97; RESP 18; TEMP 36.8; O2SAT 97
[2025-02-18 19:54] VITALS: BP 128/42; PULSE 81; RESP 16; TEMP 36.4; O2SAT 93
[2025-02-19] MEDS: Melatonin 3 MG TABLET 6 MG PO (00:09)
[2025-02-19] MEDS: 0.9 % Sodium Chloride Flush 3 ML SYRINGE IVFLUSH ×4 (00:10→22:08)
[2025-02-19] MEDS: Morphine Sulfate 4 MG/ML CARTRIDGE IVPUSH (01:40)
[2025-02-19 04:00] VITALS: BP 106/54; PULSE 85; RESP 16; TEMP 36.1; O2SAT 95
[2025-02-19] MEDS: Enoxaparin Sodium 40 MG/0.4 ML SYRINGE SUBCUT (06:29)
[2025-02-19] MEDS: Levothyroxine Sodium 200 MCG TABLET PO (06:29)
[2025-02-19] MEDS: oxyCODONE HCl Immed Release 5 MG TABLET PO ×3 (06:30→22:07)
[2025-02-19 07:41] VITALS: BP 122/59; PULSE 92; RESP 17; TEMP 36.9; O2SAT 93
[2025-02-19] MEDS: Cyclobenzaprine HCl 5 MG TABLET PO (08:29)
[2025-02-19] MEDS: Famotidine 20 MG TABLET PO (08:29)
[2025-02-19] MEDS: Atorvastatin Calcium 80 MG TABLET PO (08:29)
[2025-02-19] MEDS: Sertraline HCL 50 MG TABLET PO (08:29)
--- NOTE | 2025-02-19 10:49 | MHC.CM.PN ---
Per ROUNDS discussion, Patient is not yet medically cleared for dc (GI Consult pending); PT is recommending STR/ Patient wants to go home.CM will continue to follow.
--- NOTE | 2025-02-19 11:09 | HO.WOUND ---
Wound Consult: Initial 70yr old?female admitted to [facility] on 02/16/25 - See progress notes and H&P for detailed history.? Wound consult placed for Left Posterior thigh bruising and lower calf bruising.? Patient agreeable to assessment and photo documentation.? Patient denies pain and or tenderness - does not recall injury to the left leg. Skin remains intact with purple scattered bruising - no warmth, no induraiton no fluctuance noted. There is no open tissue noted at this time and no erythema. No topical interventions needed at this time. Reconsult wound nurse if wound develops.
[2025-02-19 11:45] VITALS: BP 103/57; PULSE 94; RESP 17; TEMP 36.9; O2SAT 92
[2025-02-19 16:00] VITALS: BP 110/70; PULSE 88; RESP 18; TEMP 36; O2SAT 92
--- NOTE | 2025-02-19 18:34 | HO.PM.IMPN ---
Subjective Subjective Date of Service: 02/19/25 Interval History: follow up copd wean off oxygen Review of Systems sob seems improving diarrhae improving has back pain -says on/off ,chronic from long time Physical Exam Vital Signs: Vital Signs: Last Vital Signs Temp 96.8 F 02/19/25 16:00 Pulse 88 02/19/25 16:00 Resp 18 02/19/25 16:00 BP 110/70 02/19/25 16:00 Pulse Ox 92 02/19/25 16:00 O2 Del Method Nasal Cannula 02/19/25 16:00 O2 Flow Rate 3 02/19/25 16:00 BMI result Body Mass Index 30.0 General: AOx3, no acute distress Resp: CTA bilaterally, no wheezing or crackles CVS: S1, S2, RRR GI: +BS, NT, no distention Skin: Warm, dry Neuro: Cranial nerves II-XII grossly intact bilaterally. Motor grossly intact bilaterally MSK: No LE edema. pain with palpation left lower back musculature. no pain with palpation of lumbar spine. Psych: Appropriate affect Objective Data Active Medications Acetaminophen (Acetaminophen 325 Mg Tablet) 975 mg PO Q6H PRN PRN Reason: Pain, Mild 1-3,fever,headache Last Admin: 02/17/25 03:38 Dose: 975 mg Documented By: AKUA Al Hydroxide/Mg Hydroxide (Magnesium Hydrox/Alum Hydrox 30 Ml Oral.Susp) 15 ml PO Q6H PRN PRN Reason: Dyspepsia Atorvastatin Calcium (Atorvastatin Calcium 80 Mg Tablet) 80 mg PO DAILY [facility] Last Admin: 02/19/25 08:29 Dose: 80 mg Documented By: DEVENDRA Calcium Carbonate (Calcium Carbonate 750 Mg Tab.Chew) 750 mg PO Q4H PRN PRN Reason: Heartburn Last Admin: 02/18/25 14:02 Dose: 750 mg Documented By: LEON Cyclobenzaprine HCl (Cyclobenzaprine Hcl 5 Mg Tablet) 5 mg PO TID PRN PRN Reason: Muscle Spasm Last Admin: 02/19/25 08:29 Dose: 5 mg Documented By: DEVENDRA Enoxaparin Sodium (Enoxaparin Sodium 40 Mg/0.4 Ml Syringe) 40 mg SUBCUT Q24H [facility] Last Admin: 02/19/25 06:29 Dose: 40 mg Documented By: ROSEMARY Famotidine (Famotidine 20 Mg Tablet) 20 mg PO DAILY [facility] Last Admin: 02/19/25 08:29 Dose: 20 mg Documented By: DEVENDRA Levothyroxine Sodium (Levothyroxine Sodium 200 Mcg Tablet) 200 mcg PO DAILY@0630 [facility] Last Admin: 02/19/25 06:29 Dose: 200 mcg Documented By: ROSEMARY Magnesium Hydroxide (Milk Of Magnesia 30 Ml Oral.Susp) 30 ml PO DAILY PRN PRN Reason: Constipation Melatonin (Melatonin 3 Mg Tablet) 6 mg PO BEDTIME PRN PRN Reason: Insomnia Last Admin: 02/19/25 00:09 Dose: 6 mg Documented By: ROSEMARY Morphine Sulfate (Morphine Sulfate 4 Mg/Ml Cartridge) 4 mg IVPUSH Q4H PRN; Protocol PRN Reason: Pain, Severe (Pain Scale 7-10) Last Admin: 02/19/25 01:40 Dose: 4 mg Documented By: ROSEMARY Ondansetron HCl (Ondansetron Hcl 4 Mg/2 Ml Vial) 4 mg IVPUSH Q8H PRN PRN Reason: Nausea and Vomiting Oxycodone HCl (Oxycodone Hcl Immed Release 5 Mg Tablet) 5 mg PO Q6H PRN PRN Reason: Pain, Moderate(Pain Scale 4-6) Last Admin: 02/19/25 14:28 Dose: 5 mg Documented By: DEVENDRA Sertraline HCl (Sertraline Hcl 50 Mg Tablet) 50 mg PO DAILY [facility] Last Admin: 02/19/25 08:29 Dose: 50 mg Documented By: DEVENDRA Sodium Chloride (0.9 % Sodium Chloride Flush 3 Ml Syringe) 3 ml IVFLUSH QSHIFT [facility] Last Admin: 02/19/25 16:30 Dose: 3 ml Documented By: DEVENDRA Labs 02/18/25 07:26 02/18/25 07:26 Assessment and Plan (1) COPD exacerbation: Status: Acute Plan 70-year-old female with a past medical history significant for hypertension, mixed hyperlipidemia, hypothyroidism, mood disorder, gastroesophageal reflux disease, chronic back pain, 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 Acute hypotension d/t poor po intake, resolved with ivf Intractable back pain CT of L and T spine negaive Flexeril, oxycodone and morphine as needed for pain PT evaluation if pain persists MRI, has no focal neuro Hypertension hold home medications for now Hypothyroid continue levothyroxine Mood disorder continue home meds Stage I COPD, no acute exacerbation Diarrhea, +EPEC Azithromycin 500 daily x 3 days, WBC has normalized GERD - continue famotidine Med rec pending Full code VTE prophylaxis: Lovenox Patient with acute hypotension secondary to poor p.o. intake as well as intractable back pain, requiring admission for observation and PT evaluation. Quality Stroke Does the patient have a stroke diagnosis?: No VTE Prior VTE?: No VTE Risk Level:: Medical - moderate - high VTE Device Contraindication: Treatment Not Indicated VTE Drug Contraindication: N/A - Med Ordered
[2025-02-19 19:28] VITALS: BP 105/59; PULSE 85; RESP 18; TEMP 36.7; O2SAT 92
[2025-02-19] MEDS: Acetaminophen 325 MG TABLET 975 MG PO (22:07)
[2025-02-20] VITALS (7 sets, daily range): BP systolic 80–127; BP diastolic 46–86; PULSE 66–90; RESP 18; TEMP 36–36.6; O2SAT 92–96
--- NOTE | 2025-02-20 00:34 | CONS_ITS ---
DATE OF SERVICE: 02/19/2025 REFERRING PHYSICIAN: Dr. Henry REASON FOR CONSULTATION: Colitis and history of colon malignancy in the family. HISTORY OF PRESENT ILLNESS: The patient is a pleasant 70-year-old woman who was admitted to the hospital after presenting to the emergency room with back pain, weakness, and hypotension. She also reported some diarrhea. This happened for about a week prior to admission. There was no rectal bleeding or rectal pain. There is no abdominal pain. She was evaluated with stool testing and this is reviewed. Stool testing has shown enteropathogenic E coli and she is currently being treated with azithromycin 500 mg daily for 3 days. She denies any recent ill contacts, suspect food ingestions or medication use. C diff testing was negative. She last underwent upper endoscopy in May of 2023 for hereditary gastric cancer syndrome. This was negative for any evidence of gastric cancer. Colonoscopy in May of 2022 showed changes consistent with ulcerative colitis and she was treated with mesalamine and Solu-Medrol. She has not had any exacerbations of her colitis prior to this admission. PAST MEDICAL HISTORY: 1. Hypertension. 2. Hyperlipidemia. 3. Hypothyroidism. 4. Gastroesophageal reflux disease. 5. Back pain. 6. 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 7. Insomnia. 8. Elevated blood sugar. 9. Colitis as above. CURRENT MEDICATIONS: Her current medication list is reviewed in the chart. ALLERGIES: THERE ARE NONE REPORTED. FAMILY HISTORY: Positive for gastric cancer. SOCIAL HISTORY: There is no current tobacco, alcohol, or substance abuse. She does smoke. REVIEW OF SYSTEMS: SKIN: No pruritus. HEENT: Negative. CARDIOPULMONARY: No shortness of breath or chest pain. GASTROINTESTINAL: As above. GENITOURINARY: Negative. NEUROPSYCHIATRIC: Negative. PHYSICAL EXAMINATION: GENERAL: Shows a pleasant female, lying comfortably in bed. VITAL SIGNS: Reviewed in electronic medical record and are stable. SKIN: Anicteric. HEENT: Shows no scleral icterus. NECK: Without lymphadenopathy or thyromegaly. LUNGS: Clear. HEART: Shows a regular rate and rhythm. S1, S2. No murmur. ABDOMEN: Soft without focal masses or tenderness. Bowel sounds are present. No organomegaly is noted. EXTREMITIES: Without edema. LABORATORY DATA AND IMAGING STUDIES: Reviewed. My impression is that she appears to have a recent acute exacerbation of diarrhea, likely related to an infectious colitis. Treatment of this pathogen is optional, but with her symptoms, I would recommend continuing treatment as planned. I do not think she needs treatment with a steroid taper for inflammatory bowel disease. I did discuss with her the need to use a probiotic and we will schedule followup in the office after her hospitalization. She may need further evaluation with colonoscopy depending on her symptoms. This can be arranged as an outpatient as she is clinically improving at this time. Thanks for asking me to see her. I will follow her in the hospital with you. MD KIKA Pompa/YARELI / [phone] MTDD
[2025-02-20] MEDS: Acetaminophen 325 MG TABLET 975 MG PO ×2 (04:46→21:38)
[2025-02-20] MEDS: oxyCODONE HCl Immed Release 5 MG TABLET PO ×3 (04:46→15:49)
[2025-02-20] MEDS: Enoxaparin Sodium 40 MG/0.4 ML SYRINGE SUBCUT (05:51)
[2025-02-20] MEDS: Levothyroxine Sodium 200 MCG TABLET PO (05:51)
[2025-02-20 07:26] LABS: Hemoglobin 8.1 g/dl (12.0-16.0)
[2025-02-20 07:46] LABS: Anion Gap 12 (12-20); Blood Urea Nitrogen 14 mg/dL (9-16); Calcium 8.6 mg/dL (8.4-10.2); Carbon Dioxide 33 mmol/L (22-29); Chloride 100 mmol/L (96-108); Creatinine Clr Calc Pharmacy 73.1; Estimated Glomerular Filt Rate > 60; Glucose Random 113 mg/dL (60-115); Potassium 3.9 mmol/L (3.3-5.1); Sodium 141 mmol/L (135-145)
[2025-02-20] MEDS: Famotidine 20 MG TABLET PO (08:29)
[2025-02-20] MEDS: Sertraline HCL 50 MG TABLET PO (08:29)
[2025-02-20] MEDS: Atorvastatin Calcium 80 MG TABLET PO (08:29)
[2025-02-20] MEDS: Morphine Sulfate 4 MG/ML CARTRIDGE IVPUSH ×2 (08:30→13:41)
[2025-02-20] MEDS: 0.9 % Sodium Chloride Flush 3 ML SYRINGE IVFLUSH ×3 (08:30→21:39)
--- NOTE | 2025-02-20 17:03 | PM.NEUROCN ---
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 She silva ssevere low back pain that radiates down to both feet at time sso she s unable to walk. In the remote past she had lumbar decompression which did not help. She has been unable to get out of bed since being discharged from the hospital and has had poor p.o. intake. Her back pain is so severe that it causes weakness and she has been unable to stand. Her blood pressure upon arrival was 85/61. CT of LS and tHoracic spine show ssevere degen disc disease PMFSH Past Medical History Medical History CHF (congestive heart failure) Prediabetes CAD (coronary artery disease) GERD (gastroesophageal reflux disease) Smoker Spinal stenosis Depression Insomnia Borderline diabetic Heart attack Colitis Surgical History Surgical History History of tonsillectomy H/O eye surgery H/O thyroidectomy Hx of cholecystectomy Social History Social History Household Members: None Housing: House Do you presently have visiting nurse or other home services: No Alcohol intake: former Patient Tobacco Use Status: Current everyday Tobacco user Tobacco use type: Cigarette Cigarette Packs Per Day: 1 Cigarettes Per Day: 20.0 Years Smoked: 54 Advance Directives Date on File: 02/17/25 service: No Current occupational status: employed Meds Allergies Allergy/AdvReac Type Severity Reaction Status Date / Time No Known Allergies Allergy Verified 02/15/25 21:40 [No Known Allergies*] Active Medications: Current Medications Acetaminophen (Acetaminophen 325 Mg Tablet) 975 mg PO Q6H PRN PRN Reason: Pain, Mild 1-3,fever,headache Last Admin: 02/20/25 04:46 Dose: 975 mg Al Hydroxide/Mg Hydroxide (Magnesium Hydrox/Alum Hydrox 30 Ml Oral.Susp) 15 ml PO Q6H PRN PRN Reason: Dyspepsia Atorvastatin Calcium (Atorvastatin Calcium 80 Mg Tablet) 80 mg PO DAILY [facility] Last Admin: 02/20/25 08:29 Dose: 80 mg Calcium Carbonate (Calcium Carbonate 750 Mg Tab.Chew) 750 mg PO Q4H PRN PRN Reason: Heartburn Last Admin: 02/18/25 14:02 Dose: 750 mg Cyclobenzaprine HCl (Cyclobenzaprine Hcl 5 Mg Tablet) 5 mg PO TID PRN PRN Reason: Muscle Spasm Last Admin: 02/19/25 08:29 Dose: 5 mg Enoxaparin Sodium (Enoxaparin Sodium 40 Mg/0.4 Ml Syringe) 40 mg SUBCUT Q24H [facility] Last Admin: 02/20/25 05:51 Dose: 40 mg Famotidine (Famotidine 20 Mg Tablet) 20 mg PO DAILY [facility] Last Admin: 02/20/25 08:29 Dose: 20 mg Levothyroxine Sodium (Levothyroxine Sodium 200 Mcg Tablet) 200 mcg PO DAILY@0630 [facility] Last Admin: 02/20/25 05:51 Dose: 200 mcg Magnesium Hydroxide (Milk Of Magnesia 30 Ml Oral.Susp) 30 ml PO DAILY PRN PRN Reason: Constipation Melatonin (Melatonin 3 Mg Tablet) 6 mg PO BEDTIME PRN PRN Reason: Insomnia Last Admin: 02/19/25 00:09 Dose: 6 mg Morphine Sulfate (Morphine Sulfate 4 Mg/Ml Cartridge) 4 mg IVPUSH Q4H PRN; Protocol PRN Reason: Pain, Severe (Pain Scale 7-10) Last Admin: 02/20/25 13:41 Dose: 4 mg Ondansetron HCl (Ondansetron Hcl 4 Mg/2 Ml Vial) 4 mg IVPUSH Q8H PRN PRN Reason: Nausea and Vomiting Oxycodone HCl (Oxycodone Hcl Immed Release 5 Mg Tablet) 5 mg PO Q6H PRN PRN Reason: Pain, Moderate(Pain Scale 4-6) Last Admin: 02/20/25 15:49 Dose: 5 mg Sertraline HCl (Sertraline Hcl 50 Mg Tablet) 50 mg PO DAILY [facility] Last Admin: 02/20/25 08:29 Dose: 50 mg Sodium Chloride (0.9 % Sodium Chloride Flush 3 Ml Syringe) 3 ml IVFLUSH QSHIFT [facility] Last Admin: 02/20/25 15:47 Dose: 3 ml Home Medications ?Medication ?Instructions ?Recorded ?Confirmed ?Last Taken ?Type atorvastatin 80 mg tablet 1 tab PO DAILY 05/03/22 02/16/25 06/01/23 History famotidine 20 mg tablet 20 mg PO DAILY 02/16/25 02/16/25 Unknown History levothyroxine 200 mcg tablet 200 mcg PO DAILY 02/16/25 02/16/25 Unknown History metoprolol succinate 25 mg 25 mg PO DAILY 02/16/25 02/16/25 Unknown History tablet,extended release 24 hr sertraline 50 mg tablet 50 mg PO DAILY 02/16/25 02/16/25 Unknown History Physical Exam Vital Signs: Vital Signs: Last Vital Signs Temp 97.8 F 02/20/25 15:09 Pulse 85 02/20/25 15:09 Resp 18 02/20/25 15:09 BP 100/54 L 02/20/25 15:09 Pulse Ox 93 02/20/25 15:09 O2 Del Method Nasal Cannula 02/20/25 15:09 O2 Flow Rate 1 02/20/25 15:09 BMI result Body Mass Index 30.0 Neuro: Other: limited non focal exam. Gait not tested Results Labs 02/20/25 07:14 02/20/25 07:14 Labs: Short CBC 02/20/25 Range/Units 07:14 Hgb 8.1 L (12.0-16.0) g/dl Hct 25.0 L (37.0-47.0) % BMP 02/20/25 07:14 Sodium 141 Potassium 3.9 Chloride 100 Carbon Dioxide 33 H BUN 14 Creatinine 0.75 Calcium 8.6 Microbiology Microbiology Results: Microbiology 02/15/25 22:47 Blood - Venous Blood Culture - Preliminary No growth after 48 hours. 02/15/25 21:54 Blood - Venous Blood Culture - Preliminary No growth after 48 hours. Assessment and Plan (1) Intractable back pain: Status: Acute Probable spinal stenosis in LS spine. Recom: MRI LS spine. Start Gabapentin 300mg hs and increase gradually to 1800mg a day over a month. PT evaluation. Pain clinic referral for epidural inj Procedures Date of Service Date of Service: 02/20/25
--- NOTE | 2025-02-20 18:03 | P.PNIM_ITS ---
Subjective Subjective Date of Service: 02/20/25 Interval History: back pain/leg pain Review of Systems Able to move legs, she said she walked to the bathroom also No bowel and bladder incontinence Review of Systems: Yes all other systems are reviewed and are negative Physical Exam 2 Vital Signs: Vital Signs: Last Vital Signs Temp 97.8 F 02/20/25 15:09 Pulse 85 02/20/25 15:09 Resp 18 02/20/25 15:09 BP 100/54 L 02/20/25 15:09 Pulse Ox 93 02/20/25 15:09 O2 Del Method Nasal Cannula 02/20/25 15:09 O2 Flow Rate 1 02/20/25 15:09 BMI result Body Mass Index 30.0 General: AOx3, no acute distress Resp: CTA bilaterally, no wheezing or crackles CVS: S1, S2, RRR GI: +BS, NT, no distention Skin: Warm, dry Neuro: Cranial nerves II-XII grossly intact bilaterally. Motor grossly intact bilaterally MSK: No LE edema. pain with palpation left lower back musculature. no pain with palpation of lumbar spine. Psych: Appropriate affect Objective Data Active Medications Acetaminophen (Acetaminophen 325 Mg Tablet) 975 mg PO Q6H PRN PRN Reason: Pain, Mild 1-3,fever,headache Last Admin: 02/20/25 04:46 Dose: 975 mg Documented By: YAYO Comments: given during downtime Al Hydroxide/Mg Hydroxide (Magnesium Hydrox/Alum Hydrox 30 Ml Oral.Susp) 15 ml PO Q6H PRN PRN Reason: Dyspepsia Atorvastatin Calcium (Atorvastatin Calcium 80 Mg Tablet) 80 mg PO DAILY [facility] Last Admin: 02/20/25 08:29 Dose: 80 mg Documented By: LEON Calcium Carbonate (Calcium Carbonate 750 Mg Tab.Chew) 750 mg PO Q4H PRN PRN Reason: Heartburn Last Admin: 02/18/25 14:02 Dose: 750 mg Documented By: LEON Cyclobenzaprine HCl (Cyclobenzaprine Hcl 5 Mg Tablet) 5 mg PO TID PRN PRN Reason: Muscle Spasm Last Admin: 02/19/25 08:29 Dose: 5 mg Documented By: DEVENDRA Enoxaparin Sodium (Enoxaparin Sodium 40 Mg/0.4 Ml Syringe) 40 mg SUBCUT Q24H [facility] Last Admin: 02/20/25 05:51 Dose: 40 mg Documented By: YAYO Famotidine (Famotidine 20 Mg Tablet) 20 mg PO DAILY [facility] Last Admin: 02/20/25 08:29 Dose: 20 mg Documented By: LEON Levothyroxine Sodium (Levothyroxine Sodium 200 Mcg Tablet) 200 mcg PO DAILY@0630 [facility] Last Admin: 02/20/25 05:51 Dose: 200 mcg Documented By: YAYO Magnesium Hydroxide (Milk Of Magnesia 30 Ml Oral.Susp) 30 ml PO DAILY PRN PRN Reason: Constipation Melatonin (Melatonin 3 Mg Tablet) 6 mg PO BEDTIME PRN PRN Reason: Insomnia Last Admin: 02/19/25 00:09 Dose: 6 mg Documented By: ROSEMARY Morphine Sulfate (Morphine Sulfate 4 Mg/Ml Cartridge) 4 mg IVPUSH Q4H PRN; Protocol PRN Reason: Pain, Severe (Pain Scale 7-10) Last Admin: 02/20/25 13:41 Dose: 4 mg Documented By: LEON Ondansetron HCl (Ondansetron Hcl 4 Mg/2 Ml Vial) 4 mg IVPUSH Q8H PRN PRN Reason: Nausea and Vomiting Oxycodone HCl (Oxycodone Hcl Immed Release 5 Mg Tablet) 5 mg PO Q6H PRN PRN Reason: Pain, Moderate(Pain Scale 4-6) Last Admin: 02/20/25 15:49 Dose: 5 mg Documented By: LEON Sertraline HCl (Sertraline Hcl 50 Mg Tablet) 50 mg PO DAILY [facility] Last Admin: 02/20/25 08:29 Dose: 50 mg Documented By: LEON Sodium Chloride (0.9 % Sodium Chloride Flush 3 Ml Syringe) 3 ml IVFLUSH QSHIFT [facility] Last Admin: 02/20/25 15:47 Dose: 3 ml Documented By: LEON Labs 02/20/25 07:14 02/20/25 07:14 Labs: Laboratory Results - last 24 hr 02/20/25 07:14 Anion Gap 12 Estim Creat Clear Calc 73.1 Estimated GFR > 60 Random Glucose 113 Calcium 8.6 Assessment and Plan (1) COPD exacerbation: Status: Acute Plan 70-year-old female with a past medical history significant for hypertension, mixed hyperlipidemia, hypothyroidism, mood disorder, gastroesophageal reflux disease, chronic back pain, 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 Acute hypotension d/t poor po intake, resolved with ivf Intractable back pain CT of L and T spine negaive Flexeril, oxycodone and morphine as needed for pain neurology eval. ch normocytic anemia: h/h stable around 8 seen by gi-outpatient workup. Hypertension hold home medications for now Hypothyroid continue levothyroxine Mood disorder continue home meds Stage I COPD, no acute exacerbation Diarrhea, +EPEC Azithromycin 500 daily x 3 days, WBC has normalized GERD - continue famotidine Med rec pending Full code VTE prophylaxis: Lovenox Patient with acute hypotension secondary to poor p.o. intake as well as intractable back pain, requiring admission for observation and PT evaluation. Quality Stroke Does the patient have a stroke diagnosis?: No VTE Prior VTE?: No VTE Risk Level:: Medical - moderate - high VTE Device Contraindication: Treatment Not Indicated VTE Drug Contraindication: N/A - Med Ordered
[2025-02-20] MEDS: Lidocaine 4 % Patch ADH..PATCH 2 PATCH TRANSDERMA (18:23)
[2025-02-20] MEDS: oxyCODONE HCl Immed Release 5 MG TABLET 10 MG PO (18:25)
[2025-02-21] VITALS (13 sets, daily range): BP systolic 84–138; BP diastolic 51–71; PULSE 70–87; RESP 18; TEMP 35.9–36.9; O2SAT 93–96
--- NOTE | 2025-02-21 00:03 | PM.EVENT ---
Event Note Date of Service: 02/21/25 Event Note: Contacted to notify patient developed BP of 80/46. Oxycodone increased today and also receiving morphine IV. Will hold these for now, and give 1L bolus. Time Spent With Patient Time: Total time managing care of this patient today ____ minutes.
[2025-02-21] MEDS: 0.9 % Sodium Chloride 1,000 ML 999 ML IV (00:14)
[2025-02-21] MEDS: 0.9 % Sodium Chloride Flush 3 ML SYRINGE IVFLUSH ×2 (00:15→16:04)
[2025-02-21 01:23] LABS: Mean Corpuscular HGB Conc 32.2 g/dl (31.0-35.0); Mean Corpuscular Hemoglobin 31.9 pg (27.0-33.0); Mean Platelet Volume 10.1 fL (9.4-12.3); Platelet Count 267 X10*3/uL (160-400); Red Cell Distribution Width 16.4 % (11.0-16.0)
[2025-02-21 01:28] LABS: Hematocrit 20.8 % (37.0-47.0); Hemoglobin 6.7 g/dl (12.0-16.0)
[2025-02-21] MEDS: Pantoprazole Sodium 40 MG/10 ML VIAL 80 MG IVPUSH (01:54)
[2025-02-21 02:11] LABS: Immature Retic Fraction 8.7 % (3.0-15.9); Retic HGB Equivalent 31.8 pg (30.0-35.0); Reticulocyte Percent 1.5 % (0.5-1.8); Reticulocytes Absolute 0.031 X10*6/uL (0.026-0.095)
[2025-02-21 02:15] LABS: INTERNATIONAL NORM RATIO 1.1 (0.9-1.1); Prothrombin Time 12.1 SEC (10.9-12.4)
[2025-02-21] MEDS: Lactated Ringers 1,000 ML 999 ML IV (02:20)
[2025-02-21] MEDS: Acetaminophen 1,000 MG/100 ML PIGGYBACK 400 MG IV ×4 (02:20→22:49)
[2025-02-21 02:26] LABS: Iron 15 mcg/dL (30-160); Percent Iron Saturation 12 % (15-50); Total Iron Binding Capacity 124 mcg/dL (228-428); Unsaturated Iron Binding 109 ug/dL
[2025-02-21 03:01] LABS: Folate 2.4 ng/mL (> or = 4.0); Vitamin B12 696 pg/mL (200-900)
[2025-02-21] MEDS: Ondansetron ODT 4 MG TAB.RAPDIS TRANSLINGU (06:07)
[2025-02-21] MEDS: Lidocaine 4 % Patch ADH..PATCH 2 PATCH TRANSDERMA (07:35)
--- NOTE | 2025-02-21 08:30 | P.CNNE_ITS ---
History of Present Illness Data of Consult Service Date: 02/21/25 Primary Care Provider: Lei Zuleta III, MD [facility] Reason for consult: Low back pain 70 years old woman I was asked to see for low back pain. She reported that she has been suffering from back pain for more than 10 years. The pain she was having now was similar to the previous 1. It was in lower back and if she would walk it would radiate to her legs. Presently she was having diarrhea. There was no history of recent accidents. There was no complaint of numbness and tingling radiating from back to legs. Review of Systems 2 Review of Systems: Back pain and diarrhea. [facility] Past Medical History Medical History CHF (congestive heart failure) Prediabetes CAD (coronary artery disease) GERD (gastroesophageal reflux disease) Smoker Spinal stenosis Depression Insomnia Borderline diabetic Heart attack Colitis Surgical History Surgical History History of tonsillectomy H/O eye surgery H/O thyroidectomy Hx of cholecystectomy Social History Social History Household Members: None Housing: House Do you presently have visiting nurse or other home services: No Alcohol intake: former Patient Tobacco Use Status: Current everyday Tobacco user Tobacco use type: Cigarette Cigarette Packs Per Day: 1 Cigarettes Per Day: 20.0 Years Smoked: 54 Advance Directives Date on File: 02/17/25 service: No Current occupational status: employed Meds Allergies Allergy/AdvReac Type Severity Reaction Status Date / Time No Known Allergies Allergy Verified 02/15/25 21:40 [No Known Allergies*] Active Medications: Current Medications Al Hydroxide/Mg Hydroxide (Magnesium Hydrox/Alum Hydrox 30 Ml Oral.Susp) 15 ml PO Q6H PRN PRN Reason: Dyspepsia Atorvastatin Calcium (Atorvastatin Calcium 80 Mg Tablet) 80 mg PO DAILY [facility] Last Admin: 02/21/25 07:35 Dose: Not Given Calcium Carbonate (Calcium Carbonate 750 Mg Tab.Chew) 750 mg PO Q4H PRN PRN Reason: Heartburn Last Admin: 02/18/25 14:02 Dose: 750 mg Capsaicin (Capsaicin 0.025% Cream 60 Gm Tube) 1 appl TOPICAL QID PRN; Protocol PRN Reason: Pain, Moderate(Pain Scale 4-6) Cyclobenzaprine HCl (Cyclobenzaprine Hcl 5 Mg Tablet) 5 mg PO TID PRN PRN Reason: Muscle Spasm Last Admin: 02/19/25 08:29 Dose: 5 mg Enoxaparin Sodium (Enoxaparin Sodium 40 Mg/0.4 Ml Syringe) 40 mg SUBCUT Q24H [facility] Last Admin: 02/20/25 05:51 Dose: 40 mg Famotidine (Famotidine 20 Mg Tablet) 20 mg PO DAILY [facility] Last Admin: 02/21/25 07:35 Dose: Not Given Acetaminophen (Ofirmev) 1,000 mg in 100 mls @ 400 mls/hr IV Q6H [facility] Last Infusion: 02/21/25 08:04 Dose: Infused Levothyroxine Sodium (Levothyroxine Sodium 200 Mcg Tablet) 200 mcg PO DAILY@0630 [facility] Last Admin: 02/21/25 06:18 Dose: Not Given Lidocaine (Lidocaine 4 % Patch Adh..Patch) 2 patch TRANSDERMA DAILY [facility]; Protocol Last Admin: 02/21/25 07:35 Dose: 2 patch Magnesium Hydroxide (Milk Of Magnesia 30 Ml Oral.Susp) 30 ml PO DAILY PRN PRN Reason: Constipation Melatonin (Melatonin 3 Mg Tablet) 6 mg PO BEDTIME PRN PRN Reason: Insomnia Last Admin: 02/19/25 00:09 Dose: 6 mg Ondansetron HCl (Ondansetron Hcl 4 Mg/2 Ml Vial) 4 mg IVPUSH Q8H PRN PRN Reason: Nausea and Vomiting Oxycodone HCl (Oxycodone Hcl Immed Release 5 Mg Tablet) 10 mg PO Q6H PRN PRN Reason: Pain, Moderate(Pain Scale 4-6) Last Admin: 02/20/25 18:25 Dose: 10 mg Pantoprazole Sodium (Pantoprazole Sodium 40 Mg/10 Ml Vial) 40 mg IVPUSH BID@0630,1630 [facility] Sertraline HCl (Sertraline Hcl 50 Mg Tablet) 50 mg PO DAILY [facility] Last Admin: 02/21/25 07:36 Dose: Not Given Sodium Chloride (0.9 % Sodium Chloride Flush 3 Ml Syringe) 3 ml IVFLUSH QSHIFT [facility] Last Admin: 02/21/25 00:15 Dose: 3 ml Home Medications ?Medication ?Instructions ?Recorded ?Confirmed ?Last Taken ?Type atorvastatin 80 mg tablet 1 tab PO DAILY 05/03/22 02/16/25 06/01/23 History famotidine 20 mg tablet 20 mg PO DAILY 02/16/25 02/16/25 Unknown History levothyroxine 200 mcg tablet 200 mcg PO DAILY 02/16/25 02/16/25 Unknown History metoprolol succinate 25 mg 25 mg PO DAILY 02/16/25 02/16/25 Unknown History tablet,extended release 24 hr sertraline 50 mg tablet 50 mg PO DAILY 02/16/25 02/16/25 Unknown History Physical Exam 2 Vital Signs: Vital Signs: Last Vital Signs Temp 97.0 F 02/21/25 07:28 Pulse 87 02/21/25 07:28 Resp 18 02/21/25 07:28 BP 113/56 L 02/21/25 07:28 Pulse Ox 94 02/21/25 07:28 O2 Del Method Room Air 02/21/25 07:28 O2 Flow Rate 2 02/21/25 03:15 BMI result Body Mass Index 30.0 Neuro: Other: She is alert and awake with normal spontaneity of speech fluency comprehension and affect. She was not in any distress. She was able to move her legs without difficulty. Deep tendon reflexes were trace to absent with flexor plantars. Results Labs 02/21/25 00:47 02/20/25 07:14 Labs: Short CBC 02/21/25 Range/Units 00:47 WBC 8.0 (4.8-10.8) X10*3/uL Hgb 6.7 L* (12.0-16.0) g/dl Hct 20.8 L* (37.0-47.0) % Plt Count 267 (160-400) X10*3/uL Lumbar spine CT revealed severe degenerative changes without significant stenosis. Microbiology Microbiology Results: Microbiology 02/15/25 22:47 Blood - Venous Blood Culture - Final No growth after 5 days. 02/15/25 21:54 Blood - Venous Blood Culture - Final No growth after 5 days. Assessment and Plan (1) Low back pain: Qualifiers: Chronicity: chronic Back pain laterality: bilateral Sciatica presence: with sciatica Sciatica laterality: bilateral sciatica Qualified Code(s): M 54.42 - Lumbago with sciatica, left side; M54.41 - Lumbago with sciatica, right side; G89.29 - Other chronic pain Status: Acute 70 years old woman with chronic back pain for 10 years or more. Today, back pain was not that severe and her main concern was diarrhea. She reported radicular symptom radiation of pain to her legs. My recommendation is treatment for diarrhea an acute symptoms and then outpatient follow-up for investigation and management of chronic back pain. In the meantime, a medicine like Celebrex can be used as needed. Procedures Date of Service Date of Service: 02/21/25
[2025-02-21] MEDS: iohexoL 350 MG/ML 100 ML INFUS..BTL IV (09:23)
[2025-02-21 10:19] LABS: Hemoglobin 8.2 g/dl (12.0-16.0)
--- NOTE | 2025-02-21 10:34 | MHC.CM.PN ---
Per ROUNDS discussion, Patient is not yet ready for dc (needs a transfusion); PT is recommending STR and CM will continue to follow.
[2025-02-21] MEDS: oxyCODONE HCl Immed Release 5 MG TABLET 10 MG PO ×2 (10:47→18:10)
[2025-02-21] MEDS: Pantoprazole Sodium 40 MG/10 ML VIAL IVPUSH (13:03)
[2025-02-21 13:05] LABS: OBS Int Ctl Valid YES
[2025-02-21 13:06] LABS: OBS1 POSITIVE (NEGATIVE)
[2025-02-21 14:58] LABS: Adenovirus F 40/41 Not Detected (Not Detect.); Astrovirus Not Detected (Not Detect.); Campylobacter Not Detected (Not Detect.); Cryptosporidium Not Detected (Not Detect.); Cyclospora cayetanensis Not Detected (Not Detect.); E. coli EAEC Not Detected (Not Detect.); E. coli EPEC Detected (Not Detect.); E. coli ETEC Not Detected (Not Detect.); E. coli STEC Not Detected (Not Detect.); Entamoeba histolytica Not Detected (Not Detect.); Giardia lamblia Not Detected (Not Detect.); Norovirus GI/GII Not Detected (Not Detect.); Plesiomonas shigelloides Not Detected (Not Detect.); Rotavirus A Not Detected (Not Detect.); Salmonella Not Detected (Not Detect.); Sapovirus Not Detected (Not Detect.); Shigella sp./EIEC Not Detected (Not Detect.); Vibrio Not Detected (Not Detect.); Vibrio Cholerae Not Detected (Not Detect.); Yersinia enterocolitica Not Detected (Not Detect.)
--- NOTE | 2025-02-21 16:11 | P.PNIM_ITS ---
Subjective Subjective Date of Service: 02/21/25 Interval History: anemia hypotension Review of Systems Patient received 1 L normal saline bolus, also 2 PRBCs Blood pressure seems stable, still feels weak No fever or chills or abdominal pain Has back pain. Has some diarrhea but improving Physical Exam 2 Vital Signs: Vital Signs: Last Vital Signs Temp 97.8 F 02/21/25 15:43 Pulse 73 02/21/25 15:43 Resp 18 02/21/25 15:43 BP 138/71 02/21/25 15:43 Pulse Ox 95 02/21/25 15:43 O2 Del Method Nasal Cannula 02/21/25 15:43 O2 Flow Rate 1 02/21/25 15:43 BMI result Body Mass Index 30.0 General: AOx3, no acute distress Resp: CTA bilaterally, no wheezing or crackles CVS: S1, S2, RRR GI: +BS, NT, no distention Skin: Warm, dry Neuro: Cranial nerves II-XII grossly intact bilaterally. Motor grossly intact bilaterally MSK: No LE edema. pain with palpation left lower back musculature. no pain with palpation of lumbar spine. Moves all extremities, no bowel or bladder incontinence Psych: Appropriate affect Objective Data Active Medications Al Hydroxide/Mg Hydroxide (Magnesium Hydrox/Alum Hydrox 30 Ml Oral.Susp) 15 ml PO Q6H PRN PRN Reason: Dyspepsia Atorvastatin Calcium (Atorvastatin Calcium 80 Mg Tablet) 80 mg PO DAILY [facility] Last Admin: 02/21/25 07:35 Dose: Not Given Documented By: LEON Non-Admin Reason: NPO Calcium Carbonate (Calcium Carbonate 750 Mg Tab.Chew) 750 mg PO Q4H PRN PRN Reason: Heartburn Last Admin: 02/18/25 14:02 Dose: 750 mg Documented By: LEON Capsaicin (Capsaicin 0.025% Cream 60 Gm Tube) 1 appl TOPICAL QID PRN; Protocol PRN Reason: Pain, Moderate(Pain Scale 4-6) Cyclobenzaprine HCl (Cyclobenzaprine Hcl 5 Mg Tablet) 5 mg PO TID PRN PRN Reason: Muscle Spasm Last Admin: 02/19/25 08:29 Dose: 5 mg Documented By: DEVENDRA Enoxaparin Sodium (Enoxaparin Sodium 40 Mg/0.4 Ml Syringe) 40 mg SUBCUT Q24H [facility] Last Admin: 02/20/25 05:51 Dose: 40 mg Documented By: YAYO Famotidine (Famotidine 20 Mg Tablet) 20 mg PO DAILY [facility] Last Admin: 02/21/25 07:35 Dose: Not Given Documented By: LEON Non-Admin Reason: NPO Acetaminophen (Ofirmev) 1,000 mg in 100 mls @ 400 mls/hr IV Q6H [facility] Last Infusion: 02/21/25 13:21 Dose: Infused Documented By: LEON Levothyroxine Sodium (Levothyroxine Sodium 200 Mcg Tablet) 200 mcg PO DAILY@0630 [facility] Last Admin: 02/21/25 06:18 Dose: Not Given Documented By: YAYO Non-Admin Reason: NPO Lidocaine (Lidocaine 4 % Patch Adh..Patch) 2 patch TRANSDERMA DAILY [facility]; Protocol Last Admin: 02/21/25 07:35 Dose: 2 patch Documented By: LEON Magnesium Hydroxide (Milk Of Magnesia 30 Ml Oral.Susp) 30 ml PO DAILY PRN PRN Reason: Constipation Melatonin (Melatonin 3 Mg Tablet) 6 mg PO BEDTIME PRN PRN Reason: Insomnia Last Admin: 02/19/25 00:09 Dose: 6 mg Documented By: ROSEMARY Ondansetron HCl (Ondansetron Hcl 4 Mg/2 Ml Vial) 4 mg IVPUSH Q8H PRN PRN Reason: Nausea and Vomiting Oxycodone HCl (Oxycodone Hcl Immed Release 5 Mg Tablet) 10 mg PO Q6H PRN PRN Reason: Pain, Moderate(Pain Scale 4-6) Last Admin: 02/21/25 10:47 Dose: 10 mg Documented By: LEON Pantoprazole Sodium (Pantoprazole Sodium 40 Mg/10 Ml Vial) 40 mg IVPUSH BID@0630,1630 [facility] Last Admin: 02/21/25 13:03 Dose: 40 mg Documented By: LEON Sertraline HCl (Sertraline Hcl 50 Mg Tablet) 50 mg PO DAILY [facility] Last Admin: 02/21/25 07:36 Dose: Not Given Documented By: LEON Non-Admin Reason: NPO Sodium Chloride (0.9 % Sodium Chloride Flush 3 Ml Syringe) 3 ml IVFLUSH QSHIFT [facility] Last Admin: 02/21/25 16:04 Dose: 3 ml Documented By: LEON Labs 02/21/25 10:02 02/20/25 07:14 Labs: Laboratory Results - last 24 hr 02/21/25 02/21/25 02/21/25 00:47 01:56 02:03 MCV 99.0 H MCH 31.9 MCHC 32.2 RDW 16.4 H Plt Count 267 MPV 10.1 Absolute Nucleated RBC 0.000 Nucleated RBC % (auto) 0.0 Smear Path Review SEE NOTE Absolute Retic 0.031 Percent Retic 1.5 Immature Retic Fraction 8.7 Retic Hgb Equivalent 31.8 PT 12.1 INR 1.1 Iron 15 L TIBC 124 L % Saturation 12 L Unsat Iron Binding 109 Vitamin B12 696 Folate 2.4 L Stool Occult Blood Stl C. cayetanensis PCR Stool Rotavirus A PCR Stl Adenov F 40/41 PCR Stool Astrovirus (PCR) Stool Campylobacter PCR Stool Cryptosporidium PCR Stl Sh Tox Pr E STEC PCR Stool E coli O157 PCR Stl Enterotoxigenic E PCR Stool EPEC (PCR) Stool EAEC (PCR) Stl E. histolytica PCR Stool Giardia Lamblia PCR Stl P. shigelloides PCR Stool Salmonella PCR Stool Sapovirus (PCR) Stl Shigella/EIEC PCR St Y.enterocolitica PCR Stool Vibrio (PCR) Stl Vibrio cholerae PCR Stl Norovirus GI/GII PCR Blood Type O Positive Antibody Screen NEGATIVE Crossmatch See Detail 02/21/25 12:48 MCV MCH MCHC RDW Plt Count MPV Absolute Nucleated RBC Nucleated RBC % (auto) Smear Path Review Absolute Retic Percent Retic Immature Retic Fraction Retic Hgb Equivalent PT INR Iron TIBC % Saturation Unsat Iron Binding Vitamin B12 Folate Stool Occult Blood POSITIVE Stl C. cayetanensis PCR Not Detected Stool Rotavirus A PCR Not Detected Stl Adenov F 40/41 PCR Not Detected Stool Astrovirus (PCR) Not Detected Stool Campylobacter PCR Not Detected Stool Cryptosporidium PCR Not Detected Stl Sh Tox Pr E STEC PCR Not Detected Stool E coli O157 PCR Not applicable Stl Enterotoxigenic E PCR Not Detected Stool EPEC (PCR) Detected A Stool EAEC (PCR) Not Detected Stl E. histolytica PCR Not Detected Stool Giardia Lamblia PCR Not Detected Stl P. shigelloides PCR Not Detected Stool Salmonella PCR Not Detected Stool Sapovirus (PCR) Not Detected Stl Shigella/EIEC PCR Not Detected St Y.enterocolitica PCR Not Detected Stool Vibrio (PCR) Not Detected Stl Vibrio cholerae PCR Not Detected Stl Norovirus GI/GII PCR Not Detected Blood Type Antibody Screen Crossmatch Microbiology Microbiology Results: Microbiology 02/15/25 22:47 Blood Culture - Final Blood - Venous No growth after 5 days. 02/15/25 21:54 Blood Culture - Final Blood - Venous No growth after 5 days. 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 Acute hypotension d/t poor po intake, resolved with ivf Intractable back pain CT of L and T spine negaive Flexeril, oxycodone and morphine as needed for pain neurology eval-added gabapentine ,mri L spine. ch normocytic anemia:anemia/hypotension s/p2 prbc Folate deficiency: Added folic acid Monitor H&H closely GI evaluation Hypertension hold home medications for now Hypothyroid continue levothyroxine Mood disorder continue home meds Stage I COPD, no acute exacerbation Diarrhea, +EPEC Azithromycin 500 daily x 3 days, WBC has normalized-still has diarrhea but improving, we will get GI P panel. GI evaluation pending. GERD - continue famotidine Med rec pending Full code VTE prophylaxis: Lovenox Patient with acute hypotension/anemia secondary to poor p.o. intake as well as intractable back pain [place] as welll as anemia workup and transfusions Quality Stroke Does the patient have a stroke diagnosis?: No VTE Prior VTE?: No VTE Risk Level:: Medical - moderate - high VTE Device Contraindication: Treatment Not Indicated VTE Drug Contraindication: N/A - Med Ordered
[2025-02-21 16:32] LABS: Hematocrit 26.2 % (37.0-47.0); Hemoglobin 8.7 g/dl (12.0-16.0)
[2025-02-21] MEDS: cefTRIAXone sodium 1 GM VIAL IVPUSH (18:09)
[2025-02-21] MEDS: Azithromycin 500 MG in 0.9 % Sodium Chloride 250 ML 125 MG IV (18:10)
[2025-02-21] MEDS: Folic Acid 1 MG TABLET PO (18:10)
[2025-02-21] MEDS: Gabapentin 300 MG CAPSULE PO (20:51)
[2025-02-22 03:04] VITALS: BP 120/68; PULSE 74; RESP 18; TEMP 36; O2SAT 97
[2025-02-22] MEDS: oxyCODONE HCl Immed Release 5 MG TABLET 10 MG PO ×3 (06:04→18:07)
[2025-02-22] MEDS: Levothyroxine Sodium 200 MCG TABLET PO (06:04)
[2025-02-22] MEDS: Pantoprazole Sodium 40 MG/10 ML VIAL IVPUSH ×2 (06:04→17:50)
[2025-02-22 07:57] LABS: Hematocrit 28.6 % (37.0-47.0); Hemoglobin 9.3 g/dl (12.0-16.0); Mean Corpuscular HGB Conc 32.5 g/dl (31.0-35.0); Mean Corpuscular Hemoglobin 30.8 pg (27.0-33.0); Mean Corpuscular Volume 94.7 fL (80.0-98.0); Mean Platelet Volume 9.7 fL (9.4-12.3); Platelet Count 270 X10*3/uL (160-400); Red Blood Count 3.02 X10*6/uL (4.20-5.50); Red Cell Distribution Width 16.9 % (11.0-16.0); White Blood Count 5.9 X10*3/uL (4.8-10.8)
[2025-02-22 08:00] VITALS: BP 114/66; PULSE 73; RESP 16; TEMP 36.4; O2SAT 96
[2025-02-22 08:12] LABS: Anion Gap 12 (12-20); Blood Urea Nitrogen 8 mg/dL (9-16); Calcium 8.2 mg/dL (8.4-10.2); Carbon Dioxide 34 mmol/L (22-29); Chloride 100 mmol/L (96-108); Creatinine Clr Calc Pharmacy 88.4; Estimated Glomerular Filt Rate > 60; Glucose Random 88 mg/dL (60-115); Potassium 3.5 mmol/L (3.3-5.1); Sodium 142 mmol/L (135-145)
[2025-02-22] MEDS: Atorvastatin Calcium 80 MG TABLET PO (09:10)
[2025-02-22] MEDS: Cyclobenzaprine HCl 5 MG TABLET PO ×2 (09:10→20:38)
[2025-02-22] MEDS: Sertraline HCL 50 MG TABLET PO (09:11)
[2025-02-22] MEDS: Lidocaine 4 % Patch ADH..PATCH 2 PATCH TRANSDERMA (09:11)
[2025-02-22] MEDS: Acetaminophen 1,000 MG/100 ML PIGGYBACK 400 MG IV ×3 (09:11→20:36)
[2025-02-22] MEDS: Folic Acid 1 MG TABLET PO (09:11)
[2025-02-22] MEDS: Famotidine 20 MG TABLET PO (09:11)
[2025-02-22] MEDS: 0.9 % Sodium Chloride Flush 3 ML SYRINGE IVFLUSH (09:16)
--- NOTE | 2025-02-22 10:53 | MHC.CM.PN ---
Per ROUNDS discussion, Patient is not yet medically cleared for dc(needs GI work up); PT is recommending STR but she wants to return home. CM will follow.
[2025-02-22 12:00] VITALS: BP 101/59; PULSE 74; RESP 16; TEMP 36.3; O2SAT 100
--- NOTE | 2025-02-22 13:22 | P.PNGI_ITS ---
Subjective Subjective Date of Service: 02/22/25 Interval History: no abd pain denies gi bleeding Critical Care Time (minutes): 0 Physical Exam 2 Vital Signs: Vital Signs: Last Vital Signs Temp 97.3 F 02/22/25 12:00 Pulse 74 02/22/25 12:00 Resp 16 02/22/25 12:00 BP 101/59 L 02/22/25 12:00 Pulse Ox 100 02/22/25 12:00 O2 Del Method Oxymask 02/22/25 12:00 O2 Flow Rate 2 02/22/25 12:00 BMI result Body Mass Index 30.0 GI: Other: abdomen is soft and nontender Objective Data Labs 02/22/25 07:16 02/22/25 07:16 Labs: Laboratory Results - last 24 hr 02/21/25 02/21/25 02/22/25 12:48 16:23 07:16 WBC 5.9 RBC 3.02 L D Hgb 8.7 L 9.3 L Hct 26.2 L 28.6 L MCV 94.7 MCH 30.8 MCHC 32.5 RDW 16.9 H Plt Count 270 MPV 9.7 Absolute Nucleated RBC 0.000 Nucleated RBC % (auto) 0.0 Sodium 142 Potassium 3.5 Chloride 100 Carbon Dioxide 34 H Anion Gap 12 BUN 8 L Creatinine 0.62 Estim Creat Clear Calc 88.4 Estimated GFR > 60 Random Glucose 88 Calcium 8.2 L Stl C. cayetanensis PCR Not Detected Stool Rotavirus A PCR Not Detected Stl Adenov F 40/41 PCR Not Detected Stool Astrovirus (PCR) Not Detected Stool Campylobacter PCR Not Detected Stool Cryptosporidium PCR Not Detected Stl Sh Tox Pr E STEC PCR Not Detected Stool E coli O157 PCR Not applicable Stl Enterotoxigenic E PCR Not Detected Stool EPEC (PCR) Detected A Stool EAEC (PCR) Not Detected Stl E. histolytica PCR Not Detected Stool Giardia Lamblia PCR Not Detected Stl P. shigelloides PCR Not Detected Stool Salmonella PCR Not Detected Stool Sapovirus (PCR) Not Detected Stl Shigella/EIEC PCR Not Detected St Y.enterocolitica PCR Not Detected Stool Vibrio (PCR) Not Detected Stl Vibrio cholerae PCR Not Detected Stl Norovirus GI/GII PCR Not Detected Microbiology Microbiology Results: Microbiology 02/15/25 22:47 Blood - Venous Blood Culture - Final No growth after 5 days. 02/15/25 21:54 Blood - Venous Blood Culture - Final No growth after 5 days. Procedures Date of Service Date of Service: 02/22/25 Progress Note: A&P Assessment and plan (1) Anemia: Status: Acute Assessment and Plan: see below Plan anemia and heme pos stools no reported gi bleeding 2u PRBCs given for decrease in hct, now 28% CTA reviewed, no bleeding Rec: cont ppi advance diet follow hct in the absence of any active bleeding, it appears best to defer any endoscopic evaluation at this time given comorbidity. I discussed this with Cris who is in agreement. Time Spent With Patient Time: Total time managing care of this patient today ____ minutes. Quality Stroke Does the patient have a stroke diagnosis?: No VTE Prior VTE?: No VTE Risk Level:: Medical - moderate - high VTE Device Contraindication: Treatment Not Indicated VTE Drug Contraindication: N/A - Med Ordered
--- NOTE | 2025-02-22 13:45 | W.PM.IDCN ---
History of Present Illness Data of Consult Service Date: 02/22/25 Requesting physician: Lamont Henry Primary Care Provider: Lei Zuleta III, MD HPI Reason for consult: diarrhea,EPEC stool,left infiltrate She presents with low back pain and weakness. She was just hospitalized 02/08-02/14 for COPD exacerbation with hypoxia and treated for pneumonia with azithromycin and Ceftriaxone and then discharged with po. She has take medication. Diarrhea continues,EPEC positive. Review of Systems Review of Systems: Yes all other systems are reviewed and are negative [facility] Past Medical History Medical History (Updated 02/22/25 @ 13:50 by Addis Levi MD) Diarrhea COPD (chronic obstructive pulmonary disease) CHF (congestive heart failure) Prediabetes CAD (coronary artery disease) GERD (gastroesophageal reflux disease) Smoker Spinal stenosis Depression Insomnia Borderline diabetic Heart attack Colitis Family History Family history: reviewed and not pertinent Surgical History Surgical History History of tonsillectomy H/O eye surgery H/O thyroidectomy Hx of cholecystectomy Social History Social History Household Members: None Housing: House Do you presently have visiting nurse or other home services: No Alcohol intake: former Patient Tobacco Use Status: Current everyday Tobacco user Tobacco use type: Cigarette Cigarette Packs Per Day: 1 Cigarettes Per Day: 20.0 Years Smoked: 54 Advance Directives Date on File: 02/17/25 service: No Current occupational status: employed Meds Allergies Allergy/AdvReac Type Severity Reaction Status Date / Time No Known Allergies Allergy Verified 02/15/25 21:40 [No Known Allergies*] Active Medications: Current Medications Al Hydroxide/Mg Hydroxide (Magnesium Hydrox/Alum Hydrox 30 Ml Oral.Susp) 15 ml PO Q6H PRN PRN Reason: Dyspepsia Atorvastatin Calcium (Atorvastatin Calcium 80 Mg Tablet) 80 mg PO DAILY KT Last Admin: 02/22/25 09:10 Dose: 80 mg Calcium Carbonate (Calcium Carbonate 750 Mg Tab.Chew) 750 mg PO Q4H PRN PRN Reason: Heartburn Last Admin: 02/18/25 14:02 Dose: 750 mg Capsaicin (Capsaicin 0.025% Cream 60 Gm Tube) 1 appl TOPICAL QID PRN; Protocol PRN Reason: Pain, Moderate(Pain Scale 4-6) Ceftriaxone Sodium (Ceftriaxone Sodium 1 Gm Vial) 1 gm IVPUSH Q24H [facility] Last Admin: 02/21/25 18:09 Dose: 1 gm Cyclobenzaprine HCl (Cyclobenzaprine Hcl 5 Mg Tablet) 5 mg PO TID PRN PRN Reason: Muscle Spasm Last Admin: 02/22/25 09:10 Dose: 5 mg Enoxaparin Sodium (Enoxaparin Sodium 40 Mg/0.4 Ml Syringe) 40 mg SUBCUT Q24H [facility] Last Admin: 02/20/25 05:51 Dose: 40 mg Famotidine (Famotidine 20 Mg Tablet) 20 mg PO DAILY [facility] Last Admin: 02/22/25 09:11 Dose: 20 mg Folic Acid (Folic Acid 1 Mg Tablet) 1 mg PO DAILY [facility] Last Admin: 02/22/25 09:11 Dose: 1 mg Gabapentin (Gabapentin 300 Mg Capsule) 300 mg PO BEDTIME [facility] Last Admin: 02/21/25 20:51 Dose: 300 mg Acetaminophen (Ofirmev) 1,000 mg in 100 mls @ 400 mls/hr IV Q6H [facility] Last Infusion: 02/22/25 09:30 Dose: Infused Azithromycin 500 mg/ Sodium (Chloride) 250 mls @ 125 mls/hr IV Q24H [facility] Last Infusion: 02/21/25 20:10 Dose: Infused Levothyroxine Sodium (Levothyroxine Sodium 200 Mcg Tablet) 200 mcg PO DAILY@0630 [facility] Last Admin: 02/22/25 06:04 Dose: 200 mcg Lidocaine (Lidocaine 4 % Patch Adh..Patch) 2 patch TRANSDERMA DAILY [facility]; Protocol Last Admin: 02/22/25 09:11 Dose: 2 patch Magnesium Hydroxide (Milk Of Magnesia 30 Ml Oral.Susp) 30 ml PO DAILY PRN PRN Reason: Constipation Melatonin (Melatonin 3 Mg Tablet) 6 mg PO BEDTIME PRN PRN Reason: Insomnia Last Admin: 02/19/25 00:09 Dose: 6 mg Ondansetron HCl (Ondansetron Hcl 4 Mg/2 Ml Vial) 4 mg IVPUSH Q8H PRN PRN Reason: Nausea and Vomiting Oxycodone HCl (Oxycodone Hcl Immed Release 5 Mg Tablet) 10 mg PO Q6H PRN PRN Reason: Pain, Moderate(Pain Scale 4-6) Last Admin: 02/22/25 12:05 Dose: 10 mg Pantoprazole Sodium (Pantoprazole Sodium 40 Mg/10 Ml Vial) 40 mg IVPUSH BID@0630,1630 [facility] Last Admin: 02/22/25 06:04 Dose: 40 mg Sertraline HCl (Sertraline Hcl 50 Mg Tablet) 50 mg PO DAILY [facility] Last Admin: 02/22/25 09:11 Dose: 50 mg Sodium Chloride (0.9 % Sodium Chloride Flush 3 Ml Syringe) 3 ml IVFLUSH QSHIFT [facility] Last Admin: 02/22/25 09:16 Dose: 3 ml Home Medications ?Medication ?Instructions ?Recorded ?Confirmed ?Last Taken ?Type atorvastatin 80 mg tablet 1 tab PO DAILY 05/03/22 02/16/25 06/01/23 History famotidine 20 mg tablet 20 mg PO DAILY 02/16/25 02/16/25 Unknown History levothyroxine 200 mcg tablet 200 mcg PO DAILY 02/16/25 02/16/25 Unknown History metoprolol succinate 25 mg 25 mg PO DAILY 02/16/25 02/16/25 Unknown History tablet,extended release 24 hr sertraline 50 mg tablet 50 mg PO DAILY 02/16/25 02/16/25 Unknown History Physical Exam Vital Signs: Vital Signs: Last Vital Signs Temp 97.3 F 02/22/25 12:00 Pulse 74 02/22/25 12:00 Resp 16 02/22/25 12:00 BP 101/59 L 02/22/25 12:00 Pulse Ox 100 02/22/25 12:00 O2 Del Method Oxymask 02/22/25 12:00 O2 Flow Rate 2 02/22/25 12:00 BMI result Body Mass Index 30.0 Const: General: cooperative HEENT: Head: Yes normal to inspection Face and sinus: Yes normal facial exam Mouth: Normal oral and palatal mucosa present Teeth and gingiva: dentition normal Eyes: General: appearance normal, both eyes and all related structures Pupils: Equal, round and reactive pupils present Resp: Effort & Inspection: normal respiratory effort Cardio: Rate: regular rate Rhythm: regular rhythm GI: Palpation (GI): Soft to palpation and nontender : General: Yes no CVA tenderness Back/Spine/Pelvis: Back: no CVA tenderness Skin: General skin exam: no rashes or lesions noted Neuro: General: moves all extremities Cranial nerves: Yes Equal, round and reactive pupils present Extrem: General: Yes normal to inspection Psych: Appearance: grossly normal Results Labs 02/22/25 07:16 02/22/25 07:16 Labs: Short CBC 02/21/25 02/22/25 Range/Units 16:23 07:16 WBC 5.9 (4.8-10.8) X10*3/uL Hgb 8.7 L 9.3 L (12.0-16.0) g/dl Hct 26.2 L 28.6 L (37.0-47.0) % Plt Count 270 (160-400) X10*3/uL BMP 02/22/25 07:16 Sodium 142 Potassium 3.5 Chloride 100 Carbon Dioxide 34 H BUN 8 L Creatinine 0.62 Calcium 8.2 L Microbiology Microbiology Results: Microbiology 02/15/25 22:47 Blood - Venous Blood Culture - Final No growth after 5 days. 02/15/25 21:54 Blood - Venous Blood Culture - Final No growth after 5 days. Assessment and Plan (1) Intractable back pain: Status: Acute (2) Unwitnessed fall: Status: Acute (3) COPD exacerbation: Status: Acute (4) Diarrhea: Status: Acute Plan She came in with intractable back pain and fall and bruising. She had just had treatment for pneumonia last time and doesnt need treatment same again,CTx and Zmax so can stop this. LLLpneumonia can continue to appear for some time on film Also persistent EPEC diarrhea. Would stop CTX and Zmax. Po Doxycycline for a week. Check MRSA nares. No treatment EPEC diarrhea,maybe some antibiotic associated colitis may improve.
--- NOTE | 2025-02-22 16:04 | HO.PM.IMPN ---
Subjective Subjective Date of Service: 02/22/25 Interval History: back pain ,anemia Review of Systems back pain seems similar anemia improving Review of Systems: Yes all other systems are reviewed and are negative Physical Exam Vital Signs: Vital Signs: Last Vital Signs Temp 97.3 F 02/22/25 12:00 Pulse 74 02/22/25 12:00 Resp 16 02/22/25 12:00 BP 101/59 L 02/22/25 12:00 Pulse Ox 100 02/22/25 12:00 O2 Del Method Oxymask 02/22/25 12:00 O2 Flow Rate 2 02/22/25 12:00 BMI result Body Mass Index 30.0 General: AOx3, no acute distress Resp: CTA bilaterally, no wheezing or crackles CVS: S1, S2, RRR GI: +BS, NT, no distention Skin: Warm, dry Neuro: Cranial nerves II-XII grossly intact bilaterally. Motor grossly intact bilaterally MSK: No LE edema. pain with palpation left lower back musculature. no pain with palpation of lumbar spine. Moves all extremities, no bowel or bladder incontinence Psych: Appropriate affect Objective Data Active Medications Al Hydroxide/Mg Hydroxide (Magnesium Hydrox/Alum Hydrox 30 Ml Oral.Susp) 15 ml PO Q6H PRN PRN Reason: Dyspepsia Atorvastatin Calcium (Atorvastatin Calcium 80 Mg Tablet) 80 mg PO DAILY [facility] Last Admin: 02/22/25 09:10 Dose: 80 mg Documented By: GLYNN Calcium Carbonate (Calcium Carbonate 750 Mg Tab.Chew) 750 mg PO Q4H PRN PRN Reason: Heartburn Last Admin: 02/18/25 14:02 Dose: 750 mg Documented By: LEON Capsaicin (Capsaicin 0.025% Cream 60 Gm Tube) 1 appl TOPICAL QID PRN; Protocol PRN Reason: Pain, Moderate(Pain Scale 4-6) Ceftriaxone Sodium (Ceftriaxone Sodium 1 Gm Vial) 1 gm IVPUSH Q24H [facility] Last Admin: 02/21/25 18:09 Dose: 1 gm Documented By: LEON Cyclobenzaprine HCl (Cyclobenzaprine Hcl 5 Mg Tablet) 5 mg PO TID PRN PRN Reason: Muscle Spasm Last Admin: 02/22/25 09:10 Dose: 5 mg Documented By: GLYNN Doxycycline Monohydrate (Doxycycline Monohydrate 100 Mg Capsule) 100 mg PO Q12H [facility] Enoxaparin Sodium (Enoxaparin Sodium 40 Mg/0.4 Ml Syringe) 40 mg SUBCUT Q24H [facility] Last Admin: 02/20/25 05:51 Dose: 40 mg Documented By: YAYO Famotidine (Famotidine 20 Mg Tablet) 20 mg PO DAILY [facility] Last Admin: 02/22/25 09:11 Dose: 20 mg Documented By: GLYNN Folic Acid (Folic Acid 1 Mg Tablet) 1 mg PO DAILY [facility] Last Admin: 02/22/25 09:11 Dose: 1 mg Documented By: GLYNN Gabapentin (Gabapentin 300 Mg Capsule) 300 mg PO BEDTIME [facility] Last Admin: 02/21/25 20:51 Dose: 300 mg Documented By: KOTA Acetaminophen (Ofirmev) 1,000 mg in 100 mls @ 400 mls/hr IV Q6H [facility] Last Infusion: 02/22/25 15:15 Dose: Infused Documented By: GLYNN Azithromycin 500 mg/ Sodium (Chloride) 250 mls @ 125 mls/hr IV Q24H [facility] Last Infusion: 02/21/25 20:10 Dose: Infused Documented By: KOTA Levothyroxine Sodium (Levothyroxine Sodium 200 Mcg Tablet) 200 mcg PO DAILY@0630 [facility] Last Admin: 02/22/25 06:04 Dose: 200 mcg Documented By: KOTA Lidocaine (Lidocaine 4 % Patch Adh..Patch) 2 patch TRANSDERMA DAILY [facility]; Protocol Last Admin: 02/22/25 09:11 Dose: 2 patch Documented By: GLYNN Magnesium Hydroxide (Milk Of Magnesia 30 Ml Oral.Susp) 30 ml PO DAILY PRN PRN Reason: Constipation Melatonin (Melatonin 3 Mg Tablet) 6 mg PO BEDTIME PRN PRN Reason: Insomnia Last Admin: 02/19/25 00:09 Dose: 6 mg Documented By: ROSEMARY Ondansetron HCl (Ondansetron Hcl 4 Mg/2 Ml Vial) 4 mg IVPUSH Q8H PRN PRN Reason: Nausea and Vomiting Oxycodone HCl (Oxycodone Hcl Immed Release 5 Mg Tablet) 10 mg PO Q6H PRN PRN Reason: Pain, Moderate(Pain Scale 4-6) Last Admin: 02/22/25 12:05 Dose: 10 mg Documented By: GLYNN Pantoprazole Sodium (Pantoprazole Sodium 40 Mg/10 Ml Vial) 40 mg IVPUSH BID@0630,1630 [facility] Last Admin: 02/22/25 06:04 Dose: 40 mg Documented By: KOTA Sertraline HCl (Sertraline Hcl 50 Mg Tablet) 50 mg PO DAILY [facility] Last Admin: 02/22/25 09:11 Dose: 50 mg Documented By: GLYNN Sodium Chloride (0.9 % Sodium Chloride Flush 3 Ml Syringe) 3 ml IVFLUSH QSHIFT [facility] Last Admin: 02/22/25 09:16 Dose: 3 ml Documented By: GLYNN Labs 02/22/25 07:16 02/22/25 07:16 Labs: Laboratory Results - last 24 hr 02/22/25 07:16 MCV 94.7 MCH 30.8 MCHC 32.5 RDW 16.9 H Plt Count 270 MPV 9.7 Absolute Nucleated RBC 0.000 Nucleated RBC % (auto) 0.0 Anion Gap 12 Estim Creat Clear Calc 88.4 Estimated GFR > 60 Random Glucose 88 Calcium 8.2 L Assessment and Plan (1) COPD exacerbation: Status: Acute Plan 70-year-old female with a past medical history significant for hypertension, mixed hyperlipidemia, hypothyroidism, mood disorder, gastroesophageal reflux disease, chronic back pain, 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 Acute hypotension d/t poor po intake, resolved with ivf Intractable back pain CT of L and T spine negaive Flexeril, oxycodone and morphine as needed for pain neurology eval-added gabapentine ,mri L spine. acute blood less on ch normocytic anemia( low folate and iron def) iron studies -component of iron deficinecy s/p2 prbc h/h stable in 9.3 Folate deficiency: folic acid GI evaluation noted Hypertension hold home medications for now Hypothyroid continue levothyroxine Mood disorder continue home meds Stage I COPD, no acute exacerbation Diarrhea, +EPEC Azithromycin 500 daily x 3 days, WBC has normalized-still has diarrhea but improving, we will get GI P panel. GI evaluation pending. GERD - continue famotidine LLLpneumonia: seen by iD:She had just had treatment for pneumonia last time and doesnt need treatment same again,CTx and Zmax so can stop this. LLLpneumonia can continue to appear for some time on film. plan: stop CTX and Zmax. Po Doxycycline for a week. Check MRSA nares. No treatment EPEC diarrhea Full code VTE prophylaxis: Lovenox Patient with anemia secondary to poor p.o. intake as well as intractable back pain [place] as welll as anemia workup and transfusions Quality Stroke Does the patient have a stroke diagnosis?: No VTE Prior VTE?: No VTE Risk Level:: Medical - moderate - high VTE Device Contraindication: Treatment Not Indicated VTE Drug Contraindication: N/A - Med Ordered
--- NOTE | 2025-02-22 16:11 | P.CDIM_ITS ---
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 Please review below and update the documentation accordingly. Clinical Indicators: Iron: 15 L H/H 6.7/20.8 BP 93/51 L Transfused 2 PRBC's Progress note: Chronic normocytic anemia: anemia/hypotension Monitor H/H Based on the above, could you clarify which of the following is the most likely type of anemia you ar e evaluating, treating, and/or monitoring? Iron deficiency anemia secondary to chronic blood loss possible, probable, suspected etc. 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 Iron deficiency anemia Other (explain) Clinically unable to determine (explain) Thank you, Florencia Nino, CCS, CDIS Use of terms such as suspected, likely, concern for, or probable (associated with a specific diagnosi s that is being evaluated, monitored, or treated as if it exists) are acceptable and can be coded in the inpatient se tting, when documented at the time of discharge. Please use your independent medical judgment in providing your response. THIS QUERY IS PART OF THE PERMANENT MEDICAL RECORD
[2025-02-22 16:45] VITALS: BP 92/54; PULSE 67; RESP 17; TEMP 36.2; O2SAT 95
[2025-02-22] MEDS: Doxycycline Monohydrate 100 MG CAPSULE PO (17:49)
[2025-02-22] MEDS: cefTRIAXone sodium 1 GM VIAL IVPUSH (17:58)
[2025-02-22] MEDS: Azithromycin 500 MG in 0.9 % Sodium Chloride 250 ML 125 MG IV (18:03)
[2025-02-22 19:25] VITALS: BP 90/52; PULSE 88; RESP 18; TEMP 36.6; O2SAT 97
[2025-02-22] MEDS: Gabapentin 300 MG CAPSULE PO (20:37)
[2025-02-22 21:03] LABS: Hematocrit 26.9 % (37.0-47.0); Mean Corpuscular HGB Conc 33.5 g/dl (31.0-35.0); Mean Corpuscular Hemoglobin 31.8 pg (27.0-33.0); Mean Corpuscular Volume 95.1 fL (80.0-98.0); Mean Platelet Volume 9.6 fL (9.4-12.3); Platelet Count 263 X10*3/uL (160-400); Red Blood Count 2.83 X10*6/uL (4.20-5.50); Red Cell Distribution Width 16.8 % (11.0-16.0); White Blood Count 5.7 X10*3/uL (4.8-10.8)
--- NOTE | 2025-02-22 22:10 | PC.NURSE ---
Addendum entered by Katie Nichols RN 02/23/25 04:32: Pt slept at long intervals, maintained on O2 at 2-3 L/min via oxymask, noted pt desating on the 70s-80s while asleep, awaken pt and repositioned, O2 sats trended up to low to high 90s. Original Note: Pt was not on telemonitor at shift change, also on routine vitals noted BP is trending low 90/52 manually, pt seen on bed and asymptomatic, Dr. Benites was notified and said to cont pt on tele, noted on SR on the 70s, STAT CBC was ordered and drawn.
[2025-02-22 23:47] VITALS: BP 125/58; PULSE 74; RESP 16; TEMP 36.6; O2SAT 95
[2025-02-23] VITALS (8 sets, daily range): BP systolic 100–125; BP diastolic 57–66; PULSE 64–100; RESP 16–18; TEMP 35.9–36.9; O2SAT 88–100
[2025-02-23] MEDS: Doxycycline Monohydrate 100 MG CAPSULE PO ×2 (03:37→15:00)
[2025-02-23] MEDS: Levothyroxine Sodium 200 MCG TABLET PO (05:40)
[2025-02-23] MEDS: Pantoprazole Sodium 40 MG/10 ML VIAL IVPUSH (05:40)
[2025-02-23] MEDS: oxyCODONE HCl Immed Release 5 MG TABLET 10 MG PO ×3 (06:11→18:51)
[2025-02-23] MEDS: Acetaminophen 1,000 MG/100 ML PIGGYBACK 400 MG IV ×3 (08:28→20:10)
[2025-02-23] MEDS: Folic Acid 1 MG TABLET PO (08:28)
[2025-02-23] MEDS: Sertraline HCL 50 MG TABLET PO (08:28)
[2025-02-23] MEDS: Atorvastatin Calcium 80 MG TABLET PO (08:28)
[2025-02-23] MEDS: Cyclobenzaprine HCl 5 MG TABLET PO ×3 (08:28→22:14)
[2025-02-23] MEDS: Famotidine 20 MG TABLET PO (08:28)
[2025-02-23] MEDS: Lidocaine 4 % Patch ADH..PATCH 2 PATCH TRANSDERMA (08:29)
[2025-02-23] MEDS: 0.9 % Sodium Chloride Flush 3 ML SYRINGE IVFLUSH ×2 (08:29→15:01)
--- NOTE | 2025-02-23 13:06 | MHC.CM.PN ---
pt is aware of pts receommendation for str and declines pt wants to go home with vna dc plan home with resumption of elara
--- NOTE | 2025-02-23 13:14 | PM.DS ---
DS: Providers Provider Date of Service: 02/23/25 Date of admission: 02/16/25 02:11 Date of discharge: 02/23/25 Primary care physician: Lei Zuleta III, MD Consults: 02/17/25 11:19 Consult to Wound Care Routine Reason for consultation: Left post. thigh bruise, left post calf scratches Has provider been notified: Yes 02/19/25 09:02 Consult to Gastroenterology Routine Consulting Provider: Robert aBllesteros Reason for consultation: colitis, hx of colon malignancy in family Has provider been notified: No 02/19/25 18:39 Consult to Neurology Routine Consulting Provider: [facility] Reason for consultation: back pain lumbar/lower thoracic area -rad to leg ? radiculopathy Has provider been notified: No 02/21/25 01:49 Consult to Gastroenterology Routine Consulting Provider: Sebastian Hudson Reason for consultation: Worsening anemia, requiring blood transfusion Has provider been notified: No 02/22/25 07:37 Consult to Infectious Diseases Routine Consulting Provider: [facility] Reason for consultation: diarrhae (epec positive), pneumonia Has provider been notified: No Attending physician on discharge: Lamont Henry Discharging clinician: Lamont Henry DS: Diagnosis Discharge Diagnosis (1) COPD exacerbation: Status: Acute DS: Summary Hospital Course Hospital Course: HPI:70-year-old female with a past medical history significant for hypertension, mixed hyperlipidemia, hypothyroidism, mood disorder, gastroesophageal reflux disease, chronic back pain, 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 The patient reports that she has been unable to get out of bed since being discharged from the hospital and has had poor p.o. intake. Her back pain is so severe that it causes weakness and she has been unable to stand. Her blood pressure upon arrival was 85/61. She denies any fever, chills, nausea, vomiting, abdominal pain, urinary symptoms including frequency, urgency or dysuria. She also denies any wheezing, cough or shortness of breath. She noted new bruising on the posterior aspect left thigh. she denies any falls. 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 Acute hypotension d/t poor po intake, resolved with ivf. Intractable back pain workup including Lspine mri done and results reviewed with neurology: mri-Multilevel lumbar spondylosis, pronounced at L3-L5(please see detailed report in [facility]/imaging section) continue Flexeril, oxycodone prn ,tylenolol , nsaid avoid due to anemia ,added gabapentin 300mg hs and increase gradually to 1800mg a day over a month if needed. Patient is more mobile, walking to the bathroom, pain improving. PT recommended rehab, patient declined rehab and want to go home. acute blood less on ch normocytic anemia( low folate and iron def) iron studies -component of iron deficinecy s/p2 prbc h/h stable in 9.3 Folate deficiency: folic acid GI evaluation noted-moniter cbc outpatient,further workup outpatient with Gi.continue ppi. Hypertension: blood pressure stable without meds. Diarrhea, +EPEC given Azithromycin WBC has normalized-diarrhae improving GI and ID evaluated patient -no further treatment EPEC diarrhea. question of LLLpneumonia on abd ct : Patient denies any cough or phlegm or fever. , no leukocytosis. seen by iD:She had just had treatment for pneumonia last time.LLLpneumonia can continue to appear for some time on film. Id receomeded stop cetriaxone and azithromycin and to give Po Doxycycline for a week. also added home oxygen evaluation considering recent copd excerebation-respiratory arranging home oxygen. plan: pain management with oxycodone ,flexril,tylenol, lidocaine patch. anemia -moniter cbc ,further gi workup per gi outpatient. continue p.o. iron and folic acid as prescribed. diarrhae -resolved s/p antibiotics . po doxycycline 100 mg po bid x6days -for possible mild bronchitis (has hx of copd). Patient also qualify for home oxygen-Going home with oxygen. patient declined to go to rehab-patient will be going home with [facility] PT. Above management discussed with the patient and her sister in detail length, they both understand and in agreement with the above plan, time spent 45 minute. All question answered. Time Attestation Total time managing care of this patient today: 40 mintues. Discharge Coordination Time (in mins): 40 min Quality: Safe Use of Opioids Does Pt have an Active Cancer Diagnosis on the Problem List?: No Quality: Stroke Does the patient have a stroke diagnosis?: No Physical Exam Vital Signs: Vital Signs: Last Vital Signs Temp 97.3 F 02/23/25 11:41 Pulse 66 02/23/25 12:32 Resp 18 02/23/25 11:41 BP 100/60 02/23/25 12:32 Pulse Ox 96 02/23/25 12:32 O2 Del Method Nasal Cannula 02/23/25 11:41 O2 Flow Rate 2 02/23/25 11:41 BMI result Body Mass Index 30.0 General: AOx3, no acute distress Resp: air entry fair ,no rales or wheezing CVS: S1, S2, RRR GI: +BS, NT, no distention Skin: Warm, dry Neuro: Cranial nerves II-XII grossly intact bilaterally. Motor grossly intact bilaterally MSK: No LE edema. pain improving back musculature. no pain with palpation of lumbar spine. Moves all extremities, no bowel or bladder incontinence Psych: Appropriate affect DS: Data Data Completed and Pending Completed studies during hospitalization [Text1]: Procedures Excision of Duodenum, Via Natural or Artificial Opening Endoscopic, Diagnostic (05/03/22) Excision of Rectum, Via Natural or Artificial Opening Endoscopic, Diagnostic (05/03/22) Excision of Right Large Intestine, Via Natural or Artificial Opening Endoscopic, Diagnostic (05/03/22) Excision of Sigmoid Colon, Via Natural or Artificial Opening Endoscopic, Diagnostic (05/03/22) Excision of Stomach, Pylorus, Via Natural or Artificial Opening Endoscopic, Diagnostic (05/03/22) Labs on day of discharge: Laboratory Results - last 24 hr 02/22/25 20:48 WBC 5.7 RBC 2.83 L Hgb 9.0 L Hct 26.9 L MCV 95.1 MCH 31.8 MCHC 33.5 RDW 16.8 H Plt Count 263 MPV 9.6 Absolute Nucleated RBC 0.000 Nucleated RBC % (auto) 0.0 Imaging Chest x-ray: Radiologist's impression: ITS Impressions Abdomen/Pelvis CTA 02/21/25 08:49 IMPRESSION: 1. Persistent colitis of the descending and sigmoid colon. 2. No evidence of retroperitoneal hematoma. 3. Possible left lower lobe pneumonia with a small pleural effusion. 4. Degenerative disc disease of the spine. MRI: Findings: Levoscoliosis. Diffuse heterogeneous marrow signal with Modic endplate degenerative changes without marrow edema. No acute fracture or pathologic bone lesion. Conus medullaris within normal limits. Paraspinous musculature intact. Right-sided renal cysts. Nonspecific bilateral perinephric stranding. Multilevel facet arthropathy, ligamentum flavum buckling and disc bulges/protrusions. Severe right and moderate left bilateral foraminal stenoses at L1-L2. No high-grade spinal canal narrowing. Mild spinal canal narrowing at L2-L3. [id number] bilateral foraminal stenoses. Moderate to severe spinal canal narrowing at L3-L4, with severe bilateral foraminal stenoses. Moderate to severe spinal canal narrowing at L4-L5 with severe bilateral foraminal stenoses, left worse than right. [id number] bilateral foraminal stenoses at L5-S1. No high-grade spinal canal narrowing. IMPRESSION: Multilevel lumbar spondylosis, pronounced at L3-L5, please see above. Discharge Plan Discharge Anticipated Discharge Date/Time: 02/23/25 13:06 Patient Disposition: Home Health Service Discharge Diagnosis: anemia ,copd ,back pain Referrals: [facility] [Other] - 1 Week Lei Zuleta III, MD [Primary Care Provider] - 1 Week Discharge Medications: New lidocaine [Lidocaine Pain Relief] 4 % Adhesive Patch,Medicated 2 patch transdermal DAILY Qty: 20 0RF Protocol: Apply to: Apply to: affceted area doxycycline monohydrate 100 mg Capsule 100 mg PO Q12H Qty: 12 0RF gabapentin 300 mg Capsule 300 mg PO BEDTIME Qty: 20 0RF omeprazole 20 mg Capsule,Delayed Release(Dr/Ec) 20 mg PO BID@0630,1630 Qty: 180 0RF folic acid 1 mg Tablet 1 mg PO DAILY Qty: 90 0RF capsaicin 0.025 % Cream 1 appl topical QID PRN (Reason: Pain, Moderate(Pain Scale 4-6)) Qty: 1 0RF Protocol: Apply to: Apply to: affected area oxycodone 5 mg Tablet 10 mg PO Q6H PRN (Reason: Pain, Moderate(Pain Scale 4-6)) Qty: 20 0RF Rx Instructions: Partial Fill upon patient request. cyclobenzaprine 5 mg Tablet 5 mg PO TID PRN (Reason: Muscle Spasm) Qty: 20 0RF ferrous sulfate [Iron (ferrous sulfate)] 325 mg (65 mg iron) tablet 325 mg PO BID Qty: 180 0RF ferrous sulfate [Iron (ferrous sulfate)] 325 mg (65 mg iron) tablet 325 mg PO DAILY Qty: 90 0RF Continued atorvastatin 80 mg tablet 1 tab PO DAILY famotidine 20 mg Tablet 20 mg PO DAILY levothyroxine 200 mcg Tablet 200 mcg PO DAILY metoprolol succinate 25 mg Tablet Extended Release 24 Hr 25 mg PO DAILY sertraline 50 mg Tablet 50 mg PO DAILY Discontinued azithromycin 250 mg tablet 250 mg PO DAILY 3 Days Qty: 3 0RF Patient Comments: ORDERED 02/14/25 X 3 DAYS cefuroxime axetil 250 mg tablet 250 mg PO Q12H 3 Days Qty: 6 0RF Patient Comments: ORDERED 02/14/25 X 3DAYS Discharge Orders: Discharge Order (Routine); Ordered 02/23/25 Ordered By: Lamont Henry Diet: Advance to usual diet Activity on Discharge: As tolerated Stand Alone Forms: Patient Portal Discharge page Print Language: Persian Other Ambulatory Orders: Basic Metabolic Panel (Routine) Timeframe: 1 Week Facility: [facility] - Location: Laboratory Ordered By: Lamont Henry Complete Blood Count no Diff (Routine) Timeframe: 1 Week Facility: [facility] - Location: Laboratory Ordered By: Lamont Henry Care Plan Goals: see below. Health Concerns: pain management with oxycodone ,flexril,tylenol, lidocaine patch. anemia -moniter cbc ,further gi workup per gi outpatient. started on folic acid and iron po qd. diarrhae -resolved s/p antibiotics . continue incentive spiromtry at home. po doxycycline 100 mg po bid x6days -for possible mild bronchitis (has hx of copd). Plan of Treatment: as above. Assessment: as above.
--- NOTE | 2025-02-23 13:43 | P.F2F_ITS ---
Service Date Service Date: 02/23/25 Encounter Date of encounter: 02/23/25 Encounter: anemia , back pain Reasons for Services Signs and symptoms assessed: Worsening back pain, worsening anemia, any new bleeding or shortness of breath or fever. Reason for longterm: CV/CP assess and/or care, medication management, medication treatment and teach disease management Reason for physical therapy: home safety and mobility, therapeutic exercises, restore joint function, gait/transfer training, assess need for DME, ADL training, energy conservation and other MD Overseeing Care: Lei Zuleta III Homebound: Leaving the home is medically contraindicated at this time without the asist of a device and/or another person due th the listed conditions above and below. Reason homebound: weakness related to hospital stay Homebound supporting statement: Patient is generalised weak post hospitlisation and need help with going to appointments and labs draws as well as PT. Certification: Based on the above findings, I certify that this patient is confined to the home and needs intermittent longterm care, physical therapy and/or speech therapy, or continues to need occupational therapy. The patient is under my care, and I have initiated the establishment of the plan of care. The patient will be followed by a physician who will periodically review the plan of care. Time Spent With Patient Time: Total time managing care of this patient today ____ minutes.
[2025-02-23 14:45] LABS: MRSA Nasal PCR POSITIVE (Negative); SA Nasal PCR POSITIVE (Negative)
--- NOTE | 2025-02-23 15:51 | P.PNIM_ITS ---
Subjective Subjective Date of Service: 02/23/25 Interval History: back pain ,anemia Review of Systems seems imporving Review of Systems: Yes all other systems are reviewed and are negative Physical Exam 2 Vital Signs: Vital Signs: Last Vital Signs Temp 97.3 F 02/23/25 11:41 Pulse 66 02/23/25 12:32 Resp 18 02/23/25 11:41 BP 100/60 02/23/25 12:32 Pulse Ox 96 02/23/25 12:32 O2 Del Method Nasal Cannula 02/23/25 11:41 O2 Flow Rate 2 02/23/25 11:41 BMI result Body Mass Index 30.0 General: AOx3, no acute distress Resp: CTA bilaterally, no wheezing or crackles CVS: S1, S2, RRR GI: +BS, NT, no distention Skin: Warm, dry Neuro: Cranial nerves II-XII grossly intact bilaterally. Motor grossly intact bilaterally MSK: No LE edema. pain with palpation left lower back musculature. no pain with palpation of lumbar spine. Moves all extremities, no bowel or bladder incontinence Psych: Appropriate affect Objective Data Active Medications Al Hydroxide/Mg Hydroxide (Magnesium Hydrox/Alum Hydrox 30 Ml Oral.Susp) 15 ml PO Q6H PRN PRN Reason: Dyspepsia Atorvastatin Calcium (Atorvastatin Calcium 80 Mg Tablet) 80 mg PO DAILY [facility] Last Admin: 02/23/25 08:28 Dose: 80 mg Documented By: STEPHANIE Calcium Carbonate (Calcium Carbonate 750 Mg Tab.Chew) 750 mg PO Q4H PRN PRN Reason: Heartburn Last Admin: 02/18/25 14:02 Dose: 750 mg Documented By: LEON Capsaicin (Capsaicin 0.025% Cream 60 Gm Tube) 1 appl TOPICAL QID PRN; Protocol PRN Reason: Pain, Moderate(Pain Scale 4-6) Cyclobenzaprine HCl (Cyclobenzaprine Hcl 5 Mg Tablet) 5 mg PO TID PRN PRN Reason: Muscle Spasm Last Admin: 02/23/25 08:28 Dose: 5 mg Documented By: STEPHANIE Doxycycline Monohydrate (Doxycycline Monohydrate 100 Mg Capsule) 100 mg PO Q12H [facility] Last Admin: 02/23/25 15:00 Dose: 100 mg Documented By: STEPHANIE Enoxaparin Sodium (Enoxaparin Sodium 40 Mg/0.4 Ml Syringe) 40 mg SUBCUT Q24H [facility] Last Admin: 02/20/25 05:51 Dose: 40 mg Documented By: YAYO Famotidine (Famotidine 20 Mg Tablet) 20 mg PO DAILY [facility] Last Admin: 02/23/25 08:28 Dose: 20 mg Documented By: STEPHANIE Folic Acid (Folic Acid 1 Mg Tablet) 1 mg PO DAILY [facility] Last Admin: 02/23/25 08:28 Dose: 1 mg Documented By: STEPHANIE Gabapentin (Gabapentin 300 Mg Capsule) 300 mg PO BEDTIME [facility] Last Admin: 02/22/25 20:37 Dose: 300 mg Documented By: MOE Acetaminophen (Ofirmev) 1,000 mg in 100 mls @ 400 mls/hr IV Q6H [facility] Last Infusion: 02/23/25 15:18 Dose: Infused Documented By: STEPHANIE Levothyroxine Sodium (Levothyroxine Sodium 200 Mcg Tablet) 200 mcg PO DAILY@0630 [facility] Last Admin: 02/23/25 05:40 Dose: 200 mcg Documented By: MOE Lidocaine (Lidocaine 4 % Patch Adh..Patch) 2 patch TRANSDERMA DAILY [facility]; Protocol Last Admin: 02/23/25 08:29 Dose: 2 patch Documented By: STEPHANIE Magnesium Hydroxide (Milk Of Magnesia 30 Ml Oral.Susp) 30 ml PO DAILY PRN PRN Reason: Constipation Melatonin (Melatonin 3 Mg Tablet) 6 mg PO BEDTIME PRN PRN Reason: Insomnia Last Admin: 02/19/25 00:09 Dose: 6 mg Documented By: ROSEMARY Omeprazole (Omeprazole 20 Mg Capsule.) 20 mg PO BID@0630,1630 [facility] Ondansetron HCl (Ondansetron Hcl 4 Mg/2 Ml Vial) 4 mg IVPUSH Q8H PRN PRN Reason: Nausea and Vomiting Oxycodone HCl (Oxycodone Hcl Immed Release 5 Mg Tablet) 10 mg PO Q6H PRN PRN Reason: Pain, Moderate(Pain Scale 4-6) Last Admin: 02/23/25 12:11 Dose: 10 mg Documented By: STEPHANIE Sertraline HCl (Sertraline Hcl 50 Mg Tablet) 50 mg PO DAILY [facility] Last Admin: 02/23/25 08:28 Dose: 50 mg Documented By: STEPHANIE Sodium Chloride (0.9 % Sodium Chloride Flush 3 Ml Syringe) 3 ml IVFLUSH QSHIFT [facility] Last Admin: 02/23/25 15:01 Dose: 3 ml Documented By: STEPHANIE Labs 02/22/25 20:48 02/22/25 07:16 Labs: Laboratory Results - last 24 hr 02/22/25 02/22/25 16:10 20:48 MCV 95.1 MCH 31.8 MCHC 33.5 RDW 16.8 H Plt Count 263 MPV 9.6 Absolute Nucleated RBC 0.000 Nucleated RBC % (auto) 0.0 Nasal Screen MRSA (PCR) POSITIVE A Nasal S. 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 Acute hypotension d/t poor po intake, resolved with ivf Intractable back pain CT of L and T spine negaive Flexeril, oxycodone and morphine as needed for pain neurology eval-added gabapentine ,mri L spine. acute blood less on ch normocytic anemia( low folate and iron def) iron studies -component of iron deficinecy s/p2 prbc h/h stable in 9.3 Folate deficiency: folic acid GI evaluation noted Hypertension hold home medications for now Hypothyroid continue levothyroxine Mood disorder continue home meds Stage I COPD, no acute exacerbation Diarrhea, +EPEC Azithromycin 500 daily x 3 days, WBC has normalized-still has diarrhea but improving, we will get GI P panel. GI evaluation pending. GERD - continue famotidine LLLpneumonia: seen by iD:She had just had treatment for pneumonia last time and doesnt need treatment same again,CTx and Zmax so can stop this. LLLpneumonia can continue to appear for some time on film. plan: stop CTX and Zmax. Po Doxycycline for a week. Check MRSA nares. No treatment EPEC diarrhea Full code VTE prophylaxis: Lovenox awaiting rehab placement. Quality Stroke Does the patient have a stroke diagnosis?: No VTE Prior VTE?: No VTE Risk Level:: Medical - moderate - high VTE Device Contraindication: Treatment Not Indicated VTE Drug Contraindication: N/A - Med Ordered
[2025-02-23] MEDS: Omeprazole 20 MG CAPSULE.DR PO (16:31)
[2025-02-23] MEDS: Gabapentin 300 MG CAPSULE PO (20:09)
[2025-02-24] MEDS: oxyCODONE HCl Immed Release 5 MG TABLET 10 MG PO ×2 (01:09→08:01)
[2025-02-24] MEDS: Doxycycline Monohydrate 100 MG CAPSULE PO (03:18)
[2025-02-24 03:37] VITALS: BP 115/60; PULSE 75; RESP 18; TEMP 36.1; O2SAT 96
[2025-02-24] MEDS: Omeprazole 20 MG CAPSULE.DR PO (05:53)
[2025-02-24] MEDS: Enoxaparin Sodium 40 MG/0.4 ML SYRINGE SUBCUT (05:53)
[2025-02-24] MEDS: Levothyroxine Sodium 200 MCG TABLET PO (05:53)
[2025-02-24 07:56] VITALS: BP 136/72; PULSE 75; RESP 16; TEMP 36.4; O2SAT 97
[2025-02-24] MEDS: acetaZOLAMIDE 250 MG TABLET PO (08:00)
[2025-02-24] MEDS: Sertraline HCL 50 MG TABLET PO (08:00)
[2025-02-24] MEDS: Atorvastatin Calcium 80 MG TABLET PO (08:01)
[2025-02-24] MEDS: Folic Acid 1 MG TABLET PO (08:01)
[2025-02-24] MEDS: Famotidine 20 MG TABLET PO (08:09)
[2025-02-24] MEDS: 0.9 % Sodium Chloride Flush 3 ML SYRINGE IVFLUSH (08:09)
[2025-02-24] MEDS: Lidocaine 4 % Patch ADH..PATCH 2 PATCH TRANSDERMA (08:09)
--- NOTE | 2025-02-24 10:11 | MHC.CM.PN ---
pt has deceided to go home pt going with [facility] notified of dc ..amb booked for 1
[2025-02-24] MEDS: Cyclobenzaprine HCl 5 MG TABLET PO (11:27)
[2025-02-24 12:00] VITALS: BP 108/64; PULSE 86; RESP 18; TEMP 37.2; O2SAT 94
== END 2025-02-24 13:22 | disposition home health service (06) | DRG 372 ==
LOC: HO.ED 02-16 02:16 → HO.EDOVER 02-16 07:10 → HO.IMC 02-18 09:24 → HO.S3 02-22 14:43
PROVIDERS: Internal Medicine; Physician Assistant; Admitting Provider Student in an Organized Health Care Education/Training Program; Emergency Provider Emergency Medicine Emergency Medical Services; PCP Internal Medicine; Visit Provider Internal Medicine
DX: A04.0 Enteropathogenic Escherichia coli infection (principal); D62 Acute posthemorrhagic anemia; E87.21 Acute metabolic acidosis; I95.9 Hypotension, unspecified; I25.10 Atherosclerotic heart disease of native coronary artery without angina pectoris; R73.03 Prediabetes; F17.210 Nicotine dependence, cigarettes, uncomplicated; Z71.6 Tobacco abuse counseling; E78.2 Mixed hyperlipidemia; M54.59 Other low back pain; G89.29 Other chronic pain; J44.9 Chronic obstructive pulmonary disease, unspecified; I10 Essential (primary) hypertension; K21.9 Gastro-esophageal reflux disease without esophagitis; Z15.09 Genetic susceptibility to other malignant neoplasm; Z79.899 Other long term (current) drug therapy
CPT/HCPCS: 36415; 71045; 71250; 72128; 72131; 72148; 74174; 74176; 80048; 80053; 81001; 82272; 82607; 82746; 82803; 83540; 83605; 83735; 83880; 84484; 85014; 85018; 85025; 85027; 85045; 85610; 86140; 86850; 86900; 86901; 86923; 87040; 87493; 87507; 87640; 87641; 93005; 97116; 97162; 97530; 99222; 99285; J0131; J0456; J0696; J1650; J1885; J2270; J2470; J2543; J2919; J3010; J7120; P9016; Q9967

== ENCOUNTER → 2025-02-15 21:36 | Outpatient (BNV) | payer MEDICARE, MEDICAID, SELFPAY | PROVIDERS: Admitting Provider Student in an Organized Health Care Education/Training Program; Emergency Provider Emergency Medicine Emergency Medical Services; PCP Internal Medicine; Visit Provider Internal Medicine Cardiovascular Disease | DX: I49.3 Ventricular premature depolarization (principal) | CPT/HCPCS: 93010 ==

== ENCOUNTER → 2025-02-15 21:56 | Outpatient (BNV) | payer MEDICARE, MEDICAID, SELFPAY | PROVIDERS: Emergency Provider Emergency Medicine Emergency Medical Services; PCP Internal Medicine; Visit Provider Radiology Diagnostic Radiology | DX: I95.9 Hypotension, unspecified (principal); M54.9 Dorsalgia, unspecified | CPT/HCPCS: 71045 ==

== ENCOUNTER → 2025-02-16 00:01 | Outpatient (BNV) | payer MEDICARE, MEDICAID, SELFPAY | PROVIDERS: Emergency Provider Emergency Medicine Emergency Medical Services; PCP Internal Medicine; Visit Provider Radiology Diagnostic Radiology | DX: R07.9 Chest pain, unspecified (principal); M54.6 Pain in thoracic spine; M54.50 Low back pain, unspecified; W19.XXXA Unspecified fall, initial encounter | CPT/HCPCS: 71250; 72128; 72131 ==

== ENCOUNTER 2025-02-16 02:11 | Outpatient (BNV) | payer MEDICARE, MEDICAID, SELFPAY | END 2025-02-21 05:32 | PROVIDERS: Admitting Provider Student in an Organized Health Care Education/Training Program; Emergency Provider Emergency Medicine Emergency Medical Services; PCP Internal Medicine; Visit Provider Radiology Diagnostic Radiology | DX: K52.9 Noninfective gastroenteritis and colitis, unspecified (principal); M47.816 Spondylosis without myelopathy or radiculopathy, lumbar region; M51.369 Other intervertebral disc degeneration, lumbar region without mention of lumbar back pain or lower extremity pain | CPT/HCPCS: 74174 ==

== ENCOUNTER → 2025-02-16 02:11 | Outpatient (BNV) | payer MEDICARE, MEDICAID, SELFPAY | PROVIDERS: Admitting Provider Student in an Organized Health Care Education/Training Program; Emergency Provider Emergency Medicine Emergency Medical Services; PCP Internal Medicine; Visit Provider Internal Medicine | DX: J44.1 Chronic obstructive pulmonary disease with (acute) exacerbation (principal) | CPT/HCPCS: 99223; 99231; 99232; 99499 ==

== ENCOUNTER → 2025-02-16 02:11 | Outpatient (BNV) | payer MEDICARE, MEDICAID, SELFPAY | PROVIDERS: Admitting Provider Student in an Organized Health Care Education/Training Program; Emergency Provider Emergency Medicine Emergency Medical Services; PCP Internal Medicine; Visit Provider Internal Medicine | DX: J44.1 Chronic obstructive pulmonary disease with (acute) exacerbation (principal); M54.9 Dorsalgia, unspecified; R29.6 Repeated falls; R19.7 Diarrhea, unspecified | CPT/HCPCS: 99222 ==

== ENCOUNTER → 2025-02-16 02:11 | Outpatient (BNV) | payer MEDICARE, MEDICAID, SELFPAY | PROVIDERS: Admitting Provider Student in an Organized Health Care Education/Training Program; Emergency Provider Emergency Medicine Emergency Medical Services; PCP Internal Medicine; Visit Provider Psychiatry & Neurology Neurology | DX: M54.42 Lumbago with sciatica, left side (principal); M54.41 Lumbago with sciatica, right side; G89.29 Other chronic pain | CPT/HCPCS: 99222 ==

== ENCOUNTER 2025-02-27 14:51 | Emergency (ER) | payer MEDICARE, MEDICAID, SELFPAY ==
--- NOTE | ~2025-02-27 | XR_ITS ---
CLINICAL HISTORY: TTP poor gait 3 view, pelvis and right hip Comparison: CT/VT/SR - CT ANGIO ABDOMEN PELVIS - 02/21/25 08:49 EDT Findings: No acute fracture or dislocation. Moderate to severe degenerative disease with joint space narrowing, subchondral cystic changes, and osteophytosis. The soft tissues are unremarkable. IMPRESSION: No acute findings. 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 This document has been electronically signed by: Kesha Kelly MD on 02/27/2025 18:59:21
[2025-02-27 15:06] VITALS: BP 122/70; PULSE 97; O2SAT 92
[2025-02-27 15:20] VITALS: BP 106/71; PULSE 85; RESP 14; TEMP 36.7; O2SAT 91; BMI 33.5
--- OUTSIDE RECORDS SUMMARY | 2025-02-27 15:44 | XMS_ITS | Encounter Summary ---
Author Organization [facility] Address [address] [place] [address] Care Team Providers Care Stations Superintendent Name Role Phone Lei Zuleta MD Primary Care Provider [phone] Reason for Visit * Reason Onset Date Comments vna 02/26/2025 Encounter Details Date Type Department Care Team (Late st Contact Info) Description 02/26/2025 Telephone Adult Medicine [address] [phone] Lei Zuleta MD [address] [place] [phone] vna Social History Tobacco Use Types Packs/Day Years [...] as of this encounter Progress Notes * Fina Harrell RN - 02/27/2025 9:00 AM EDT Called and spoke to Debbie at [facility]. She was given verbal orders from Dr. Zuleta for PT/OT/SN. Called and spoke to pt's son, Frantz, with her permission. Pt was discharged from [facility] on02/24/25 r/t back pain and increased lethargy. She is currently on pain medication. They would like along term plan regarding her back pain. He was advised this could be discussed at her upcoming appointment with Dr. Zuleta on 03/19/25 at 1:30 pm. He is in agreement with this plan. He was instructed tocall the office if pt develops any new or worsening symptoms prior to her upcoming appointment. * Lei Zuleta MD - 02/26/2025 6:37 PM EDT Please give the VO * Dong Brown LPN - 02/26/2025 4:43 PM EDT [facility] is requesting VO for PT, OT and nursing. Please review and advise. Thank you Please send response to nurse triage pool [facility] 05/29/24 Please book a hosptial follow up * Subhash Canchola - 02/26/2025 2:48 PM EDT VNA CALL Which [facility] office is calling? Camille Gray Full name of caller: Debbie The caller is A nurse Is the caller at the patients home?: no Reason for call: Requesting a call for verbal orders for [facility] Does caller need an urgent call back? no Was CONTACT Telephone # obtained above?: yes Fax #: documented in this encounter Plan of Treatment Upcoming Encounters Date Type Department Care Team (Late st Contact Info) Description 03/19/2025 1:30 PM EDT Office Visit Adult Medicine [address] [phone] Lei Zuleta MD [address] [place] [phone] documented as of this encounter Visit Diagnoses Not on filedocumented in this encounter Care Teams Stations Superintendent Relationship Specialty Start Date End Date Lei Zuleta MD PCP - General 01/20/11 documented as of this encounter
--- NOTE | 2025-02-27 16:53 | ED_ITS ---
HPI - Back Pain/Injury General Chief Complaint: Back Pain/Injury Stated Complaint: BACK PAIN,NO INJURY PER EMS Time Seen by Provider: 02/27/25 16:52 Source: patient, family (son), RN notes reviewed and old records reviewed Mode of arrival: EMS Limitations: physical limitation History of Present Illness ED Provider: Zina Mcrae PA-C HPI Narrative: 70 y/o F here today with PMH significant for COPD, HTN, mixed HLD, hypothyroidism, GERD, chronic low back pain secondary to spinal stenosis. She was admitted here on 02/17/25 due to intractable low back pain and weakness/hypotension. It was recommended at the time she go to STR but she declined and went home 3 days ago d/c on 02/24/25 with plan for visiting nurses. The first visit did not occur until today. Patient's son who lives in [place], flew in and is here until Tuesday. Patient lives at home alone but needs to walk up three flights of stairs to get to her floor. No elevator. She has a walker at home to use as needed. She usually does her own ADLs including grocery shopping but back pain has been too severe for her to get out of bed. Her son gave her her last oxycodone pill last night which helped. SHe woke up this morning more stiff and due to pain in her lower back and down leg, she called EMS to bring her here. Son reports she was on a pain mgt contract 7 years ago but broke it by smoking marijuana. SHe has not been able to get back on regular pain mgt since that time. Her PCP has managed her. SHe does not have another appt with her PCP until next Tuesday, one week from now. Patient does not feel sick and this is her usual pain. No falls or trauma. No sxs. Last BM and void early today, no retention or pain. Her son gave her flexeril this morning no improvement. She is agreeable at this time to reconsider STR if it means her pain can be better controlled to allow her to still do her ADLs. Just prior to her d/c here on Tuesday, she was also admitted on 02/08-02/14 for COPD and PNA vs CHF. She had lumbar spine MRI on 02/21/25:Multilevel lumbar spondylosis and spinal stenosis, most pronounced at L3-L5, No acute fracture or pathologic bone lesion. CTA same day showing possible LLL PNA with small pleural effusionShe is still on doxy, denying any respiratory sxs. NO fevers coughing or sob. On d/c on 02/23 she was anemic due to low iron and folate, she is now on these supplements, neuro also added on gabapentin. MD elicited complaint: back pain Pertinent past history: prior back pain Related Data Home Medications ?Medication ?Instructions ?Recorded ?Confirmed atorvastatin 80 mg tablet 1 tab PO DAILY 05/03/2201/18 famotidine 20 mg tablet 20 mg PO DAILY 02/16/2501/18 levothyroxine 200 mcg tablet 200 mcg PO DAILY 02/16/25 02/27/25 metoprolol succinate 25 mg 25 mg PO DAILY 02/16/2501/18 tablet,extended release 24 hr sertraline 50 mg tablet 50 mg PO DAILY 02/16/2501/18 Previous Rx's ?Medication ?Instructions ?Recorded capsaicin 0.025 % topical cream 1 appl topical QID PRN Pain, 02/23/25 Moderate(Pain Scale 4-6) #1 g cyclobenzaprine 5 mg tablet 5 mg PO TID PRN Muscle Spa sm #20 02/23/25 tabs ferrous sulfate 325 mg (65 mg 325 mg PO DAILY #90 tabs 02/23/25 iron) tablet (Iron (ferrous sulfate)) folic acid 1 mg tablet 1 mg PO DAILY #90 tabs 02/23 gabapentin 300 mg capsule 300 mg PO BEDTIME #20 caps 0 02/23/25 lidocaine 4 % topical patch 2 patch transdermal DAILY #20 ea 02/23/25 (Lidocaine Pain Relief) omeprazole 20 mg capsule,delayed 20 mg PO BID@0630,163 0 #180 caps 02/23/25 release oxycodone 5 mg tablet 10 mg (2 x 5 mg) PO Q6H PRN Pain, 02/23/25 Moderate(Pain Scale 4-6) #20 tabs doxycycline hyclate 100 mg capsule 100 mg PO BID #16 c aps 02/24/25 oxycodone 10 mg tablet 10 mg PO Q8H PRN severe pain 02/28/25 (scale score 7-10) #9 tabs Allergies Allergy/AdvReac Type Severity Reaction Status Date / Time No Known Allergies (No Known Allergy Verified 02/27/25 15:21 Allergies*) Review of Systems 2 Review of Systems: Yes all other systems are reviewed and are negative [facility] Past Medical History Attestation statement: The following information was validated with the patient. Source: old records reviewed and nursing notes reviewed Medical History Diarrhea COPD (chronic obstructive pulmonary disease) CHF (congestive heart failure) Prediabetes CAD (coronary artery disease) GERD (gastroesophageal reflux disease) Smoker Spinal stenosis Depression Insomnia Borderline diabetic Heart attack Colitis Surgical History History of tonsillectomy H/O eye surgery H/O thyroidectomy Hx of cholecystectomy Social History Social History Household Members: None Housing: House Do you presently have visiting nurse or other home services: No Alcohol intake: former Patient Tobacco Use Status: Current everyday Tobacco user Tobacco use type: Cigarette Cigarette Packs Per Day: 1 Cigarettes Per Day: 20.0 Years Smoked: 54 Advance Directives Date on File: 02/17/25 service: No Current occupational status: employed Physical Exam 2 Vital Signs: Vital Signs: Last Vital Signs Temp 98.4 F 02/28/25 14:13 Pulse 79 02/28/25 14:13 Resp 21 H 02/28/25 14:13 BP 102/61 02/28/25 14:13 Pulse Ox 95 02/28/25 14:13 O2 Del Method Nasal Cannula 02/28/25 14:13 O2 Flow Rate 2 02/28/25 14:13 BMI result Body Mass Index 33.5 Const: Other: General: AOx3 Resp: CTA bilaterally, no wheezing or crackles CVS: S1, S2, RRR GI: +BS, NT, no distention Skin: Warm, dry Neuro: Cranial nerves II-XII grossly intact bilaterally. Motor grossly intact bilaterally MSK: No LE edema. pain with palpation right lower back musculature and right GT process of hip, no pain with pelvic rocking, no ecchymosis noted, no pain with palpation of lumbar spine- no midline tenderness, step-offs or deformites, small surgical scar old appearing mid lower back, no sciatic notch tenderness noted, Moves all extremities, no bowel or bladder incontinence, strength 4+ throughout Psych: Appropriate affect General: cooperative, alert and other (appears uncomfortable but no respiratory distress) Nutritional Appearance: obese Course Reevaluation(s) Reevaluation #1: Time: 13:58 Date: 02/28/25 Provider: GUDELIA Collazo. physician observation continued overnight. no acute events. she has been ordered for oxycodone and flexeril prn for pain. VS remain stable. Physician observation ended at 13:57. patient has been accepted to [facility] [address]. oxycodone to be printed. she does not require medical admission at this time and can be safely discharged to acute rehab. Time: 13:57 Medications Administered Discontinued Medications Generic Name Dose Route Start Last Admin Trade Name Freq PRN Reason Stop Dose Admin Acetaminophen 975 mg 02/28/25 09:34 02/28/25 10:51 Acetaminophen 325 Mg Tablet PO 02/28/25 09:35 975 mg ONCE ONE Administration Atorvastatin Calcium 80 mg 02/28/25 09:00 02/28/25 08:27 Atorvastatin Calcium 80 Mg Tablet PO 80 mg DAILY KT Administration Calcium Carbonate 1,500 mg 02/28/25 09:34 02/28/25 10:51 Calcium Carbonate 750 Mg Tab.Chew PO 02/28/25 09:35 1,500 mg ONCE ONE Administration Diazepam 5 mg 02/27/25 20:28 02/27/25 20:38 Diazepam 5 Mg Tablet PO 02/27/25 20:29 5 mg ONCE ONE Administration Doxycycline Monohydrate 100 mg 02/28/25 09:00 02/28/25 08:26 Doxycycline Monohydrate 100 Mg Capsule PO 100 mg BID KT Administration Famotidine 20 mg 02/28/25 09:00 02/28/25 08:25 Famotidine 20 Mg Tablet PO 20 mg DAILY KT Administration Ferrous Sulfate 324 mg 02/28/25 09:00 02/28/25 08:25 Ferrous Sulfate 324 Mg Tablet. PO 324 mg DAILY KT Administration Folic Acid 1 mg 02/28/25 09:00 02/28/25 08:26 Folic Acid 1 Mg Tablet PO 1 mg DAILY KT Administration Gabapentin 300 mg 02/28/25 07:45 02/28/25 08:26 Gabapentin 300 Mg Capsule PO 300 mg BEDTIME KT Administration Ketorolac Tromethamine 15 mg 02/27/25 20:28 02/27/25 20:39 Ketorolac Tromethamine 15 Mg/Ml Vial IM 02/27/25 20:29 15 mg ONCE ONE Administration Levothyroxine Sodium 200 mcg 02/28/25 08:00 02/28/25 08:26 Levothyroxine Sodium 200 Mcg Tablet PO 200 mcg DAILY@0630 KT Administration Lidocaine 1 patch 02/27/25 17:23 02/27/25 17:52 Lidocaine 4 % Patch Adh..Patch TRANSDERMA 02/27/25 17:24 1 patch ONCE ONE Administration Protocol Lidocaine 2 patch 02/28/25 09:00 02/28/25 08:24 Lidocaine 4 % Patch Adh..Patch TRANSDERMA 2 patch DAILY [facility] Administration Protocol Metoprolol Succinate 25 mg 02/28/25 09:00 02/28/25 08:26 Metoprolol Succinate Er 25 Mg Tab.Er.24h PO 25 mg DAILY KT Administration Protocol Omeprazole 20 mg 02/28/25 07:45 02/28/25 08:25 Omeprazole 20 Mg Capsule.Dr PO 20 mg BID@0630,1630 KT Administration Ondansetron HCl 4 mg 02/28/25 09:34 02/28/25 10:51 Ondansetron Odt 4 Mg Tab.Rapdis TRANSLINGU 02/28/25 09:35 4 mg ONCE ONE Administration Oxycodone HCl 10 mg 02/27/25 17:11 02/27/25 17:52 Oxycodone Hcl Immed Release 5 Mg Tablet PO 02/27/25 17:12 10 mg ONCE ONE Administration Oxycodone HCl 10 mg 02/27/25 18:22 02/28/25 05:29 Oxycodone Hcl Er 10 Mg Tab.Er.12h PO 10 mg Q12H PRN Administration severe pain Oxycodone HCl 10 mg 02/28/25 07:42 02/28/25 08:31 Oxycodone Hcl Immed Release 5 Mg Tablet PO 10 mg Q6H PRN Administration Pain, Moderate(Pain Scale 4-6) Sertraline HCl 50 mg 02/28/25 09:00 02/28/25 08:25 Sertraline Hcl 50 Mg Tablet PO 50 mg DAILY KT Administration Medical Decision Making Medical Decision Making MDM Narrative: 70 y/o F with PMH sig for spinal stenosis, HLD, HTN, hypothyroidism, and both folic and iron deficiency anemia here today for intractable back pain. Just d/c from here three days ago for same CC. She arrives stable via amb. Son accompanies her. SHe has stable vital signs, no hypotensive or febrile. She is out of her pain medication and it is interferring with her ability to move and take care of herself. On exam, there is no evidence of NVC. No new trauma or falls. H and P as above. Will repeat basic labs based on her anemia on last visit as well as screen for electrolyte imbalance and kidney dysfunction. She is newly tender of her right GT, will order xray and update plan as needed. She came here seeking reconsideration for STR for which declined a few days ago here. Pain not controlled. Pain medication ordered. Will consult with PT/CM. Unfortunately they are gone for the day. Will place patient in ED phys obs awaiting these services. We will continue to monitor. Time: 18:00 Date: 02/27/25 Provider: Zina Mcrae PA-C Patient in physician observation for case management needs.VS stable. Patient is pending placement at facility/pending PT/CM eval. Will continue to monitor. Time: 6:15pm Date: 02/27/25: Case signed out to night Joi GALEAS. PRN pain meds placed before sign out. Pending basic labs and xray results. Differential Diagnosis Differential Diagnoses: The differential diagnosis associated with the presentation includes physical deconditioning, trauma, worsening depression, opiate dependence withdrawal Admission/Observation Consideration of admission/observation: Escalation of care including admission/observation considered At this time, stable, will update plan as needed during ED phys obs. Lab Data 02/27/25 17:50 02/27/25 17:50 Labs: Lab Results 02/27/25 02/28/25 Range/Units 17:50 08:55 WBC 5.0 (4.8-10.8) X10*3/uL RBC 3.08 L (4.20-5.50) X10*6/uL Hgb 9.6 L (12.0-16.0) g/dl Hct 29.3 L (37.0-47.0) % MCV 95.1 (80.0-98.0) fL MCH 31.2 (27.0-33.0) pg MCHC 32.8 (31.0-35.0) g/dl RDW 16.1 H (11.0-16.0) % Plt Count 330 D (160-400) X10*3/uL MPV 9.3 L (9.4-12.3) fL Immature Gran % (Auto) 1.0 H (0.0-0.4) % Neut % (Auto) 52.9 (45-73) % Lymph % (Auto) 31.2 (20-40) % [place] % (Auto) 11.3 H (2-11) % Eos % (Auto) 3.0 (0-4) % Baso % (Auto) 0.6 (0-2) % Lymph # (Auto) 1.6 (1.2-4.9) X10*3/uL [place] # (Auto) 0.6 (0.1-1.2) X10*3/uL Eos # (Auto) 0.2 (0.0-0.4) X10*3/uL Baso # (Auto) 0.0 (0.0-0.2) X10*3/uL Abs Immat Gran (auto) 0.05 H (0.00-0.03) X10*3/uL Absolute Neuts (auto) 2.7 (2.0-8.3) x10*3/uL Absolute Nucleated RBC 0.000 (0.0-0.012) X10*3/uL Nucleated RBC % (auto) 0.0 (0.0-0.2) /100WBC Sodium 143 (135-145) mmol/L Potassium 3.8 (3.3-5.1) mmol/L Chloride 103 (96-108) mmol/L Carbon Dioxide 31 H (22-29) mmol/L Anion Gap 13 (12-20) BUN 14 (9-16) mg/dL Creatinine 0.70 (0.5-1.4) mg/dL Estim Creat Clear Calc 82.8 Estimated GFR > 60 Random Glucose 101 (60-115) mg/dL Calcium 8.7 D (8.4-10.2) mg/dL Magnesium 1.8 (1.6-2.6) mg/dL Influenza Type A (PCR) NEGATIVE (Negative) Influenza Type B (PCR) NEGATIVE (Negative) RSV RNA Qual (PCR) NEGATIVE (Negative) SARS-CoV-2 RNA (RT-PCR) NEGATIVE (Negative) Independent Historian Clinical information obtained from an independent historian. History obtained from or confirmed by: Other (son who is present bedside) External Record Review External record reviewed: Inpatient record Tests considered The following testing was considered but not selected: CT/MRI already done few days ago, no changes in status to reconsider the need for it Prescription Management I considered prescription management with: Pain Medication Chronic Conditions Patient?s care impacted by: Hypertension and Other (opiate dependence, spinal stenosis) Social Determinants Patient?s care significantly limited by Social Determinants of Health including: Other Social Determinant of Health Discharge Plan Discharge Clinical Impression: Severe back pain Patient Disposition: Xfer Inpatient Rehab Fac Transfer Details: [facility]: [facility] [address] Instructions: Back Pain (ED) Additional Instructions: take the prescribed oxycodone as needed for severe pain only follow up with your doctor as soon as possible If you develop new or worsening symptoms call 911 or come back to the ER for further evaluation. CLINICAL HISTORY: radicular pain pt was in pain unable to repeat MR lumbar spine without gadolinium Comparison: CT/SR - CT LUMBAR SPINE WO IV CON - 02/16/25 00:14 EDT Findings: Levoscoliosis. Diffuse heterogeneous marrow signal with Modic endplate degenerative changes without marrow edema. No acute fracture or pathologic bone lesion. Conus medullaris within normal limits. Paraspinous musculature intact. Right-sided renal cysts. Nonspecific bilateral perinephric stranding. Multilevel facet arthropathy, ligamentum flavum buckling and disc bulges/protrusions. Severe right and moderate left bilateral foraminal stenoses at L1-L2. No high-grade spinal canal narrowing. Mild spinal canal narrowing at L2-L3. [id number] bilateral foraminal stenoses. Moderate to severe spinal canal narrowing at L3-L4, with severe bilateral foraminal stenoses. Moderate to severe spinal canal narrowing at L4-L5 with severe bilateral foraminal stenoses, left worse than right. [id number] bilateral foraminal stenoses at L5-S1. No high-grade spinal canal narrowing. IMPRESSION: Multilevel lumbar spondylosis, pronounced at L3-L5, please see above. Prescriptions: New oxycodone 10 mg tablet 10 mg PO Q8H PRN (Reason: severe pain (scale score 7-10)) Qty: 9 0RF Rx Instructions: Partial Fill upon patient request. No Action atorvastatin 80 mg tablet 1 tab PO DAILY famotidine 20 mg Tablet 20 mg PO DAILY levothyroxine 200 mcg Tablet 200 mcg PO DAILY metoprolol succinate 25 mg Tablet Extended Release 24 Hr 25 mg PO DAILY sertraline 50 mg Tablet 50 mg PO DAILY lidocaine [Lidocaine Pain Relief] 4 % Adhesive Patch,Medicated 2 patch transdermal DAILY Qty: 20 0RF Protocol: Apply to: Apply to: affceted area gabapentin 300 mg Capsule 300 mg PO BEDTIME Qty: 20 0RF omeprazole 20 mg Capsule,Delayed Release(Dr/Ec) 20 mg PO BID@0630,1630 Qty: 180 0RF folic acid 1 mg Tablet 1 mg PO DAILY Qty: 90 0RF capsaicin 0.025 % Cream 1 appl topical QID PRN (Reason: Pain, Moderate(Pain Scale 4-6)) Qty: 1 0RF Protocol: Apply to: Apply to: affected area oxycodone 5 mg Tablet 10 mg PO Q6H PRN (Reason: Pain, Moderate(Pain Scale 4-6)) Qty: 20 0RF Rx Instructions: Partial Fill upon patient request. cyclobenzaprine 5 mg Tablet 5 mg PO TID PRN (Reason: Muscle Spasm) Qty: 20 0RF ferrous sulfate [Iron (ferrous sulfate)] 325 mg (65 mg iron) tablet 325 mg PO DAILY Qty: 90 0RF doxycycline hyclate 100 mg capsule 100 mg PO BID Qty: 16 0RF [facility]] Lei Zuleta III, MD [Primary Care Provider] Samuel Flaherty MD, PhD [Physician] Discharge Date/Time: 02/28/25 14:30 Print Language: Lao
[2025-02-27] MEDS: oxyCODONE HCl Immed Release 5 MG TABLET 10 MG PO (17:52)
[2025-02-27] MEDS: Lidocaine 4 % Patch ADH..PATCH 1 PATCH TRANSDERMA (17:52)
[2025-02-27 17:53] VITALS: BP 133/70; PULSE 82; RESP 14; O2SAT 94
[2025-02-27 17:55] LABS: MANUAL DIFF FLAG NO
[2025-02-27 17:57] LABS: Basophils Percent Auto 0.6 % (0-2); Eosinophils Absolute Auto 0.2 X10*3/uL (0.0-0.4); Hematocrit 29.3 % (37.0-47.0); Hemoglobin 9.6 g/dl (12.0-16.0); Imm Gran Abs Auto 0.05 X10*3/uL (0.00-0.03); Lymphocytes Absolute Auto 1.6 X10*3/uL (1.2-4.9); Lymphocytes Percent Auto 31.2 % (20-40); Mean Corpuscular HGB Conc 32.8 g/dl (31.0-35.0); Mean Corpuscular Hemoglobin 31.2 pg (27.0-33.0); Mean Corpuscular Volume 95.1 fL (80.0-98.0); Mean Platelet Volume 9.3 fL (9.4-12.3); Monocytes Absolute Auto 0.6 X10*3/uL (0.1-1.2); Monocytes Percent Auto 11.3 % (2-11); Neutrophils Absolute Auto 2.7 x10*3/uL (2.0-8.3); Neutrophils Percent Auto 52.9 % (45-73); Platelet Count 330 X10*3/uL (160-400); Red Blood Count 3.08 X10*6/uL (4.20-5.50); Red Cell Distribution Width 16.1 % (11.0-16.0)
[2025-02-27 18:09] LABS: Anion Gap 13 (12-20); Blood Urea Nitrogen 14 mg/dL (9-16); Calcium 8.7 mg/dL (8.4-10.2); Carbon Dioxide 31 mmol/L (22-29); Chloride 103 mmol/L (96-108); Creatinine Clr Calc Pharmacy 82.8; Estimated Glomerular Filt Rate > 60; Glucose Random 101 mg/dL (60-115); Magnesium 1.8 mg/dL (1.6-2.6); Potassium 3.8 mmol/L (3.3-5.1); Sodium 143 mmol/L (135-145)
--- NOTE | 2025-02-27 20:29 | PHA.MEDREC ---
Pharmacy Consult ? Medication Reconciliation Pharmacy has completed the medication reconciliation. Patient has history of being a poor historian. Patient recently discharge for [facility] on 02/24. Utilized discharge summary to complete medication reconciliation. Patient was prescribed doxycycline for an 8 day supply should finish on 03/03/25 if patient has been taking as prescribed. Duplicate ferrous sulfate order were prescribed, kept daily order and can increase if necessary. Andra Grewal, PharmD
[2025-02-27 20:35] VITALS: BP 111/72; PULSE 72; RESP 15; O2SAT 95
[2025-02-27] MEDS: diazePAM 5 MG TABLET PO (20:38)
[2025-02-27] MEDS: Ketorolac Tromethamine 15 MG/ML VIAL IM (20:39)
[2025-02-28 02:40] VITALS: BP 111/90; PULSE 83; RESP 20; O2SAT 94
[2025-02-28] MEDS: oxyCODONE HCl ER 10 MG TAB.ER.12H PO (05:29)
[2025-02-28 06:07] VITALS: BP 140/70; PULSE 76; RESP 20; TEMP 36.4; O2SAT 94
[2025-02-28 07:38] VITALS: BP 140/70; PULSE 76; O2SAT 94
[2025-02-28] MEDS: Lidocaine 4 % Patch ADH..PATCH 2 PATCH TRANSDERMA (08:24)
[2025-02-28] MEDS: Sertraline HCL 50 MG TABLET PO (08:25)
[2025-02-28] MEDS: Omeprazole 20 MG CAPSULE.DR PO (08:25)
[2025-02-28] MEDS: Famotidine 20 MG TABLET PO (08:25)
[2025-02-28] MEDS: Ferrous Sulfate 324 MG TABLET.DR PO (08:25)
[2025-02-28 08:26] VITALS: BP 140/70; PULSE 75
[2025-02-28] MEDS: Gabapentin 300 MG CAPSULE PO (08:26)
[2025-02-28] MEDS: Folic Acid 1 MG TABLET PO (08:26)
[2025-02-28] MEDS: Doxycycline Monohydrate 100 MG CAPSULE PO (08:26)
[2025-02-28] MEDS: Levothyroxine Sodium 200 MCG TABLET PO (08:26)
[2025-02-28] MEDS: Metoprolol Succinate ER 25 MG TAB.ER.24H PO (08:26)
[2025-02-28] MEDS: Atorvastatin Calcium 80 MG TABLET PO (08:27)
[2025-02-28] MEDS: oxyCODONE HCl Immed Release 5 MG TABLET 10 MG PO (08:31)
--- NOTE | 2025-02-28 09:43 | MHC.CM.ED ---
Addendum entered by Joy King 02/28/25 09:53: During assessment, patient c/o back pain, nausea and acid reflux. Karmen GALEAS aware. Original Note: Received case management consult overnight. Patient came to the ER due to back pain. Work up essentially negative. Physical therapy eval completed. Short term rehab is recommended. Met with patient and son, Frantz in regards to discharge planning. Frantz lives in [place]. His sister has medical issues and his brother has 3 young kids. Patient was inpatient at [facility] from 02/16-02/24. Short term rehab was recommended at that time. Patient declined and went home with new home oxygen and [facility]. Patient returned due to back pain and is now agreeable to STR. PCP verified. Copy of HCP verified to be on file. Patient and Frantz agreeable to referral being broadcasted and bed offers being provided. Referral broadcasted within 15 miles of patient's home at this time. Continue to monitor for d/c needs.
[2025-02-28 09:56] LABS: Influenza A PCR NEGATIVE (Negative); Influenza B PCR NEGATIVE (Negative); Resp Syncy Virus RNA Qual PCR NEGATIVE (Negative); SARS COV2 PCR INHOUSE NEGATIVE (Negative)
--- NOTE | 2025-02-28 10:46 | MHC.EDTECH ---
pt was incontinent of stool, pericare was provided, new hospital gown and clean linen given. call nieves within reach, no other needs stated. RN aware
[2025-02-28] MEDS: Acetaminophen 325 MG TABLET 975 MG PO (10:51)
[2025-02-28] MEDS: Ondansetron ODT 4 MG TAB.RAPDIS TRANSLINGU (10:51)
[2025-02-28] MEDS: Calcium Carbonate 750 MG TAB.CHEW 1500 MG PO (10:51)
--- NOTE | 2025-02-28 12:05 | MHC.CM.ED ---
Patient remains in ER. 16 facilities are able to offer a bed. Per patient and son Frantz, accept bed at [facility] [address]. Elena GRAYSON booked for 2pm. Med [facility] with chart. Patient, Arthur Landry RN and Karmen GALEAS aware. Camille MERCER also made aware. Continue to monitor for d/c needs.
--- NOTE | 2025-02-28 13:20 | PC.NURSE ---
pt asking this nurse to get into his bed and give him a back massage. this nurse told the patient we do not do that in the hospital. there is now a female sitter at bedside, this nurse inquired to the [facility] about possibly having a male sitter- have not yet heard back from them. additionally charge was made aware we have a female sitter.
[2025-02-28 14:13] VITALS: BP 102/61; PULSE 79; RESP 21; TEMP 36.9; O2SAT 95
== END 2025-02-28 14:30 ==
PROVIDERS: Physician Assistant Medical; Emergency Provider Emergency Medicine; PCP Internal Medicine
DX: M54.50 Low back pain, unspecified (principal); M79.606 Pain in leg, unspecified; J44.9 Chronic obstructive pulmonary disease, unspecified; I10 Essential (primary) hypertension; E78.5 Hyperlipidemia, unspecified; E03.9 Hypothyroidism, unspecified; Z03.818 Encounter for observation for suspected exposure to other biological agents ruled out
CPT/HCPCS: 0241U; 36415; 73502; 80048; 83735; 85025; 96372; 97161; 99284; J1885

== ENCOUNTER → 2025-02-27 17:11 | Outpatient (BNV) | payer MEDICARE, MEDICAID, SELFPAY | PROVIDERS: Emergency Provider Emergency Medicine; PCP Internal Medicine; Visit Provider Student in an Organized Health Care Education/Training Program | DX: M16.11 Unilateral primary osteoarthritis, right hip (principal) | CPT/HCPCS: 73502 ==